=== PATIENT | male | born 1955 | race Caucasian/White ===

== ENCOUNTER 2024-02-11 14:11 | Outpatient (OUT) | payer MEDICARE, OTHER, SELFPAY ==
--- NOTE | 2024-02-11 | XR_ITS ---
The [address] [address] Patient Name: BENNY ZIEGLER MRN: [id number] date: 1955 Sex: M Assigned Patient Location: Current Patient Location: Accession/Order Number: [id number] Exam Date: 02/11/2024 14:16 Report Date: 02/13/2024 06:11 At the request of: BRENDA PULIDO Procedure: XR ankle RT min 3V PROCEDURE: XR ankle RT min 3V HISTORY: RIGHT ANKLE PAIN COMPARISON: None. FINDINGS: BONES:No fracture, acute abnormality, or significant arthropathy. SOFT TISSUES:No visible soft tissue swelling. EFFUSION:None visible. OTHER: Negative. XR/XR ankle RT min 3V IMPRESSION: 1. No appreciable acute abnormality or significant degenerative changes. Electronically authenticated by: MAYAR SHOEMAKER Date: 02/13/2024 06:11
== END 2024-02-11 14:12 | disposition home or self-care (01) ==
LOC: EC 14:11
PROVIDERS: Visit Provider Physician Assistant
DX: M25.571 Pain in right ankle and joints of right foot (principal)
CPT/HCPCS: 73610

== ENCOUNTER 2025-04-27 13:55 | Outpatient (OUT) | payer MEDICARE, OTHER, SELFPAY ==
--- OUTSIDE RECORDS SUMMARY | 2025-04-27 14:00 | XMS_ITS | CCD ---
Author Organization [facility] Care Team Providers Care Supervisor Drawing Name Role Phone Edwardo Michael Unavailable Unavailable Unavailable FERNANDA, DR BROOKE Attending Unavailable FERNANDA, DR BROOKE Consulting Unavailable FERNANDA, DR BROOKE Admitting Unavailable Edwardo Michael Unavailable Fernanda, DO Brooke Primary Care Provider Fernanda, DO Brooke Attending Provider [phone] DO Edwardo Michael Primary Care Provider [phone] Fernanda, DO Brooke Attending Provider Fernanda, DO Brooke Primary Care Provider Fernanda, DO Brooke Attending Provider [phone] DO Dougie Abernathy Attending Provider Edwardo Michael DO Primary Care Provider [phone] Edwardo Michael DO Primary Care Provider [phone] BENNY MURRY Attending Unavailable EDWARDO MICHAEL Primary Care Unavailable BENNY MURRY Referring Unavailable EDWARDO MICHAEL Primary Care Unavailable BENNY MURRY Referring Unavailable EDWARDO MICHAEL Primary Care Unavailable MURPHY TESFAYE Attending Unavailable EDWARDO MICHAEL Primary Care Unavailable BENNY EDWARDS Referring Unavailable EDWARDO MICHAEL Primary Care Unavailable DOUGIE ABERNATHY Attending Unavailable GERMÁN YUAN Referring Unavailable ANANT NORRIS Attending Unavailable PATRICIA ESCALERA Attending Unavailable MURPHY TESFAYE Referring Unavailable ALBINO LOWERY Attending Unavailable MURPHY TESFAYE Referring Unavailable ALBINO LOWERY Attending Unavailable DEARTH, MURPHY Referring Unavailable ALBINO LOWERY Attending Unavailable DEARTH, MURPHY Referring Unavailable PETYAZMINI, GERMÁN A Attending Unavailable BIEDDESMOND, DOUGIE Lozano Attending Unavailable PETITTI, GERMÁN A Referring Unavailable BIEDDESMOND, DOUGIE Lozano Attending Unavailable PETSANJUANITA, GERMÁN A Referring Unavailable BICHRIS, DOUGIE Lozano Attending Unavailable SEBASTIÁN, LABINO Attending Unavailable DEARTH, MURPHY Referring Unavailable LALI, PATRICIA Attending Unavailable DEARTH, MURPHY Referring Unavailable ALBINO LOWERY Attending Unavailable DEARTH, MURPHY Referring Unavailable LALI, PATRICIA Attending Unavailable DEARTH, MURPHY Referring Unavailable ANANT NORRIS Attending Unavailable JOSEMANUEL, DOUGIE Lozano Attending Unavailable Edwardo Michael DO Primary Care Provider Edwardo Michael DO Attending Provider Edwardo Michael Admitting Unavailable Fernanda, Edwardo Primary Care Unavailable Edwardo Michael Attending Unavailable Dougie Abernathy Admitting Unavailable Josemanuel, Dougie Attending Unavailable Fernanda, Edwardo Attending Unavailable Fernanda, Edwardo Admitting Unavailable Fernanda, Edwardo Primary Care Unavailable Josemanuel, Dougie Admitting Unavailable Josemanuel, Dougie Attending Unavailable Fernanda, Edwardo Primary Care Unavailable Fernanda, Edwardo Attending Unavailable Fernanda, Edwardo Admitting Unavailable Edwardo Michael Primary Care Unavailable Allergies Allergy Classification Reported Allergen(s) Allergy Type Date of Onset Reaction(s) Facility (1 source) ALLERGIES NOT ON FILE; Translations: [ALLERGIES NOT ON FILE] Propensity to adverse reactions (disorder) [facility] 3 Repository Medications Current Medications Medication Drug Class(es) Dates Sig (Normalized) Sig (Original) Ascorbic Acid (6 sources) Vitamin C Vitamin C Active aspirin 81 mg delayed release oral tablet (4 sources) Platelet Aggregation Inhibitor, Nonsteroidal Anti-inflammatory Drug Start: 04-30-2024 take 1 tablet by mouth once daily Aspirin 81 mg tablet,delayed release (DR/EC) Active 81 MG PO Daily April 30, 2024 12:00am Complies with drug therapy azithromycin 250 mg oral tablet (4 sources) Macrolide Antimicrobial Start: 06-05-2022 Zithromax Z-Romero 250 MG as directed Orally May, Active cholecalciferol 0.05 mg oral capsule (5 sources) Vitamin D Start: 04-07-2024 take 1 capsule by mouth once daily Cholecalciferol (Vitamin D3) 50 mcg (2,000 unit) capsule Active 50 MCG PO Daily April 07, 2024 12:00am Complies with drug therapy ezetimibe 10 mg oral tablet (20 sources) Dietary Cholesterol Absorption Inhibitor Start: 04-07-2024 End: 04-15-2025 take 1 tablet by mouth once daily Ezetimibe (Zetia) 10 mg tablet Active 10 MG PO Daily April 15, 2025 10:25am Complies with drug therapy Start: 09-15-2015 take 1 tablet by ashkan th every twenty-four hours Zetia 10 MG 1 tablet Orally Once a day Sep, Active fluorouracil 50 mg/ml topical cream (4 sources) Nucleoside Metabolic Inhibitor Start: 04-30-2024 Fluorouracil (Efudex) 5 % cream Active 1 APPLIC TOPICAL Twice daily 40 April 30, 2024 12:00am Complies with drug therapy methylPREDNISolone 4 mg oral tablet (4 sources) Corticosteroid Start: 06-05-2022 Medrol 4 MG as directed Orally May, Active Multivitamin preparation (2 sources) Start: 04-30-2024 take 1 tablet by mouth once daily Multivitamin Active 1 TAB PO Daily April 30, 2024 12:00am Multivitamin tablet (2 sources) Start: 04-30-2024 take 1 tablet by mouth once daily Multivitamin tablet Active 1 TAB PO Daily April 30, 2024 12:00am Complies with drug therapy Start: 04-30-2024 take 1 tablet by mouth once da kevin predniSONE 10 mg oral tablet (1 source) Start: 12-31-2024 predniSONE (Deltasone) 10 mg tablet Indications: Right shoulder pain, unspecified chronicity , Tendinitis of right rotator cuff 50MG FOR 2 DAYS, 40MG FOR 2 DAYS, 30MG FOR 2 DAYS, 20MG FOR 2 DAYS, 10MG FOR 2 DAYS 30 tablet 12/31/2024 Active sildenafil 100 mg oral tablet (17 sources) Phosphodiesterase 5 Inhibitor Start: 04-07-2024 End: 04-30-2024 take 1 tablet by mouth once daily as needed Sildenafil (Viagra) 100 mg tablet Active 100 MG PO Daily as needed for sexual activity April 30, 2024 10:25am Complies with drug therapy Start: 01-26-2017 take 1 tablet by ashkan th every twenty-four hours Viagra 100 MG 1 tablet as needed Orally Once a day for 30 day(s) alternates with cialis, NO NOT TAKE TOGETHER Jan, Active Vitamin D (6 sources) Vitamin D Active Zinc (6 sources) Zinc Active zinc gluconate 50 mg oral tablet (5 sources) Start: 04-07-2024 take 1 tablet by mouth once daily Zinc Gluconate 50 mg tablet Active 50 MG PO Daily April 07, 2024 12:00am Complies with drug therapy Completed/Discontinued Medications Medication Drug Class(es) Dates Sig (Normalized) Sig (Original) betamethasone 3 mg/ml / betamethasone acetate 3 mg/ml injectable suspension (4 sources) Corticosteroid Start: 12-31-2024 End: 12-31-2024 betamethasone acet,sod phos (Celestone) injection 2 mL Start: 12-31-2024 End: 12-31-2024 2 mL, intra-articular, Once PRN Procedure, Starting on Sun12/31/24 at 1450, For 1 dose Start: 04-27-2021 Betamethasone Sod Phos & Acet 6 (3-3) MG/ML Injection Suspension USE DIRECTED. Quantity: 0 Refills: 0 Ordered: 27-Apr-2021 Benny Murry MD Start : 27-Apr-2021 Complete Lidocaine (4 sources) Antiarrhythmic, Amide Local Anesthetic Start: 12-31-2024 End: 12-31-2024 lidocaine (Xylocaine) 10 mg/mL (1 %) injection 5 mL Start: 12-31-2024 End: 12-31-2024 5 mL, injection, Once PRN Pr ocedure, Starting on Sun12/31/24 at 1450, For 1 dose Start: 04-27-2021 Lidocaine HCl - 1 % Injection Solution USE DIRECTED. Quantity: 0 Refills: 0 Ordered: 27-Apr-2021 Benny Murry MD Start : 27-Apr-2021 Complete tadalafil 20 mg oral tablet (16 sources) Phosphodiesterase 5 Inhibitor Start: 04-07-2024 End: 04-30-2024 take 1 tablet by mouth once daily as needed Tadalafil 20 mg tablet Discontinued 20 MG PO Daily as needed April 07, 2024 12:00am April 30, 2024 9:34am FreeTextSi tablet as needed Orally once a day PRN; Note: Source Status: Takingalternates with viagra, DO NOT TAKE TOGETHER; Refills: 3; Provider: Fernanda Kingston Start: 04-13-2021 take 1 tablet by ashkan th once daily as needed Cialis 20 MG 1 tablet as needed Orally once a day PRN alternates with viagra, DO NOT TAKE TOGETHER Apr, Active Triamcinolone (8 sources) Corticosteroid Start: 01-22-2018 Kenalog -40 mg Jan, 40 mg Problems Active Problems Problem Classification Problem Date Documented Da te Episodic/Chronic Anxiety disorders (17 sources) Anxiety; Translations: [Anxiety disorder, unspecified] Onset: 04-22-2024 04-07-2024 Chronic Cardiac dysrhythmias (1 source) Palpitations Episodic Diabetes mellitus without complication (6 sources) Hyperglycemia; Translations: [Hyperglycemia, unspecified] 04-30-2024 Episodic Disorders of lipid metabolism (20 sources) Hyperlipidemia; Translations: [Hyperlipidemia, unspecified] Onset: 04-13-2021 Resolved: 03-07-2022 Chronic Immunizations and screening for infectious disease (9 sources) Contact with and (suspected) exposure to other viral communicable diseases; Translations: [Encounter for screening for other viral diseases] Onset: 04-22-2021 Resolved: 04-22-2021 Episodic Nutritional deficiencies (20 sources) Vitamin D deficiency; Translations: [Vitamin D deficiency, unspecified] Onset: 03-07-2022 Resolved: 03-07-2022 Chronic Open wounds of extremities (1 source) Laceration without foreign body of right middle finger without damage to nail, initial encounter Episodic Osteoarthritis (17 sources) Bilateral shoulder osteoarthritis; Translations: [Osteoarthrosis, localized, primary, shoulder region] 04-07-2024 Chronic Other connective tissue disease (4 sources) Neurological symptom; Translations: [Unspecified symptoms and signs involving the nervous system] 04-30-2024 Episodic Other connective tissue disease (1 source) Tendinitis of right rotator cuff; Translations: [Other shoulder lesions, right shoulder] 12-31-2024 Episodic Other connective tissue disease (2 sources) Other shoulder lesions, right shoulder; Translations: [Other shoulder lesions, right shoulder] Onset: 12-31-2024 Episodic Other male genital disorders (11 sources) Impotence of organic origin; Translations: [Male erectile dysfunction, unspecified] Chronic Other male genital disorders (3 sources) Male erectile dysfunction, unspecified; Translations: [Erectile dysfunction N52.9] Onset: 04-13-2021 Resolved: 12-27-2021 Chronic Other non-traumatic joint disorders (1 source) Shoulder pain; Translations: [Pain in joint, shoulder region] Episodic Other non-traumatic joint disorders (2 sources) Hip pain; Translations: [Pain in left hip] 12-31-2024 Episodic Other non-traumatic joint disorders (3 sources) Pain in right shoulder; Translations: [Pain in joint, shoulder region] Onset: 12-31-2024 12-31-2024 Episodic Other non-traumatic joint disorders (2 sources) Pain in left hip; Translations: [Pain in left hip] Onset: 12-31-2024 Episodic Other skin disorders (5 sources) Disorder of nail; Translations: [Nail disorder, unspecified] Episodic Other skin disorders (4 sources) Actinic keratosis; Translations: [Actinic keratosis] 04-30-2024 Episodic Other skin disorders (2 sources) Actinic keratosis; Translations: [Actinic keratosis] 04-30-2024 Episodic Residual codes; unclassified (11 sources) Memory impairment; Translations: [Other amnesia] Episodic Spondylosis; intervertebral disc disorders; other back problems (11 sources) Bilateral inflammation of sacroiliac joint; Translations: [Sacroiliitis, not elsewhere classified] Chronic Spondylosis; intervertebral disc disorders; other back problems (6 sources) Lumbar radiculopathy; Translations: [Low back pain] Onset: 01-15-2025 01-15-2025 Episodic Thyroid disorders (12 sources) Thyroid nodule; Translations: [Nontoxic single thyroid nodule] Chronic Unclassified (3 sources) CONTACT W/AND (SUSP) EXPOS COVID-19; Translations: [CONTACT W/AND (SUSP) EXPOS COVID-19] Onset: 05-02-2021 Unclassified (3 sources) Right shoulder pain, unspecified chronicity 12-31-2024 Unclassified (1 source) Low back pain, unspecified; Translations: [Low back pain, unspecified] Onset: 01-15-2025 Past or Other Problems Problem Classification Problem Date Documented Date Episodic/Chronic Other connective tissue disease (3 sources) Unspecified symptoms and signs involving the nervous system; Translations: [Other symptoms involving nervous and musculoskeletal systems] Onset: 05-08-2024 04-30-2024 Episodic Other non-epithelial cancer of skin (7 sources) Malignant neoplasm of skin; Translations: [Other specified malignant neoplasm of skin, unspecified] Onset: 05-02-2024 04-30-2024 Episodic Other screening for suspected conditions (not mental disorders or infectious disease) (20 sources) Patient encounter status; Translations: [Encounter for screening for cardiovascular disorders] Onset: 04-13-2021 Resolved: 03-07-2022 Episodic Other skin disorders (1 source) Disorder of the skin and subcutaneous tissue, unspecified; Translations: [Disorder of the skin and subcutaneous tissue, unspecified] Onset: 06-02-2024 Episodic Residual codes; unclassified (1 source) Other amnesia; Translations: [Memory changes R41.3] Onset: 04-13-2021 Resolved: 04-13-2021 Episodic Unclassified (1 source) CONTACT W/AND (SUSP) EXPOS COVID-19; Translations: [CONTACT W/AND (SUSP) EXPOS COVID-19] Onset: 04-26-2021 Unclassified (1 source) Low back pain, unspecified; Translations: [Low back pain, unspecified] Onset: 01-15-2025 Results Test Name Value Interpretation Reference Range Facility Alanine aminotransferase [En zymatic activity/volume] in Serum or PlasmaOrdered By: Edwardo Michael on 04-08-2025 ALT [Catalytic activity/Vol] 21 U/L Normal 7-52 [facility] Comment on above: Performed By: #### C MP, LIPID, TSH3, CBC, PSAS ####[facility] [id number] [place] [id number] [facility] Albumin [Mass/volume] in Ser um or Plasma by Bromocresol green (BCG) dye binding methoOrdered By: Edwardo Michael on 04-08-2025 Albumin BCG dye [Mass/Vol] 4.3 g/dL 3.5-5.7 [facility] Alkaline phosphatase [Enzyma tic activity/volume] in Serum or PlasmaOrdered By: Edwardo Michael on 04-08-2025 ALP [Catalytic activity/Vol] 73 U/L Normal 34-104 [facility] Comment on above: Performed By: #### C MP, LIPID, TSH3, CBC, PSAS ####[address] Aspartate aminotransferase [ Enzymatic activity/volume] in Serum or PlasmaOrdered By: Edwardo Michael on 04-08-2025 AST [Catalytic activity/Vol] 22 U/L Normal 13-39 [facility] Comment on above: Performed By: #### C MP, LIPID, TSH3, CBC, PSAS ####[address] Basophils [#/volume] in Bloo d by Automated countOrdered By: Edwardo Michael on 04-08-2025 Basophils (Bld) [#/Vol] 0.0 10*3/uL Normal 0.0-0.2 [facility] Comment on above: Result Comment: PERF ORMED BY: [place] [id number] PATHOLOGIST SENIOR [employer] LIVIER MOSS M.D. Performed By: #### C MP, LIPID, TSH3, CBC, PSAS #### [address] Basophils/100 leukocytes in Blood by Automated countOrdered By: Edwardo Michael on 04-08-2025 Basophils/100 WBC (Bld) 0.7 % Normal . [facility] Comment on above: Performed By: #### C MP, LIPID, TSH3, CBC, PSAS #### [address] Bilirubin.total [Mass/volume ] in Serum or PlasmaOrdered By: Edwardo Michael on 04-08-2025 Bilirubin [Mass/Vol] 0.7 mg/dL Normal 0.3-1.0 [facility] Comment on above: Performed By: #### C MP, LIPID, TSH3, CBC, PSAS ####[address] Calcium [Mass/volume] in Ser um or PlasmaOrdered By: Edwardo Michael on 04-08-2025 Calcium [Mass/Vol] 9.5 mg/dL Normal 8.6-10.3 [facility] Comment on above: Performed By: #### C MP, LIPID, TSH3, CBC, PSAS ####[address] Carbon dioxide, total [Moles /volume] in Serum or PlasmaOrdered By: Edwardo Michael on 04-08-2025 CO2 [Moles/Vol] 28.4 mmol/L Normal 21.0-31.0 [facility] Comment on above: Performed By: #### C MP, LIPID, TSH3, CBC, PSAS ####[address] Chloride [Moles/volume] in [place] or PlasmaOrdered By: Edwardo Michael on 04-08-2025 Chloride [Moles/Vol] 106 mmol/L Normal 98-107 [facility] Comment on above: Performed By: #### C MP, LIPID, TSH3, CBC, PSAS ####[place] [id number] [facility] Cholesterol [Mass/volume] in Serum or PlasmaOrdered By: Edwardo Michael on 04-08-2025 Cholesterol [Mass/Vol] 203 mg/dL High 140-200 [facility] Comment on above: Chol less than 200 m g/dl low riskChol 201-239 mg/dl borderline riskChol 240 mg/dl and greater high risk Result Comment: Chol less than 200 mg/dl low risk Chol 201-239 mg/dl borderline risk Chol 240 mg/dl and greater high risk Performed By: #### C MP, LIPID, TSH3, CBC, PSAS ####[place] [id number] [place] Cholesterol in HDL [Mass/vol ume] in Serum or PlasmaOrdered By: Edwardo Michael on 04-08-2025 Cholesterol in HDL [Mass/Vol] 37 mg/dL Normal 23-92 [facility] Comment on above: HDL CHOL ATP-III CLA SSIFICATION Cardiovascular RiskHDL > or equal to 60 mg/dL LOWHDL < 40 mg/dL HIGH Result Comment: HDL CHOL ATP-III CLASSIFICATION Cardiovascular Risk HDL > or equal to 60 mg/dL LOW HDL < 40 mg/dL HIGH Performed By: #### C MP, LIPID, TSH3, CBC, PSAS ####[facility] Cholesterol in LDL Calc [Mas s/Vol]Ordered By: Edwardo Michael on 04-08-2025 Cholesterol in LDL [Mass/Vol] 142 mg/dL High 0-100 [facility] Comment on above: LDL ATP III CLASSIFI CATIONLDL less than 100 mg/dL OptimalLDL 100-129 mg/dL Near or above optimalLDL 130-159 mg/dL Borderline highLDL 160-189 mg/dL HighLDL greater than 189 mg/dL Very high Cholesterol in VLDL Calc [Ma ss/Vol]Ordered By: Edwardo Michael on 04-08-2025 Cholesterol in VLDL [Mass/Vol] 24 mg/dL [facility] Complete Blood Count Auto Di ffon 04-08-2025 Mean Corpuscular HGB Conc 34.3 g/dL Normal 32.5-35.6 [facility] Comment on above: Performed By: #### C MP, LIPID, TSH3, CBC, PSAS #### [facility] [address] NRBC% 0.2 /100{WBC} Normal 0-0.5 [facility] Comment on above: Performed By: #### C MP, LIPID, TSH3, CBC, PSAS #### [facility] [address] White Blood Count 5.6 [CFU]/mL Normal 4.1-10.5 [facility] Comment on above: Performed By: #### C MP, LIPID, TSH3, CBC, PSAS #### [facility] [address] Comprehensive Metabolic Pane tobias 04-08-2025 Albumin [Mass/Vol] 4.3 g/dL Normal 3.5-5.7 [facility] Comment on above: Performed By: #### C MP, LIPID, TSH3, CBC, PSAS ####[facility] GFR/1.73 sq M.predicted MDRD (S/P/Bld) [Vol rate/Area] mL/min/{1.73_m2} Normal [facility] Comment on above: Performed By: #### C MP, LIPID, TSH3, CBC, PSAS ####[facility] [place] [address] Creatinine [Mass/volume] in Serum or PlasmaOrdered By: Edwardo Michael on 04-08-2025 Creatinine [Mass/Vol] 1.01 mg/dL Normal 0.70-1.30 [facility] Comment on above: Performed By: #### C MP, LIPID, TSH3, CBC, PSAS ####[address] Eosinophils [#/volume] in Bl ood by Automated countOrdered By: Edwardo Michael on 04-08-2025 Eosinophils (Bld) [#/Vol] 0.1 10*3/uL Normal 0.0-0.45 [facility] Comment on above: Performed By: #### C MP, LIPID, TSH3, CBC, PSAS #### [place] [address] [place] Eosinophils/100 leukocytes i n Blood by Automated countOrdered By: Edwardo Michael on 04-08-2025 Eosinophils/100 WBC (Bld) 1.6 % Normal . [facility] Comment on above: Performed By: #### C MP, LIPID, TSH3, CBC, PSAS #### [facility] [address] [place] [address] [place] Erythrocyte distribution wid th [Ratio] by Automated countOrdered By: Edwardo Michael on 04-08-2025 Erythrocyte distribution width (RBC) [Ratio] 12.8 % Normal 12.0-14.8 [facility] Comment on above: Performed By: #### C MP, LIPID, TSH3, CBC, PSAS #### [place] [address] [place] Erythrocytes [#/volume] in B lood by Automated countOrdered By: Edwardo Michael on 04-08-2025 RBC (Bld) [#/Vol] 4.77 10*6/uL Normal 3.90-5.60 [facility] Comment on above: Performed By: #### C MP, LIPID, TSH3, CBC, PSAS #### [facility] [address] Glomerular filtration rate [ Volume Rate/Area] in Serum, Plasma or Blood by CreatinineOrdered By: Edwardo Michael on 04-08-2025 Glomerular filtration rate [Volume Rate/Area] in Serum, Plasma or Blood by Creatinine > 60.0 mL/Min [facility] Glucose [Mass/volume] in Ser um or PlasmaOrdered By: Edwardo Michael on 04-08-2025 Glucose [Mass/Vol] 105 mg/dL High 70-100 [facility] Comment on above: ADA recommended refe rence rangeRandom Glucose Reference Range is dependent on time and content of last meal. Glucose of more than 200 mg/dL in a nonstressed, ambulatory subject supports the diagnosis of Diabetes Mellitus. Result Comment: [place] om Glucose Reference Range is dependent on time and content of last meal. Glucose of more than 200 mg/dL in a nonstressed, ambulatory subject supports the diagnosis of Diabetes Mellitus. ADA recommended reference range Performed By: #### C MP, LIPID, TSH3, CBC, PSAS ####[facility] [id number] Hematocrit [Volume Fraction] of Blood by Automated countOrdered By: Edwardo Michael on 04-08-2025 Hematocrit (Bld) [Volume fraction] 44.4 % Normal 38.8-50.0 [facility] Comment on above: Performed By: #### C MP, LIPID, TSH3, CBC, PSAS #### [facility] [address] [place] [address] [place] Hemoglobin [Mass/volume] in BloodOrdered By: Edwardo Michael on 04-08-2025 Hemoglobin (Bld) [Mass/Vol] 15.2 g/dL Normal 13.0-17.0 [facility] Comment on above: Performed By: #### C MP, LIPID, TSH3, CBC, PSAS #### [facility] [address] Leukocytes [#/volume] correc srikanth for nucleated erythrocytes in Blood by Automated counOrdered By: Edwardo Michael on 04-08-2025 WBC corrected for nucl RBC Auto (Bld) [#/Vol] 5.6 10*3/uL 4.1-10.5 [facility] Leukocytes [#/volume] in Blo od by Automated countOrdered By: Edwardo Michael on 04-08-2025 WBC (Bld) [#/Vol] 5.6 10*3/uL Normal 4.1-10.5 [facility] Comment on above: Performed By: #### C MP, LIPID, TSH3, CBC, PSAS #### [facility] [address] Lipid Panelon 04-08-2025 LDL Cholesterol,Calculated 142 mg/dL High 0-100 [facility] Comment on above: Result Comment: LDL ATP III CLASSIFICATION LDL less than 100 mg/dL Optimal LDL 100-129 mg/dL Near or above optimal LDL 130-159 mg/dL Borderline high LDL 160-189 mg/dL High LDL greater than 189 mg/dL Very high Performed By: #### C MP, LIPID, TSH3, CBC, PSAS ####[address] Triglyceride w/Reflex 122 mg/dL Normal 0-149 [facility] Comment on above: Result Comment: TRIG ATP III CLASSIFICATION TRIG less than 150 mg/dL Normal TRIG 150-199 mg/dL Borderline high TRIG 200-500 mg/dL High TRIG greater than 500 mg/dL Very high Standard traceable to the Center for Disease Conrtrol and Prevention (CDC) test method. Performed By: #### C MP, LIPID, TSH3, CBC, PSAS ####[address] VLDL CHOLESTEROL 24 mg/dL Normal [facility] Comment on above: Performed By: #### C MP, LIPID, TSH3, CBC, PSAS ####[place] [id number] [place] Lymphocytes [#/volume] in Bl ood by Automated countOrdered By: Edwardo Michael on 04-08-2025 Lymphocytes (Bld) [#/Vol] 1.3 10*3/uL Normal 1.00-4.8 [facility] Comment on above: Performed By: #### C MP, LIPID, TSH3, CBC, PSAS #### [facility] [address] Lymphocytes/100 leukocytes i n Blood by Automated countOrdered By: Edwardo Michael on 04-08-2025 Lymphocytes/100 WBC (Bld) 23.2 % Normal . [facility] Comment on above: Performed By: #### C MP, LIPID, TSH3, CBC, PSAS #### [facility] [address] MCH [Entitic mass] by Automa srikanth countOrdered By: Edwardo Michael on 04-08-2025 MCH (RBC) [Entitic mass] 31.9 pg Normal 27.5-35.2 [facility] Comment on above: Performed By: #### C MP, LIPID, TSH3, CBC, PSAS #### [facility] [address] [place] [address] MCHC Auto (RBC) [Mass/Vol]Or dered By: Edwardo Michael on 04-08-2025 MCHC (RBC) [Mass/Vol] 34.3 g/dL 32.5-35.6 [facility] MCV [Entitic volume] by Auto mated countOrdered By: Edwardo Michael on 04-08-2025 MCV (RBC) [Entitic vol] 93.1 fL Normal 83.5-101 [facility] Comment on above: Performed By: #### C MP, LIPID, TSH3, CBC, PSAS #### [facility] [address] Monocytes [#/volume] in Bloo d by Automated countOrdered By: Edwardo Michael on 04-08-2025 Monocytes (Bld) [#/Vol] 0.6 10*3/uL Normal 0.0-0.8 [facility] Comment on above: Performed By: #### C MP, LIPID, TSH3, CBC, PSAS #### [facility] [address] [place] [address] [place] Monocytes/100 leukocytes in Blood by Automated countOrdered By: Edwardo Michael on 04-08-2025 Monocytes/100 WBC (Bld) 10.0 % Normal . [facility] Comment on above: Performed By: #### C MP, LIPID, TSH3, CBC, PSAS #### [facility] [address] [place] [address] [place] Neutrophils [#/volume] in Bl ood by Automated countOrdered By: Edwardo Michael on 04-08-2025 Neutrophils (Bld) [#/Vol] 3.6 10*3/uL Normal 1.8-7.7 [facility] Comment on above: Performed By: #### C MP, LIPID, TSH3, CBC, PSAS #### [facility] [address] [place] [address] [place] Neutrophils/100 leukocytes i n Blood by Automated countOrdered By: Edwardo Michael on 04-08-2025 Neutrophils/100 WBC (Bld) 64.5 % Normal . [facility] Comment on above: Performed By: #### C MP, LIPID, TSH3, CBC, PSAS #### [facility] [address] No Panel InformationOrdered By: Edwardo Michael on 04-08-2025 Pharmacy Creatinine Clearance (Chem N/A [facility] Nucleated erythrocytes [Pres ence] in Blood by Automated countOrdered By: Edwardo Michael on 04-08-2025 Nucleated RBC Auto Ql (Bld) 0.2 /100{WBC} 0-0.5 [facility] PSA Screen (Yearly Only)on PSA Screen (Yearly Only) 0.620 ng/mL Normal 0.000-4.000 [facility] Comment on above: Order Comment: Is pa tient <50 yrs? Medicare does not pay <50.: N What is the date of the last PSA Screen?: [id number] Is Medicare the insurance?: Y Did you verify eligibility (Dx Time) check TestViewGp: YES TO ALL Result Comment: Seri al tumor marker results determined by assays using different manufacturers or methods may not be comparable. 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 PERFORMED BY: [place] [address] PATHOLOGIST SENIOR SQL SERVER DBA LIVIER MOSS M.D. Performed By: #### C MP, LIPID, TSH3, CBC, PSAS #### [address] Platelet mean volume [Entiti c volume] in Blood by Automated countOrdered By: Edwardo Michael on 04-08-2025 Platelet mean volume (Bld) [Entitic vol] 9.8 fL Normal 6.6-10.1 [facility] Comment on above: Performed By: #### C MP, LIPID, TSH3, CBC, PSAS #### [address] Platelets [#/volume] in Bloo d by Automated countOrdered By: Edwardo Michael on 04-08-2025 Platelets (Bld) [#/Vol] 268 10*3/uL Normal 150-450 [facility] Comment on above: Performed By: #### C MP, LIPID, TSH3, CBC, PSAS #### [address] Potassium [Moles/volume] in Serum or PlasmaOrdered By: Edwardo Michael on 04-08-2025 Potassium [Moles/Vol] 4.5 mmol/L Normal 3.5-5.1 [facility] Comment on above: Performed By: #### C MP, LIPID, TSH3, CBC, PSAS ####[facility] [id number] Prostate specific Ag [Mass/v olume] in Serum or PlasmaOrdered By: Edwardo Michael on 04-08-2025 Prostate specific Ag [Mass/Vol] 0.620 ng/mL 0.000-4.000 [facility] Comment on above: Serial tumor marker results determined by assays using different manufacturers or methods may not be comparable.[facility] vacuum cleaner repair person and method:[employer] UNICEL DXI, CHEMILUMINESCENT IMMUNOASSAY. Protein [Mass/volume] in Ser um or PlasmaOrdered By: Edwardo Michael on 04-08-2025 Protein [Mass/Vol] 7.1 g/dL Normal 6.4-8.9 [facility] Comment on above: Performed By: #### C MP, LIPID, TSH3, CBC, PSAS ####[place] [id number] [address] Serum globulin measurement b y calculation (mass/volume)Ordered By: Edwardo Michael on 04-08-2025 Globulin (S) [Mass/Vol] 2.8 g/dL Normal [facility] Comment on above: Performed By: #### C MP, LIPID, TSH3, CBC, PSAS ####[address] Serum or plasma albumin/glob ulin mass ratioOrdered By: Edwardo Michael on 04-08-2025 Albumin/Globulin [Mass ratio] 1.5 {ratio} Normal [facility] Comment on above: Performed By: #### C MP, LIPID, TSH3, CBC, PSAS ####[address] Serum or plasma anion gap de terminationOrdered By: Edwardo Michael on 04-08-2025 Anion gap [Moles/Vol] 10.1 mmol/L Normal 6.0-15.0 [facility] Comment on above: Performed By: #### C MP, LIPID, TSH3, CBC, PSAS ####[address] Serum or plasma total choles terol/high density lipoprotein (HDL) cholesterol mass ratOrdered By: Edwardo Michael on 04-08-2025 Cholesterol.total/Chol esterol in HDL [Mass ratio] 5.5 {ratio} Normal <5.0 [facility] Comment on above: Performed By: #### C MP, LIPID, TSH3, CBC, PSAS ####[address] Sodium [Moles/volume] in Ser um or PlasmaOrdered By: Edwardo Michael on 04-08-2025 Sodium [Moles/Vol] 140 mmol/L Normal 136-145 [facility] Comment on above: Performed By: #### C MP, LIPID, TSH3, CBC, PSAS ####[facility] [place] [id number] [facility] Thyrotropin [Units/volume] i n Serum or PlasmaOrdered By: Edwardo Michael on 04-08-2025 TSH Qn 1.23 m[IU]/L Normal 0.45-5.33 [facility] Comment on above: Result Comment: PERF ORMED BY: [facility] [address] [place] [id number] PATHOLOGIST SENIOR SQL SERVER DBA LIVIER MOSS M.D. Performed By: #### C MP, LIPID, TSH3, CBC, PSAS ####[place] [address] [place] [id number] [facility] Triglyceride [Mass/volume] i n Serum or PlasmaOrdered By: Edwardo Michael on 04-08-2025 Triglyceride [Mass/Vol] 122 mg/dL 0-149 [facility] Comment on above: TRIG ATP III CLASSIF ICATIONTRIG less than 150 mg/dL NormalTRIG 150-199 mg/dL Borderline highTRIG 200-500 mg/dL High TRIG greater than 500 mg/dL Very highStandard traceable to the Center for Disease Conrtrol and Prevention (CDC) test method. Urea nitrogen [Mass/volume] in Serum or PlasmaOrdered By: Edwardo Michael on 04-08-2025 Urea nitrogen [Mass/Vol] 17 mg/dL Normal 7-25 [facility] Comment on above: Performed By: #### C MP, LIPID, TSH3, CBC, PSAS ####[place] [address] [place] [id number] [facility] XR LUMBAR SPINE 4+ VIEWS WIT H FLEXION EXTENSIONon 01-15-2025 XR LUMBAR SPINE 4+ VIEWS WITH FLEXION EXTENSION Interpreted By: Benny Edwards, STUDY: XR LUMBAR SPINE 4+ VIEWS WITH FLEXION EXTENSION; 01/15/2025 1:09 pm INDICATION: Signs/Symptoms:pain. ACCESSION NUMBER(S): [id number] ORDERING CLINICIAN: BENNY EDWARDS FINDINGS: AP lateral flexion extension x-rays of the lumbar spine shows moderate degenerative changes at all levels with disc height loss, endplate irregularity and osteophyte formation. There is a grade 1 spondylolisthesis at L4-5. There is no spondylolysis. There is no fractures. Lumbar lordosis is maintained. Range of motion with flexion and extension is preserved. There is a scoliosis of 10 degrees. Pedicles are visualized at all levels. Bony pelvis and hips are partially visualized and show minimal bilateral hip degenerative changes with lack of coverage of the right femoral head laterally compared to the left. Signed by: Benny Edwards 01/16/2025 1:03 PM Dictation workstation: [id number] [facility] L Inj/Asp: R subacromial bur saon 12-31-2024 Benny Murry MD 12/31/2024 2:50 PM L Inj/Asp: R subacromial bursa on 12/31/2024 2:50 PM Indications: pain Details: 22 G needle, medial approach Medications: 2 mL betamethasone acet,sod phos 6 mg/mL; 5 mL lidocaine 10 mg/mL (1 %) Outcome: tolerated well, no immediate complications Procedure, treatment alternatives, risks and benefits explained, specific risks discussed. Consent was given by the patient. Immediately prior to procedure a time out was called to verify the correct patient, procedure, equipment, manager product support and site/side marked as required. [facility] Work Phone: [facility] Work Phone: XR HIP LEFT WITH PELVIS WHEN PERFORMED 2 OR 3 VIEWSon 12-31-2024 XR HIP LEFT WITH PELVIS WHEN PERFORMED 2 OR 3 VIEWS Interpreted By: Benny Murry, STUDY: XR HIP LEFT WITH PELVIS WHEN PERFORMED 2 OR 3 VIEWS; 12/31/2024 2:41 pm INDICATION: Signs/Symptoms:pain. 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 No fracture dislocation noted Signed by: Benny Murry 12/31/2024 2:54 PM Dictation workstation: [id number] [facility] Comment on above: Order Comment: AP/LA T XR Hip Viewson 12-31-2024 Interpreted By: Benny Marin, STUDY: XR HIP LEFT WITH PELVIS WHEN PERFORMED 2 OR 3 VIEWS; 12/31/2024 2:41 pm INDICATION: Signs/Symptoms:pain. 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 No fracture dislocation noted Signed by: Benny Murry 12/31/2024 2:54 PM Dictation workstation: [id number] MMBenny Gifford M D - 12/31/2024 Interpreted By: Benny Murry, STUDY: XR HIP LEFT WITH PELVIS WHEN PERFORMED 2 OR 3 VIEWS; 12/31/2024 2:41 pm INDICATION: Signs/Symptoms:pain. 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 No fracture dislocation noted Signed by: Benny Murry 12/31/2024 2:54 PM Dictation workstation: [id number] [facility] Work Phone: [facility] Work Phone: Radiology Study observation (narrative) [facility] Work Phone: XR SHOULDER RIGHT 2+ VIEWSon 12-31-2024 XR SHOULDER RIGHT 2+ VIEWS Interpreted By: Benny Murry, STUDY: XR SHOULDER RIGHT 2+ VIEWS; 12/31/2024 2:53 pm INDICATION: Signs/Symptoms:pain. ACCESSION NUMBER(S): [id number] ORDERING CLINICIAN: BENNY MURRY FINDINGS: AP axillary right shoulder shows advanced arthritis right glenohumeral joint osteophyte spur formation is noted. The subacromial space is still preserved. On the axillary view there is severe arthrosis with xbxq-eh-pesr arthritis Signed by: Benny Murry 12/31/2024 2:54 PM Dictation workstation: [id number] [facility] XR Shoulder - right 2 Viewso n 12-31-2024 Interpreted By: Benny Marin, STUDY: XR SHOULDER RIGHT 2+ VIEWS; 12/31/2024 2:53 pm INDICATION: Signs/Symptoms:pain. ACCESSION NUMBER(S): [id number] ORDERING CLINICIAN: BENNY MURRY FINDINGS: AP axillary right shoulder shows advanced arthritis right glenohumeral joint osteophyte spur formation is noted. The subacromial space is still preserved. On the axillary view there is severe arthrosis with chpl-ux-hvrw arthritis Signed by: Benny Murry 12/31/2024 2:54 PM Dictation workstation: [id number] MMODAL Benny Murry M D - 12/31/2024 Interpreted By: Benny Murry, STUDY: XR SHOULDER RIGHT 2+ VIEWS; 12/31/2024 2:53 pm INDICATION: Signs/Symptoms:pain. ACCESSION NUMBER(S): [id number] ORDERING CLINICIAN: BENNY MURRY FINDINGS: AP axillary right shoulder shows advanced arthritis right glenohumeral joint osteophyte spur formation is noted. The subacromial space is still preserved. On the axillary view there is severe arthrosis with tlur-ln-nnef arthritis Signed by: Benny Murry 12/31/2024 2:54 PM Dictation workstation: [id number] [facility] Work Phone: [facility] Work Phone: Radiology Study observation (narrative) [facility] Work Phone: Tobias 06-02-2024 L ----- Specimen: [id number] Received: 06/02/24 Status: ANNA Valenzuela Num: [id number] Spec Type: Surgical Subm Dr: Dougie Abernathy DO Tissues: A Skin-Other than Cyst, tag, debridement or plastic repair (LEFT FOREHEAD LESI B Skin-Other than Cyst, tag, debridement or plastic repair (LEFT SCALP LESION) Procedures: HE/2, Gross/Micro L4/2 Age/ Patient Sex Location Account Attending Physician Benny Brand 68/M [facility] [id number] Dougie Abernathy DO SPEC NUM: [id number] RECD: 06/02/24 STATUS: ANNA VALENZUELA NUM: [id number] SUSIE: 06/02/[address]: Dougei Abernathy DO ENTERED: 06/02/[address] [facility] [address]: SPEC TYPE: Surgical DEPT: S ENTERED BY: [id number] RECV BY: [id number] ORDERED: HE/2, Gross/Micro L4/2 ORDERED: HE/2, Gross/Micro L4/2 Pathological Diagnosis A. Skin lesion, forehead left, biopsy: Minute fragment of reactive keratosis, favor verrucoid keratosis. B. Skin lesion, scalp left, biopsy: Minute fragment of reactive keratosis. Clinical Information Skin lesion left forehead and left scalp Gross Description Part A is received in formalin labeled with the patients name, date of , and left forehead lesion is a brand-kimble, finely granular, focally erythematous, 0.2 cm in diameter by 0.2 cm in depth punch biopsy of skin. The specimen is inked black, and submitted intact in a single cassette. (1, ns, [id number] A0) JG Part B is received in formalin labeled with the patients name, date of , and scalp lesion left are 2 brand-kimble, finely granular, 0.2 cm in greatest dimension each polypoid- like portions of skin. The specimens are inked black at the apparent point of attachment and entirely submitted in a single cassette. (1, ns, [id number] B) JG Specimen: [id number] Received: 06/02/24 Status: ANNA Bianca Num: [id number] Spec Type: Surgical Subm Dr: Dougie Abernathy, Tissues: A Skin-Other than Cyst, tag, debridement or plastic repair (LEFT FOREHEAD LESI B Skin-Other than Cyst, tag, debridement or plastic repair (LEFT SCALP LESION) Procedures: HE/2, Gross/Micro L4/2 Patient: Benny Brand [id number] (Continued) Specimen: [id number] Received: 06/02/24 (Continued) Signed (signature on file) Gray Cook MD 06/03/24 1647 Specimen: [id number] Received: 06/02/24 Status: ANNA Valenzuela Num: [id number] Spec Type: Surgical Subm Dr: Dougie Abernathy DO Tissues: A Skin-Other than Cyst, tag, debridement or plastic repair (LEFT FOREHEAD LESI B Skin-Other than Cyst, tag, debridement or plastic repair (LEFT SCALP LESION) Procedures: HE/2, Gross/Allison L4/2 Patient: Benny Brand [id number] (Continued) Specimen: [id number] Received: 06/02/24 (Continued) CPT Codes 70569t4 Specimen: [id number] Received: 06/02/24 Status: ANNA Valenzuela Num: [id number] Spec Type: Surgical Subm Dr: Dougie Abernathy DO Tissues: A Skin-Other than Cyst, tag, debridement or plastic repair (LEFT FOREHEAD LESJagjit B Skin-Other than Cyst, tag, debridement or plastic repair (LEFT SCALP LESION) Procedures: HE/2, Gross/Micro L4/2 Patient: Benny Brand [id number] (Continued) Signed (signature on file) Gray Cook MD 06/03/24 1647 Normal [facility] CT angio headon 05-08-2024 CT angio head [facility] [place] [address] CT Scan Report Signed Patient: Benny Brand MR#: [id number] 3 : 1955 Acct:[id number] Age/Sex: 68 / M ADM Date: 05/08/24 Loc: CT Room: Type: [facility] Attending Dr: Edwardo Michael DO Copies to: Edwardo Michael DO Ordering Provider: Edwardo Michael DO Date of Service: 05/08/24 CT/CT angio head: R29.90 - Unspecified symptoms and signs involving the ner... CT angio head 05/08/2024 8:59 AM SIGNS AND SYMPTOMS: R29.90 - Unspecified symptoms and signs involving the ner... TECHNIQUE: Multi-detector CT angiography axial slices of the head were obtained during intravenous administration of IV contrast material. Sagittal, coronal, and 3-D reconstructions were performed and viewed on a separate workstation. CT was performed with one or more of the following dose reduction techniques: Automated exposure control, adjustment of the mA and/or kV according to patient size, or use of iterative reconstruction technique. COMPARISON: None. FINDINGS: CTA HEAD: Posterior inferior cerebellar arteries : patent Basilar artery: patent Superior cerebellar arteries: patent Posterior cerebral arteries: origin of the right METAL STUD FRAMER. Both are patent. Intracranial segments of the internal carotid arteries: Mild calcification without critical stenosis or occlusion. MCA: patent NOREEN: patent Anterior Communicating artery: patent Posterior Communicating arteries: Patent. CT/CT angio head IMPRESSION: No evidence of critical stenosis, aneurysmal dilatation, dissection or occlusion. Impression dictated by: Jose Ramirez Jr., Adriana05/08/2024 3:05 PM Dictation Location: [facility] Transcribed By: GALE 05/08/241504 Dictated By: Jose Ramirez Jr, DO 05/08/241501 Signed By: 05/08/241504 Normal [facility] Tobias 05-02-2024 L ----- Specimen: [id number] Received: 05/02/24 Status: NINGZo Bianca Num: [id number] Spec Type: Surgical Subm Dr: Dougie Abernathy DO Tissues: A Skin-Other than Cyst, tag, debridement or plastic repair (LT EAR LESION) B Skin-Other than Cyst, tag, debridement or plastic repair (DEEP MARGIN FOR PE Procedures: HE/6, Gross/Micro L4/2, FS HE/6 Age/ Patient Sex Location Account Attending Physician Benny Brand/Thalia ESCOBAR [id number] Dougie Abernathy DO SPEC NUM: [id number] RECD: 05/02/24 STATUS: ANNA VALENZUELA NUM: [id number] SUSIE: 05/02/[address] [facility] [address]: Dougie Abernathy DO ENTERED: 05/02/[address] [facility] [address]: SPEC TYPE: Surgical DEPT: S ENTERED BY: [id number] RECV BY: [id number] ORDERED: HE/6, Gross/Micro L4/2, FS HE/6 ORDERED: HE/6, Gross/Micro L4/2, FS HE/6 Pathological Diagnosis A, skin, left ear, excision: -Postbiopsy scar and small crust with occasional residual actinic keratosis of the hypertrophic and mild proliferative types (1 to 2 mm in sizes) in the surrounding adjacent epidermis, consistent with mild to moderate squamous atypia -Severe background solar elastosis -All margins are also negative for malignancy or any squamous dysplasia B, soft tissue, deep margin, excision: -Benign cartilage tissue with thin attached portion of benign connective soft tissue without tumor Clinical Information Squamous cell carcinoma left ear, excision skin cancer left ear with skin graft short 12:00, long 3:00 Specimen: [id number] Received: 05/02/24 Status: ANNA Valenzuela Num: [id number] Spec Type: Surgical Subm Dr: Dougie Abernathy DO Tissues: A Skin-Other than Cyst, tag, debridement or plastic repair (LT EAR LESION) B Skin-Other than Cyst, tag, debridement or plastic repair (DEEP MARGIN FOR PE Procedures: RYAN, Karl/Allison L4/2, FS Patient: Benny Brand [id number] (Continued) Specimen: [id number] Received: 05/02/24 (Continued) Signed (signature on file) Vy Valdez MD 05/16/24 1325 Specimen: [id number] Received: 05/02/24 Status: ANNA Valenzuela Num: [id number] Spec Type: Surgical Subm Dr: Dougie Abernathy DO Tissues: A Skin-Other than Cyst, tag, debridement or plastic repair (LT EAR LESION) B Skin-Other than Cyst, tag, debridement or plastic repair (DEEP MARGIN FOR PE Procedures: , Karl/Allison L4/2, FS HE/6 Patient: Benny Brand [id number] (Continued) Specimen: [id number] Received: 05/02/24 (Continued) Gross Description Part a received fresh in container with the correct patient's name and ear left lesion and consists of a kimble-pink, oriented, skin excision measuring 1.6 cm from the 12:00 tip to the 6:00 tip, 0.7 cm from the 3:00 to the 9:00, and excised to a depth of 0.2 cm. The specimen is oriented with 2 black sutures designated as short 12:00, long 3:00 per requisition. The specimen is inked 12:00 to 3:00 blue, 3:00 to 6:00 green,6:00-9:00-12:00 red, and the deep is inked black. The specimen is serially sectioned from the 12:00 to the 6:00 into 9 sections. The specimen is entirely submitted as follows: A1 mid sections, for frozen A2, tips for frozen A3 remaining tissue Part B received fresh in container with the correct patient's name and deep margins for permanent and consists of 2 kimble, firm tissue fragments measuring 1.2 x 0.5 x 0.1 cm, and 0.8 x 0.5 x 0.1 cm. Both fragments are bisected and submitted for frozen in cassette B1. DM Intraoperative Diagnosis A, -Actinic epidermal change -Margins okay B, -No malignancy Reported by Dr. Valdez on 10?25?24 Microscopic Description Microscopic examinations are performed supporting the above interpretation CPT Codes 35649a7 [id number] Specimen: [id number] Received: 05/02/24 Status: ANNA Valenzuela Num: [id number] (more content not included)... Normal [facility] HbA1c HPLC (Bld) [Mass fract ion]on 04-30-2024 HbA1c (Bld) [Mass fraction] 5.6 % [facility] Alanine aminotransferase [En zymatic activity/volume] in Serum or PlasmaOrdered By: Edwardo Michael on 04-22-2024 ALT [Catalytic activity/Vol] 21 U/L Normal 7-52 [facility] Comment on above: Performed By: #### C BC, PSAS, CMP, LIPID, TSH3 #### [facility] [address] Albumin [Mass/volume] in Ser um or Plasma by Bromocresol green (BCG) dye binding methoOrdered By: Edwardo Michael on 04-22-2024 Albumin BCG dye [Mass/Vol] 4.2 g/dL 3.5-5.7 [facility] Alkaline phosphatase [Enzyma tic activity/volume] in Serum or PlasmaOrdered By: Edwardo Michael on 04-22-2024 ALP [Catalytic activity/Vol] 73 U/L Normal 34-104 [facility] Comment on above: Performed By: #### C BC, PSAS, CMP, LIPID, TSH3 #### [address] Aspartate aminotransferase [ Enzymatic activity/volume] in Serum or PlasmaOrdered By: Edwardo Michael on 04-22-2024 AST [Catalytic activity/Vol] 23 U/L Normal 13-39 [facility] Comment on above: Performed By: #### C BC, PSAS, CMP, LIPID, TSH3 #### [address] Automated basophil %Ordered By: Edwardo Michael on 04-22-2024 Basophils/100 WBC (Bld) 1.2 % Normal . [facility] Comment on above: Performed By: #### C BC, PSAS, CMP, LIPID, TSH3 #### [address] Automated basophil countOrde red By: Edwardo Michael on 04-22-2024 Basophils (Bld) [#/Vol] 0.1 10*3/uL Normal 0.0-0.2 [facility] Comment on above: Result Comment: PERF ORMED BY: [place] [address] PATHOLOGIST SENIOR SQL SERVER DBA LADONNA NOEL M.D. Performed By: #### C BC, PSAS, CMP, LIPID, TSH3 #### [address] Automated blood monocyte cou ntOrdered By: Edwardo Michael on 04-22-2024 Monocytes (Bld) [#/Vol] 0.6 10*3/uL Normal 0.0-0.8 [facility] Comment on above: Performed By: #### C BC, PSAS, CMP, LIPID, TSH3 #### [address] Automated eosinophil %Ordere d By: Edwardo Michael on 04-22-2024 Eosinophils/100 WBC (Bld) 2.4 % Normal . [facility] Comment on above: Performed By: #### C BC, PSAS, CMP, LIPID, TSH3 #### [address] Automated eosinophil countOr dered By: Edwardo Michael on 04-22-2024 Eosinophils (Bld) [#/Vol] 0.1 10*3/uL Normal 0.0-0.45 [facility] Comment on above: Performed By: #### C BC, PSAS, CMP, LIPID, TSH3 #### [address] Automated monocyte %Ordered By: Edwardo Michael on 04-22-2024 Monocytes/100 WBC (Bld) 11.7 % Normal . [facility] Comment on above: Performed By: #### C BC, PSAS, CMP, LIPID, TSH3 #### [address] Automated neutrophil %Ordere d By: Edwardo Michael on 04-22-2024 Neutrophils/100 WBC (Bld) 55.8 % Normal . [facility] Comment on above: Performed By: #### C BC, PSAS, CMP, LIPID, TSH3 #### [address] Bilirubin.total [Mass/volume ] in Serum or PlasmaOrdered By: Edwardo Michael on 04-22-2024 Bilirubin [Mass/Vol] 0.6 mg/dL Normal 0.3-1.0 [facility] Comment on above: Performed By: #### C BC, PSAS, CMP, LIPID, TSH3 #### [address] Calcium [Mass/volume] in Ser um or PlasmaOrdered By: Edwardo Michael on 04-22-2024 Calcium [Mass/Vol] 9.5 mg/dL Normal 8.6-10.3 [facility] Comment on above: Performed By: #### C BC, PSAS, CMP, LIPID, TSH3 #### [address] Carbon dioxide, total [Moles /volume] in Serum or PlasmaOrdered By: Edwardo Michael on 04-22-2024 CO2 [Moles/Vol] 30.2 mmol/L Normal 21.0-31.0 [facility] Comment on above: Performed By: #### C BC, PSAS, CMP, LIPID, TSH3 #### [facility] [address] [place] [address] [place] Chloride [Moles/volume] in [place] or PlasmaOrdered By: Edwardo Michael on 04-22-2024 Chloride [Moles/Vol] 105 mmol/L Normal 98-107 [facility] Comment on above: Performed By: #### C BC, PSAS, CMP, LIPID, TSH3 #### [facility] [address] [place] [address] [place] Cholesterol [Mass/volume] in Serum or PlasmaOrdered By: Edwardo Michael on 04-22-2024 Cholesterol [Mass/Vol] 185 mg/dL Normal 140-200 [facility] Comment on above: Chol less than 200 m g/dl low riskChol 201-239 mg/dl borderline riskChol 240 mg/dl and greater high risk Result Comment: Chol less than 200 mg/dl low risk Chol 201-239 mg/dl borderline risk Chol 240 mg/dl and greater high risk Performed By: #### C BC, PSAS, CMP, LIPID, TSH3 #### [facility] [address] [place] [address] [place] Cholesterol in LDL Calc [Mas s/Vol]Ordered By: Edwardo Michael on 04-22-2024 Cholesterol in LDL [Mass/Vol] 123 mg/dL High 0-100 [facility] Comment on above: LDL ATP III CLASSIFI CATIONLDL less than 100 mg/dL OptimalLDL 100-129 mg/dL Near or above optimalLDL 130-159 mg/dL Borderline highLDL 160-189 mg/dL HighLDL greater than 189 mg/dL Very high Cholesterol in VLDL Calc [Ma ss/Vol]Ordered By: Edwardo Michael on 04-22-2024 Cholesterol in VLDL [Mass/Vol] 26 mg/dL [facility] Complete Blood Count Auto Di ffon 04-22-2024 Mean Corpuscular HGB Conc 34.5 g/dL Normal 32.5-35.6 [facility] Comment on above: Performed By: #### C BC, PSAS, CMP, LIPID, TSH3 #### [address] NRBC% 0.2 /100{WBC} Normal 0-0.5 [facility] Comment on above: Performed By: #### C BC, PSAS, CMP, LIPID, TSH3 #### [address] Comprehensive Metabolic Pane tobias 04-22-2024 Albumin [Mass/Vol] 4.2 g/dL Normal 3.5-5.7 [facility] Comment on above: Performed By: #### C BC, PSAS, CMP, LIPID, TSH3 #### [address] GFR/1.73 sq M.predicted MDRD (S/P/Bld) [Vol rate/Area] mL/min/{1.73_m2} Normal [facility] Comment on above: Performed By: #### C BC, PSAS, CMP, LIPID, TSH3 #### [address] Creatinine [Mass/volume] in Serum or PlasmaOrdered By: Edwardo Michael on 04-22-2024 Creatinine [Mass/Vol] 1.05 mg/dL Normal 0.70-1.30 [facility] Comment on above: Performed By: #### C BC, PSAS, CMP, LIPID, TSH3 #### [address] Erythrocyte distribution wid th [Ratio] by Automated countOrdered By: Edwardo Michael on 04-22-2024 Erythrocyte distribution width (RBC) [Ratio] 12.8 % Normal 12.0-14.8 [facility] Comment on above: Performed By: #### C BC, PSAS, CMP, LIPID, TSH3 #### [address] Erythrocytes [#/volume] in B lood by Automated countOrdered By: Edwardo Michael on 04-22-2024 RBC (Bld) [#/Vol] 4.77 10*6/uL Normal 3.90-5.60 [facility] Comment on above: Performed By: #### C BC, PSAS, CMP, LIPID, TSH3 #### [facility] [address] [place] [address] [place] Glucose [Mass/volume] in Ser um or PlasmaOrdered By: Edwardo Michael on 04-22-2024 Glucose [Mass/Vol] 103 mg/dL High 70-100 [facility] Comment on above: ADA recommended refe rence rangeRandom Glucose Reference Range is dependent on time and content of last meal. Glucose of more than 200 mg/dL in a nonstressed, ambulatory subject supports the diagnosis of Diabetes Mellitus. Result Comment: [place] om Glucose Reference Range is dependent on time and content of last meal. Glucose of more than 200 mg/dL in a nonstressed, ambulatory subject supports the diagnosis of Diabetes Mellitus. ADA recommended reference range Performed By: #### C BC, PSAS, CMP, LIPID, TSH3 #### [facility] [address] Hematocrit [Volume Fraction] of Blood by Automated countOrdered By: Edwardo Michael on 04-22-2024 Hematocrit (Bld) [Volume fraction] 44.5 % Normal 38.8-50.0 [facility] Comment on above: Performed By: #### C BC, PSAS, CMP, LIPID, TSH3 #### [facility] [address] Hemoglobin [Mass/volume] in BloodOrdered By: Edwardo Michael on 04-22-2024 Hemoglobin (Bld) [Mass/Vol] 15.3 g/dL Normal 13.0-17.0 [facility] Comment on above: Performed By: #### C BC, PSAS, CMP, LIPID, TSH3 #### [facility] [address] [place] [address] [place] Leukocytes [#/volume] correc srikanth for nucleated erythrocytes in Blood by Automated counOrdered By: Edwardo Michael on 04-22-2024 WBC corrected for nucl RBC Auto (Bld) [#/Vol] 5.4 10*3/uL 4.1-10.5 [facility] Leukocytes [#/volume] in Blo od by Automated countOrdered By: Edwardo Michael on 04-22-2024 WBC (Bld) [#/Vol] 5.4 10*3/uL Normal 4.1-10.5 [facility] Comment on above: Performed By: #### C BC, PSAS, CMP, LIPID, TSH3 #### [facility] [address] Lipid Panelon 04-22-2024 LDL Cholesterol,Calculated 123 mg/dL High 0-100 [facility] Comment on above: Result Comment: LDL ATP III CLASSIFICATION LDL less than 100 mg/dL Optimal LDL 100-129 mg/dL Near or above optimal LDL 130-159 mg/dL Borderline high LDL 160-189 mg/dL High LDL greater than 189 mg/dL Very high Performed By: #### C BC, PSAS, CMP, LIPID, TSH3 #### [address] Triglyceride w/Reflex 130 mg/dL Normal 0-149 [facility] Comment on above: Result Comment: TRIG ATP III CLASSIFICATION TRIG less than 150 mg/dL Normal TRIG 150-199 mg/dL Borderline high TRIG 200-500 mg/dL High TRIG greater than 500 mg/dL Very high Standard traceable to the Center for Disease Conrtrol and Prevention (CDC) test method. Performed By: #### C BC, PSAS, CMP, LIPID, TSH3 #### [address] VLDL CHOLESTEROL 26 mg/dL Normal [facility] Comment on above: Performed By: #### C BC, PSAS, CMP, LIPID, TSH3 #### [facility] [address] Lymphocytes [#/volume] in Bl ood by Automated countOrdered By: Edwardo Michael on 04-22-2024 Lymphocytes (Bld) [#/Vol] 1.6 10*3/uL Normal 1.00-4.8 [facility] Comment on above: Performed By: #### C BC, PSAS, CMP, LIPID, TSH3 #### [address] [place] [address] [place] Lymphocytes/100 leukocytes i n Blood by Automated countOrdered By: Edwardo Michael on 04-22-2024 Lymphocytes/100 WBC (Bld) 28.9 % Normal . [facility] Comment on above: Performed By: #### C BC, PSAS, CMP, LIPID, TSH3 #### [address] MCH [Entitic mass] by Automa srikanth countOrdered By: Edwardo Michael on 04-22-2024 MCH (RBC) [Entitic mass] 32.1 pg Normal 27.5-35.2 [facility] Comment on above: Performed By: #### C BC, PSAS, CMP, LIPID, TSH3 #### [address] MCHC Auto (RBC) [Mass/Vol]Or dered By: Edwardo Michael on 04-22-2024 MCHC (RBC) [Mass/Vol] 34.5 g/dL 32.5-35.6 [facility] MCV [Entitic volume] by Auto mated countOrdered By: Edwardo Michael on 04-22-2024 MCV (RBC) [Entitic vol] 93.2 fL Normal 83.5-101 [facility] Comment on above: Performed By: #### C BC, PSAS, CMP, LIPID, TSH3 #### [address] Neutrophils [#/volume] in Bl ood by Automated countOrdered By: Edwardo Michael on 04-22-2024 Neutrophils (Bld) [#/Vol] 3.0 10*3/uL Normal 1.8-7.7 [facility] Comment on above: Performed By: #### C BC, PSAS, CMP, LIPID, TSH3 #### [address] No Panel InformationOrdered By: Edwardo Michael on 04-22-2024 Estimated GFR (CKD-EPI) > 60.0 mL/Min [facility] Creatinine Clearance (Chem N/A [facility] Nucleated erythrocytes [Pres ence] in Blood by Automated countOrdered By: Edwardo Michael on 04-22-2024 Nucleated RBC Auto Ql (Bld) 0.2 /100{WBC} 0-0.5 [facility] PSA Screen (Yearly Only)on 1 PSA Screen (Yearly Only) 0.650 ng/mL Normal 0.000-4.000 [facility] Comment on above: Order Comment: Is pa tient <50 yrs? Medicare does not pay <50.: N What is the date of the last PSA Screen?: [id number] Is Medicare the insurance?: Y Did you verify eligibility (Dx Time) check TestViewGp: YES TO ALL Result Comment: Seri al tumor marker results determined by assays using different manufacturers or methods may not be comparable. [facility] vacuum cleaner repair person and method: [employer] DXI, CHEMILUMINESCENT IMMUNOASSAY. PERFORMED BY: [place] [address] PATHOLOGIST SENIOR SQL SERVER DBA LADONNA NOEL M.D. Performed By: #### C BC, PSAS, CMP, LIPID, TSH3 #### [place] [address] [place] Platelet mean volume [Entiti c volume] in Blood by Automated countOrdered By: Edwardo Michael on 04-22-2024 Platelet mean volume (Bld) [Entitic vol] 9.6 fL Normal 6.6-10.1 [facility] Comment on above: Performed By: #### C BC, PSAS, CMP, LIPID, TSH3 #### [facility] [address] [place] [address] [place] Platelets [#/volume] in Bloo d by Automated countOrdered By: Edwardo Michael on 04-22-2024 Platelets (Bld) [#/Vol] 249 10*3/uL Normal 150-450 [facility] Comment on above: Performed By: #### C BC, PSAS, CMP, LIPID, TSH3 #### [place] [address] [place] Potassium [Moles/volume] in Serum or PlasmaOrdered By: Edwardo Michael on 04-22-2024 Potassium [Moles/Vol] 4.4 mmol/L Normal 3.5-5.1 [facility] Comment on above: Performed By: #### C BC, PSAS, CMP, LIPID, TSH3 #### [address] Prostate specific Ag [Mass/v olume] in Serum or PlasmaOrdered By: Edwardo Michael on 04-22-2024 Prostate specific Ag [Mass/Vol] 0.650 ng/mL 0.000-4.000 [facility] Comment on above: Serial tumor marker results determined by assays using different manufacturers or methods may not be comparable.[facility] vacuum cleaner repair person and method:[employer] DXI, CHEMILUMINESCENT IMMUNOASSAY. Protein [Mass/volume] in Ser um or PlasmaOrdered By: Edwardo Michael on 04-22-2024 Protein [Mass/Vol] 7.2 g/dL Normal 6.4-8.9 [facility] Comment on above: Performed By: #### C BC, PSAS, CMP, LIPID, TSH3 #### [address] Serum globulin measurement b y calculation (mass/volume)Ordered By: Edwardo Michael on 04-22-2024 Globulin (S) [Mass/Vol] 3.0 g/dL [facility] Comment on above: Performed By: #### C BC, PSAS, CMP, LIPID, TSH3 #### [address] Serum or plasma albumin/glob ulin mass ratioOrdered By: Edwardo Michael on 04-22-2024 Albumin/Globulin [Mass ratio] 1.4 {ratio} [facility] Comment on above: Performed By: #### C BC, PSAS, CMP, LIPID, TSH3 #### [address] Serum or plasma anion gap de terminationOrdered By: Edwardo Michael on 04-22-2024 Anion gap [Moles/Vol] 8.2 mmol/L Normal 6.0-15.0 [facility] Comment on above: Performed By: #### C BC, PSAS, CMP, LIPID, TSH3 #### [facility] [address] [place] [address] Serum or plasma high density lipoprotein (HDL) cholesterol measurementOrdered By: Edwardo Michael on 04-22-2024 Cholesterol in HDL [Mass/Vol] 36 mg/dL Normal 23-92 [facility] Comment on above: HDL CHOL ATP-III CLA SSIFICATION Cardiovascular RiskHDL > or equal to 60 mg/dL LOWHDL < 40 mg/dL HIGH Result Comment: HDL CHOL ATP-III CLASSIFICATION Cardiovascular Risk HDL > or equal to 60 mg/dL LOW HDL < 40 mg/dL HIGH Performed By: #### C BC, PSAS, CMP, LIPID, TSH3 #### [address] Serum or plasma total choles terol/high density lipoprotein (HDL) cholesterol mass ratOrdered By: Edwardo Michael on 04-22-2024 Cholesterol.total/Chol esterol in HDL [Mass ratio] 5.1 {ratio} Normal <5.0 [facility] Comment on above: Performed By: #### C BC, PSAS, CMP, LIPID, TSH3 #### [address] Sodium [Moles/volume] in Ser um or PlasmaOrdered By: Edwardo Michael on 04-22-2024 Sodium [Moles/Vol] 139 mmol/L Normal 136-145 [facility] Comment on above: Performed By: #### C BC, PSAS, CMP, LIPID, TSH3 #### [address] Thyrotropin [Units/volume] i n Serum or PlasmaOrdered By: Edwardo Michael on 04-22-2024 TSH Qn 2.36 m[IU]/L Normal 0.45-5.33 [facility] Comment on above: Result Comment: PERF ORMED BY: [place] [address] PATHOLOGIST SENIOR SQL SERVER DBA LADONNA NOEL M.D. Performed By: #### C BC, PSAS, CMP, LIPID, TSH3 #### [address] [place] [address] [place] Triglyceride [Mass/volume] i n Serum or PlasmaOrdered By: Edwardo Michael on 04-22-2024 Triglyceride [Mass/Vol] 130 mg/dL 0-149 [facility] Comment on above: TRIG ATP III CLASSIF ICATIONTRIG less than 150 mg/dL NormalTRIG 150-199 mg/dL Borderline highTRIG 200-500 mg/dL High TRIG greater than 500 mg/dL Very highStandard traceable to the Center for Disease Conrtrol and Prevention (CDC) test method. Urea nitrogen [Mass/volume] in Serum or PlasmaOrdered By: Edwardo Michael on 04-22-2024 Urea nitrogen [Mass/Vol] 18 mg/dL Normal 7-25 [facility] Comment on above: Performed By: #### C BC, PSAS, CMP, LIPID, TSH3 #### [facility] [address] [place] [address] Alanine aminotransferase [En zymatic activity/volume] in Serum or PlasmaOrdered By: Edwardo Michael on 04-18-2023 ALT [Catalytic activity/Vol] 23 U/L 7-52 [facility] Albumin [Mass/volume] in Ser um or Plasma by Bromocresol green (BCG) dye binding methoOrdered By: Edwardo Michael on 04-18-2023 Albumin BCG dye [Mass/Vol] 4.5 g/dL 3.5-5.7 [facility] Alkaline phosphatase [Enzyma tic activity/volume] in Serum or PlasmaOrdered By: Edwardo Michael on 04-18-2023 ALP [Catalytic activity/Vol] 79 U/L 34-104 [facility] Aspartate aminotransferase [ Enzymatic activity/volume] in Serum or PlasmaOrdered By: Edwardo Michael on 04-18-2023 AST [Catalytic activity/Vol] 26 U/L 13-39 [facility] Basophils Auto (Bld) [#/Vol] Ordered By: Edwardo Michael on 04-18-2023 Basophils (Bld) [#/Vol] 0.1 10*3/uL 0.0-0.2 [facility] Basophils/100 WBC Auto (Bld) Ordered By: Edwadro Michael on 04-18-2023 Basophils/100 WBC (Bld) 2.2 % . [facility] Bilirubin.total [Mass/volume ] in Serum or PlasmaOrdered By: Edwardo Michael on 04-18-2023 Bilirubin [Mass/Vol] 0.9 mg/dL 0.3-1.0 [facility] Calcium [Mass/volume] in Ser um or PlasmaOrdered By: Edwardo Michael on 04-18-2023 Calcium [Mass/Vol] 9.5 mg/dL 8.6-10.3 [facility] Carbon dioxide, total [Moles /volume] in Serum or PlasmaOrdered By: Edwardo Michael on 04-18-2023 CO2 [Moles/Vol] 32.4 mmol/L 21.0-31.0 [facility] Chloride [Moles/volume] in [place] or PlasmaOrdered By: Edwardo Michael on 04-18-2023 Chloride [Moles/Vol] 103 mmol/L 98-107 [facility] Cholesterol [Mass/volume] in Serum or PlasmaOrdered By: Edwardo Michael on 04-18-2023 Cholesterol [Mass/Vol] 184 mg/dL 140-200 [facility] Comment on above: Chol less than 200 m g/dl low riskChol 201-239 mg/dl borderline riskChol 240 mg/dl and greater high risk Cholesterol in LDL Calc [Mas s/Vol]Ordered By: Edwardo Michael on 04-18-2023 Cholesterol in LDL [Mass/Vol] 121 mg/dL 0-100 [facility] Comment on above: LDL ATP III CLASSIFI CATIONLDL less than 100 mg/dL OptimalLDL 100-129 mg/dL Near or above optimalLDL 130-159 mg/dL Borderline highLDL 160-189 mg/dL HighLDL greater than 189 mg/dL Very high Cholesterol in VLDL Calc [Ma ss/Vol]Ordered By: Edwardo Michael on 04-18-2023 Cholesterol in VLDL [Mass/Vol] 24 mg/dL [facility] Creatinine [Mass/volume] in Serum or PlasmaOrdered By: Edwardo Michael on 04-18-2023 Creatinine [Mass/Vol] 1.08 mg/dL 0.70-1.30 [facility] Eosinophils Auto (Bld) [#/Vo l]Ordered By: Edwardo Michael on 04-18-2023 Eosinophils (Bld) [#/Vol] 0.2 10*3/uL 0.0-0.45 [facility] Eosinophils/100 WBC Auto (Bl d)Ordered By: Edwardo Michael on 04-18-2023 Eosinophils/100 WBC (Bld) 3.2 % . [facility] Erythrocyte distribution wid th Auto (RBC) [Ratio]Ordered By: Edwardo Michael on 04-18-2023 Erythrocyte distribution width (RBC) [Ratio] 12.5 % 12.0-14.8 [facility] Globulin Calc (S) [Mass/Vol] Ordered By: Edwardo Michael on 04-18-2023 Globulin (S) [Mass/Vol] 2.8 g/dL [facility] Glucose [Mass/volume] in Ser um or PlasmaOrdered By: Edwardo Michael on 04-18-2023 Glucose [Mass/Vol] 98 mg/dL 70-100 [facility] Comment on above: ADA recommended refe rence rangeRandom Glucose Reference Range is dependent on time and content of last meal. Glucose of more than 200 mg/dL in a nonstressed, ambulatory subject supports the diagnosis of Diabetes Mellitus. Hematocrit Auto (Bld) [Volum e fraction]Ordered By: Edwardo Michael on 04-18-2023 Hematocrit (Bld) [Volume fraction] 45.1 % 38.8-50.0 [facility] Hemoglobin [Mass/volume] in BloodOrdered By: Edwardo Michael on 04-18-2023 Hemoglobin (Bld) [Mass/Vol] 15.6 g/dL 13.0-17.0 [facility] Leukocytes [#/volume] correc srikanth for nucleated erythrocytes in Blood by Automated counOrdered By: Edwardo Michael on 04-18-2023 WBC corrected for nucl RBC Auto (Bld) [#/Vol] 5.4 10*3/uL 4.1-10.5 [facility] Lymphocytes Auto (Bld) [#/Vo l]Ordered By: Edwardo Michael on 04-18-2023 Lymphocytes (Bld) [#/Vol] 1.5 10*3/uL 1.00-4.8 [facility] Lymphocytes/100 WBC Auto (Bl d)Ordered By: Edwardo Michael on 04-18-2023 Lymphocytes/100 WBC (Bld) 28.7 % . [facility] MCH Auto (RBC) [Entitic mass ]Ordered By: Edwardo Michael on 04-18-2023 MCH (RBC) [Entitic mass] 32.0 pg 27.5-35.2 [facility] MCHC Auto (RBC) [Mass/Vol]Or dered By: Edwardo Michael on 04-18-2023 MCHC (RBC) [Mass/Vol] 34.6 g/dL 32.5-35.6 [facility] MCV Auto (RBC) [Entitic vol] Ordered By: Edwardo Michael on 04-18-2023 MCV (RBC) [Entitic vol] 92.7 fL 83.5-101 [facility] Monocytes Auto (Bld) [#/Vol] Ordered By: Edwardo Michael on 04-18-2023 Monocytes (Bld) [#/Vol] 0.6 10*3/uL 0.0-0.8 [facility] Monocytes/100 WBC Auto (Bld) Ordered By: Edwardo Michael on 04-18-2023 Monocytes/100 WBC (Bld) 10.9 % . [facility] Neutrophils Auto (Bld) [#/Vo l]Ordered By: Edwardo Michael on 04-18-2023 Neutrophils (Bld) [#/Vol] 2.9 10*3/uL 1.8-7.7 [facility] Neutrophils/100 WBC Auto (Bl d)Ordered By: Edwardo Michael on 04-18-2023 Neutrophils/100 WBC (Bld) 55.0 % . [facility] No Panel InformationOrdered By: Edwardo Michael on 04-18-2023 Estimated GFR (CKD-EPI) > 60.0 mL/Min [facility] Creatinine Clearance (Chem N/A [facility] Nucleated erythrocytes [Pres ence] in Blood by Automated countOrdered By: Edwardo Michael on 04-18-2023 Nucleated RBC Auto Ql (Bld) 0.1 /100{WBC} 0-0.5 [facility] Platelet mean volume Auto (B ld) [Entitic vol]Ordered By: Edwardo Michael on 04-18-2023 Platelet mean volume (Bld) [Entitic vol] 10.1 fL 6.6-10.1 [facility] Platelets Auto (Bld) [#/Vol] Ordered By: Edwardo Michael on 04-18-2023 Platelets (Bld) [#/Vol] 252 10*3/uL 150-450 [facility] Potassium [Moles/volume] in Serum or PlasmaOrdered By: Edwardo Michael on 04-18-2023 Potassium [Moles/Vol] 4.7 mmol/L 3.5-5.1 [facility] Prostate specific Ag [Mass/v olume] in Serum or PlasmaOrdered By: Edwardo Michael on 04-18-2023 Prostate specific Ag [Mass/Vol] 0.560 ng/mL 0.000-4.000 [facility] Protein [Mass/volume] in Ser um or PlasmaOrdered By: Edwardo Michael on 04-18-2023 Protein [Mass/Vol] 7.3 g/dL 6.4-8.9 [facility] RBC Auto (Bld) [#/Vol]Ordere d By: Edwardo Michael on 04-18-2023 RBC (Bld) [#/Vol] 4.86 10*6/uL 3.90-5.60 [facility] Serum or plasma albumin/glob ulin mass ratioOrdered By: Edwardo Michael on 04-18-2023 Albumin/Globulin [Mass ratio] 1.6 {ratio} [facility] Serum or plasma anion gap de terminationOrdered By: Edwardo Michael on 04-18-2023 Anion gap [Moles/Vol] 8.3 mmol/L 6.0-15.0 [facility] Serum or plasma high density lipoprotein (HDL) cholesterol measurementOrdered By: Edwardo Michael on 04-18-2023 Cholesterol in HDL [Mass/Vol] 39 mg/dL 23-92 [facility] Comment on above: HDL CHOL ATP-III CLA SSIFICATION Cardiovascular RiskHDL > or equal to 60 mg/dL LOWHDL < 40 mg/dL HIGH Serum or plasma total choles terol/high density lipoprotein (HDL) cholesterol mass ratOrdered By: Edwardo Michael on 04-18-2023 Cholesterol.total/Chol esterol in HDL [Mass ratio] 4.7 {ratio} <5.0 [facility] Sodium [Moles/volume] in Ser um or PlasmaOrdered By: Edwardo Michael on 04-18-2023 Sodium [Moles/Vol] 139 mmol/L 136-145 [facility] Thyrotropin [Units/volume] i n Serum or PlasmaOrdered By: Edwardo Michael on 04-18-2023 TSH Qn 2.12 m[IU]/L 0.45-5.33 [facility] Thyroxine (T4) free [Mass/vo lume] in Serum or PlasmaOrdered By: Edwardo Michael on 04-18-2023 Free T4 [Mass/Vol] 0.74 ng/dL 0.61-1.12 [facility] Triglyceride [Mass/volume] i n Serum or PlasmaOrdered By: Edwardo Michael on 04-18-2023 Triglyceride [Mass/Vol] 122 mg/dL 0-149 [facility] Comment on above: TRIG ATP III CLASSIF ICATIONTRIG less than 150 mg/dL NormalTRIG 150-199 mg/dL Borderline highTRIG 200-500 mg/dL High TRIG greater than 500 mg/dL Very highStandard traceable to the Center for Disease Conrtrol and Prevention (CDC) test method. Urea nitrogen [Mass/volume] in Serum or PlasmaOrdered By: Edwardo Michael on 04-18-2023 Urea nitrogen [Mass/Vol] 19 mg/dL 7-25 [facility] Vitamin D+Metabolites [Mass/ volume] in Serum or PlasmaOrdered By: Edwardo Michael on 04-18-2023 Vitamin D+Metabolites [Mass/Vol] 51.4 ng/mL 30-100 [facility] Comment on above: VITAMIN D STATUS 25( [place])VITAMIN D RANGE (ng/mL) Deficient <20 Insufficient 20 to <30Sufficient 30 to 100Reference: Sofya LEBRON,Vincent FALK, Xavi LANIER, et al. Evaluation,treatment, and prevention of vitamin D deficiency; an Endocrine Society clinical practice guideline. JCEM. 2010; 96(7):1911-30. WBC Auto (Bld) [#/Vol]Ordere d By: Edwardo Micahel on 04-18-2023 WBC (Bld) [#/Vol] 5.4 10*3/uL 4.1-10.5 [facility] Basophils Auto (Bld) [#/Vol] Ordered By: Edwardo Michael on 04-06-2022 Basophils (Bld) [#/Vol] 0.0 10*3/uL 0.0-0.2 [facility] Basophils/100 WBC Auto (Bld) Ordered By: Edwardo Michael on 04-06-2022 Basophils/100 WBC (Bld) 0.9 % . [facility] Blood hemoglobin measurement (mass/volume)Ordered By: Edwardo Michael on 04-06-2022 Hemoglobin (Bld) [Mass/Vol] 15.7 g/dL 13.0-17.0 [facility] Blood leukocytes automated c ount (number/volume)Ordered By: Edwardo Michael on 04-06-2022 WBC (Bld) [#/Vol] 4.7 10*3/uL 4.5-11.0 [facility] Body fluid albumin measureme nt (mass/volume)Ordered By: Edwardo Michael on 04-06-2022 Albumin (Body fld) [Mass/Vol] 3.8 g/dL 3.2-5.5 [facility] Cholesterol [Mass/volume] in Serum or PlasmaOrdered By: Edwardo Michael on 04-06-2022 Cholesterol [Mass/Vol] 181 mg/dL 140-200 [facility] Comment on above: Chol less than 200 m g/dl low riskChol 201-239 mg/dl borderline riskChol 240 mg/dl and greater high risk Cholesterol in LDL Calc [Mas s/Vol]Ordered By: Edwardo Michael on 04-06-2022 Cholesterol in LDL [Mass/Vol] 124 mg/dL 0-100 [facility] Comment on above: LDL ATP III CLASSIFI CATIONLDL less than 100 mg/dL OptimalLDL 100-129 mg/dL Near or above optimalLDL 130-159 mg/dL Borderline highLDL 160-189 mg/dL HighLDL greater than 189 mg/dL Very high Cholesterol in VLDL Calc [Ma ss/Vol]Ordered By: Edwardo Michael on 04-06-2022 Cholesterol in VLDL [Mass/Vol] 24 mg/dL [facility] Creatinine and Glomerular fi ltration rate.predicted panel (S/P/Bld)Ordered By: Edwardo Michael on 04-06-2022 Creatinine [Mass/Vol] 1.05 mg/dL 0.64-1.27 [facility] Eosinophils Auto (Bld) [#/Vo l]Ordered By: Edwardo Michael on 04-06-2022 Eosinophils (Bld) [#/Vol] 0.1 10*3/uL 0.0-0.45 [facility] Eosinophils/100 WBC Auto (Bl d)Ordered By: Edwardo Michael on 04-06-2022 Eosinophils/100 WBC (Bld) 2.0 % . [facility] Erythrocyte distribution wid th Auto (RBC) [Ratio]Ordered By: Edwardo Michael on 04-06-2022 Erythrocyte distribution width (RBC) [Ratio] 12.5 % 12.0-14.8 [facility] Estimated glomerular filtrat ion rate (GFR) non- AmericanOrdered By: Edwardo Michael on 04-06-2022 GFR/1.73 sq M.predicted among non-blacks MDRD (S/P/Bld) [Vol rate/Area] > 60 mL/Min [facility] Globulin Calc (S) [Mass/Vol] Ordered By: Edwardo Michael on 04-06-2022 Globulin (S) [Mass/Vol] 2.8 g/dL [facility] Hematocrit Auto (Bld) [Volum e fraction]Ordered By: Edwardo Michael on 04-06-2022 Hematocrit (Bld) [Volume fraction] 46.2 % 38.8-50.0 [facility] Laboratory - Hematology and Cell countsOrdered By: Edwardo Michael on 04-06-2022 Nucleated RBC/100 WBC (Bld) [Ratio] 0.1 % 0-0.5 [facility] Lymphocytes Auto (Bld) [#/Vo l]Ordered By: Edwardo Michael on 04-06-2022 Lymphocytes (Bld) [#/Vol] 1.6 10*3/uL 1.00-4.8 [facility] Lymphocytes/100 WBC Auto (Bl d)Ordered By: Edwardo Michael on 04-06-2022 Lymphocytes/100 WBC (Bld) 34.1 % . [facility] MCH Auto (RBC) [Entitic mass ]Ordered By: Edwardo Michael on 04-06-2022 MCH (RBC) [Entitic mass] 31.9 pg 27.5-35.2 [facility] MCHC Auto (RBC) [Mass/Vol]Or dered By: Edwardo Michael on 04-06-2022 MCHC (RBC) [Mass/Vol] 34.0 g/dL 32.5-35.6 [facility] MCV Auto (RBC) [Entitic vol] Ordered By: Edwardo Michael on 04-06-2022 MCV (RBC) [Entitic vol] 93.8 fL 83.5-101 [facility] Monocytes Auto (Bld) [#/Vol] Ordered By: Edwardo Michael on 04-06-2022 Monocytes (Bld) [#/Vol] 0.4 10*3/uL 0.0-0.8 [facility] Monocytes/100 WBC Auto (Bld) Ordered By: Edwardo Michael on 04-06-2022 Monocytes/100 WBC (Bld) 8.7 % . [facility] Neutrophils Auto (Bld) [#/Vo l]Ordered By: Edwardo Michael on 04-06-2022 Neutrophils (Bld) [#/Vol] 2.6 10*3/uL 1.8-7.7 [facility] Neutrophils/100 WBC Auto (Bl d)Ordered By: Edwardo Michael on 04-06-2022 Neutrophils/100 WBC (Bld) 54.3 % . [facility] No Panel InformationOrdered By: Edwardo Michael on 04-06-2022 25-Hydroxy Vitamin D Total 41.8 ng/mL 30-100 [facility] Comment on above: VITAMIN D STATUS 25( [place])VITAMIN D RANGE (ng/mL) Deficient <20 Insufficient 20 to <30Sufficient 30 to 100Reference: Sofya MF,Vincent NC, Xavi LANIER, et al. Evaluation,treatment, and prevention of vitamin D deficiency; an Endocrine Society clinical practice guideline. JCEM. 2010; 96(3):1911-30. Estimated GFR () > 60 mL/Min [facility] Comment on above: GFR estimated refere nce range: According to KDOQI guidelines, <60 ml/min/1.73m2 is sufficient to diagnose a patient with chronic kidney disease. Pharmacy Creatinine Clearance (Chem N/A [facility] Prostate Specific Antigen Screen 0.460 ng/mL 0.000-4.000 [facility] Platelet mean volume Auto (B ld) [Entitic vol]Ordered By: Edwardo Michael on 04-06-2022 Platelet mean volume (Bld) [Entitic vol] 10.3 fL 6.6-10.1 [facility] Platelets Auto (Bld) [#/Vol] Ordered By: Edwardo Michael on 04-06-2022 Platelets (Bld) [#/Vol] 234 10*3/uL 150-450 [facility] Protein [Mass/volume] in Ser um or PlasmaOrdered By: Edwardo Michael on 04-06-2022 Protein [Mass/Vol] 6.6 g/dL 6.1-7.9 [facility] RBC Auto (Bld) [#/Vol]Ordere d By: Edwardo Michael on 04-06-2022 RBC (Bld) [#/Vol] 4.92 10*6/uL 3.90-5.60 [facility] Serum or plasma alanine brambila otransferase measurement without P-5'-P (enzymatic activiOrdered By: Edwardo Michael on 04-06-2022 ALT No additional P-5'-P [Catalytic activity/Vol] 32 U/L 10-60 [facility] Serum or plasma albumin/glob ulin mass ratioOrdered By: Edwardo Michael on 04-06-2022 Albumin/Globulin [Mass ratio] 1.4 {ratio} [facility] Serum or plasma alkaline julio sphatase measurement (enzymatic activity/volume)Ordered By: Edwardo Michael on 04-06-2022 ALP [Catalytic activity/Vol] 74 U/L 32-92 [facility] Serum or plasma anion gap de terminationOrdered By: Edwardo Michael on 04-06-2022 Anion gap [Moles/Vol] 11.4 mmol/L 6.0-15.0 [facility] Serum or plasma aspartate am inotransferase measurement (enzymatic activity/volume)Ordered By: Edwardo Michael on 04-06-2022 AST [Catalytic activity/Vol] 25 U/L 10-42 [facility] Serum or plasma calcium myranda urement (mass/volume)Ordered By: Edwardo Michael on 04-06-2022 Calcium [Mass/Vol] 9.5 mg/dL 8.2-10.2 [facility] Serum or plasma chloride emanuel surement (moles/volume)Ordered By: Edwardo Michael on 04-06-2022 Chloride [Moles/Vol] 102 mmol/L 95-114 [facility] Serum or plasma glucose myranda urement (mass/volume)Ordered By: Edwardo Michael on 04-06-2022 Glucose [Mass/Vol] 97 mg/dL 70-100 [facility] Comment on above: ADA recommended refe rence rangeRandom Glucose Reference Range is dependent on time and content of last meal. Glucose of more than 200 mg/dL in a nonstressed, ambulatory subject supports the diagnosis of Diabetes Mellitus. Serum or plasma high density lipoprotein (HDL) cholesterol measurementOrdered By: Edwardo Michael on 04-06-2022 Cholesterol in HDL [Mass/Vol] 33 mg/dL 29- [facility] Comment on above: HDL CHOL ATP-III CLA SSIFICATION Cardiovascular RiskHDL > or equal to 60 mg/dL LOWHDL < 40 mg/dL HIGH Serum or plasma potassium me asurement (moles/volume)Ordered By: Edwardo Michael on 04-06-2022 Potassium [Moles/Vol] 4.4 mmol/L 3.5-5.1 [facility] Serum or plasma sodium measu rement (moles/volume)Ordered By: Edwardo Michael on 04-06-2022 Sodium [Moles/Vol] 138 mmol/L 136-146 [facility] Serum or plasma total biliru bin measurement (mass/volume)Ordered By: Edwardo Michael on 04-06-2022 Bilirubin [Mass/Vol] 0.8 mg/dL 0.3-1.2 [facility] Serum or plasma total carbon dioxide measurement (moles/volume)Ordered By: Edwardo Michael on 04-06-2022 CO2 [Moles/Vol] 29.0 mmol/L 22.0-30.0 [facility] Serum or plasma total choles terol/high density lipoprotein (HDL) cholesterol mass ratOrdered By: Edwardo Michael on 04-06-2022 Cholesterol.total/Chol esterol in HDL [Mass ratio] 5.5 {ratio} <5.0 [facility] Serum or plasma urea nitroge n measurement (mass/volume)Ordered By: Edwardo Michael on 04-06-2022 Urea nitrogen [Mass/Vol] 14 mg/dL 9-23 [facility] TSH DL <= 0.005 mIU/L QnOrde red By: Edwardo Michael on 04-06-2022 TSH Qn 1.82 m[IU]/L 0.45-5.33 [facility] Triglyceride [Mass/volume] i n Serum or PlasmaOrdered By: Edwardo Michael on 04-06-2022 Triglyceride [Mass/Vol] 121 mg/dL 35-149 [facility] Comment on above: TRIG ATP III CLASSIF ICATIONTRIG less than 150 mg/dL NormalTRIG 150-199 mg/dL Borderline highTRIG 200-500 mg/dL High TRIG greater than 500 mg/dL Very highStandard traceable to the Center for Disease Conrtrol and Prevention (CDC) test method. [facility] Initial Visit (Orthopaedic Surgery) Diagnoses/Problems Assessed Primary osteoarthritis of both shoulders (715.11) (M19.011,M19.012) Bilateral shoulder pain, unspecified chronicity (719.41) (M25.511,M25.512) Orders Bilateral shoulder pain, unspecified chronicity, Primary osteoarthritis of both shoulders Administered: Betamethasone Sod Phos AND Acet 6 (3-3) MG/ML Injection Suspension (Celestone Soluspan) Administered: Betamethasone Sod Phos AND Acet 6 (3-3) MG/ML Injection Suspension (Celestone Soluspan) Administered: Lidocaine HCl - 1 % Injection Solution Administered: Lidocaine HCl - 1 % Injection Solution Chief Complaint B/L Shoulder Pain Xrays Today History of Present IllnessPatient is new to us today, meaning he has not been here in three years but he actually had injections ten years ago. Active Problems Problems Bilateral shoulder pain, unspecified chronicity (719.41) (M25.511,M25.512) Allergies No Known Allergies Recorded By: Kim Welch; 04/27/2021 10:25:28 AM Physical Exam Surprisingly, he can move well. He gets night pain and functionally, he is doing great. He can do sports, baseball, swinging, but he is having trouble throwing, which is not surprising. On examination, he can still forward flex bilateral up to 160, abduct to 50, external rotation is down to about 35-45 degrees bilaterally. The right shoulder hurts more, but he still can make it move and he can internally rotate almost around to about L5, which is surprising. Results/Data Xray Shoulder Bilateral, Complete, Min 2 [id number] 09:58AMBenny Murry Test NameResultFlagReference Xray Shoulder Bilateral, Complete, Min 2 Views(Report) FINAL REPORT Interpreted by: BENNY MURRY MICHAEL, MD 04/27/21 10:22 Patient Name: KARLIEBENNY STUDY: BILATERAL SHOULDER, CMPLT, MIN 2 VIEWS; ; 04/27/2021 9:58 am INDICATION: pain M25.511: Bilateral shoulder pain, unspecified chronicity M25.512:. ACCESSION NUMBER(S): [id number] ORDERING CLINICIAN: BENNY MURRY FINDINGS: AP axillary bilateral shoulder show moderately advanced osteoarthritic change of both shoulders inferior spurring is noted bilaterally with [id number] arthrosis. On the axillary view the humeral head is centered in the glenoid fossa. There is no fracture no dislocation. There is some mild calcific price changer the tuberosity is bilaterally. Overall advanced osteoarthritic glenohumeral joint bilaterally Electronically signed by: BENNY MURRY 04/27/21 10:22 Two views both shoulders show moderately advanced arthritis of both glenohumeral joints. He has a lot of inferior spurring. Health Management He is going to be careful to his arm, watch what he does. He will eliminate some of the heavy throwing. He got cortisone injection in both shoulders. We will see how it does for the tendon inflammation and arthritis. If he does not get relief, and he wanted to try a more direct injection into the arthritis, he would have to call and we would order a fluoroscopic interarticular injection of both shoulders. That can be done as an outpatient it just needs to be ordered. Historically, he has not needed that, so we will not order it till we hear from him. We can see him back in about five to six weeks to see how he is doing or we can just leave it open. If he is doing fine, we do not need to hear from him until the injections wear off. If he wants to try the other injections, he would need to call us so we can order them. The risks/benefits of a cortisone injection include infection, local skin irritation, skin atrophy, calcification, continued pain/discomfort, elevated blood sugar, burning, failure to relieve pain, possible late infection. Post-op discomfort can be alleviated with additional medications/ice/elevation /rest over the first 24 hours as recommended. After explaining these issues to the patient, it was understood. The injection site was sprayed with Ethyl Chloride and injection 2 cc of Celestone and 5 cc lidocaine plain 1% was injected in the right shoulder subacromial space under routine office sterile conditions and a Band-aid was applied. The risks/benefits of a cortisone injection include infection, local skin irritation, skin atrophy, calcification, continued pain/discomfort, elevated blood sugar, burning, failure to relieve pain, possible late infection. Post-op discomfort can be alleviated with additional medications/ice/elevation /rest over the first 24 hours as recommended. After explaining these issues to the patient, it was understood. The injection site was sprayed with Ethyl Chloride and injection 2 cc of Celestone and 5 cc lidocaine plain 1% was injected in the left shoulder subacromial space under routine office sterile conditions and a Band-aid was applied. Signatures Electronically signed by : Jessi Rahman, ; Apr 28 2021 3:22PM EST (Swim Coach/Recorde r) Electronically signed by : Benny Murry MD; Apr 28 2021 3:41PM EST [facility]2021 XR Shoulder - bilateral 2 Views [facility]: Covid-19 PCR ([facility])on 04-08 SARS-CoV-2 (COVID-19) RNA ZHANG+probe Ql (Unsp spec) Not detected Normal NOT DETECTED [facility] Comment on above: Result Comment: This test is not yet approved or cleared by the [place] FDA. When there are no FDA-approved or cleared tests available, and other criteria are met, FDA can make tests available under an emergency access mechanism called an Emergency Use Authorization (EUA). The EUA for this test is supported by the Cash Reconciliation Specialist of Health and Human Service's (HHS's) declaration that circumstances exist to justify the emergency use of in vitro diagnostics for the detection and/or diagnosis of the virus that causes COVID-19. This EUA will remain in effect (meaning this test can be used) for the duration of the COVID-19 declaration justifying emergency of IVDs, unless it is terminated or revoked by FDA (after which the test may no longer be used). When diagnostic testing is negative, the possibility of a false negative should be considered in the context of a patient's recent exposures and the presence of clinical signs and symptoms consistent with SARS-CoV-2. Performed By: #### [facility] #### [facility] [address] CARDIAC SCORINGon 09-06 CT CARDIAC SCORING Addendum Begins Patient Name: BENNY BRAND ADDENDUM: NON-CARDIOVASCULAR FINDINGS INCLUDED LUNGS, AIRWAYS AND PLEURA Endotracheal / endobronchial lesion: Negative Nodule: Negative Airspace disease: Negative Pleural effusion: Negative Pneumothorax: Negative Other: No acute or contributory unanticipated findings INCLUDED NON-CARDIOVASCULAR ÁLVARO AND MEDIASTINUM Adenopathy: Negative Included esophagus: Unremarkable Other: No acute or contributory unanticipated findings INCLUDED BONES: No acute skeletal findings, noting less sensitivity and specificity without dedicated sagittal and coronal reformatted series. INCLUDED CHEST WALL No acute or contributory unanticipated findings INCLUDED UPPER ABDOMEN No acute or contributory unanticipated findings ------- NON-CARDIOVASCULAR IMPRESSION NO ACUTE OR CONTRIBUTORY UNEXPECTED FINDINGS OF THE INCLUDED NON-CARDIOVASCULAR STRUCTURES Electronically signed by: NICK PRESTON MD Addendum Ends Patient Name: BENNY BRAND STUDY: CT CARDIAC SCORING; 09/19/2019 11:30 am INDICATION: Encounter for screening for cardiovascular disorders. COMPARISON: None. ACCESSION NUMBER(S): [id number] ORDERING CLINICIAN: EDWARDO MICHAEL TECHNIQUE: Using prospective ECG gating, CT scan of the coronary arteries was performed without intravenous contrast. Coronary calcium scoring was performed according to the method of Agatston. CT Dose-Length Product (DLP): 60.7 mGy*cm CT Dose Reduction Employed: Yes, prospective gating, iterative reconstruction. FINDINGS: The score and distribution of calcium in the coronary arteries is as follows: LM 40 LAD 48 LCx 0 RCA 34 Total 123 The visualized ascending thoracic aorta measures 3.5 cm in diameter. The heart is normal in size. No pericardial effusion is present. The main pulmonary artery, right and left pulmonary artery are normal in size. IMPRESSION: 1. Coronary artery calcium score of 123*. 2. 63rd percentile for age, gender in asymptomatic patients. *Coronary Artery Agatston score Score risk Very low 1-99 Mildly increased 100-299 Moderately increased >300 Moderate to severely increased >800 Raoul et al. JCCT 2016 (http://dx.doi.org/10.101 6/j.jcct.2016.11.003) ALMENDAREZ Percentile In general, greater than 75th percentile for age, gender, and race is considered to be a higher relative risk and higher lifetime risk condition. Greater than 75th percentile=moderate to severely increased relative risk irrespective of the score. Advise using ALMENDAREZ 10 year CHD risk calculator below for better discrimination of risk. ALMENDAREZ 10-Year CHD Risk with Coronary Artery Calcification can be calcuate using link below https://www.almendarez-nhlbi.or g/MESACHDRisk/MesaRiskSco re/RiskScore.aspx Ashia et al. JACC 2015 (http://dx.doi.org/10.101 6/j.j acc.2015.08.035) Reading Child Care Education Coordinator: Dr. Joselito Rousseau, Date: 09/19/2019 2:04 pm Electronically signed by: NICK PRESTON MD Normal [facility] Vital Signs Date Time Vital Sign Value Performing Clinician Facility 04-15-2025 09:24-0400 Body height 175.26 cm Edwardo Michael DO Work Phone: [facility] 04-15-2025 09:24-0400 Body mass index (BMI) [Ratio] 26.6 kg/m2 Edwardo Kuns DO Work Phone: [facility] 04-15-2025 09:24-0400 Body weight 81.7 kg Edwardo Kuns DO Work Phone: [facility] 04-15-2025 09:24-0400 Diastolic blood pressure 82 mm[Hg] Edwardo Kuns DO Work Phone: [facility] 04-15-2025 09:24-0400 Heart rate 63 /min Edwardo Kuns DO Work Phone: [facility] 04-15-2025 09:24-0400 Respiratory rate 18 /min Edwardo Kuns DO Work Phone: [facility] 04-15-2025 09:24-0400 SaO2% (BldA) [Mass fraction] 99 % Edwardo Kuns DO Work Phone: [facility] 04-15-2025 09:24-0400 Systolic blood pressure 120 mm[Hg] Edwardo Kuns DO Work Phone: [facility] 04-30-2024 09:24-0400 Body height 175.26 cm DO Edwardo Kuns Work Phone: [facility] 04-30-2024 09:24-0400 Body mass index (BMI) [Ratio] 26.6 kg/m2 DO Edwardo Kuns Work Phone: [facility] 04-30-2024 09:24-0400 Body weight 81.64 kg DO Edwardo Kuns Work Phone: [facility] 04-30-2024 09:24-0400 Diastolic blood pressure 66 mm[Hg] DO Edwardo Kuns Work Phone: [facility] 04-30-2024 09:24-0400 Heart rate 64 /min DO Edwardo Kuns Work Phone: [facility] 04-30-2024 09:24-0400 Respiratory rate 16 /min DO Edwardo Michael Work Phone: [facility] 04-30-2024 09:24-0400 SaO2% (BldA) [Mass fraction] 96 % DO Edwardo Michael Work Phone: [facility] 04-30-2024 09:24-0400 Systolic blood pressure 112 mm[Hg] DO Edwardo Michael Work Phone: [facility] 05-01-2023 14:15-0400 Body height 175.26 cm Edwardo Michael Other [employer] Other 05-01-2023 14:15-0400 Body mass index (BMI) [Ratio] 26.14 kg/m2 Edwardo Fernanda Other [employer] Other 05-01-2023 14:15-0400 Body weight 80.29 kg Edwardo Michael Other [employer] Other 05-01-2023 14:15-0400 Diastolic blood pressure 78 mm[Hg] Edwardo Michael Other [employer] Other 05-01-2023 14:15-0400 Respiratory rate 16 /min Edwardo Fernanda Other [employer] Other 05-01-2023 14:15-0400 SaO2% (BldA) [Mass fraction] 95 % Edwardo Moorebettye Other [employer] Other 05-01-2023 14:15-0400 Systolic blood pressure 118 mm[Hg] Edwardo Michael Other [employer] Other 04-14-2022 09:30-0400 Body height 175.26 cm Edwardo Michael Other [employer] Other 04-14-2022 09:30-0400 Body mass index (BMI) [Ratio] 27.02 kg/m2 Edwardo Michael Other [employer] Other 04-14-2022 09:30-0400 Body weight 83.01 kg Edwardo Michael Other [employer] Other 04-14-2022 09:30-0400 Diastolic blood pressure 80 mm[Hg] Edwardo Michael Other [employer] Other 04-14-2022 09:30-0400 Respiratory rate 16 /min Edwardo Michael Other [employer] Other 04-14-2022 09:30-0400 SaO2% (BldA) [Mass fraction] 98 % Edwardo Michael Other [employer] Other 04-14-2022 09:30-0400 Systolic blood pressure 126 mm[Hg] Edwardo Michael Other [employer] Other 04-28-2021 15:40-0400 Body height 175.26 cm Edwardo Michael [facility] Work Phone: 04-28-2021 15:40-0400 Body mass index (BMI) [Ratio] 26.58 kg/m2 Edwardo Michael Work Phone[facility] Work Phone: 04-28-2021 15:40-0400 Body surface area Derived from formula 1.98 m2 Edwardo Michael Work Phone: [facility] Work Phone: 04-28-2021 15:40-0400 Body weight 81.65 kg Edwardo Michael Work Phone: [facility] Work Phone: 04-13-2021 11:30-0400 Body height Edwardo Michael Other [employer] Other 04-13-2021 11:30-0400 Body mass index (BMI) [Ratio] 27.02 kg/m2 Edwardo Michael Other [employer] Other 04-13-2021 11:30-0400 Body weight 83.01 kg Edwardo Michael Other [employer] Other 04-13-2021 11:30-0400 Diastolic blood pressure 70 mm[Hg] Edwardo Michael Other [employer] Other 04-13-2021 11:30-0400 Respiratory rate 16 /min Edwardo Michael Other [employer] Other 04-13-2021 11:30-0400 SaO2% (BldA) [Mass fraction] 97 % Edwardo Michael Other [employer] Other 04-13-2021 11:30-0400 Systolic blood pressure 115 mm[Hg] Edwardo Michael Other [employer] Other Encounters Encounter Date Encounter Type Care Provider Facility Start: 04-15-2025 End: 04-15-2025 ambulatory Edwardo Michael DO Work Phone: [facility] [place] Work Phone: Start: 04-15-2025 End: 04-15-2025 Patient encounter procedure Edwardo Kingston DO -[facility] [place] Work Phone: Start: 04-08-2025 End: 04-08-2025 Patient encounter procedure Edwardo Kingston DO -[facility] [place] Work Phone: Start: 04-08-2025 End: 04-08-2025 ambulatory Edwardo Fernanda CASTRO Work Phone: [facility] Work Phone: Start: 03-17-2025 End: 03-17-2025 ambulatory PATRICIA LALI Not Available Start: 03-10-2025 End: 03-10-2025 ambulatory ALBINO LOWERY Not Available Start: 03-03-2025 End: 03-03-2025 ambulatory PATRICIA LALI Not Available Start: 02-26-2025 End: 02-26-2025 ambulatory ALBINO LOWERY Not Available Start: 02-24-2025 End: 02-24-2025 ambulatory ALBINO LOWERY Not Available Start: 02-19-2025 End: 02-19-2025 ambulatory ALBINO LOWERY Not Available Start: 02-17-2025 End: 02-17-2025 ambulatory ALBINO LOWERY Not Available Start: 02-13-2025 End: 02-13-2025 ambulatory PATRICIA LALI Not Available Start: 01-15-2025 End: 01-15-2025 Office outpatient visit 25 minutes Murphy Tesfaye PA-C Work Phone: [facility] Comment on above: Low back pain, unspe cified back pain laterality, unspecified chronicity, unspecified whether sciatica present (Primary Dx); Lumbar radiculopathy Start: 01-15-2025 End: 01-15-2025 ambulatory [facility] Start: 12-31-2024 End: 12-31-2024 Office outpatient new 30 minutes Benny Murry MD Work Phone: [facility] Comment on above: Pain of left hip; Right shoulder pain, unspecified chronicity; Tendinitis of right rotator cuff Start: 12-31-2024 End: 12-31-2024 ambulatory [facility] Start: 12-16-2024 End: 12-16-2024 ambulatory ANANT A FELTER Not Available Start: 10-23-2024 End: 10-23-2024 ambulatory DOUGIE S BIEDENBACH Not Available Start: 06-20-2024 End: 06-20-2024 ambulatory DOUGIE S BIEDENBACH Not Available Start: 06-17-2024 End: 06-17-2024 ambulatory ANANT A FELTER Not Available Start: 06-02-2024 End: 06-02-2024 ambulatory DOUGIE S BIEDENBACH Not Available Start: 05-09-2024 End: 05-09-2024 ambulatory DOUGIE S BIEDENBACH Not Available Start: 05-08-2024 End: 05-08-2024 Patient encounter procedure DO Edwardo Michael Work Phone: [facility] [place] Work Phone: Start: 05-08-2024 End: 05-08-2024 ambulatory DO Edwardo Michael Work Phone: [facility] Work Phone: Start: 05-02-2024 End: 05-02-2024 ambulatory Dougie Abernathy Facility:[facility] Start: 05-02-2024 End: 05-02-2024 Departed Referred DO Edwardo Michael Work Phone: [facility] [place] Work Phone: Start: 04-30-2024 End: 04-30-2024 ambulatory DO Edwardo Michael Work Phone: [facility] [place] Work Phone: Start: 04-30-2024 End: 04-30-2024 Patient encounter procedure DO Edwardo Michael Work Phone: [facility] [place] Work Phone: Start: 04-24-2024 End: 04-24-2024 ambulatory DOUGIE S BIEDENBACH Not Available Start: 04-22-2024 End: 04-22-2024 Patient encounter procedure DO Edwardodae Moorebettye Work Phone: [facility] [place] Work Phone: Start: 04-22-2024 End: 04-22-2024 ambulatory DO Edwardodae Michael Work Phone: [facility] Work Phone: Start: 04-07-2024 Non-patient / Non-visit DO Otiloi Michael Work Phone: [facility] Work Phone: Start: 04-07-2024 End: 04-07-2024 ambulatory GERMÁN BOYDSANJUANITA Not Available Start: 05-01-2023 End: 05-01-2023 ambulatory Edwardo Michael Other [employer] Other Start: 05-01-2023 Patient encounter procedure [facility] Start: 04-18-2023 End: 04-18-2023 ambulatory DO Edwardodae Michael Work Phone: [facility] Work Phone: Start: 04-18-2023 End: 04-18-2023 Patient encounter procedure DO Edwardo Michael Work Phone: [facility] [place] Work Phone: Start: 03-21-2023 End: 03-21-2023 ambulatory Edwardo Michael Other [employer] Other Start: 03-21-2023 Telephone encounter Edwardo Michael [facility] Family [facility] [place] Start: 01-10-2023 End: 01-10-2023 ambulatory Edwardo Michael Other [employer] Other Start: 01-10-2023 Telephone encounter Edwardo Michael [facility] Family [facility] [place] Start: 06-05-2022 End: 06-05-2022 ambulatory Edwardo Michael Other [employer] Other Start: 06-05-2022 Telephone encounter Edwardo Michael [facility] [place] Start: 04-14-2022 End: 04-14-2022 ambulatory Edwardo Michael Other [employer] Other Start: 04-14-2022 Patient encounter procedure Edwardo Michael [facility] [place] Start: 04-06-2022 End: 04-06-2022 ambulatory DO Edwardo Michael Work Phone: [facility] Work Phone: Start: 04-06-2022 End: 04-06-2022 Patient encounter procedure DO Edwardo Michael Work Phone: [facility] Start: 03-07-2022 End: 03-07-2022 ambulatory Edwardo Michael Other [employer] Other Start: 03-07-2022 Telephone encounter Edwardo Michael [facility] [place] Start: 12-27-2021 End: 12-27-2021 ambulatory Edwardo Michael Other [employer] Other Start: 12-27-2021 Telephone encounter Edwardo Michael [facility] [place] Start: 04-27-2021 Patient encounter procedure Edwardo Michael [facility] Work Phone: Start: 04-26-2021 End: 04-26-[address] EDWARDO MICHAEL Facility: Start: 04-22-2021 Telephone encounter Edwardo Michael [facility] [place] Start: 04-13-2021 Annual wellness visit Edwardo stevens Other [employer] Other Start: 04-13-2021 Encounter for genera l adult medical examination without abnormal findings Edwardo Michael [facility] Start: 04-13-2021 Patient encounter procedure Edwardo Michael [facility] Start: 04-13-2021 Telephone encounter Edwardo Michael [facility] Start: 06-29-2020 Patient encounter procedure Edwardo Michael Other [employer] Other Procedures Date Procedure Procedure Detail Performing Clinician Start: 12-31-2024 Arthrocentesis aspir &/inj major jt/bursa w/o us Benny Murry MD Work Phone: Start: 05-08-2024 CT angiography of head DO Edwardo Michael Work Phone: Screening for malign ant neoplasm of prostate Edwardo Michael Other Plan of Treatment Date Care Activity Detail Author Start: 05-01-2033 DTaP/Tdap/Td Vaccine s (3 - Td or Tdap) DTaP/Tdap/Td Vaccines (3 - Td or Tdap) [facility] Start: 05-01-2033 DTaP/Tdap/Td Vaccine s (4 - Td or Tdap) DTaP/Tdap/Td Vaccines (4 - Td or Tdap) [facility] Start: 12-21-2030 RSV High Risk: (Elde rly (60+) or Population) (1 - 1-dose 75+ series) RSV High Risk: (Elderly (60+) or Population) (1 - 1-dose 75+ series) [facility] Start: 07-18-2026 Screening for malign ant neoplasm of colon [facility] Start: 03-09-2025 Influenza vaccination Influenz a Vaccine (#1) [facility] Start: 02-23-2025 End: 02-23-2025 Patient encounter procedure 02/23/2025 1:15 PM EDT Office Visit [place] [address] [place] [id number] Murphy Tesfaye PA-C [address] [place] [id number] [facility] Start: 01-15-2025 End: 01-15-2026 XR Lumbar spine Views W flexion and W extension [facility] Service Area Work Phone: Comment on above: Expected: 01/15/2025 , Expires: 01/15/2026 Start: 03-09-2024 COVID-19 Vaccine ( season) COVID-19 Vaccine ( season) [facility] Start: 12-21-1973 Hepatitis C screening Hepatitis C [facility] Start: 1955 Lipid panel Lipid Panel [facility] Start: 1955 Medicare Annual Well ness Visit Medicare Annual Wellness Visit (AWV) [facility] Start: 1955 Screening for malign ant neoplasm of colon [facility] Start: 1955 Skin Cancer Screening Skin Cancer [facility] Start: 1955 Yearly Adult Physical Yearly Adult P hysical [facility] Comprehensive metabo lic 1999 panel - Serum or Plasma [facility] Comprehensive metabo lic 1999 panel - Serum or Plasma [facility] CT angiography of head [facility] Immunizations Immunization Date Immunization Notes Care Provider Fa cility 08-12-2024 Pneumococcal Conjuga te Vaccine, 20 valent Edwardo Michael DO Work Phone: [facility] 04-10-2024 influenza, high dose seasonal, preservative-free DO Edwardo Michael Work Phone: [facility] 04-10-2024 influenza virus vaccine, unspecified formulation Murphy Tesfaye PA-C Work Phone: [facility] Work Phone: 05-01-2023 tetanus toxoid, redu rivera diphtheria toxoid, and acellular pertussis vaccine, adsorbed Edwardo Michael Other [facility] 05-01-2023 influenza, injectabl e, quadrivalent, preservative free Edwardo Michael Other [facility] 04-18-2023 Flu Shot - Documentation Purposes Only Edwardo Michael Other [facility] 04-18-2023 Fluzone QIV High-Dos e 65YR+ DO Edwardo Michael Work Phone: [facility] 04-14-2022 influenza virus vaccine, unspecified formulation DO Edwardo Michael Work Phone: [facility] 04-14-2022 influenza, high dose seasonal, preservative-free Edwardo Michael Other [facility] 06-09-2021 COVID-19 Vaccine Moderna - Documentation Purposes Only Edwardo Fernanda Other [facility] 04-08-2021 Fluad Quadrivalent 0 .5 ML Intramuscular Prefilled Syringe Edwardo Michael Work Phone: [facility] 02-09-2021 pneumococcal conjuga te vaccine, 13 valent Edwardodae Michael Work Phone: [facility] 10-25-2020 Moderna COVID-19 Vaccine 100 MCG/0.5ML Intramuscular Suspension Edwardo Michael Work Phone: [facility] 09-21-2020 Moderna COVID-19 Vaccine 100 MCG/0.5ML Intramuscular Suspension Edwardo Michael Work Phone: [facility] 02-26-2020 influenza, seasonal, injectable Edwardo Fernanda Other [facility] 06-19-2019 zoster vaccine recombinant Edwardo Michael Work Phone: [facility] 04-01-2019 influenza, injectabl e, quadrivalent, preservative free Edwardo Michael Work Phone: [facility] 04-01-2019 zoster vaccine recombinant Edwardo Michael Work Phone: [facility] 04-01-2019 influenza, seasonal, injectable Edwardodae Michael Other [facility] 07-17-2018 Influenza, injectabl e, Madin Cheyney Canine Kidney, preservative free, quadrivalent Edwardo Michael Work Phone: [facility] 07-17-2018 pneumococcal polysaccharide vaccine, 23 valent Edwardo Michael Work Phone: [facility] 07-17-2018 influenza, seasonal, injectable Edwardo Fernanda Other [facility] 01-22-2018 Kenalog -40 mg Edwardo Fernanda Other [facility] [employer] Other 05-11-2016 tetanus toxoid, redu rivera diphtheria toxoid, and acellular pertussis vaccine, adsorbed Edwardodae Moorebettye DO Work Phone: [facility] 07-10-2012 tetanus and diphther ia toxoids, adsorbed, preservative free, for adult use (5 Lf of tetanus toxoid and 2 Lf of diphtheria toxoid) DO Edwardodae Moorebettye Work Phone: [facility] 07-10-2012 tetanus toxoid, redu rivera diphtheria toxoid, and acellular pertussis vaccine, adsorbed Edwardodae Michael Work Phone: [facility] Payers Date Payer Category Payer Private Health Insurance GENERIC COMMERCIAL [id number] 2024 Self-pay [id number] 2024 Unknown [id number] 2023 Unknown [id number] 2023 Unknown [id number] 2020 Medicare MEDICARE PART A AND B [id number] 1959 Medicare [id number] 1959 Unknown [id number] 1955 Unknown [id number] 2.16840.1.174304.3.579.2.5 93 1955 Unknown [id number] 2.16840.1.472910.3.579.2.1 244 1955 Unknown [id number] 2.16.840.1.321387.3.579.2.1 244 1955 Unknown [id number] 2.16840.1.183494.3.579.2.1 244 1955 Unknown [id number] 2.16.840.1.514015.3.579.2.1 244 1955 Unknown [id number] 2.16.840.1.864832.3.579.2.1 244 1955 Unknown [id number] 2.16.840.1.601245.3.579.2.1 259 1955 Unknown [id number] 2.16.840.1.309244.3.579.2.1 259 1955 Unknown [id number] 2.16.840.1.593482.3.579.2.1 259 1955 Unknown [id number] 2.16.840.1.632362.3.579.2.1 259 1955 Unknown [id number] 2.16.840.1.526819.3.579.2.1 259 1955 Unknown [id number] 2.16.840.1.091137.3.579.2.1 259 1955 Unknown [id number] 2.16.840.1.296965.3.579.2.1 259 1955 Unknown [id number] 2.16.840.1.072218.3.579.2.1 259 1955 Unknown [id number] 2.16.840.1.978325.3.579.2.1 259 1955 Unknown [id number] 2.16.840.1.461719.3.579.2.1 259 1955 Unknown [id number] 2.16.840.1.478411.3.579.2.1 259 1955 Unknown [id number] 2.16.840.1.397655.3.579.2.1 259 1955 Unknown [id number] 2.16.840.1.064985.3.579.2.1 259 1955 Unknown [id number] 2.16.840.1.190037.3.579.2.1 259 1955 Unknown [id number] 2.16.840.1.867133.3.579.2.1 259 1955 Unknown [id number] 2.16.840.1.728814.3.579.2.1 259 Unknown Unknown MMO [id number] Unknown [place] NOREEN [id number] Unknown [id number] 2.16.840.1.444136.3.579.2.5 31 Unknown [id number] 2.16.840.1.087527.3.579.2.5 31 Unknown [id number] 2.16.840.1.162709.3.579.2.5 31 Unknown [id number] 2.16.840.1.565295.3.579.2.5 31 Unknown [id number] 2.16.840.1.329777.3.579.2.5 31 Social History Date Type Detail Facility Unknown if ever smoked [facility] [employer] Other Sex Assigned At [facility] [employer] Other Start: 1955 Sex Assigned At Male [facility] Start: 08-12-2018 End: 04-30-2024 Tobacco smoking status MNIS Never smoked tobacco (finding) [facility] Tobacco smoking status [facility] Tobacco smoking consumption unknown [facility] Work Phone: Start: 1955 Sex assigned at Not on file U [facility] Work Phone: Sex Male (finding) [facility] Clinical Notes 08-12-2009 to 01-15-2025 Murphy Tesfaye PA-C - 01/15/2025 1:00 PM EDTRshu Murry MD - 12/31/2024 2:30 PM EDTAddendum Note - Ani Szymanski MA - 12/31/2024 2:30 PM EDT Note Date & Type Note Facility 01-15-2025 History of Presen t illness Narrative Benny Brand is a 69 y.o. male who presents for New Patient Visit of the Lower Back (Referred by KENNETH/Selene for years, travels to both sides/Xray today). HPI: 69-year-old gentleman here for new patient visit of low back pain. Sent by Dr. Benny Murry. He denies any fever chills nausea vomiting night sweats. He has no bowel or bladder complaints. Physical exam: Well-nourished, well kept.No lymphangitis or lymphadenopathy in the examined extremities. Gait normal. Can stand on heels and toes. Examination of the back shows tenderness in the paraspinous musculature in the bilateral SI region. There is decreased range of motion in all directions due to guarding/muscle spasms and pain at extremes. There is good strength and no instability. Examination of the lower extremities reveals no point tenderness, swelling, or deformity. Range of motion of the hips, knees, and ankles are full without crepitance, instability, or exacerbation of pain. Strength is 5/5 throughout. No redness, abrasions, or lesions on extremities Gross sensation intact in the extremities. Deep tendon reflexes 1+ bilateral. Clonus negative. Affect normal. Alert and oriented 3. Coordination normal. Imaging studies: AP lateral flexion-extension plain films of the lumbar spine were ordered and reviewed today. We reviewed an x-ray of the left hip from December 31, 2024. Assessment: 69-year-old gentleman here for new patient evaluation of low back pain. He has had right sided lumbosacral and SI back pain for many years, about 2 months ago he started to notice some the left sided lumbosacral and SI type pain. He is not really describing any significant radicular symptoms maybe just a little bit in the upper lateral thighs bilaterally. He does have some degeneration in his hips bilaterally, internal/external rotation of the hips can elicit some groin and hip pain. He has degenerative scoliosis in his lumbar spine of about 10 to 15 degrees. He has a lot of degeneration in the lumbar spine from L2-S1. He does some home stretching but he has not done any formal physical therapy for this. He has had some cortisone injections in his back in the past that he does not think really helps much. Plan: We are going to get him into some physical therapy, something with a manual component and modalities. We will see him back in 6 weeks and see how he is doing. If he is no better or worse at that time we will work this up further and consider an MRI of his lumbar spine. I have ordered and reviewed tests, x-rays x 2. I read the note from Dr. Benny Murry from December 31, 2024. This is an exacerbation of a chronic problem, right low back pain. This is an undiagnosed new problem with uncertain prognosis, left low back pain. Murphy Tesfaye PA-C documented in this encounter [facility] Work Phone: 12-31-2024 History of Presen t illness Narrative Associated Order(s): L Inj/Asp: R subacromial bursa Post-Procedure Diagnose(s): Right shoulder pain, unspecified chronicity History of present: History right shoulder known cuff defect arthritic change last injection lasted over 3 and half years Recently aggravated his left SI joint low back Came in for evaluation of his left hip as well Past medical history: The patient's past medical history, family history, social history and review of systems were documented on the patient's medical intake form. The medical intake form was reviewed and scanned into the electronic medical record for future use. History is otherwise negative except as stated in the history of present illness. Physical exam: General: Alert and oriented to person place and time. No acute distress and breathing comfortably, pleasant and cooperative with examination. Head and neck exam: Head is normocephalic atraumatic. Neck: Supple no visible swelling or deformity. Cardiovascular: Good perfusion to affected extremities without signs or symptoms of chest pain. Lungs no audible wheezing or labored breathing on examination. Abdominal exam: Nondistended nontender Extremities: Left hip moves freely and well no pain over the groin there is no pain with abduction flexion rotation leg lengths are symmetric no pain over the greater trochanteric process he can straight leg raise he has pinpoint pain in the left lumbar sacral spine junction slightly radiating down the leg into the buttock area up to the knee but not below the knee he occasionally in the past has had some sciatica symptoms on the other side that he did therapy rehab and stretching Right shoulder The right shoulder was inspected and was found to have no obvious deformity. There was tenderness to touch over the lateral edges of the shoulder over the rotator cuff insertion. Active forward flexion 110 degrees, external rotation to 50 degrees, abduction to 45 degrees, and internal rotation to the level of L2. At this time the shoulder is neurovascular tact and neurosensory intact. Motor intact C5-T1. There was no obvious neck pain or radiculopathy noted. There was no gross instability or adhesive capsulitis symptoms. There was no evidence of apprehension or apprehension suppression. Strength was tested in 4 planes with weakness in the supraspinatus strength testing and external rotation position. There was no strength deficit in internal rotation. Impingement signs were positive both supine and standing for impingement test type I and II. There was mild pain over the bicipital groove with a positive speeds sign Before aspiration injection the risks of a cortisone injection including infection, local skin irritation, skin atrophy, calcification, continued pain and discomfort, elevated blood sugar, burning, failure to relieve pain, possible late infection were discussed with the patient. Postprocedure discomfort can be alleviated with additional medications, ice, elevation, rest over the first 24 hours as recommended. Patient verbalized understanding and wanted to proceed with the planned procedure. After informed consent was provided and allergies verified, the patient was positioned appropriately on thel bed. The joint to be aspirated and injected was prepped and draped in a sterile fashion. The skin was anesthetized with ethyl chloride spray. A joint aspiration was to be performed an 18-gauge needle was used otherwise a 22-gauge needle was used to inject the appropriate joint. Joint injection was performed with a mixture of 5 cc 1% lidocaine plain and 2 cc Celestone Soluspan 6 mg per mL. The needle was removed and the puncture site closed and sealed with a Band-Aid. The patient tolerated the procedure well. If fluid was aspirated it was sent for further studies and a sterile specimen container as ordered to the lab. 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 Consent was given by the patient. Immediately prior to procedure a time out was called to verify the correct patient, procedure, equipment, manager product support and site/side marked as required. documented in this encounter [facility] Work Phone: 12-31-2024 Miscellaneous Notes Addended by: ANI SZYMANSKI on: 12/31/2024 02:57 PM Modules accepted: Orders documented in this encounter [facility] [place] Work Phone: 12-31-2024 Note Addended by: Wally SZYMANSKI on: 12/31/2024 02:57 PM Modules accepted: Orders [facility] Work Phone: 04-30-2024 Evaluation note Authored April 30, 2024 9:31am The above note written by DEREK Khoury acting as human recorder, note dictated by Dr. Edwardo Michael. [facility] Work Phone: 1(568) 258-565810-24-2023 Evaluation note* Encounter Date Diagnosis Assessment Notes Treatment Notes Treatment Clinical Notes Apr, Medicare annual wellness visit, subsequent (ICD-10 - Z00.00) Personalized health advice was given to the beneficiary including a written plan for screenings discussed and provided. Advanced care planning reviewed and/or information given as requested. The above visit was performed by Kylah REED, under direct supervision of Dr. Edwardo Michael. Document reviewed and amended by provider signed below. Apr, Hyperlipidemia (ICD-10 - E78.5) Review of blood work which revealed no signs of anemia, leukemia, or infection. Liver, kidney, and thyroid function is normal, as well as electrolytes and blood sugar. His cholesterol has improved since last check. Pt is to continue with the above medication and continue watching their diet and increase their exercise regimen. Apr, Screening for prostate cancer (ICD-10 - Z12.5) Review of PSA level which was WNL, therefore, we will continue to monitor. Pt denies any urinary issues at this time. Apr, Vitamin D deficiency (ICD-10 - E55.9) Review of pt's blood work reveals his vitamin d level is WNL. He is unsure of the strength of the vitamin d suppliments he takes, but I advised his levels are good, so he is to continue with this. Apr, Screening for colon cancer (ICD-10 - Z12.11) Pt is due for a cologuard screening, so this was ordered today. Apr, Need for Tdap vaccination (ICD-10 - Z23) Vaccine provided today Apr, Laceration of right middle finger without foreign body without damage to nail, initial encounter (ICD-10 - S61.212A) Pt did cut his finger on a saw a few days ago. It has been 10 years since his last tetanus shot, so one was provided in the office today at his request. I did advise I feel pt likely has proximal sinus tachycardia, and explained this to the pt. Apr, Palpitations (ICD-10 - R00.2) We did discuss pt's sensitivity to caffeine. He reports multiple episodes of palpitations, and advises he has been to the ER for this. He declines EKG for this today. I advised I do feel pt's symptoms are due to proximal sinus tachycardia, and explained this to the pt. He is to call if symptoms worsen. [employer] Other 09-13-2023 Evaluation note* Encounter Date Diagnosis Assessment Notes Treatment Notes Treatment Clinical Notes Mar, Thyroid nodule (ICD-10 - E04.1) [employer] Other 07-05-2023 Evaluation note* Encounter Date Diagnosis Assessment Notes Treatment Notes Treatment Clinical Notes Jan, Hyperlipidemia (ICD-10 - E78.5) Jan, Screening for prostate cancer (ICD-10 - Z12.5) Jan, Vitamin D deficiency (ICD-10 - E55.9) [employer] Other 10-07-2022 Evaluation note* Encounter Date Diagnosis Assessment Notes Treatment Notes Treatment Clinical Notes Apr, Medicare annual wellness visit, initial (ICD-10 - Z00.00) Personalized health advice was given to the beneficiary including a written plan for screenings discussed and provided. Advanced care planning reviewed and/or information given as requested. The above visit was performed by ( Henny Hinson LPN), under direct supervision of ( Edwardo Michael). Document reviewed and amended by provider signed below. Apr, Hyperlipidemia (ICD-10 - E78.5) Blood work results reviewed with the patient. No signs of anemia or leukemia. Liver enzymes , kidney and thyroid functions are within normal limits with no indication of diabetes. Total cholesterol improved from 209 to181 and LDL improved [id number]. Per patient he started taking Zetia daily versus every other day. Pt is to continue with the above medication and continue watching their diet and increase their exercise regimen. Apr, Screening for prostate cancer (ICD-10 - Z12.5) Review of PSA level which was WNL,digital exam performed ,therefore, we will continue to monitor. Pt denies any urinary issues at this time. 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 Apr, Needs flu shot (ICD-10 - Z23) High dose influenza vaccine administered. Apr, Erectile dysfunction (ICD-10 - N52.9) Pt is to continue with the above medication, refills provided and we will continue to monitor. Apr, Vitamin D deficiency (ICD-10 - E55.9) Vitamin D level is within normal range upon review of blood work results. Pt is to continue with the above medication and we will continue to monitor. [employer] Other 08-30-2022 Evaluation note* Encounter Date Diagnosis Assessment Notes Treatment Notes Treatment Clinical Notes Feb, Hyperlipidemia (ICD-10 - E78.5) Feb, Screening for prostate cancer (ICD-10 - Z12.5) Feb, Vitamin D deficiency (ICD-10 - E55.9) [employer] Other 06-21-2022 Evaluation note* Encounter Date Diagnosis Assessment Notes Treatment Notes Treatment Clinical Notes Dec, Hyperlipidemia (ICD-10 - E78.5) Dec, Erectile dysfunction (ICD-10 - N52.9) [employer] Other 10-15-2021 Evaluation note* Encounter Date Diagnosis Assessment Notes Treatment Notes Treatment Clinical Notes Apr, Screening for viral disease (ICD-10 - Z11.59) [employer] Other 10-06-2021 Evaluation note* Encounter Date Diagnosis Assessment Notes Treatment Notes Treatment Clinical Notes Apr, Medicare annual wellness visit, initial (ICD-10 - Z00.00) Personalized health advice was given to the beneficiary with a referral, if appropriate, to health education of preventative counseling services or programs aimed at reducing identified risk factors and improving self-management or community-based lifestyle interventions to reduce health risks and promote self-management and wellness, including weight loss, physical activity, smoking cessation, fall prevention and nutrition. A written plan for screenings discussed, including colonoscopy, flu vaccination, other vaccinations if at risk, routine lab studies, eye exams, glaucoma screening, skin checks, risk factors for medical problems discussed, including BP control, obesity, and need for consistent exercise. Advanced care planning reviewed with patient/family. Counseling was provided here today - specifically in regard to any positively answered questions as noted above. Apr, Screening for prostate cancer (ICD-10 - Z12.5) Review of blood work with patient, PSA is WNL. We will continue to monitor. Apr, Hyperlipidemia (ICD-10 - E78.5) Review of blood work with patient, cholesterol remains elevated on the above medication. He is taking this 2 days in a row with one day off inbetween. He does not tolerate 'statin' medications well therefore I advised him to monitor his diet closer. We will continue to monitor. Apr, Memory changes (ICD-10 - R41.3) Patient does have a positive Dementia Screening today. He does not feel like he has any memory concerns. I advised him if he does notice any changes, he is to call our office and we will re-evalaute this further. Apr, Erectile dysfunction (ICD-10 - N52.9) Patient reports that the sildenafil did help initially up until this past month. I did advise him to stop the sildenafil and advised him to try the above medication and use it sparingly. Patient is in agreement. We will continue to monitor. Apr, Welcome to Medicare preventive visit (ICD-10 - Z00.00) [employer] Other 10-21-2011 History of Present illness NarrativePatient is new to us today, meaning he has not been here in three years but he actually had injections ten years ago[facility] Work Phone: [phone]) [phone] History general Narrative - Reported* Type Description Date Medical History 2007 psa level 0.652 Medical History 2007 colonoscopy done Medical History 2007 stress test done Medical History 08-12-09; lipid panel, cmp Medical History 02-25-10; lipid panel , cmp, cbc, t4, tsh, testosterone, psa (0.909) Medical History Bloodwork 05-19-11; lipid panel, cmp, cbc, t4, tsh, hgb a1c (5.5), psa with reflex to free psa (0.668) Medical History [place] [facility] [place] Medical History thyroid nodule-follows with Dr. Rai Medical History 09/15/15 Labs Medical History Cholesterol Medical History 04/26/19 PSA ( 0.7) Surgical History tonsillectomy and adenoidectomy [employer] Other 02-04-2010 History general Narrative - Reported* Type Description Date Medical History 2007 psa level 0.652 Medical History 2007 colonoscopy done Medical History 2007 stress test done Medical History 08-12-09; lipid panel, cmp Medical History 02-25-10; lipid panel , cmp, cbc, t4, tsh, testosterone, psa (0.909) Medical History Bloodwork 05-19-11; lipid panel, cmp, cbc, t4, tsh, hgb a1c (5.5), psa with reflex to free psa (0.668) Medical History [place]otid[place] ( [place] [facility] [place] Medical History thyroid nodule-follows with Dr. Rai Medical History 09/15/15 Labs Medical History Cholesterol Medical History 04/26/19 PSA ( 0.7) Medical History 04/06/2022 PSA (0.460) Surgical History tonsillectomy and adenoidectomy [facility] [employer] Other Evaluation noteNo InformationNortUPMC [facility] [employer] Other Evaluation noteNo assessment information available [facility] Work Phone: Evaluation note* Author Fatoumata Coy [facility] Authored April 30, 2024 9 :31am The above note written by DEREK Khoury acting as human recorder, note dictated by Dr. Edwardo Michael. [facility] Work Phone: Evaluation note* Diagnosis Pain of left hip Right shoulder pain, unspecified chronicity Tendinitis of right rotator cuff Right shoulder pain, unspecified chronicity Pain of left hip documented in this encounter [facility] Work Phone: Evaluation note* Diagnosis Low back pain, unspecified back pain laterality, unspecified chronicity, unspecified whether sciatica present- Primary Lumbar radiculopathy Thoracic or lumbosacral neuritis or radiculitis, unspecified documented in this encounter [facility] Work Phone: Reason for referral (narrative)No reason for referral [facility] Work Phone: Summary Purpose Family History No Family History Records Found Relationship Condition Age at Onset Recorded Date/T see father Unknown grandparent Unknown Relationship Condition Age at Onset Recorded Date/T see father Unknown mother Heart disease Unknown Congestive heart failure Unknown Advance Directives No Advanced Directives Records Found Advance Directive Response Recorded Date/ Time Advance Directives No November 21 9:52am Advance Directive Response Recorded Date/ Time Advance Directives No August 09, 2023 12:04pm Chief Complaint * B/L Shoulder Pain * Xrays Today Chief Complaint and Reason for Visit Chief Complaint E78.5 Z12.5 E55.9 Chief Complaint Amb Documentation E78.5 F41.9 Z12.5 Chief Complaint Amb Documentation E78.5 F41.9 Z12.5 medicare wellness Reason for Visit Actinic keratosis Hyperglycemia Hyperlipidemia Medicare annual wellness visit, subsequent Screening for prostate cancer Skin carcinoma Stroke-like symptom Chief Complaint Amb Documentation E78.5 F41.9 Z12.5 medicare wellness LEFT EAR LESION R29.90 Reason for Visit Actinic keratosis Hyperglycemia Hyperlipidemia Medicare annual wellness visit, subsequent Screening for prostate cancer Skin carcinoma Stroke-like symptom Chief Complaint Admit Date medicare wellness April 15, 2025 9: 24am Additional Source Comments (unrecognized sect ion and content) No Status Records FoundNo Status Records FoundNo Status Records FoundNo Status Records FoundNo Status Records FoundNo Status Records Found INFORMATION SOURCE (unrecogn ized section and content) DATE CREATED AUTHOR 09/22/2019 [facility] DATE CREATED AUTHOR AUTHOR'S ORGANIZ ATION 04/30/2021 [facility] DATE CREATED AUTHOR AUTHOR'S ORGANIZ ATION 05/03/2021 [facility] DATE CREATED AUTHOR AUTHOR'S ORGANIZ ATION 01/20/2025 [facility] DATE CREATED AUTHOR AUTHOR'S ORGANIZ ATION 03/19/2025 [facility] EPIC DATE CREATED AUTHOR AUTHOR'S ORGANIZ ATION 04/18/2025 [facility] REASON FOR VISIT (unrecogniz ed section and content) Reason Comments New Patient Visit Referred by Abad molina for years, travels to both sidesXray today Reason Comments New Patient Visit Xray today Pain Xray today Injections Wants inj. Subseq. MCW examClinical Acute IllnessInitial MCW examrefillClinicalWELCOME TO MEDICARE Care Teams (unrecognized sec tion and content) Team Status: Active Member Role Status Dates Edwardo Michael DO Primary Care Provider Active Team Status: Active Member Role Status Dates Edwardo Michael DO Primary Care Provider Active Sta rt: April 07, 2024 Henny Hinson LPN Attending Provider Active St art: April 07, 2024 Team Status: Inactive Member Role Status Dates Edwardo Michael DO Primary Care Provide r, Attending Provider Active Start: April 22, 2024 End: April 22, 2024 Team Status: Inactive Member Role Status Dates Edwardo Michael DO Primary Care Provider, Attending Provi parker Active Team Status: Active Member Role Status Dates Dougie Abernathy DO Specialist Active Germán Yuan MD Specialist Active Edwardo Michael DO Primary Care Provider Active Team Status: Inactive Member Role Status Dates Edwardo Michael DO Primary Care Provide r, Attending Provider Active Start: April 30, 2024 End: April 30, 2024 Team Status: Inactive Member Role Status Dates Edwardo Michael DO Primary Care Provider Active Sta rt: May 02, 2024 End: May 02, 2024 Dougie Abernathy DO Attending Provider Active S tart: May 02, 2024 End: May 02, 2024 Team Status: Inactive Member Role Status Dates Edwardo Michael DO Primary Care Provide r, Attending Provider Active Start: May 08, 2024 End: May 08, 2024 Supervisor Drawing Relationship Specialty Start Date End Date Edwardo Michael DO PCP - General 09/19/19 Supervisor Drawing Relationship Specialty Start Date End Date Edwardo Michael [place] [address] PCP - General 09/19/19 Team Status: Inactive Member Role Status Dates Edwardo Michael DO Primary Care Provider Active Sta rt: April 08, 2025 End: April 08, 2025 Edwardo Michael DO Attending Provider Active Start: April 08, 2025 End: April 08, 2025 Team Status: Inactive Member Role Status Dates Edwardo Michael DO Primary Care Provider Active Sta rt: April 15, 2025 End: April 15, 2025 Edwardo Michael DO Attending Provider Active Start: April 15, 2025 End: April 15, 2025 Goals (unrecognized section and content) Goals may be documented in a n alternate section FOR RECORDS PERTAINING TO PATIENTS WHO ARE OR HAVE BEEN ENROLLED IN A CHEMICAL DEPENDENCY/SUBSTANCEABUSE PROGRAM, SOME INFORMATION MAY BE OMITTED. This clinical summary was aggregated from multiple sources. Caution should be exercised in using it in the provision of clinical care. This summary normalizes information from multiple sources, and as a consequence, information in this document may materially change the coding, format and clinical context of patient data. In addition, data may be omitted in some cases. CLINICAL DECISIONS SHOULD BE BASED ON THE PRIMARY CLINICAL RECORDS. [facility] [employer] [facility]. provides no warranty or guarantee of the accuracy or completeness of information in this document.
--- NOTE | 2025-04-27 14:44 | P.CN_ITS ---
Consult Note: HPI Data of Consult Patient: new to practice Consult date: 04/27/25 Requesting Physician: Jesse Mckeon MD Primary Care Provider: Edwardo Lopez DO Consult Narrative Reason for consult: low back, left hip and buttock pain Narrative: 69yom who presents for evaluation. worsening low back, left buttocks, left hip, occasional left leg pain that has progressed. will have periodic flares that bring his pain to 10/10. very active and has had increasing difficulty completing tasks at home. lumbar xr shows multilevel degenerative changes, listhesis of l4 on 5. continues in chiropractic therapy >6 weeks. uses ice, stretching, occasional ibuprofen. cc:: CC: Jesse Mckeon MD Review of Systems ROS Status of ROS 10 or more systems reviewed and unremark able except as noted in history and below Exam Narrative Exam Narrative: Psych-alert and oriented x 3. Attentive and appropriate, constitutionally normal, displays normal mood and affect per situation. There are no obvious deficits in memory, reasoning, or intellect.? Skin-no obvious rashes, bruising, erythema noted to the patient's area of pain.? Extremities- extremities are warm with minimal edema and palpable pulses. Lumbar-tenderness to palpation noted in the lumbar spine and paraspinal musculature. Pain is elicited with flexion, extension, and lateral rotation of the lumbar spine. Range of motion is diminished with these motions. Facet loading maneuvers are positive. Strength-noted to be unremarkable with the exception of decreased strength rated at 4 out of 5 in left quadriceps femoris, anterior tibialis. Sensory-no notable sensory deficits in the bilateral lower extremities to touch or pinprick in all dermatomal distributions with the exception to decreased sensation to the left L4, 5 dermatomal distribution Coordination remains intact.? Gait remains non-antalgic. Assessment and Plan Assessment and Plan (1) Lumbar stenosis with neurogenic claudication: Plan 69yom who presents for evaluation. failed conservative measures, as noted. imaging reviewed, as noted. given symptoms and imaging, will order lumbar mri without contrast for further info. he is in agreement. meds reviewed, no changes. follow up after imaging.
== END 2025-04-27 13:56 | disposition home or self-care (01) ==
PROVIDERS: PCP Family Medicine; Visit Provider Anesthesiology
DX: M48.062 Spinal stenosis, lumbar region with neurogenic claudication (principal)
CPT/HCPCS: G0463

== ENCOUNTER 2025-05-04 08:22 | Outpatient (OUT) | payer MEDICARE, OTHER, SELFPAY ==
--- NOTE | 2025-05-04 08:26 | MR_ITS ---
The [address] [address] Patient Name: BENNY ZIEGLER MRN: [id number] date: 1955 Sex: M Assigned Patient Location: MRI Current Patient Location: Accession/Order Number: [id number] Exam Date: 05/04/2025 09:00 Report Date: 05/04/2025 21:11 At the request of: LILIA BE MD Procedure: MR lumbar spine wo con MRI of the lumbar spine performed without contrast INDICATION: Spinal stenosis of lumbar region with neurogenic claudication low back pain with left leg pain and weakness COMPARISON: None FINDINGS: Lumbar vertebral body heights are maintained. There is moderate levocurvature of the lumbar spine. There is mild dextrocurvature upper lumbar spine. Multilevel degenerative endplate changes L3-L5 noted Modic type II at L3-4 and Modic type I L4-5. Hemangioma involving the L2 vertebral body noted. Additionally Modic type I changes L1-L2. The conus medullaris terminates normally at L1-L2. Multilevel overall moderate disc space narrowing L2-L4 and bheb-sa-whfanwdh disc space narrowing at L5-S1. T12-L1: Facet arthropathy. No significant disease is canal neural foramen identified. L1-2: Broad-based disc bulge with left extraforaminal zone protrusion and associated T2 hyperintense signal suggestive fissure. Facet arthropathy, moderate. There is minor right-sided moderate left-sided neural foraminal narrowing. Mild central canal stenosis. There is mild predominantly left-sided subarticular recess narrowing. L2-L3: Circumferential disc bulge with moderate severe right moderate left facet arthropathy. Severe right subarticular recess narrowing and moderate left subarticular recess narrowing, correlate with right L3 radiculopathy. Additionally, there is moderate to severe right neural foraminal narrowing and moderate left neural from narrowing. L3-4: Circumferential disc bulge with moderate severe right and moderate left facet arthropathy this causes severe right subarticular recess narrowing, correlate with right L4 radiculopathy.. There is moderate severe right neural foraminal narrowing and encroachment upon the exiting right L3 nerve root. The canal moderately narrowed. Left foramen mild to moderately narrowed. Possible nerve root sheath diverticula left measuring 6 mm in size L4-5: Circumferential disc bulge with moderate severe facet arthropathy. Moderate severe right moderate left subarticular recess narrowing. There is moderate central stenosis. There is a synovial cyst arising from the left facet joints roughly 3 mm in size without definite mass effect otherwise moderate severe right and moderate left neural from narrowing. L5-S1: Circumferential disc bulge with left foraminal zone fissure noted. Moderate facet arthropathy and spurring. There is mild right-sided and [id number]-rv-[id number] left-sided neural foraminal narrowing. Canal is patent. MR/MR lumbar spine wo con IMPRESSION: Given the left-sided symptoms, degenerative changes greatest at L1-L2 and L5-S1, correlate with possible left L1 and left L5 radiculopathy given the foraminal zone encroachment. These levels. Impression dictated by: Nic Lyman M.D. 05/04/2025 9:11 PM Dictation Location: [place] [address] Electronically authenticated by: [id number] Y Date: 05/04/2025 21:11
--- OUTSIDE RECORDS SUMMARY | 2025-05-04 08:27 | XMS_ITS | CCD ---
Author Organization [facility] Care Team Providers Care Blanker Operator Name Role Phone Edwardo Michael Unavailable Unavailable Unavailable JOHN, DR BROOKE Attending Unavailable JOHN, DR BROOKE Consulting Unavailable JOHN, DR BROOKE Admitting Unavailable Edwardo Michael Unavailable John, DO Brooke Primary Care Provider [phone] John, DO Brooke Attending Provider [phone] DO Edwardo Michael Primary Care Provider [phone] John, DO Brooke Attending Provider John, DO Brooek Primary Care Provider John, DO Brooke Attending Provider [phone] DO Dougie Abernathy Attending Provider Edwardo Michael DO Primary Care Provider [phone] Edwardo Michael DO Primary Care Provider BENNY MURRY Attending Unavailable EDWARDO MICHAEL Primary Care Unavailable BENNY MURRY Referring Unavailable EDWARDO MICHAEL Primary Care Unavailable BENNY MURRY Referring Unavailable EDWARDO MICHAEL Primary Care Unavailable MURPHY TESFAYE Attending Unavailable EDWARDO MICHAEL Primary Care Unavailable BENNY EDWARDS Referring Unavailable EDWARDO MICHAEL Primary Care Unavailable DOUGIE ABERNATHY Attending Unavailable LEE ANN YUAN Referring Unavailable ANANT NORRIS Attending Unavailable PATRICIA ESCALERA Attending Unavailable MURPHY TESFAYE Referring Unavailable ALBINO LOWERY Attending Unavailable MURPHY TESFAYE Referring Unavailable ALBINO LOWERY Attending Unavailable DEARTH, MURPHY Referring Unavailable ALBINO LOWERY Attending Unavailable DEARTH, MURPHY Referring Unavailable PETSANJUANITA, LEE ANN A Attending Unavailable BICHRIS, DOUGIE Lozano Attending Unavailable PETYAZMINI, LEE ANN A Referring Unavailable BIDOUGIE PEREZ Attending Unavailable PETSANJUANITA, LEE ANN Nguyen Referring Unavailable BIDOUGIE PEREZ Attending Unavailable ALBINO LOWERY Attending Unavailable DEARTH, MURPHY Referring Unavailable LALI, PATRICIA Attending Unavailable DEARTH, MURPHY Referring Unavailable ALBINO LOWERY Attending Unavailable DEARTH, MURPHY Referring Unavailable LALI, PATRICIA Attending Unavailable DEARTH, MURPHY Referring Unavailable ANANT NORRIS Attending Unavailable JOSEMANUEL, DOUGIE Lozano Attending Unavailable Edwardo Michael DO Primary Care Provider Edwardo Michael DO Attending Provider Edwardo Michael Admitting Unavailable John, Edwardo Primary Care Unavailable Edwardo Michael Attending Unavailable Dougie Abernathy Admitting Unavailable Josemanuel, Dougie Attending Unavailable Edwardo Michael Attending Unavailable John, Edwardo Admitting Unavailable John, Edwardo Primary Care Unavailable Josemanuel, Dougie Admitting Unavailable Josemanuel, Dougie Attending Unavailable John, Edwardo Primary Care Unavailable John, Edwardo Attending Unavailable John, Edwardo Admitting Unavailable Edwardo Michael Primary Care Unavailable Allergies Allergy ClassificationReported Allergen(s)Allergy TypeDate of OnsetReaction(s) Facility (1 source)ALLERGIES NOT ON FILE; Translations: [ALLERGIES NOT ON FILE]Propensity to adverse reactions (disorder)[facility] 3 Repository Medications Current Medications MedicationDrug Class(es)DatesSig (Normalized)Sig (Original)Ascorbic Acid (6 sources)Vitamin CVitamin C Activeaspirin 81 mg delayed release oral tablet (4 sources)Platelet Aggregation Inhibitor, Nonsteroidal Anti-inflammatory Drug Start: 02-17-8109ncfg 1 tablet by mouth once dailyAspirin 81 mg tablet,delayed release (DR/EC) Active 81 MG PO Daily April 30, 2024 12:00am Complies with drug therapyazithromycin 250 mg oral tablet (4 sources)Macrolide AntimicrobialStart: 14-01-7771Myxdzdtbq Z-Romero 250 MG as directed Orally May, Activecholecalciferol 0.05 mg oral capsule (5 sources)Vitamin DStart: 22-38-7213nutv 1 capsule by mouth once daily Cholecalciferol (Vitamin D3) 50 mcg (2,000 unit) capsule Active 50 MCG PO Daily April 07, 2024 12:00am Complies with drug therapyezetimibe 10 mg oral tablet (20 sources)Dietary Cholesterol Absorption InhibitorStart: 04-07-2024 End: 84-95-6237gbar 1 tablet by mouth once dailyEzetimibe (Zetia) 10 mg tablet Active 10 MG PO Daily April 15, 2025 10:25am Complies with drug therapy Start: 39-48-8454ttkg 1 tablet by mouth every twenty-four hoursZetia 10 MG 1 tablet Orally Once a day Sep, Activefluorouracil 50 mg/ml topical cream (4 sources)Nucleoside Metabolic InhibitorStart: 06-78-9065Atdkhwmnenit (Efudex) 5 % cream Active 1 APPLIC TOPICAL Twice daily 40 April 30, 2024 12:00am Complies with drug therapymethylPREDNISolone 4 mg oral tablet (4 sources)CorticosteroidStart: 63-07-1131Zakbuh 4 MG as directed Orally May, ActiveMultivitamin preparation (2 sources)Start: 25-29-9104dxpw 1 tablet by mouth once dailyMultivitamin Active 1 TAB PO Daily April 30, 2024 12:00amMultivitamin tablet (2 sources)Start: 40-04-9741gaby 1 tablet by mouth once dailyMultivitamin tablet Active 1 TAB PO Daily April 30, 2024 12:00am Complies with drug therapy Start: 48-75-9209tgiq 1 tablet by mouth once dailypredniSONE 10 mg oral tablet (1 source)Start: 65-37-0700troasgTWLN (Deltasone) 10 mg tablet Indications: Right shoulder pain, unspecified chronicity , Tendinitis of right rotator cuff 50MG FOR 2 DAYS, 40MG FOR 2 DAYS, 30MG FOR 2 DAYS, 20MG FOR 2 DAYS, 10MG FOR 2 DAYS 30 tablet 12/31/2024 Activesildenafil 100 mg oral tablet (17 sources)Phosphodiesterase 5 InhibitorStart: 04-07-2024 End: 28-19-5661irrk 1 tablet by mouth once daily as neededSildenafil (Viagra) 100 mg tablet Active 100 MG PO Daily as needed for sexual activity April 302023 10:25am Complies with drug therapyStart: 08-29-1797qmac 1 tablet by mouth every twenty-four hoursViagra 100 MG 1 tablet as needed Orally Once a day for 30 day(s) alternates with cialis, NO NOT TAKE TOGETHER Jan, Active Vitamin D (6 sources)Vitamin D ActiveZinc (6 sources)Zinc Activezinc gluconate 50 mg oral tablet (5 sources)Start: 23-96-8601lyya 1 tablet by mouth once dailyZinc Gluconate 50 mg tablet Active 50 MG PO Daily April 07, 2024 12:00am Complies with drug therapy Completed/Discontinued Medications MedicationDrug Class(es)DatesSig (Normalized)Sig (Original)betamethasone 3 mg/ml / betamethasone acetate 3 mg/ml injectable suspension (4 sources)CorticosteroidStart: 12-31-2024 End: 54-72-6746qopasllfockrs acet,sod phos (Celestone) injection 2 mLStart: 12-31-2024 End: mL, intra-articular, Once PRN Procedure, Starting on Sun12/31/24 at 1450, For 1 doseStart: 52-77-8433Rvwnksbnxwujo Sod Phos & Acet 6 (3- 3) MG/ML Injection Suspension USE DIRECTED. Quantity: 0 Refills: 0 Ordered: 27-Apr-2021 Benny Murry MD Start : 27-Apr-2021 CompleteLidocaine (4 sources)Antiarrhythmic, Amide Local AnestheticStart: 12-31-2024 End: 37-02-9643tzohkjpgo (Xylocaine) 10 mg/mL (1 %) injection 5 mLStart: 12-31-2024 End: mL, injection, Once PRN Procedure, Starting on Sun12/31/24 at 1450, For 1 doseStart: 86-48-4136Bifoblopy HCl - 1 % Injection Solution USE DIRECTED. Quantity: 0 Refills: 0 Ordered: 85-Frw-3746Uueaabb MD, Robert Start : 27-Apr-2021 Completetadalafil 20 mg oral tablet (16 sources)Phosphodiesterase 5 InhibitorStart: 04-07-2024 End: 64-10-0117jhkr 1 tablet by mouth once daily as neededTadalafil 20 mg tablet Discontinued 20 MG PO Daily as needed April 07, 2024 12:00am April 30, 2024 9:34am FreeTextSi tablet as needed Orally once a day PRN; Note: Source Status: Takingalternates with viagra, DO NOT TAKE TOGETHER; Refills: 3; Provider: John Brooke PStart: 38-12-2125fbsd 1 tablet by mouth once daily as neededCialis 20 MG 1 tablet as needed Orally once a day PRN alternates with viagra, DO NOT TAKE TOGETHER Apr, ActiveTriamcinolone (8 sources)CorticosteroidStart: 13-63-1305Sqoxtza -40 mg Jan, 40 mg Problems Active Problems Problem ClassificationProblemDateDocumented DateEpisodic/ChronicAnxiety disorders (17 sources)Anxiety; Translations: [Anxiety disorder, unspecified]Onset: 140360-44-3116CpejcroXmwwtrn dysrhythmias (1 source)PalpitationsEpisodicDiabetes mellitus without complication (6 sources)Hyperglycemia; Translations: [Hyperglycemia, unspecified]04-30-2024 EpisodicDisorders of lipid metabolism (20 sources)Hyperlipidemia; Translations: [Hyperlipidemia, unspecified]Onset: 04-13-2021 Resolved: 74-44-4368BjakrsgMwifwrpmdhrip and screening for infectious disease (9 sources)Contact with and (suspected) exposure to other viral communicable diseases; Translations: [Encounter for screening for other viral diseases]Onset: 04-22-2021 Resolved: 37-30-5433VxjswbjfCqaciaqotws deficiencies (20 sources)Vitamin D deficiency; Translations: [Vitamin D deficiency, unspecified]Onset: 03-07-2022 Resolved: 62-02-8610FfgnsirNmtr wounds of extremities (1 source)Laceration without foreign body of right middle finger without damage to nail, initial encounterEpisodicOsteoarthritis (17 sources)Bilateral shoulder osteoarthritis; Translations: [Osteoarthrosis, localized, primary, shoulder region]13-56-1037RwcluesVlnkg connective tissue disease (4 sources)Neurological symptom; Translations: [Unspecified symptoms and signs involving the nervous system]89-02-9963TjudmfmlPglhl connective tissue disease (1 source)Tendinitis of right rotator cuff; Translations: [Other shoulder lesions, right shoulder]79-86-3963TxgvvqflLfffb connective tissue disease (2 sources)Other shoulder lesions, right shoulder; Translations: [Other shoulder lesions, right shoulder]Onset: 06-57-5599RlqstuzdVpymq male genital disorders (11 sources)Impotence of organic origin; Translations: [Male erectile dysfunction, unspecified]ChronicOther male genital disorders (3 sources)Male erectile dysfunction, unspecified; Translations: [Erectile dysfunction N52.9]Onset: 04-13-2021 Resolved: 17-11-3124ZvahtfwLcpeg non-traumatic joint disorders (1 source)Shoulder pain; Translations: [Pain in joint, shoulder region]Episodic Other non-traumatic joint disorders (2 sources)Hip pain; Translations: [Pain in left hip]24-63-9981BmbeawwhYvqax non-traumatic joint disorders (3 sources)Pain in right shoulder; Translations: [Pain in joint, shoulder region]Onset: 328884-28-8718FkqfmaokPalaq non-traumatic joint disorders (2 sources)Pain in left hip; Translations: [Pain in left hip]Onset: 12-31-2024 EpisodicOther skin disorders (5 sources)Disorder of nail; Translations: [Nail disorder, unspecified]Episodic Other skin disorders (4 sources)Actinic keratosis; Translations: [Actinic keratosis]04-30-2024 EpisodicOther skin disorders (2 sources)Actinic keratosis; Translations: [Actinic keratosis]04-30-2024 EpisodicResidual codes; unclassified (11 sources)Memory impairment; Translations: [Other amnesia]EpisodicSpondylosis; intervertebral disc disorders; other back problems (11 sources)Bilateral inflammation of sacroiliac joint; Translations: [Sacroiliitis, not elsewhere classified]ChronicSpondylosis; intervertebral disc disorders; other back problems (6 sources)Lumbar radiculopathy; Translations: [Low back pain]Onset: 01-15-2025 17-53-7015AqtfggtbOljeuxv disorders (12 sources)Thyroid nodule; Translations: [Nontoxic single thyroid nodule] ChronicUnclassified (3 sources)CONTACT W/AND (SUSP) EXPOS COVID-19; Translations: [CONTACT W/AND (SUSP) EXPOS COVID-19]Onset: 66-08-4012Wbiugbojbdcl (3 sources)Right shoulder pain, unspecified spjzylqtul83-85-2617Iesgoehtgxjk (1 source)Low back pain, unspecified; Translations: [Low back pain, unspecified] Onset: 01-15-2025 Past or Other Problems Problem ClassificationProblemDateDocumented DateEpisodic/ChronicOther connective tissue disease (3 sources)Unspecified symptoms and signs involving the nervous system; Translations: [Other symptoms involving nervous and musculoskeletal systems] Onset: 266231-56-0586EbsxxfizRqviw non-epithelial cancer of skin (7 sources)Malignant neoplasm of skin; Translations: [Other specified malignant neoplasm of skin, unspecified]Onset: 376547-55-7901UhueokfiFgwom screening for suspected conditions (not mental disorders or infectious disease) (20 sources)Patient encounter status; Translations: [Encounter for screening for cardiovascular disorders]Onset: 04-13-2021 Resolved: 55-70-3261UlkfcehdNburs skin disorders (1 source)Disorder of the skin and subcutaneous tissue, unspecified; Translations: [Disorder of the skin and subcutaneous tissue, unspecified]Onset: 15-47-8164JmhpvftlPwypnwte codes; unclassified (1 source)Other amnesia; Translations: [Memory changes R41.3]Onset: 04-13-2021 Resolved: 69-30-6174BucohhoiIcfjjwhfgaor (1 source)CONTACT W/AND (SUSP) EXPOS COVID-19; Translations: [CONTACT W/AND (SUSP) EXPOS COVID-19]Onset: 37-00-5518Zorxjugsusfx (1 source)Low back pain, unspecified; Translations: [Low back pain, unspecified] Onset: 01-15-2025 Results Test NameValueInterpretationReference RangeFacilityAlanine aminotransferase [Enzymatic activity/volume] in Serum or PlasmaOrdered By: Edwardo Michael on 87-29-5747AIZ [Catalytic activity/Vol]21 U/LNormal7-52The [facility] Hospital At SouthwoodsComment on above:Performed By: #### CMP, LIPID, TSH3, CBC, PSAS ####[facility] [place] [address] USAAlbumin [Mass/volume] in Serum or Plasma by Bromocresol green (BCG) dye binding metho Ordered By: Edwardo Michael on 25-39-2874Hgmdhgf BCG dye [Mass/Vol]4.3 g/dL3.5-5.7 [facility] SouthwoodsAlkaline phosphatase [Enzymatic activity/volume] in Serum or PlasmaOrdered By: Edwardo Michael on 54-33-2363VRP [Catalytic activity/Vol]73 U/ANlwbal39-257OtjvhzobhThe Surgical Hospital At Southwoods Comment on above:Performed By: #### CMP, LIPID, TSH3, CBC, PSAS ####[facility] [place] [address] USAAspartate aminotransferase [Enzymatic activity/volume] in Serum or PlasmaOrdered By: Edwardo Michael on 28-13-7516ARQ [Catalytic activity/Vol]22 U/THmvikx18-69HgvuyubvcThe Surgical Hospital At SouthwoodsComment on above:Performed By: #### CMP, LIPID, TSH3, CBC, PSAS ####[facility] [place] [address] USABasophils [#/volume] in Blood by Automated countOrdered By: Edwardo Michael on 84-06-9976Kotiwtwox (Bld) [#/Vol]0.0 10*3/uLNormal0.0-0.2FUniversity Hospitals Health SystemComment on above:Result Comment: PERFORMED BY: [facility] [address] [place] [address] PATHOLOGIST [employer] LIVIER MOSS M.D.Performed By: #### CMP, LIPID, TSH3, CBC, PSAS #### [place] [address] USABasophils/100 leukocytes in Blood by Automated count Ordered By: Edwardo Michael on 42-06-0886Zsdhemenm/100 WBC (Bld)0.7 %Normal.The [facility] At SouthwoodsComment on above:Performed By: #### CMP, LIPID, TSH3, CBC, PSAS #### [facility] [address] [place] [address] USABilirubin.total [Mass/volume] in Serum or PlasmaOrdered By: Edwardo Michael on 67-26-2034Mjcraqmib [Mass/Vol]0.7 mg/dLNormal0.3-1.0The [facility] SouthwoodsComment on above:Performed By: #### CMP, LIPID, TSH3, CBC, PSAS ####[facility] [place] [id number] USACalcium [Mass/volume] in Serum or PlasmaOrdered By: Edwardo Michael on 04-08-2025 Calcium [Mass/Vol]9.5 mg/dLNormal8.6-10.3FUniversity Hospitals Health System Comment on above:Performed By: #### CMP, LIPID, TSH3, CBC, PSAS ####[place] [address] [place] [id number] USACarbon dioxide, total [Moles/volume] in Serum or PlasmaOrdered By: Edwardo Michael on 51-25-6141AZ6 [Moles/Vol]28.4 mmol/AWenrnf77.0-31.0The [facility] At SouthwoodsComment on above:Performed By: #### CMP, LIPID, TSH3, CBC, PSAS ####[place] [id number] USAChloride [Moles/volume] in Serum or PlasmaOrdered By: Edwardo Michael on 71-74-9920Sykzdnua [Moles/Vol]106 mmol/SDyfgqk02-732MnvwkjydhThe Surgical Hospital At SouthwoodsComment on above:Performed By: #### CMP, LIPID, TSH3, CBC, PSAS ####[place] [id number] USACholesterol [Mass/volume] in Serum or Plasma Ordered By: Edwardo Michael on 45-12-0549Xuuxeramvde [Mass/Vol]203 mg/yHXapn046-590 [facility] SouthwoodsComment on above:Chol less than 200 mg/dl low riskChol 201-239 mg/dl borderline riskChol 240 mg/dl and greater high riskResult Comment: Chol less than 200 mg/dl low risk Chol 201-239 mg/dl borderline risk Chol 240 mg/dl and greater high riskPerformed By: #### CMP, LIPID, TSH3, CBC, PSAS ####[facility] [address] [place] [address] [place] Cholesterol in HDL [Mass/volume] in Serum or PlasmaOrdered By: Edwardo Michael on 49-40-3865Dcsgvdnjomy in HDL [Mass/Vol]37 mg/sBTpdcen01-88RvclygfpvThe Surgical Hospital At SouthwoodsComment on above:HDL CHOL ATP-III CLASSIFICATION Cardiovascular RiskHDL > or equal to 60 mg/dL LOWHDL < 40 mg/dL HIGHResult Comment: HDL CHOL ATP-III CLASSIFICATION Cardiovascular Risk HDL > or equal to 60 mg/dL LOW HDL < 40 mg/dL HIGHPerformed By: #### CMP, LIPID, TSH3, CBC, PSAS ####[facility] [address] [place] [address] USACholesterol in LDL Calc [Mass/Vol]Ordered By: Edwardo Michael on 28-73-7222Fxxvmotyabq in LDL [Mass/Vol] 142 mg/dLHigh0-100The [facility] SouthwoodsComment on above:LDL ATP III CLASSIFICATIONLDL less than 100 mg/dL OptimalLDL 100-129 mg/dL Near or above aahdezoPNK149-761 mg/dL Borderline highLDL 160-189 mg/dL HighLDL greater than 189 mg/dL Very highCholesterol in VLDL Calc [Mass/Vol]Ordered By: Edwardo Michael on 39-94-0779Zauwpkwxxai in VLDL [Mass/Vol]24 mg/dLThe Surgical Hospital At SouthwoodsComplete Blood Count Auto Diffon 67-47-8670Owin Corpuscular HGB Conc34.3 g/fJXruzri90.5-35.6The [facility] Physician GroupComment on above:Performed By: #### CMP, LIPID, TSH3, CBC, PSAS #### [facility] [address] [place] [address] USANRBC%0.2 /100{WBC}Normal0-0.5[facility] Comment on above:Performed By: #### CMP, LIPID, TSH3, CBC, PSAS #### [facility] [address] [place] [address] USAWhite Blood Count5.6 [CFU]/mLNormal4.1-10.5The [facility] Physician GroupComment on above:Performed By: #### CMP, LIPID, TSH3, CBC, PSAS #### [facility] [address] [place] [address] USAComprehensive Metabolic Panelon 95-44-6573Nhlsohj [Mass/Vol]4.3 g/dLNormal3.5-5.7The [facility] Physician GroupComment on above: Performed By: #### CMP, LIPID, TSH3, CBC, PSAS ####[facility] [place] [address] USAGFR/1.73 sq M.predicted MDRD (S/P/Bld) [Vol rate/Area]mL/min/{1.73_m2}NormalThe Atrium Health Union Physician GroupComment on above:Performed By: #### CMP, LIPID, TSH3, CBC, PSAS ####[facility] [place] [address] USACreatinine [Mass/volume] in Serum or PlasmaOrdered By: Edwardo Michael on 35-08-0616Eeqlefjtti [Mass/Vol]1.01 mg/dLNormal0.70-1.30The [facility] SouthwoodsComment on above:Performed By: #### CMP, LIPID, TSH3, CBC, PSAS ####[facility] [place] [address] USAEosinophils [#/volume] in Blood by Automated countOrdered By: Edwardo Michael on 89-61-6988Vhycdaodikd (Bld) [#/Vol]0.1 10*3/uL Normal0.0-0.45The [facility] SouthwoodsComment on above:Performed By: #### CMP, LIPID, TSH3, CBC, PSAS #### [facility] [address] [place] [address] USAEosinophils/100 leukocytes in Blood by Automated count Ordered By: Edwardo Michael on 91-98-5156Bhvbioupuph/100 WBC (Bld)1.6 %Normal. The [facility] Hospital At SouthwoodsComment on above:Performed By: #### CMP, LIPID, TSH3, CBC, PSAS #### [facility] [address] [place] [address] USAErythrocyte distribution width [Ratio] by Automated count Ordered By: Edwardo Michael on 31-30-4760Eijbjaxwfhs distribution width (RBC) [Ratio] 12.8 %Nmuqen91.0-14.8The [facility] Hospital At SouthwoodsComment on above:Performed By: #### CMP, LIPID, TSH3, CBC, PSAS #### [facility] [address] [place] [address] USAErythrocytes [#/volume] in Blood by Automated countOrdered By: Edwardo Michael on 40-26-9522YGT (Bld) [#/Vol]4.77 10*6/uLNormal3.90-5.60 [facility] SouthwoodsComment on above:Performed By: #### CMP, LIPID, TSH3, CBC, PSAS #### [place] [address] USAGlomerular filtration rate [Volume Rate/Area] in Serum, Plasma or Blood by CreatinineOrdered By: Edwardo Michael on 91-66-1810Xcpxpskfmm filtration rate [Volume Rate/Area] in Serum, Plasma or Blood by Creatinine> 60.0 mL/MinThe Surgical Hospital At SouthwoodsGlucose [Mass/volume] in Serum or Plasma Ordered By: Edwardo Michael on 50-46-1226Aqryprp [Mass/Vol]105 mg/nBNjjo18-384 [facility] SouthwoodsComment on above:ADA recommended reference rangeRandom Glucose Reference Range is dependent on time and content of last meal. Glucose of more than 200 mg/dL in a nonstressed, ambulatory subject supports the diagnosisof Diabetes Mellitus.Result Comment: Random Glucose Reference Range is dependent on time and content of last meal. Glucose of more than 200 mg/dL in a nonstressed, ambulatory subject supports the diagnosis of Diabetes Mellitus. ADA recommended reference rangePerformed By: #### CMP, LIPID, TSH3, CBC, PSAS ####[facility] [address] [place] [address] [place] Hematocrit [Volume Fraction] of Blood by Automated countOrdered By: Edwardo Michael on 21-35-5217Iphpncagbi (Bld) [Volume fraction]44.4 %Ysaqla74.8-50.0The [facility] SouthwoodsComment on above:Performed By: #### CMP, LIPID, TSH3, CBC, PSAS #### [facility] [address] [place] [address] USAHemoglobin [Mass/volume] in BloodOrdered By: Edwardo Michael on 87-89-6947Qemumyweee (Bld) [Mass/Vol]15.2 g/hJKrxruh86.0-17.0The [facility] SouthwoodsComment on above:Performed By: #### CMP, LIPID, TSH3, CBC, PSAS #### [facility] [address] [place] [address] USALeukocytes [#/volume] corrected for nucleated erythrocytes in Blood by Automated counOrdered By: Edwardo Michael on 48-12-9922FKC corrected for nucl RBC Auto (Bld) [#/Vol]5.6 10*3/uL4.1-10.5FUniversity Hospitals Health System Leukocytes [#/volume] in Blood by Automated countOrdered By: Edwardo Michael on 51-64-9556SFU (Bld) [#/Vol]5.6 10*3/uLNormal4.1-10.5FUniversity Hospitals Health SystemComment on above:Performed By: #### CMP, LIPID, TSH3, CBC, PSAS #### [facility] [address] [place] [address] USALipid Panelon 01-06-3967OQP Cholesterol,Ynjnzwghrq892 mg/dLHigh0-100The [facility] Physician GroupComment on above:Result Comment: LDL ATP III CLASSIFICATION LDL less than 100 mg/dL Optimal LDL 100-129 mg/dL Near or above optimal LDL 130-159 mg/dL Borderline high LDL 160-189 mg/dL High LDL greater than 189 mg/dL Very highPerformed By: #### CMP, LIPID, TSH3, CBC, PSAS ####[facility] Triglyceride w/Klwdug330 mg/dLNormal0-149[facility] Physician GroupComment on above:Result Comment: TRIG ATP III CLASSIFICATION TRIG less than 150 mg/dL Normal TRIG 150-199 mg/dL Borderline high TRIG 200-500 mg/dL High TRIG greater than 500 mg/dL Very high Standard traceable to the Center for Disease Conrtrol and Prevention (CDC) test method.Performed By: #### CMP, LIPID, TSH3, CBC, PSAS ####[facility] [place] [address] USAVLDL JUMLSXPXUSY43 mg/dLNormUF Health North Physician GroupComment on above:Performed By: #### CMP, LIPID, TSH3, CBC, PSAS ####[facility] [place] [address] USALymphocytes [#/volume] in Blood by Automated countOrdered By: Edwardo Michael on 47-72-2046Xsgyruqhykg (Bld) [#/Vol]1.3 10*3/uL Normal1.00-4.8The [facility] SouthwoodsComment on above:Performed By: #### CMP, LIPID, TSH3, CBC, PSAS #### [place] [address] USALymphocytes/100 leukocytes in Blood by Automated count Ordered By: Edwardo Michael on 90-04-0418Njzscszxygv/100 WBC (Bld)23.2 %Normal. [facility] At SouthwoodsComment on above:Performed By: #### CMP, LIPID, TSH3, CBC, PSAS #### [facility] [address]H [Entitic mass] by Automated countOrdered By: Edwardo Michael on 63-65-2584JFP (RBC) [Entitic mass]31.9 doKmlbqa90.5-35.2FUniversity Hospitals Health SystemComment on above:Performed By: #### CMP, LIPID, TSH3, CBC, PSAS #### [facility] [address] Auto (RBC) [Mass/Vol]Ordered By: Edwardo Michael on 32-05-8859NLZK (RBC) [Mass/Vol]34.3 g/dL32.5-35.6FUniversity Hospitals Health SystemMCV [Entitic volume] by Automated countOrdered By: Edwardo Michael on 91-67-4954USK (RBC) [Entitic vol]93.1 lGKrsmwq70.5-101The Surgical Hospital At SouthwoodsComment on above:Performed By: #### CMP, LIPID, TSH3, CBC, PSAS #### [facility] [address] [place] [address] USAMonocytes [#/volume] in Blood by Automated countOrdered By: Edwardo Michael on 95-44-4160Zripwomgb (Bld) [#/Vol]0.6 10*3/uLNormal0.0-0.8 The [facility] Hospital At SouthwoodsComment on above:Performed By: #### CMP, LIPID, TSH3, CBC, PSAS #### [facility] [address] [place] [id number] USAMonocytes/100 leukocytes in Blood by Automated count Ordered By: Edwardo Michael on 48-41-6979Ztyyyepxd/100 WBC (Bld)10.0 %Normal. The Surgical Hospital At SouthwoodsComment on above:Performed By: #### CMP, LIPID, TSH3, CBC, PSAS #### [facility] [address] [place] [address] USANeutrophils [#/volume] in Blood by Automated countOrdered By: Edwardo Michael on 17-45-7021Cswchzsykfz (Bld) [#/Vol]3.6 10*3/uLNormal1.8-7.7 The [facility] Hospital At SouthwoodsComment on above:Performed By: #### CMP, LIPID, TSH3, CBC, PSAS #### [facility] [address] [place] [id number] USANeutrophils/100 leukocytes in Blood by Automated count Ordered By: Edwardo Michael on 39-26-1779Jkzlawwtppa/100 WBC (Bld)64.5 %Normal. The [facility] Hospital At SouthwoodsComment on above:Performed By: #### CMP, LIPID, TSH3, CBC, PSAS #### [facility] [address] [place] [address] USANo Panel InformationOrdered By: Edwardo Michael on 04-08-2025 Pharmacy Creatinine Clearance (ChemN/AFUniversity Hospitals Health SystemNucleated erythrocytes [Presence] in Blood by Automated countOrdered By: Edwardo Michael on 01-27-2605Brnzryizr RBC Auto Ql (Bld)0.2 /100{WBC}0-0.5FUniversity Hospitals Health SystemPSA Screen (Yearly Only)on 28-73-1610MNV Screen (Yearly Only)0.620 ng/mLNormal0.000-4.000The [facility] Physician GroupComment on above:Order Comment: Is patient <50 yrs? Medicare does not pay <50.: N What is the date of the last PSA Screen?: [id number] Is Medicare the insurance?: Y Did you verify eligibility (Dx Time) check TestViewGp: YES TO ALLResult Comment: Serial tumor marker results determined by assays using different manufacturers or methods may not be comparable. [facility] site reliability engineer and method: Active EndpointsEL DXI, CHEMILUMINESCENT IMMUNOASSAY. PERFORMED BY: [place] [address] PATHOLOGIST [employer]ORY LABORER LIVIER MOSS M.D.Performed By: #### CMP, LIPID, TSH3, CBC, PSAS #### [place] [id number] USAPlatelet mean volume [Entitic volume] in Blood by Automated countOrdered By: Edwardo Michael on 32-67-0501Cryvnrcz mean volume (Bld) [Entitic vol]9.8 fLNormal6.6-10.1FUniversity Hospitals Health SystemComment on above:Performed By: #### CMP, LIPID, TSH3, CBC, PSAS #### [facility] [address] [place] [id number] USAPlatelets [#/volume] in Blood by Automated countOrdered By: Edwardo Michael on 77-17-8639Vtmwncbca (Bld) [#/Vol]268 10*3/wXLfpuhy305-218 The [facility] Hospital At SouthwoodsComment on above:Performed By: #### CMP, LIPID, TSH3, CBC, PSAS #### [facility] [address] [place] [address] USAPotassium [Moles/volume] in Serum or PlasmaOrdered By: Edwardo Michael on 52-51-7808Tzuqlbqbf [Moles/Vol]4.5 mmol/LNormal3.5-5.1FUniversity Hospitals Health SystemComment on above:Performed By: #### CMP, LIPID, TSH3, CBC, PSAS ####[facility] [address] [place] [address] USAProstate specific Ag [Mass/volume] in Serum or PlasmaOrdered By: Edwardo Michael on 77-29-0973Rbvgykfu specific Ag [Mass/Vol]0.620 ng/mL0.000-4.000The Surgical Hospital At SouthwoodsComment on above:Serial tumor marker results determined by assays using different manufacturers or methods may not be comparable.[facility] site reliability engineer and method:My-Apps DXI, CHEMILUMINESCENT IMMUNOASSAY.Protein [Mass/volume] in Serum or PlasmaOrdered By: Edwardo Michael on 63-90-9818Mjxtanm [Mass/Vol]7.1 g/dLNormal6.4-8.9The [facility] Hospital At SouthwoodsComment on above:Performed By: #### CMP, LIPID, TSH3, CBC, PSAS ####[facility] [place] [address] USASerum globulin measurement by calculation (mass/volume)Ordered By: Edwardo Michael on 82-17-9655Ixkkgtze (S) [Mass/Vol]2.8 g/dLNormalThe Surgical Hospital At SouthwoodsComment on above:Performed By: #### CMP, LIPID, TSH3, CBC, PSAS ####[facility] [place] [address] USASerum or plasma albumin/globulin mass ratioOrdered By: Edwardo Michael on 04-08-2025 Albumin/Globulin [Mass ratio]1.5 {ratio}NormalThe Surgical Hospital At Southwoods Comment on above:Performed By: #### CMP, LIPID, TSH3, CBC, PSAS ####[place] [address] [place] [address] USASerum or plasma anion gap determinationOrdered By: Edwardo Michael on 42-68-9439Dcceg gap [Moles/Vol]10.1 mmol/LNormal6.0-15.0The [facility] Hospital At SouthwoodsComment on above:Performed By: #### CMP, LIPID, TSH3, CBC, PSAS ####[address] [address] USASerum or plasma total cholesterol/high density lipoprotein (HDL) cholesterol mass ratOrdered By: Edwardo Michael on 04-08-2025 Cholesterol.total/Cholesterol in HDL [Mass ratio]5.5 {ratio}Normal<5.0The Surgical Hospital At SouthwoodsComment on above:Performed By: #### CMP, LIPID, TSH3, CBC, PSAS ####[address] [address] USASodium [Moles/volume] in Serum or PlasmaOrdered By: Edwardo Michael on 04-08-2025 Sodium [Moles/Vol]140 mmol/QGmhfho861-899XpetxuskoThe Surgical Hospital At Southwoods Comment on above:Performed By: #### CMP, LIPID, TSH3, CBC, PSAS ####[address] [address] USAThyrotropin [Units/volume] in Serum or PlasmaOrdered By: Edwardo Michael on 79-36-2211HVN Qn1.23 m[IU]/LNormal0.45-5.33The Surgical Hospital At SouthwoodsComment on above:Result Comment: PERFORMED BY: [facility] [address] [place] [address] PATHOLOGIST [employer] LABORER LIVIER MOSS M.D.Performed By: #### CMP, LIPID, TSH3, CBC, PSAS ####[address] [address] [place] Triglyceride [Mass/volume] in Serum or PlasmaOrdered By: Edwardo Michael on 30-93-5686Qigdzavrftws [Mass/Vol]122 mg/dL0-149[facility] Comment on above:TRIG ATP III CLASSIFICATIONTRIG less than 150 mg/dL NormalTRIG 150-199 mg/dL Borderline highTRIG 200-500 mg/dL High TRIG greater than 500 mg/dL Very highStandard traceable to the Center for Disease Conrtrol and Prevention (CDC) test method.Urea nitrogen [Mass/volume] in Serum or PlasmaOrdered By: Edwardo Michael on 76-32-0613Kgux nitrogen [Mass/Vol]17 mg/dLNormal01-30The [facility] Hospital At SouthwoodsComment on above:Performed By: #### CMP, LIPID, TSH3, CBC, PSAS ####[facility] [address] [place] [address] USAXR LUMBAR SPINE 4+ VIEWS WITH FLEXION EXTENSIONon 85-14-6869MZ LUMBAR SPINE 4+ VIEWS WITH FLEXION EXTENSIONInterpreted By: Benny Edwards, STUDY: XR LUMBAR SPINE 4+ VIEWS WITH FLEXION EXTENSION; 01/15/2025 1:09 pm INDICATION: Signs/Symptoms:pain. ACCESSION NUMBER(S): [id number] ORDERING CLINICIAN: BENNY EDWARDS FINDINGS: AP lateral [...] Benny Edwards 01/16/2025 1:03 PM Dictation workstation: [id number] Hospitals AmbulatoryL Inj/Asp: R subacromial bursaon 36-76-0419YvjpoxBenny Murry MD 12/31/2024 2:50 PM L Inj/Asp: [...] to verify the correct patient, procedure, equipment, lab support tech and site/side marked as required. [facility] Work Phone: [facility] Work Phone: XR HIP LEFT WITH PELVIS WHEN PERFORMED 2 OR 3 VIEWSon 82-53-3973GN HIP LEFT WITH PELVIS WHEN PERFORMED 2 OR 3 VIEWSInterpreted By: Benny Murry, STUDY: XR HIP LEFT WITH PELVIS WHEN PERFORMED 2 OR 3 VIEWS; 12/31/2024 2:41 pm INDICATION: Signs/Symptoms:pain. 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 No fracture dislocation noted Signed by: Benny Murry 12/31/2024 2:54 PM Dictation workstation: [id number]l Tift Regional Medical CenterComment on above:Order Comment: AP/LATXR Hip Viewson 87-76-9826Okjtakenkyj By: Benny Murry STUDY: XR HIP LEFT WITH PELVIS WHEN PERFORMED 2 OR 3 VIEWS; 12/31/2024 2:41 pm INDICATION: Signs/Symptoms:pain. 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 No fracture dislocation noted Signed by: Benny Murry 12/31/2024 2:54 PM Dictation workstation: [id number] Benny Gupta MD - 12/31/2024 Interpreted By: Benny Murry STUDY: XR HIP LEFT WITH PELVIS WHEN PERFORMED 2 OR 3 VIEWS; 12/31/2024 2:41 pm INDICATION: Signs/Symptoms:pain. 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 No fracture dislocation noted Signed by: Benny Murry 12/31/2024 2:54 PM Dictation workstation: [id number] [facility] Work Phone: [facility] Work Phone: Radiology Study observation (narrative)[facility] Work Phone: XR SHOULDER RIGHT 2+ VIEWSon 72-84-4657KN SHOULDER RIGHT 2+ VIEWSInterpreted By: Benny Murry, STUDY: XR SHOULDER RIGHT 2+ VIEWS; 12/31/2024 2:53 pm INDICATION: Signs/Symptoms:pain. ACCESSION NUMBER(S): [id number] ORDERING CLINICIAN: BENNY MURRY FINDINGS: AP axillary right shoulder shows advanced arthritis right glenohumeral joint osteophyte spur formation is noted. The subacromial space is still preserved. On the axillary view there is severe arthrosis with vawp-kb-gyba arthritis Signed by: Benny Murry 12/31/2024 2:54 PM Dictation workstation: [id number]l Tift Regional Medical CenterXR Shoulder - right 2 Viewson 07-20-3117Rfvihdfgjbb By: Benny Murry, STUDY: XR SHOULDER RIGHT 2+ VIEWS; 12/31/2024 2:53 pm INDICATION: Signs/Symptoms:pain. ACCESSION NUMBER(S): [id number] ORDERING CLINICIAN: BENNY MURRY FINDINGS: AP axillary right shoulder shows advanced arthritis right glenohumeral joint osteophyte spur formation is noted. The subacromial space is still preserved. On the axillary view there is severe arthrosis with hzoe-st-bqtr arthritis Signed by: Benny Murry 12/31/2024 2:54 PM Dictation workstation: [id number] Benny Gupta MD - 12/31/2024 Interpreted By: Benny Murry, STUDY: XR SHOULDER RIGHT 2+ VIEWS; 12/31/2024 2:53 pm INDICATION: Signs/Symptoms:pain. ACCESSION NUMBER(S): [id number] ORDERING CLINICIAN: BENNY MURRY FINDINGS: AP axillary right shoulder shows advanced arthritis right glenohumeral joint osteophyte spur formation is noted. The subacromial space is still preserved. On the axillary view there is severe arthrosis with mqbe-jy-wtec arthritis Signed by: Benny Murry 12/31/2024 2:54 PM Dictation workstation: [id number] [facility] Work Phone: [facility] Work Phone: Radiology Study observation (narrative)[facility] Work Phone: Lon 06-02-2024 Specimen: [id number] Received: 06/02/24 Status: ANNA Valenzuela Num: [id number] Spec Type: Surgical Subm Dr: Dougie Abernathy DO Tissues: A Skin-Other than Cyst, tag, debridement or plastic repair (LEFT FOREHEAD LESI B Skin-Other than Cyst, tag, debridement or plastic repair (LEFT SCALP LESION) Procedures: HE/2, Gross/Micro L4/2 Age/ Patient Sex Location Account Attending Physician Benny Brand 68/M [place] [id number] Dougie Abernathy,DO SPEC NUM: [id number] RECD: 06/02/24 STATUS: ANNA ROSARIOKasia NUM: [id number] SUSIE: 06/02/24 [facility] DR: Dougie Abernathy DO ENTERED: 06/02/24 [facility] [address]: FELICIA TYPE: Surgical DEPT: S ENTERED BY: [id number] RECV BY: [id number] ORDERED: HE/2, Gross/Micro L4/2 ORDERED: HE/2, Gross/Micro [...] intact in a single cassette. (1, ns, Z15-0306 A0) J Part B is received in formalin labeled with the patients name, date of , and scalp lesion left are 2 brand-kimble, finely granular, 0.2 cm in greatest dimension each polypoid- like portions of skin. The specimens are inked black at the apparent point of attachment and entirely submitted in a single cassette. (1, ns, Q52-1678 B) JG Specimen: [id number] Received: 06/02/24 Status: ANNA Valenzuela Num: [id number] Spec Type: Surgical Subm Dr: Dougie Abernathy DO Tissues: A Skin-Other than Cyst, tag, debridement or plastic repair (LEFT FOREHEAD LESI B Skin-Other than Cyst, tag, debridement or plastic repair (LEFT SCALP LESION) Procedures: HE/2, Gross/Micro L4/2 Patient: Benny Brand [id number] (Continued) Specimen: [id number] Received: 06/02/24 (Continued) Signed (signature on file) Gray Cook MD 06/03/24 1647 Specimen: [id number] Received: 06/02/24 Status: ANNA Valenzuela Num: [id number] Spec Type: Surgical Subm Dr: Dougie Abernathy DO Tissues: A Skin-Other than Cyst, tag, debridement or plastic repair (LEFT FOREHEAD LESI B Skin-Other than Cyst, tag, debridement or plastic repair (LEFT SCALP LESION) Procedures: HE/2, Gross/Micro L4/2 Patient: Benny Brand [id number] (Continued) Specimen: [id number] Received: 06/02/24 (Continued) CPT Codes 27550o8 Specimen: [id number] Received: 06/02/24 Status: ANNA Valenzuela Num: [id number] Spec Type: Surgical Subm Dr: Dougie Abernathy DO Tissues: A Skin-Other than Cyst, tag, debridement or plastic repair (LEFT FOREHEAD LESI B Skin-Other than Cyst, tag, debridement or plastic repair (LEFT SCALP LESION) Procedures: HE/2, Gross/Micro L4/2 Patient: BrandBenny Ann Marie [id number] (Continued) Signed (signature on file) Gray Cook MD 06/03/[address] [place] [address] Physician GroupCT angio [facility] [id number] [address] [place] Scan Report Signed Patient: Benny Brand MR#: [id number] 3 : 1955 Acct:[id number] Age/Sex: 68 / M ADM Date: 05/08/24 Loc: CT Room: Type: REG CLI Attending Dr: Edwardo Michael DO Copies to: [...] Posterior cerebral arteries: 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 Both are patent. Intracranial segments of the internal carotid arteries: Mild calcification without critical stenosis or occlusion. MCA: patent NOREEN: patent Anterior Communicating artery: patent Posterior Communicating arteries: Patent. CT/CT angio head IMPRESSION: No evidence of critical stenosis, aneurysmal dilatation, dissection or occlusion. Impression dictated by: Jose Ramirez Jr., D.OIlana05/08/2024 3:05 PM Dictation Location: [place] [address] Transcribed By: [facility] 05/08/24 1505 Dictated By: Jose Ramirez Jr, DO 05/08/24 1502 Signed By: 05/08/24 1505[facility] Physician GroupLon 05-02-2024L Specimen: [id number] Received: 05/02/24 Status: ANNA Valenzuela Num: [id number] Spec Type: Surgical Subm Dr: Dougie Abernathy DO Tissues: A Skin-Other than Cyst, tag, debridement or plastic repair (LT EAR LESION) B Skin-Other than Cyst, tag, debridement or plastic repair (DEEP MARGIN FOR PE Procedures: HE/6, Gross/Micro L4/2, FS HE/6 Age/ Patient Sex Location Account Attending Physician Benny Brand/Thalia ESCOBAR [id number] Dougie Abernathy DO SPEC NUM: [id number] RECD: 05/02/24 STATUS: ANNA VALENZUELA NUM: [id number] SUSIE: 05/02/24 [facility] DR: Dougie Abernathy DO ENTERED: 05/02/24 [facility] [address]: FELICIA TYPE: Surgical DEPT: S ENTERED BY: [id number] RECV BY: [id number] ORDERED: HE/6, Gross/Micro L4/2, FS HE/6 ORDERED: [...] skin graft short 12:00, long 3:00 Specimen: [id number] Received: 05/02/24 Status: ANNA Valenzuela Num: [id number] Spec Type: Surgical Subm Dr: Dougie Abernathy DO Tissues: A Skin-Other than Cyst, tag, debridement or plastic repair (LT EAR LESION) B Skin-Other than Cyst, tag, debridement or plastic repair (DEEP MARGIN FOR PE Procedures: RYAN/6, Gross/Micro L4/2, FS RYAN/6 Patient: Benny Brand [id number] (Continued) Specimen: [id number] Received: 05/02/24 (Continued) Signed (signature on file) Vy Valdez MD 05/16/24 1325 Specimen: [id number] Received: 05/02/24 Status: ANNA Valenzuela Num: [id number] Spec Type: Surgical Subm Dr: Dougie Abernathy, Tissues: A Skin-Other than Cyst, tag, debridement or plastic repair (LT EAR LESION) B Skin-Other than Cyst, tag, debridement or plastic repair (DEEP MARGIN FOR PE Procedures: HE/6, Gross/Micro L4/2, FS HE/6 Patient: Benny Brand [id number] (Continued) Specimen: [id number] Received: 05/02/24 (Continued) Gross Description Part a [...] -No malignancy Reported by Dr. Valdez on ? Microscopic Description Microscopic examinations are performed supporting the above interpretation CPT Codes 67452o3 38849e7 25153 Specimen: [id number] Received: 05/02/24 Status: ANNA Valenzuela Num: [id number] (more content not included)...NormalThe [place] Physician CvgivAuR0a HPLC (Bld) [Mass fraction]on 27-29-8541CeM7x (Bld) [Mass fraction]5.6 %The Surgical Hospital At SouthwoodsAlanine aminotransferase [Enzymatic activity/volume] in Serum or PlasmaOrdered By: Edwardo Michael on 63-52-8554STC [Catalytic activity/Vol]21 U/L Normal7-52The [facility] Hospital At SouthwoodsComment on above:Performed By: #### CBC, PSAS, CMP, LIPID, TSH3 #### [facility] [address] [place] [address] USAAlbumin [Mass/volume] in Serum or Plasma by Bromocresol green (BCG) dye binding methoOrdered By: Edwardo Michael on 87-46-2625Meohpla BCG dye [Mass/Vol]4.2 g/dL3.5-5.7FUniversity Hospitals Health SystemAlkaline phosphatase [Enzymatic activity/volume] in Serum or PlasmaOrdered By: Edwardo Michael on 28-03-5516LVD [Catalytic activity/Vol]73 U/IZuwawg31-506BcnzpgbslThe Surgical Hospital At SouthwoodsComment on above:Performed By: #### CBC, PSAS, CMP, LIPID, TSH3 #### [facility] [address] [place] [address] USAAspartate aminotransferase [Enzymatic activity/volume] in Serum or PlasmaOrdered By: Edwardo Michael on 51-87-4878DEH [Catalytic activity/Vol] 23 U/YBqdwhb69-31HyzctxcqjThe Surgical Hospital At SouthwoodsComment on above:Performed By: #### CBC, PSAS, CMP, LIPID, TSH3 #### [facility] [address] [place] [address] USAAutomated basophil %Ordered By: Edwardo Michael on 04-22-2024 Basophils/100 WBC (Bld)1.2 %Normal.The Surgical Hospital At SouthwoodsComment on above:Performed By: #### CBC, PSAS, CMP, LIPID, TSH3 #### [place] [address] USAAutomated basophil countOrdered By: Edwardo Michael on 40-41-8415Pppulcptk (Bld) [#/Vol]0.1 10*3/uLNormal0.0-0.2FUniversity Hospitals Health SystemComment on above:Result Comment: PERFORMED BY: [place] [address] PATHOLOGIST STARCH FACTORY LABORER LADONNA NOEL M.D.Performed By: #### CBC, PSAS, CMP, LIPID, TSH3 #### [place] [address] USAAutomated blood monocyte countOrdered By: Edwardo Michael on 33-93-8514Frkqmvbcm (Bld) [#/Vol]0.6 10*3/uLNormal0.0-0.8The [facility] Hospital At SouthwoodsComment on above:Performed By: #### CBC, PSAS, CMP, LIPID, TSH3 #### [place] [address] USAAutomated eosinophil %Ordered By: Edwardo Michael on 04-22-2024 Eosinophils/100 WBC (Bld)2.4 %Normal.The Surgical Hospital At SouthwoodsComment on above:Performed By: #### CBC, PSAS, CMP, LIPID, TSH3 #### [place] [address] USAAutomated eosinophil countOrdered By: Edwardo Michael on 99-21-8866Tosydkkcxpv (Bld) [#/Vol]0.1 10*3/uLNormal0.0-0.45The [facility] Hospital At SouthwoodsComment on above:Performed By: #### CBC, PSAS, CMP, LIPID, TSH3 #### [place] [address] USAAutomated monocyte %Ordered By: Edwardo Michael on 04-22-2024 Monocytes/100 WBC (Bld)11.7 %Normal.The Surgical Hospital At SouthwoodsComment on above:Performed By: #### CBC, PSAS, CMP, LIPID, TSH3 #### [place] [address] USAAutomated neutrophil %Ordered By: Edwardo Michael on 04-22-2024 Neutrophils/100 WBC (Bld)55.8 %Normal.The Surgical Hospital At SouthwoodsComment on above:Performed By: #### CBC, PSAS, CMP, LIPID, TSH3 #### [facility] [address] [place] [address] USABilirubin.total [Mass/volume] in Serum or PlasmaOrdered By: Edwardo Michael on 06-31-0027Pwyrrlkrm [Mass/Vol]0.6 mg/dLNormal0.3-1.0The [facility] Hospital At SouthwoodsComment on above:Performed By: #### CBC, PSAS, CMP, LIPID, TSH3 #### [facility] [address] [place] [address] USACalcium [Mass/volume] in Serum or PlasmaOrdered By: Edwardo Michael on 25-33-6644Mbnptwt [Mass/Vol]9.5 mg/dLNormal8.6-10.3FUniversity Hospitals Health SystemComment on above:Performed By: #### CBC, PSAS, CMP, LIPID, TSH3 #### [place] [address] USACarbon dioxide, total [Moles/volume] in Serum or Plasma Ordered By: Edwardo Michael on 62-03-4485UJ1 [Moles/Vol]30.2 mmol/CXahjbh99.0-31.0 The Surgical Hospital At SouthwoodsComment on above:Performed By: #### CBC, PSAS, CMP, LIPID, TSH3 #### [place] [address] USAChloride [Moles/volume] in Serum or PlasmaOrdered By: Edwardo Michael on 57-74-1680Qxqcoaqk [Moles/Vol]105 mmol/LAsvfps79-284StnsmkhjgThe Surgical Hospital At SouthwoodsComment on above:Performed By: #### CBC, PSAS, CMP, LIPID, TSH3 #### [place] [address] USACholesterol [Mass/volume] in Serum or PlasmaOrdered By: Edwardo Michael on 78-48-6049Xoyrifzuguy [Mass/Vol]185 mg/iPLaezea319-758YhykbtljiThe Surgical Hospital At SouthwoodsComment on above:Chol less than 200 mg/dl low riskChol 201-239 mg/dl borderline riskChol 240 mg/dl and greater high riskResult Comment: Chol less than 200 mg/dl low risk Chol 201-239 mg/dl borderline risk Chol 240 mg/dl and greater high riskPerformed By: #### CBC, PSAS, CMP, LIPID, TSH3 #### [facility] [address] [place] [address] USACholesterol in LDL Calc [Mass/Vol]Ordered By: Edwardo Michael on 66-46-7824Bekukemgnnp in LDL [Mass/Vol]123 mg/dLHigh0-100The [facility] Hospital At SouthwoodsComment on above:LDL ATP III CLASSIFICATIONLDL less than 100 mg/dL OptimalLDL 100-129 mg/dL Near or above osxcklrHBB487-848 mg/dL Borderline highLDL 160-189 mg/dL HighLDL greater than 189 mg/dL Very highCholesterol in VLDL Calc [Mass/Vol]Ordered By: Edwardo Michael on 60-72-7311Nvcvvksodyj in VLDL [Mass/Vol]26 mg/dLThe Surgical Hospital At SouthwoodsComplete Blood Count Auto Diffon 82-08-4263Iwwz Corpuscular HGB Conc34.5 g/bQCxbmmi63.5-35.6The [facility] Physician GroupComment on above:Performed By: #### CBC, PSAS, CMP, LIPID, TSH3 #### [facility] [address] [place] [address] USANRBC%0.2 /100{WBC}Normal0-0.5The [facility] Comment on above:Performed By: #### CBC, PSAS, CMP, LIPID, TSH3 #### [facility] [address] [place] [address] USAComprehensive Metabolic Panelon 33-77-1057Gwoesrc [Mass/Vol]4.2 g/dLNormal3.5-5.7The [facility] Physician GroupComment on above: Performed By: #### CBC, PSAS, CMP, LIPID, TSH3 #### [facility] [address] [place] [id number] USAGFR/1.73 sq M.predicted MDRD (S/P/Bld) [Vol rate/Area] mL/min/{1.73_m2}NormalThe [facility] Union Physician GroupComment on above:Performed By: #### CBC, PSAS, CMP, LIPID, TSH3 #### [facility] [address] [place] [address] USACreatinine [Mass/volume] in Serum or PlasmaOrdered By: Edwardo Michael on 82-90-7905Jjdkxniknk [Mass/Vol]1.05 mg/dLNormal0.70-1.30The [facility] Hospital At SouthwoodsComment on above:Performed By: #### CBC, PSAS, CMP, LIPID, TSH3 #### [facility] [address] [place] [address] USAErythrocyte distribution width [Ratio] by Automated count Ordered By: Edwardo Michael on 85-94-7584Obymtbvwgcn distribution width (RBC) [Ratio] 12.8 %Yyanhi69.0-14.8The Surgical Hospital At SouthwoodsComment on above:Performed By: #### CBC, PSAS, CMP, LIPID, TSH3 #### [place] [address] USAErythrocytes [#/volume] in Blood by Automated countOrdered By: Edwardo Michael on 81-32-8089JGY (Bld) [#/Vol]4.77 10*6/uLNormal3.90-5.60 [facility] At SouthwoodsComment on above:Performed By: #### CBC, PSAS, CMP, LIPID, TSH3 #### [place] [address] USAGlucose [Mass/volume] in Serum or PlasmaOrdered By: Edwardo Michael on 55-94-5596Rsxjoix [Mass/Vol]103 mg/nYPeaj73-509ImtdjumagThe Surgical Hospital At SouthwoodsComment on above:ADA recommended reference rangeRandom Glucose Reference Range is dependent on time and content of last meal. Glucose of more than 200 mg/dL in a nonstressed, ambulatory subject supports the diagnosisof Diabetes Mellitus.Result Comment: Random Glucose Reference Range is dependent on time and content of last meal. Glucose of more than 200 mg/dL in a nonstressed, ambulatory subject supports the diagnosis of Diabetes Mellitus. ADA recommended reference rangePerformed By: #### CBC, PSAS, CMP, LIPID, TSH3 #### [facility] [address] [place] [address] USAHematocrit [Volume Fraction] of Blood by Automated count Ordered By: Edwardo Michael on 23-65-2142Drlhmpsvok (Bld) [Volume fraction]44.5 % Djetdy84.8-50.0The [facility] At SouthwoodsComment on above:Performed By: #### CBC, PSAS, CMP, LIPID, TSH3 #### [facility] [address] [place] [address] USAHemoglobin [Mass/volume] in BloodOrdered By: Edwardo Michael on 07-55-1687Ynxqxgvfqg (Bld) [Mass/Vol]15.3 g/ySEyuoiv06.0-17.0The [facility] At SouthwoodsComment on above:Performed By: #### CBC, PSAS, CMP, LIPID, TSH3 #### [facility] [address] [place] [address] USALeukocytes [#/volume] corrected for nucleated erythrocytes in Blood by Automated counOrdered By: Edwardo Michael on 37-84-9182GNO corrected for nucl RBC Auto (Bld) [#/Vol]5.4 10*3/uL4.1-10.5FUniversity Hospitals Health System Leukocytes [#/volume] in Blood by Automated countOrdered By: Edwardo Michael on 35-14-0676QLP (Bld) [#/Vol]5.4 10*3/uLNormal4.1-10.5FUniversity Hospitals Health SystemComment on above:Performed By: #### CBC, PSAS, CMP, LIPID, TSH3 #### [facility] [address] [place] [address] USALipid Panelon 52-55-9426GIA Cholesterol,Uaiuvxmtgc032 mg/dLHigh0-100The [facility] Physician GroupComment on above:Result Comment: LDL ATP III CLASSIFICATION LDL less than 100 mg/dL Optimal LDL 100-129 mg/dL Near or above optimal LDL 130-159 mg/dL Borderline high LDL 160-189 mg/dL High LDL greater than 189 mg/dL Very highPerformed By: #### CBC, PSAS, CMP, LIPID, TSH3 #### [facility] [address] [place] [address] USATriglyceride w/Rvktdz189 mg/dLNormal0-149[facility] Physician GroupComment on above:Result Comment: TRIG ATP III CLASSIFICATION TRIG less than 150 mg/dL Normal TRIG 150-199 mg/dL Borderline high TRIG 200-500 mg/dL High TRIG greater than 500 mg/dL Very high Standard traceable to the Center for Disease Conrtrol and Prevention (CDC) test method.Performed By: #### CBC, PSAS, CMP, LIPID, TSH3 #### [place] [address] USAVLDL VXDPNSHEUTW52 mg/dLNormalThe [facility] Physician GroupComment on above:Performed By: #### CBC, PSAS, CMP, LIPID, TSH3 #### [place] [address] USALymphocytes [#/volume] in Blood by Automated countOrdered By: Edwardo Michael on 85-00-2508Ccapdbuogzh (Bld) [#/Vol]1.6 10*3/uLNormal1.00-4.8 [facility] At SouthwoodsComment on above:Performed By: #### CBC, PSAS, CMP, LIPID, TSH3 #### [place] [address] USALymphocytes/100 leukocytes in Blood by Automated count Ordered By: Edwardo Michael on 61-53-1449Fnrpizbjuik/100 WBC (Bld)28.9 %Normal. [facility] At SouthwoodsComment on above:Performed By: #### CBC, PSAS, CMP, LIPID, TSH3 #### [place] [address] USAH [Entitic mass] by Automated countOrdered By: Edwardo Michael on 41-44-6872JTO (RBC) [Entitic mass]32.1 goXkjaiy78.5-35.2FUniversity Hospitals Health SystemComment on above:Performed By: #### CBC, PSAS, CMP, LIPID, TSH3 #### [facility] [address]HC Auto (RBC) [Mass/Vol]Ordered By: Edwardo Michael on 36-74-4474HZVK (RBC) [Mass/Vol]34.5 g/dL32.5-35.6FUniversity Hospitals Health SystemMCV [Entitic volume] by Automated countOrdered By: Edwardo Michael on 65-41-2951MLK (RBC) [Entitic vol]93.2 nYBbmzqx43.5-101The [facility] At SouthwoodsComment on above:Performed By: #### CBC, PSAS, CMP, LIPID, TSH3 #### [facility] [address] [place] [address] USANeutrophils [#/volume] in Blood by Automated countOrdered By: Edwardo Michael on 59-24-8940Ozmolypuubh (Bld) [#/Vol]3.0 10*3/uLNormal1.8-7.7 [facility] At SouthwoodsComment on above:Performed By: #### CBC, PSAS, CMP, LIPID, TSH3 #### [facility] [address] [place] [address] USANo Panel InformationOrdered By: Edwardo Michael on 04-22-2024 Estimated GFR (CKD-EPI)> 60.0 mL/MinThe Surgical Hospital At SouthwoodsPharmacy Creatinine Clearance (ChemN/AFUniversity Hospitals Health SystemNucleated erythrocytes [Presence] in Blood by Automated countOrdered By: Edwardo Michael on 66-13-6132Stloikckc RBC Auto Ql (Bld)0.2 /100{WBC}0-0.5FUniversity Hospitals Health SystemPSA Screen (Yearly Only)on 20-65-4306FPM Screen (Yearly Only)0.650 ng/mLNormal0.000-4.000The [facility] Union Physician GroupComment on above:Order Comment: Is patient <50 yrs? Medicare does not pay <50.: N What is the date of the last PSA Screen?: 871570 Is Medicare the insurance?: Y Did you verify eligibility (Dx Time) check TestViewGp: YES TO ALLResult Comment: Serial tumor marker results determined by assays using different manufacturers or methods may not be comparable. [facility] site reliability engineer and method: Active EndpointsEL DXI, CHEMILUMINESCENT IMMUNOASSAY. PERFORMED BY: [place] [address] PATHOLOGIST [employer]ORY LABORER LADONNA NOEL M.D.Performed By: #### CBC, PSAS, CMP, LIPID, TSH3 #### [place] [address] USAPlatelet mean volume [Entitic volume] in Blood by Automated countOrdered By: Edwardo Michael on 81-15-7197Pzuwhgzu mean volume (Bld) [Entitic vol]9.6 fLNormal6.6-10.1FUniversity Hospitals Health SystemComment on above:Performed By: #### CBC, PSAS, CMP, LIPID, TSH3 #### [place] [address] USAPlatelets [#/volume] in Blood by Automated countOrdered By: Edwardo Michael on 80-12-5949Waqxtjali (Bld) [#/Vol]249 10*3/zRFpumhx237-066 The [facility] At SouthwoodsComment on above:Performed By: #### CBC, PSAS, CMP, LIPID, TSH3 #### [place] [address] USAPotassium [Moles/volume] in Serum or PlasmaOrdered By: Edwardo Michael on 57-05-5987Udcqlfyax [Moles/Vol]4.4 mmol/LNormal3.5-5.1FUniversity Hospitals Health SystemComment on above:Performed By: #### CBC, PSAS, CMP, LIPID, TSH3 #### [place] [address] USAProstate specific Ag [Mass/volume] in Serum or Plasma Ordered By: Edwardo Michael on 41-52-1761Dhpajhsc specific Ag [Mass/Vol]0.650 ng/mL 0.000-4.000The [facility] Hospital At SouthwoodsComment on above:Serial tumor marker results determined by assays using different manufacturers or methods may not be comparable.[facility] site reliability engineer and method:ALVARO UNICEL DXI, CHEMILUMINESCENT IMMUNOASSAY.Protein [Mass/volume] in Serum or PlasmaOrdered By: Edwardo Michael on 55-76-3304Gouljap [Mass/Vol]7.2 g/dLNormal6.4-8.9The [facility] At SouthwoodsComment on above:Performed By: #### CBC, PSAS, CMP, LIPID, TSH3 #### [facility] [address] [place] [address] USASerum globulin measurement by calculation (mass/volume) Ordered By: Edwardo Michael on 41-62-2215Zgvtpvnp (S) [Mass/Vol]3.0 g/dLNormal The [facility] At SouthwoodsComment on above:Performed By: #### CBC, PSAS, CMP, LIPID, TSH3 #### [facility] [address] [place] [address] USASerum or plasma albumin/globulin mass ratioOrdered By: Edwardo Michael on 47-51-8383Dqjdzld/Globulin [Mass ratio]1.4 {ratio}NormalThe Surgical Hospital At SouthwoodsComment on above:Performed By: #### CBC, PSAS, CMP, LIPID, TSH3 #### [facility] [address] [place] [address] USASerum or plasma anion gap determinationOrdered By: Edwardo Michael on 03-88-2306Lautp gap [Moles/Vol]8.2 mmol/LNormal6.0-15.0The [facility] At SouthwoodsComment on above:Performed By: #### CBC, PSAS, CMP, LIPID, TSH3 #### [facility] [address] [place] [id number] USASerum or plasma high density lipoprotein (HDL) cholesterol measurementOrdered By: Edwardo Michael on 85-18-6201Nejhofbstvw in HDL [Mass/Vol]36 mg/yFTpdmtj53-13HmozftvjvThe Surgical Hospital At SouthwoodsComment on above:HDL CHOL ATP- III CLASSIFICATION Cardiovascular RiskHDL > or equal to 60 mg/dL LOWHDL < 40 mg/dL HIGHResult Comment: HDL CHOL ATP-III CLASSIFICATION Cardiovascular Risk HDL > or equal to 60 mg/dL LOW HDL < 40 mg/dL HIGHPerformed By: #### CBC, PSAS, CMP, LIPID, TSH3 #### [place] [id number] USASerum or plasma total cholesterol/high density lipoprotein (HDL) cholesterol mass ratOrdered By: Edwardo Michael on 04-22-2024 Cholesterol.total/Cholesterol in HDL [Mass ratio]5.1 {ratio}Normal<5.0The [facility] At SouthwoodsComment on above:Performed By: #### CBC, PSAS, CMP, LIPID, TSH3 #### [place] [address] USASodium [Moles/volume] in Serum or PlasmaOrdered By: Edwardo Michael on 27-51-2096Jcjdsa [Moles/Vol]139 mmol/GCpphyg882-511GnzzbxgvcThe Surgical Hospital At SouthwoodsComment on above:Performed By: #### CBC, PSAS, CMP, LIPID, TSH3 #### [place] [id number] USAThyrotropin [Units/volume] in Serum or PlasmaOrdered By: Edwardo Michael on 58-79-3644UNZ Qn2.36 m[IU]/LNormal0.45-5.33The [facility] At SouthwoodsComment on above:Result Comment: PERFORMED BY: [place] [address] PATHOLOGIST [employer] FACTORY LABORER LADONNA NOEL M.D.Performed By: #### CBC, PSAS, CMP, LIPID, TSH3 #### [place] [id number] USATriglyceride [Mass/volume] in Serum or PlasmaOrdered By: Edwardo Michael on 84-01-2702Eiisfmvozfbl [Mass/Vol]130 mg/dL0-149The [facility] At SouthwoodsComment on above:TRIG ATP III CLASSIFICATIONTRIG less than 150 mg/dL NormalTRIG 150-199 mg/dL Borderline highTRIG 200-500 mg/dL High TRIG greater than 500 mg/dL Very highStandard traceable to the Center for Disease Co nrtrol and Prevention (CDC) test method.Urea nitrogen [Mass/volume] in Serum or PlasmaOrdered By: Edwardo Michael on 38-11-8893Bmzh nitrogen [Mass/Vol]18 mg/dLNormal 01-30The [facility] At SouthwoodsComment on above:Performed By: #### CBC, PSAS, CMP, LIPID, TSH3 #### [facility] [address] [place] [id number] [facility] HOSPITALAlanine aminotransferase [Enzymatic activity/volume] in Serum or PlasmaOrdered By: Edwardo Michael on 30-45-0677HOU [Catalytic activity/Vol] 23 U/L7-52The [facility] At SouthwoodsAlbumin [Mass/volume] in Serum or Plasma by Bromocresol green (BCG) dye binding methoOrdered By: Edwardo Michael on 49-85-9077Gljtizs BCG dye [Mass/Vol]4.5 g/dL3.5-5.7FUniversity Hospitals Health SystemAlkaline phosphatase [Enzymatic activity/volume] in Serum or PlasmaOrdered By: Edwardo Michael on 69-13-0067YDM [Catalytic activity/Vol]79 U/R16-317DikgtsresThe Surgical Hospital At SouthwoodsAspartate aminotransferase [Enzymatic activity/volume] in Serum or PlasmaOrdered By: Edwardo Michael on 95-17-5743IYT [Catalytic activity/Vol] 26 U/T04-58CsruvvlysThe Surgical Hospital At SouthwoodsBasophils Auto (Bld) [#/Vol]Ordered By: Edwardo Michael on 30-67-4453Tgzcuenrv (Bld) [#/Vol]0.1 10*3/uL0.0-0.2FUniversity Hospitals Health SystemBasophils/100 WBC Auto (Bld)Ordered By: Edwardo Michael on 57-85-2949Tgjlvsbre/100 WBC (Bld)2.2 %.[facility] Bilirubin.total [Mass/volume] in Serum or PlasmaOrdered By: Edwardo Michael on 97-76-4662Ygjoibvyq [Mass/Vol]0.9 mg/dL0.3-1.0[facility] Calcium [Mass/volume] in Serum or PlasmaOrdered By: Edwardo Michael on 04-18-2023 Calcium [Mass/Vol]9.5 mg/dL8.6-10.3FUniversity Hospitals Health SystemCarbon dioxide, total [Moles/volume] in Serum or PlasmaOrdered By: Edwardo Michael on 48-02-5845NS7 [Moles/Vol]32.4 mmol/L21.0-31.0[facility] Chloride [Moles/volume] in Serum or PlasmaOrdered By: Edwardo Michael on 04-18-2023 Chloride [Moles/Vol]103 mmol/W22-874CifphlmxvThe Surgical Hospital At SouthwoodsCholesterol [Mass/volume] in Serum or PlasmaOrdered By: Edwardo Michael on 82-73-3420Qasqkgsyrcv [Mass/Vol]184 mg/nU294-404YzhavohfcThe Surgical Hospital At SouthwoodsComment on above: Chol less than 200 mg/dl low riskChol 201-239 mg/dl borderline riskChol 240 mg/dl and greater high riskCholesterol in LDL Calc [Mass/Vol]Ordered By: Edwardo Michael on 95-61-8290Awevozyrsvj in LDL [Mass/Vol]121 mg/dL0-100The [facility] At SouthwoodsComment on above:LDL ATP III CLASSIFICATIONLDL less than 100 mg/dL OptimalLDL 100-129 mg/dL Near or above dpbksdaBWR791-645 mg/dL Borderline highLDL 160-189 mg/dL HighLDL greater than 189 mg/dL Very highCholesterol in VLDL Calc [Mass/Vol]Ordered By: Edwardo Michael on 65-81-4783Hlkckiucpxc in VLDL [Mass/Vol]24 mg/dLThe Surgical Hospital At SouthwoodsCreatinine [Mass/volume] in Serum or PlasmaOrdered By: Edwardo Michael on 31-02-3473Puuugcsavh [Mass/Vol]1.08 mg/dL0.70-1.30The [facility] At SouthwoodsEosinophils Auto (Bld) [#/Vol] Ordered By: Edwardo Michael on 61-72-6298Zezbjxlvfry (Bld) [#/Vol]0.2 10*3/uL0.0-0.45 [facility] At SouthwoodsEosinophils/100 WBC Auto (Bld)Ordered By: Edwardo Michael on 96-26-3809Nhbhjwutnoq/100 WBC (Bld)3.2 %.The [facility] Hospital At SouthwoodsErythrocyte distribution width Auto (RBC) [Ratio]Ordered By: Edwardo Michael on 64-20-8792Wssmexctcyc distribution width (RBC) [Ratio]12.5 %12.0-14.8The [facility] Hospital At SouthwoodsGlobulin Calc (S) [Mass/Vol]Ordered By: Edwardo Michael on 48-20-6757Kipceozo (S) [Mass/Vol]2.8 g/dLThe Surgical Hospital At Southwoods Glucose [Mass/volume] in Serum or PlasmaOrdered By: Edwardo Michael on 04-18-2023 Glucose [Mass/Vol]98 mg/wH58-865VsqmsxgfmThe Surgical Hospital At SouthwoodsComment on above:ADA recommended reference rangeRandom Glucose Reference Range is dependent on time and content of last meal. Glucose of more than 200 mg/dL in a nonstressed, ambulatory subject supports the diagnosisof Diabetes Mellitus. Hematocrit Auto (Bld) [Volume fraction]Ordered By: Edwardo Michael on 04-18-2023 Hematocrit (Bld) [Volume fraction]45.1 %38.8-50.0The [facility] At SouthwoodsHemoglobin [Mass/volume] in BloodOrdered By: Edwardo Michael on 04-18-2023 Hemoglobin (Bld) [Mass/Vol]15.6 g/dL13.0-17.0[facility] Leukocytes [#/volume] corrected for nucleated erythrocytes in Blood by Automated counOrdered By: Edwardo Michael on 64-57-7868YPF corrected for nucl RBC Auto (Bld) [#/Vol]5.4 10*3/uL4.1-10.5FUniversity Hospitals Health SystemLymphocytes Auto (Bld) [#/Vol]Ordered By: Edwardo Michael on 59-55-8075Edsedaylohg (Bld) [#/Vol]1.5 10*3/uL1.00-4.8The [facility] At SouthwoodsLymphocytes/100 WBC Auto (Bld) Ordered By: Edwardo Michael on 14-84-6473Ptwvlmwrrac/100 WBC (Bld)28.7 %.The [facility] Hospital At SouthwoodsMCH Auto (RBC) [Entitic mass]Ordered By: Edwardo Michael on 18-94-5216PJM (RBC) [Entitic mass]32.0 pg27.5-35.2FUniversity Hospitals Health SystemMCHC Auto (RBC) [Mass/Vol]Ordered By: Edwardo Michael on 86-56-1317MVHV (RBC) [Mass/Vol]34.6 g/dL32.5-35.6FUniversity Hospitals Health SystemMCV Auto (RBC) [Entitic vol]Ordered By: Edwardo Michael on 32-81-3036ESO (RBC) [Entitic vol]92.7 fL 83.5-101The [facility] SouthwoodsMonocytes Auto (Bld) [#/Vol]Ordered By: Edwardo Michael on 68-96-6862Ngqvlurnc (Bld) [#/Vol]0.6 10*3/uL0.0-0.8The [facility] SouthwoodsMonocytes/100 WBC Auto (Bld)Ordered By: Edwardo Michael on 80-37-6037Zvfqgoija/100 WBC (Bld)10.9 %.[facility] Neutrophils Auto (Bld) [#/Vol]Ordered By: Edwardo Michael on 51-43-2914Zwwottxogbr (Bld) [#/Vol]2.9 10*3/uL1.8-7.7FUniversity Hospitals Health SystemNeutrophils/100 WBC Auto (Bld)Ordered By: Edwardo Michael on 31-99-3189Sypnlktmyse/100 WBC (Bld)55.0 %.The [facility] SouthwoodsNo Panel InformationOrdered By: Edwardo Michael on 54-90-5575Cdayapgco GFR (CKD-EPI)> 60.0 mL/MinThe [facility] Pharmacy Creatinine Clearance (ChemN/Grant HospitalNucleated erythrocytes [Presence] in Blood by Automated countOrdered By: Edwardo Michael on 04-47-7170Wyglfcuta RBC Auto Ql (Bld)0.1 /100{WBC}0-0.5FUniversity Hospitals Health SystemPlatelet mean volume Auto (Bld) [Entitic vol]Ordered By: Edwardo Michael on 18-65-1723Probsrmg mean volume (Bld) [Entitic vol]10.1 fL6.6-10.1 [facility] At SouthwoodsPlatelets Auto (Bld) [#/Vol]Ordered By: Edwardo Michael on 29-03-1359Exjarhynf (Bld) [#/Vol]252 10*3/oW119-795RakgahogpThe Surgical Hospital At SouthwoodsPotassium [Moles/volume] in Serum or PlasmaOrdered By: Edwardo Michael on 61-79-0662Uoyxgvkoq [Moles/Vol]4.7 mmol/L3.5-5.1FUniversity Hospitals Health SystemProstate specific Ag [Mass/volume] in Serum or PlasmaOrdered By: Edwardo Michael on 62-49-6645Yuaehfmq specific Ag [Mass/Vol]0.560 ng/mL0.000-4.000The [facility] SouthwoodsProtein [Mass/volume] in Serum or PlasmaOrdered By: Edawrdo Michael on 03-44-9539Hiuqhro [Mass/Vol]7.3 g/dL6.4-8.9The [facility] At SouthwoodsRBC Auto (Bld) [#/Vol]Ordered By: Edwardo Michael on 58-77-5925CJZ (Bld) [#/Vol]4.86 10*6/uL3.90-5.60J.W. Ruby Memorial Hospitalerum or plasma albumin/globulin mass ratioOrdered By: Edwardo Michael on 04-18-2023 Albumin/Globulin [Mass ratio]1.6 {ratio}[facility]. Ruby Memorial Hospitalerum or plasma anion gap determinationOrdered By: Edwardo Michael on 07-66-3016Scvvw gap [Moles/Vol]8.3 mmol/L6.0-15.0J.[facility]. Ruby Memorial Hospitalerum or plasma high density lipoprotein (HDL) cholesterol measurementOrdered By: Edwardo Michael on 49-11-0662Smaowneuqhp in HDL [Mass/Vol]39 mg/mV51-71FrdtsddljThe Surgical Hospital At SouthwoodsComment on above:HDL CHOL ATP-III CLASSIFICATION Cardiovascular RiskHDL > or equal to 60 mg/dL LOWHDL < 40 mg/dL HIGHSerum or plasma total cholesterol/high density lipoprotein (HDL) cholesterol mass ratOrdered By: Edwardo Michael on 70-70-8071Yhjfyxeqbds.total/Cholesterol in HDL [Mass ratio]4.7 {ratio} <5.0J.W. Ruby Memorial Hospitalodium [Moles/volume] in Serum or Plasma Ordered By: Edwardo Michael on 47-48-8753Aisyvk [Moles/Vol]139 mmol/S552-241NxrbudjshThe Surgical Hospital At SouthwoodsThyrotropin [Units/volume] in Serum or PlasmaOrdered By: Edwardo Michael on 55-61-5929HYK Qn2.12 m[IU]/L0.45-5.33The [facility] At SouthwoodsThyroxine (T4) free [Mass/volume] in Serum or PlasmaOrdered By: Edwardo Michael on 15-69-9570Fxeh T4 [Mass/Vol]0.74 ng/dL0.61-1.12The [facility] At SouthwoodsTriglyceride [Mass/volume] in Serum or PlasmaOrdered By: Edwardo Michael on 75-30-9312Qfpetlvlqjcf [Mass/Vol]122 mg/dL0-149[facility] Comment on above:TRIG ATP III CLASSIFICATIONTRIG less than 150 mg/dL NormalTRIG 150-199 mg/dL Borderline highTRIG 200-500 mg/dL High TRIG greater than 500 mg/dL Very highStandard traceable to the Center for Disease Conrtrol and Prevention (CDC) test method.Urea nitrogen [Mass/volume] in Serum or PlasmaOrdered By: Edwardo Michael on 52-27-4454Unsj nitrogen [Mass/Vol]19 mg/dL7-25The [facility] At SouthwoodsVitamin D+Metabolites [Mass/volume] in Serum or PlasmaOrdered By: Edwardo Michael on 38-39-0645Pqjmley D+Metabolites [Mass/Vol]51.4 ng/zX55-037 The [facility] At SouthwoodsComment on above:VITAMIN D STATUS 25(OH)VITAMIN D RANGE (ng/mL) Deficient <20 Insufficient 20 to <63Clhuloldxc44 to 100Reference: Sofya MF,Vincent NC, Xavi LANIER, et al. Evaluation,treatment, and prevention of vitamin D deficiency; an Endocrine Society clinical practice guideline. JCEM. 2010; 96(7):1911-30.WBC Auto (Bld) [#/Vol]Ordered By: Edwardo Michael on 39-61-3035DOY (Bld) [#/Vol]5.4 10*3/uL 4.1-10.5FUniversity Hospitals Health SystemBasophils Auto (Bld) [#/Vol]Ordered By: Edwardo Michael on 71-26-5394Rsujshkxm (Bld) [#/Vol]0.0 10*3/uL0.0-0.2FUniversity Hospitals Health SystemBasophils/100 WBC Auto (Bld)Ordered By: Edwardo Michael on 93-88-5822Wbcqvqnpz/100 WBC (Bld)0.9 %.The [facility] SouthwoodsBlood hemoglobin measurement (mass/volume)Ordered By: Edwardo Michael on 04-06-2022 Hemoglobin (Bld) [Mass/Vol]15.7 g/dL13.0-17.0[facility] Blood leukocytes automated count (number/volume)Ordered By: Edwardo Michael on 84-89-4147OGE (Bld) [#/Vol]4.7 10*3/uL4.5-11.0[facility] Body fluid albumin measurement (mass/volume)Ordered By: Edwardo Michael on 04-06-2022 Albumin (Body fld) [Mass/Vol]3.8 g/dL3.2-5.5FUniversity Hospitals Health System Cholesterol [Mass/volume] in Serum or PlasmaOrdered By: Edwardo Michael on 04-06-2022 Cholesterol [Mass/Vol]181 mg/zL192-105EbnhwghmqThe Surgical Hospital At SouthwoodsComment on above:Chol less than 200 mg/dl low riskChol 201-239 mg/dl borderline riskChol 240 mg/dl and greater high riskCholesterol in LDL Calc [Mass/Vol]Ordered By: Edwardo Michael on 20-18-2601Muktykugkdy in LDL [Mass/Vol]124 mg/dL0-100The [facility] SouthwoodsComment on above:LDL ATP III CLASSIFICATIONLDL less than 100 mg/dL OptimalLDL 100-129 mg/dL Near or above jmxzkusJJZ579-963 mg/dL Borderline highLDL 160-189 mg/dL HighLDL greater than 189 mg/dL Very high Cholesterol in VLDL Calc [Mass/Vol]Ordered By: Edwardo Michael on 04-06-2022 Cholesterol in VLDL [Mass/Vol]24 mg/dLThe Surgical Hospital At Southwoods Creatinine and Glomerular filtration rate.predicted panel (S/P/Bld)Ordered By: Edwardo Michael on 90-19-2491Xwmvbfkbgs [Mass/Vol]1.05 mg/dL0.64-1.27The [facility] SouthwoodsEosinophils Auto (Bld) [#/Vol]Ordered By: Edwardo Michael on 42-16-4293Mukzwvlqtkd (Bld) [#/Vol]0.1 10*3/uL0.0-0.45The [facility] SouthwoodsEosinophils/100 WBC Auto (Bld)Ordered By: Edwardo Michael on 04-06-2022 Eosinophils/100 WBC (Bld)2.0 %.The [facility] At SouthwoodsErythrocyte distribution width Auto (RBC) [Ratio]Ordered By: Edwardo Michael on 04-06-2022 Erythrocyte distribution width (RBC) [Ratio]12.5 %12.0-14.8The [facility] SouthwoodsEstimated glomerular filtration rate (GFR) non- Ordered By: Edwardo Michael on 24-63-4726AEW/1.73 sq M.predicted among non-blacks MDRD (S/P/Bld) [Vol rate/Area]> 60 mL/MinThe Surgical Hospital At Southwoods Globulin Calc (S) [Mass/Vol]Ordered By: Edwardo Michael on 19-16-4012Szjpszsb (S) [Mass/Vol]2.8 g/dLThe Surgical Hospital At SouthwoodsHematocrit Auto (Bld) [Volume fraction]Ordered By: Edwardo Michael on 77-58-5909Wvncryqpnz (Bld) [Volume fraction] 46.2 %38.8-50.0The [facility] SouthwoodsLaboratory - Hematology and Cell countsOrdered By: Edwardo Michael on 33-24-2897Cqrrlsvtt RBC/100 WBC (Bld) [Ratio]0.1 %0-0.5FUniversity Hospitals Health SystemLymphocytes Auto (Bld) [#/Vol]Ordered By: Edwardo Michael on 10-65-3750Weelwmwkynf (Bld) [#/Vol]1.6 10*3/uL1.00-4.8 [facility] SouthwoodsLymphocytes/100 WBC Auto (Bld)Ordered By: Edwardo Michael on 76-42-5068Pnnhwrnemcs/100 WBC (Bld)34.1 %.The [facility] At SouthwoodsMCH Auto (RBC) [Entitic mass]Ordered By: Edwardo Michael on 72-03-9322TOQ (RBC) [Entitic mass]31.9 pg27.5-35.2FUniversity Hospitals Health SystemMCHC Auto (RBC) [Mass/Vol]Ordered By: Edwardo Michael on 37-05-2954KROS (RBC) [Mass/Vol]34.0 g/dL 32.5-35.6FUniversity Hospitals Health SystemMCV Auto (RBC) [Entitic vol]Ordered By: Edwardo Michael on 85-82-8102ORL (RBC) [Entitic vol]93.8 fL83.5-101The [facility] SouthwoodsMonocytes Auto (Bld) [#/Vol]Ordered By: Edwardo Michael on 70-58-8731Xitxbbxyy (Bld) [#/Vol]0.4 10*3/uL0.0-0.8The [facility] SouthwoodsMonocytes/100 WBC Auto (Bld)Ordered By: Edwardo Michael on 04-06-2022 Monocytes/100 WBC (Bld)8.7 %.[facility] SouthwoodsNeutrophils Auto (Bld) [#/Vol]Ordered By: Edwardo Michael on 73-82-5330Wgxksykedyg (Bld) [#/Vol]2.6 10*3/uL1.8-7.7FUniversity Hospitals Health SystemNeutrophils/100 WBC Auto (Bld) Ordered By: Edwardo Michael on 33-40-4015Qbkqnieozua/100 WBC (Bld)54.3 %.[facility] SouthwoodsNo Panel InformationOrdered By: Edwardo Michael on 04-06-2022 25-Hydroxy Vitamin D Total41.8 ng/qJ62-802KlvuwsmciThe [facility] Hospital At [facility] Comment on above:VITAMIN D STATUS 25(OH)VITAMIN D RANGE (ng/mL) Deficient <20 Insufficient 20 to <84Uqqjthglad97 to 100Reference: Sofya MF,Vincent NC, Xavi LANIER, et al. Evaluation,treatment, and prevention of vitamin D deficiency; an Endocrine Society clinical practice guideline. JCEM. 2010; 96 (7):1911-30.Estimated GFR ()> 60 mL/MinThe Surgical Hospital At SouthwoodsComment on above:GFR estimated reference range: According to KDOQI guidelines, <60 ml/min/1.73m2 is sufficient todiagnose a patient with chronic kidney disease.Pharmacy Creatinine Clearance (ChemN/[facility] HospitalProstate Specific Antigen Screen0.460 ng/mL0.000-4.000The [facility] Hospital [facility] SouthwoodsPlatelet mean volume Auto (Bld) [Entitic vol]Ordered By: Edwardo Michael on 12-11-2983Wtnljycl mean volume (Bld) [Entitic vol]10.3 fL6.6-10.1 [facility] Hospital [facility] SouthwoodsPlatelets Auto (Bld) [#/Vol]Ordered By: Edwardo Michael on 16-49-6662Ymjkvxmvw (Bld) [#/Vol]234 10*3/lM936-945ZbuimgpjkThe Surgical Hospital At SouthwoodsProtein [Mass/volume] in Serum or PlasmaOrdered By: Edwardo Michael on 83-53-5273Zuctfqg [Mass/Vol]6.6 g/dL6.1-7.9The [facility] SouthwoodsRBC Auto (Bld) [#/Vol]Ordered By: Edwardo Michael on 84-09-7630YKV (Bld) [#/Vol]4.92 10*6/uL3.90-5.60J.W. Ruby Memorial Hospitalerum or plasma alanine aminotransferase measurement without P-5'-P (enzymatic activiOrdered By: Edwardo Michael on 42-39-2342EFG No additional P-5'-P [Catalytic activity/Vol]32 U/L10-60 [facility] Hospitalerum or plasma albumin/globulin mass ratio Ordered By: Edwardo Michael on 55-57-7206Wefmkvq/Globulin [Mass ratio]1.4 {ratio} [facility] Hospitalerum or plasma alkaline phosphatase measurement (enzymatic activity/volume)Ordered By: Edwardo Michael on 86-84-3447XJC [Catalytic activity/Vol]74 U/G84-14GaqjtyeodJ.W. Ruby Memorial Hospitalerum or plasma anion gap determinationOrdered By: Edwardo Michael on 53-13-2940Xyiyj gap [Moles/Vol]11.4 mmol/L6.0-15.0J.[facility]. [facility] Hospitalerum or plasma aspartate aminotransferase measurement (enzymatic activity/volume)Ordered By: Edwardo Michael on 24-50-1629LHG [Catalytic activity/Vol]25 U/H04-70ApwcmfnkvJ.W. Ruby Memorial Hospitalerum or plasma calcium measurement (mass/volume)Ordered By: Edwardo Michael on 41-98-4340Vovtwzp [Mass/Vol]9.5 mg/dL8.2-10.2FUC Healtherum or plasma chloride measurement (moles/volume) Ordered By: Edwardo Michael on 24-55-9408Lyqkqqde [Moles/Vol]102 mmol/L95-114 [facility] Hospitalerum or plasma glucose measurement (mass/volume)Ordered By: Edwardo Michael on 29-24-9385Mtziuvm [Mass/Vol]97 mg/dL 70-100The [facility] SouthwoodsComment on above:ADA recommended reference rangeRandom Glucose Reference Range is dependent on time and content of last meal. Glucose of more than 200 mg/dL in a nonstressed, ambulatory subject supports the diagnosisof Diabetes Mellitus.Serum or plasma high density lipoprotein (HDL) cholesterol measurementOrdered By: Edwardo Michael on 04-06-2022 Cholesterol in HDL [Mass/Vol]33 mg/nL77-38HmqigquyfThe Surgical Hospital At Southwoods Comment on above:HDL CHOL ATP-III CLASSIFICATION Cardiovascular RiskHDL > or equal to 60 mg/dL LOWHDL < 40 mg/dL HIGHSerum or plasma potassium measurement (moles/volume)Ordered By: Edwardo Michael on 44-41-9710Pgxsegzye [Moles/Vol]4.4 mmol/L3.5-5.1FUC Healtherum or plasma sodium measurement (moles/volume)Ordered By: Edwardo Michael on 57-07-0628Ayjkms [Moles/Vol]138 mmol/L 136-146J.[facility]. [facility] Hospitalerum or plasma total bilirubin measurement (mass/volume)Ordered By: Edwardo Michael on 39-14-2490Vdagmumqp [Mass/Vol]0.8 mg/dL0.3-1.2FUC Healtherum or plasma total carbon dioxide measurement (moles/volume)Ordered By: Edwardo Michael on 04-06-2022 CO2 [Moles/Vol]29.0 mmol/L22.0-30.0J.[facility]. [facility] Hospitalerum or plasma total cholesterol/high density lipoprotein (HDL) cholesterol mass rat Ordered By: Edwardo Michael on 72-91-6205Wuccmlghfpz.total/Cholesterol in HDL [Mass ratio]5.5 {ratio}<5.0J.[facility]. [facility] Hospitalerum or plasma urea nitrogen measurement (mass/volume)Ordered By: Edwardo Michael on 22-49-4737Ypbv nitrogen [Mass/Vol]14 mg/dL9-23The [facility] SouthwoodsTS DL <= 0.005 mIU/L QnOrdered By: Edwardo Michael on 10-66-9321LPW Qn1.82 m[IU]/L0.45-5.33The [facility] Hospital [facility] SouthwoodsTriglyceride [Mass/volume] in Serum or PlasmaOrdered By: Edwardo Michael on 96-62-1387Spmnzmwpxkvt [Mass/Vol]121 mg/uH96-597GakmqdbfsThe Surgical Hospital At SouthwoodsComment on above:TRIG ATP III CLASSIFICATIONTRIG less than 150 mg/dL NormalTRIG 150-199 mg/dL Borderline highTRIG 200-500 mg/dL High TRIG greater than 500 mg/dL Very highStandard traceable to the Center for Disease Conrtrol and Prevention (CDC) test method.Initial Visit (Orthopaedic Surgery)on 26-23-3839Gdcbaen Visit (Orthopaedic Surgery)Diagnoses/Problems Assessed Primary osteoarthritis of both shoulders (715.11) [...] Results/Data Xray Shoulder Bilateral, Complete, Min 2 Juocp01Nnn5250 09:58AMBenny Murry Test NameResultFlagReference Xray Shoulder Bilateral, Complete, Min 2 Views(Report) FINAL REPORT Interpreted by: BENNY MURRY MICHAEL, MD 04/27/21 10:22 Patient Name: BRANDBENNY STUDY: BILATERAL SHOULDER, CMPLT, MIN 2 VIEWS; ; 04/27/2021 9:58 am INDICATION: pain M25.511: Bilateral shoulder pain, unspecified chronicity M25.512:. ACCESSION NUMBER(S): [id number] ORDERING CLINICIAN: BENNY MURRY FINDINGS: AP axillary bilateral shoulder show moderately advanced osteoarthritic change of both shoulders inferior spurring is noted bilaterally with lybr-mo-hvyc arthrosis. On the axillary view the humeral head is centered in the glenoid fossa. There is no fracture no dislocation. There is some mild calcific change control manager the tuberosity is bilaterally. Overall advanced osteoarthritic [...] injection include infection, local skin irritation, skin atrophy,calcification, continued pain/discomfort, elevated blood sugar, burning, failure to relieve pain, possible late infection. Post-op discomfort can be alleviated with additional medications/ice/elevation/rest over the first 24 hours as recommended. After explaining these issues to the patient, it wasunderstood. The injection site was sprayed with Ethyl Chloride and injection 2 cc of Celestone and 5 cc lidocaine plain 1% was injected in the right shoulder subacromial space under routine office sterile conditions and a Band-aid was applied. The risks/benefits of a cortisone injection include infection, local skin irritation, skin atrophy,calcification, continued pain/discomfort, elevated blood sugar, burning, failure to relieve pain, possible late infection. Post-op discomfort can be alleviated with additional medications/ice/elevation/rest over the first 24 hours as recommended. After explaining these issues to the patient, it wasunderstood. The injection site was sprayed with Ethyl Chloride and injection 2 cc of Celestone and 5 cc lidocaine plain 1% was injected in the left shoulder subacromial space under routine office sterile conditions and a Band-aid was applied. Signatures Electronically signed by : Jessi Rahman, ; Apr 28 2021 3:22PM EST (Steeplechase Jockey/Recorder) Electronically signed by : Benny Murry MD; Apr 28 2021 3:41PM Mira TouchworksRadiologyon 14-02-3795HA Shoulder - bilateral 2 [facility] HospitalNoUNC [facility] Work Phone: [phone]-68 PCR ([facility])on 37-33-9446HWTY-CoV-2 (COVID- 19) RNA ZHANG+probe Ql (Unsp spec)Not detectedNormalNOT DETECTEDThe Wright-Patterson Medical CenterComment on above:Result Comment: This test is not yet approved or cleared by the [place] FDA. When there are no FDA-approved or cleared tests available, and other criteria are met, FDA can make tests available under an emergency access mechanism called an Emergency Use Authorization (EUA). The EUA for this test is supported by the Mail Forwarding System Markup Clerk of Health and Human Service's (HHS's) declaration [...] of clinical signs and symptoms consistent with SARS-CoV-2.Performed By: #### [facility] #### [facility] [address] CARDIAC SCORINGon 66-21-7397MH CT CARDIAC SCORINGAddendum Begins Patient Name: BENNY BRAND ADDENDUM: NON-CARDIOVASCULAR [...] for cardiovascular disorders. COMPARISON: None. ACCESSION NUMBER(S): [id number] ORDERING CLINICIAN: EDWARDO MICHAEL TECHNIQUE: Using prospective [...] increased >800 Raoul et al. JCCT 2016 (http://dx.doi.org/10.1016/j.jcct.2016.11.003) ALMENDAREZ Percentile In general, greater than 75th [...] Calcification can be calcuate using link below [email or web address] Ashia hernandez al. JACC 2015 (http://dx.doi.org/10.1016/j.j acc.2015.08.035) Reading Wheel Fitter: Dr. Joselito Rousseau, Date: 09/19/2019 2:04 pm Electronically signed by: NICK PRESTON MDEncompass Health Rehabilitation Hospital [facility] Vital Signs Date TimeVital SignValuePerforming NlhnwilolUmfpllip71-75-5562 09:24-0400Body otmaen497.26 cmEdwardo Michael DO Work Phone: [phone]10-08-2025 09:24-0400 Body mass index (BMI) [Ratio]26.6 kg/b3Nampi Kuns DO Work Phone: [phone]10-08-2025 09:24-0400 Body jhyffx08.7 kgBryan Kuns DO Work Phone: [phone]10-08-2025 09:24-0400 Diastolic blood mzrwylln54 mm[Hg]Edwardo Kuns DO Work Phone: [phone]10-08-2025 09:24-0400 Heart rate63 /minOtilioan Kuns DO Work Phone: [phone] [place], [place] 6874710-08-2025 09:24-0400 Respiratory rate18 /minOtilioan Kuns DO Work Phone: [phone] [place], [place] 6874710-08-2025 09:24-0400 SaO2% (BldA) [Mass fraction]99 %Edwardo Oscars DO Work Phone: [phone] [place], [place] 6874710-08-2025 09:24-0400 Systolic blood brsknepe449 mm[Hg]Edwardo Kuns DO Work Phone: [phone]10-23-2024 09:24-0400 Body eyepom926.26 cmDO Edwardo Kuns Work Phone: [phone]10-23-2024 09:24-0400 Body mass index (BMI) [Ratio]26.6 kg/m2DO Edwardo Kuns Work Phone: [phone] [place], [place] 3838710-23-2024 09:24-0400 Body nkdiye48.64 kgDO Edwardo Kuns Work Phone: [phone]10-23-2024 09:24-0400 Diastolic blood jtktuhge73 mm[Hg]DO Edwardo Kuns Work Phone: [phone] [place], [place] 3838710-23-2024 09:24-0400 Heart rate64 /minDO Edwardo Michael Work Phone: [facility]10-23-2024 09:24-0400 Respiratory rate16 /minDO Edwardo Michael Work Phone: [facility]10-23-2024 09:24-0400 SaO2% (BldA) [Mass fraction]96 %DO Edwardo Michael Work Phone: [facility]10-23-2024 09:24-0400 Systolic blood lwgcyjgg463 mm[Hg]DO Edwardo Michael Work Phone: [facility]10-24-2023 14:15-0400 Body mtzbyo547.26 cmEdwardo Michael Other [employer] Other 10-24-2023 14:15-0400Body mass index (BMI) [Ratio] 26.14 kg/u5ZldhuEdwardo Michael Other [employer] Other 10-24-2023 14:15-0400Body zbfajx94.29 kgEdwardo Michael Other [employer] Other 10-24-2023 14:15-0400Diastolic blood tmwohdye29 mm[Hg] Edwardo John Other [employer] Other 10-24-2023 14:15-0400Respiratory rate16 /minEdwardo Michael Other [employer] Other 10-24-2023 14:15-2944KfP4% (BldA) [Mass fraction]95 % Edwardo Moorebettye Other [employer] Other 10-24-2023 14:15-0400Systolic blood cumrdres737 mm[Hg] Edwardo Michael Other [employer] Other 10-07-2022 09:30-0400Body .26 cmEdwardo Michael Other [employer] Other 10-07-2022 09:30-0400Body mass index (BMI) [Ratio] 27.02 kg/h4LafriEdwardo Michael Other [employer] Other 10-07-2022 09:30-0400Body gpsdag12.01 kgEdwardo Michael Other [employer] Other 10-07-2022 09:30-0400Diastolic blood fxgefgnj46 mm[Hg] Edwardo Michael Other [employer] Other 10-07-2022 09:30-0400Respiratory rate16 /minEdwardo Michael Other [employer] Other 10-07-2022 09:30-0102HbT2% (BldA) [Mass fraction]98 % Edwardo Michael Other [employer] Other 10-07-2022 09:30-0400Systolic blood aybojquy125 mm[Hg] Edwardo Michael Other [employer] Other 10-21-2021 15:40-0400Body guehsp211.26 cmEdwardo Michael Work Phone: [phone]-Cscswv For OrthopedicsMad[facility] Work Phone: [phone] 15:40-0400Body mass index (BMI) [Ratio] 26.58 kg/j9TwfdlEdwardo Michael Work Phone: [phone]-SmqmnnClinch Valley Medical CentersMadison Health Work Phone: [phone] 284-615110-21-2021 15:40-0400Body surface area Derived from formula1.98 p0YmuvvEdwardo Michael Work Phone: [phone]-JbxzvnClinch Valley Medical CentersMadison Health Work Phone: [phone] 15:40-0400Body zcxygc91.65 kgEdwardo Michael Work Phone: [phone]-CqkwvsClinch Valley Medical CentersMadison Health Work Phone: [phone] 11:30-0400Body heightEdwardo Oscarbettye Other [employer] Other 10-06-2021 11:30-0400Body mass index (BMI) [Ratio] 27.02 kg/u8VzfwnEdwardo Michael Other [employer] Other 10-06-2021 11:30-0400Body zeiqrj54.01 kgEdwardo Michael Other [employer] Other 10-06-2021 11:30-0400Diastolic blood xqelrsvm30 mm[Hg] Edwardo Michael Other [employer] Other 10-06-2021 11:30-0400Respiratory rate16 /minEdwardo Michael Other [employer] Other 10-06-2021 11:30-6944OhJ3% (BldA) [Mass fraction]97 % Edwardo Michael Other [employer] Other 10-06-2021 11:30-0400Systolic blood viasmast727 mm[Hg] Edwardo Michael Other [facility] [employer] Other Encounters Encounter DateEncounter TypeCare ProviderFacilityStart: 04-15-2025 End: 71-55-6961ekzdmzynrfMvrmo Kuns DO Work Phone: [facility] Work Phone: Start: 04-15-2025 End: 50-56-7500Txkxlol encounter procedureEdwardo Kingston DO-[facility] [place] Work Phone: Start: 04-08-2025 End: 69-70-5907Rnfvvqb encounter procedureEdwardo Kingston DO-[facility] [place] Work Phone: Start: 04-08-2025 End: 62-77-6923iaolxkenydRuvys Kuns DO Work Phone: [facility] Work Phone: Start: 03-17-2025 End: 82-21-5748twozcclewgJIKU WINSLOWNot AvailableStart: 03-10-2025 End: 46-62-9951vxguklhkeuDAJQE HANSONNot AvailableStart: 03-03-2025 End: 47-36-0444sricfrhfauDMDE WINSLOWNot AvailableStart: 02-26-2025 End: 82-72-7602ltyksamcxiKEASZ HANSONNot AvailableStart: 02-24-2025 End: 66-36-5301hdaqhycxgwNUJSJ HANSONNot AvailableStart: 02-19-2025 End: 55-59-4001pbqnetwzgmDMSLM HANSONNot AvailableStart: 02-17-2025 End: 18-40-4720darkzbhvogIYMDG HANSONNot AvailableStart: 02-13-2025 End: 86-80-4290zquuigzrvoJKBP WINSLOWNot AvailableStart: 01-15-2025 End: 77-57-2729Fpcass outpatient visit 25 minutesMurphy Tesfaye PA-C Work Phone: [facility] HospitalComment on above:Low back pain, unspecified back pain laterality, unspecified chronicity, unspecified whether sciatica present (Primary Dx); Lumbar radiculopathyStart: 01-15-2025 End: 92-35-3060gqptlietvaJRDEXCentra Health AmbulatoryStart: 12-31-2024 End: 74-09-1440Yeaoht outpatient new 30 minutesDominikcorie Thalia Murry MD Work Phone: [facility] HospitalComment on above:Pain of left hip; Right shoulder pain, unspecified chronicity; Tendinitis of right rotator cuffStart: 12-31-2024 End: 71-94-2290iameygmcsjGTNPKH M ZANOTTIWood County Hospital AmbulatoryStart: 12-16-2024 End: 68-11-3240nwaavkiwwrMTMBBYQ A FELTERNot AvailableStart: 10-23-2024 End: 43-45-6864azfxkvhbkfHXVQ S BIEDENBACHNot AvailableStart: 06-20-2024 End: 44-54-9398ijfftcoythASUF S BIEDENBACHNot AvailableStart: 06-17-2024 End: 63-04-7116lxnuriscvwDZJCMEW A FELTERNot AvailableStart: 06-02-2024 End: 86-39-5476bjpxvvnfgsSSLC S BIEDENBACHNot AvailableStart: 05-09-2024 End: 68-21-1877koumkmgzngBGZJ S BIEDENBACHNot AvailableStart: 05-08-2024 End: 53-61-7331Ymjhxyw encounter procedureDO Edwardo Michael Work Phone: [facility] Work Phone: Start: 05-08-2024 End: 28-11-2821nyywohwocoWF Bryan Kuns Work Phone: [facility] Work Phone: Start: 05-02-2024 End: 53-71-7304fjjahaaehbFriq BiedenbachFacility:[facility] Hospitaltart: 05-02-2024 End: 05-60-5763Kqntatuv ReferredDO Edwardo Michael Work Phone: [facility] Work Phone: Start: 04-30-2024 End: 38-56-9297agylbrbzgxJK Edwardo Michael Work Phone: [facility] Work Phone: Start: 04-30-2024 End: 77-31-3908Tpbvhel encounter procedureDO Edwardo Michael Work Phone: [facility] Work Phone: Start: 04-24-2024 End: 79-38-2432otzjhooctmDSHP S BIEDENBACHNot AvailableStart: 04-22-2024 End: 95-16-7101Ydwrtuz encounter procedureDO Edwardo Michael Work Phone: [facility] [place] Work Phone: Start: 04-22-2024 End: 25-95-9612dxldvnhogkOJ Edwardo Michael Work Phone: [facility] Work Phone: Start: 16-12-9765Xjq-patient / Non-visitDO Edwardo Michael Work Phone: [facility] Work Phone: Start: 04-07-2024 End: 08-92-4568xchlgzpvtoRCUSB A PETITTINot AvailableStart: 05-01-2023 End: 50-07-4367prumpmvbzlIhrtj Kuns Other [employer] Other Start: 67-36-8012Ehbyrzl encounter procedureEdwardo Michael [facility] CastaliaStart: 04-18-2023 End: 91-63-5903yhapbzdbdwCV Edwardo Michael Work Phone: [facility] Work Phone: Start: 04-18-2023 End: 84-71-1396Arcvixg encounter procedureDO Edwardo Michael Work Phone: [facility] [place] Work Phone: Start: 03-21-2023 End: 30-01-1964jwcafzaudgMwhyq Kuns Other [employer] Other Start: 66-57-1485Iuvdsflta encounterBrydae MichaelG Family Medicine CastaliaStart: 01-10-2023 End: 08-48-7730voyqglqyijQwnrj Kuns Other [employer] Other Start: 86-90-7976Yohntlvsy encounterBrydae MichaelFPG [facility] CastaliaStart: 06-05-2022 End: 98-85-0785rrzwyybjxsDxobg Kuns Other [facility] [employer] Other Start: 19-48-8732Peucbzady encounterBrydae MichaelFPG [facility] CastaliaStart: 04-14-2022 End: 63-26-1523fxmdgmafniTfjzx Kuns Other [facility] [employer] Other Start: 30-11-5476Lluevhb encounter procedureEdwardo Michael [facility] Family Medicine Cast[place]Start: 04-06-2022 End: 16-47-9561xcyaqhjktgIZ Edwardo Michael Work Phone: [facility] Work Phone: Start: 04-06-2022 End: 32-06-8986Erkwbdd encounter procedureDO Edwardo Michael Work Phone: [facility]-Lab CastaliaStart: 03-07-2022 End: 45-54-0786efvsosexgsCfvcm Kuns Other [employer] Other Start: 88-40-0072Ceigegomc encounterBrydae ReyG Family Medicine CastaliaStart: 12-27-2021 End: 92-10-9059jmltvjytpuTmrqf Kuns Other [employer] Other Start: 75-42-3628Mzbqaceaf encounterBrydae ReyG Family Medicine CastaliaStart: 76-56-0049Kpacwfi encounter procedureEdwardo Michael Work Phone: [phone]-[facility]Mad[facility] Work Phone: Start: 04-26-2021 End: 36-63-9820koepvgsnsjDI EDWARDO MICHAELFacility:P6Xqhac: 63-54-2721Wvybrbwpv encounterEdwardo MooreLisaG Family Medicine CastaliaStart: 49-59-7524Ddgtro wellness visitEdwardo Michael Other [employer] Other Start: 06-40-6151Ngwovenzf for general adult medical examination without abnormal findingsEdwardo MoorebettyeG [facility] [place] Start: 27-69-3179Avttkll encounter procedureEdwardo CandidoG [facility] Medicine CastaliaStart: 32-91-7378Jmdngdxno encounterEdwardo CandidoG Family Medicine CastaliaStart: 40-68-7673Kawfmli encounter procedureEdwardo Michael Other [employer] Other Procedures DateProcedureProcedure DetailPerforming ClinicianStart: 68-17-0962Fdwbskevhpairz aspir&/inj major jt/bursa w/o Delfina Murry MD Work Phone: Start: 53-61-6245KQ angiography of headDO Edwardo Michael Work Phone: Screening for malignant neoplasm of prostateEdwardo Michael Other Plan of Treatment DateCare ActivityDetailAuthorStart: 76-16-7704BXfB/Tdap/Td Vaccines (3 - Td or Tdap)DTaP/Tdap/Td Vaccines (3 - Td or Tdap)[facility] Start: 79-42-8033WGiN/Tdap/Td Vaccines (4 - Td or Tdap)DTaP/Tdap/Td Vaccines (4 - Td or Tdap)[facility]: 40-76-7352IJK High Risk: (Elderly (60+) or Population) (1 - 1-dose 75+ series)RSV High Risk: (Elderly (60+) or Population) (1 - 1-dose 75+ series)[facility]: 62-34-9972Sqxcaigdx for malignant neoplasm of colon [facility]: 55-97-7581Binjwpsgc vaccinationInfluenza Vaccine (#1)[facility]: 02-23-2025 End: 36-53-8842Vabypgv encounter nfuunllgi81/18/2025 1:15 PM EDT Office Visit [address] [phone] Murphy Tesfaye PA-C [facility] [place] [address] [facility]: 01-15-2025 End: 16-15-1371NP Lumbar spine Views W flexion and W extensionUN[facility] Service Area Work Phone: Comment on above:Expected: 01/15/2025, Expires: 01/15/2026Start: 31-53-8416IVLSE-19 Vaccine ( season)COVID-19 Vaccine ( season)[facility]: 55-50-8770Aityzqecc C screeningHepatitis C ScreeningUnUniversity Hospitals Geneva Medical Center: 22-88-7880Krmyu panelLipid PanelUnUniversity Hospitals Geneva Medical Center: 06-15-1956Medicare Annual Wellness VisitMedicare Annual Wellness Visit (AWV) [facility]: 51-83-0647Pqymhcnyv for malignant neoplasm of colonUnUniversity Hospitals Geneva Medical Center: 73-91-4996Hpcq Cancer ScreeningSkin Cancer ScreeningUniversity Hospitals of ClevelandStart: 1955 Yearly Adult PhysicalYearly Adult PhysicalUnProMedica [facility] Comprehensive metabolic 1999 panel - Serum or PlasmaThe Surgical Hospital At SouthwoodsComprehensive metabolic 1999 panel - Serum or [facility]CT angiography [facility] headBapt[facility] Immunizations Immunization DateImmunizationNotesCare LntezprvCizkezgf78-18-5932Ynboddqagemk Conjugate Vaccine, 20 valentEdwardo Michael DO Work Phone: [facility]10-03-2024influenza, high dose seasonal, preservative-freeDO Edwardo Michael Work Phone: [facility]10-03-2024influenza virus vaccine, unspecified formulationMurphy Tesfaye PA-C Work Phone: [facility] Work Phone: [phone] toxoid, reduced diphtheria toxoid, and acellular pertussis vaccine, adsorbedEdwardo Michael Other [facility]10-24-2023influenza, injectable, quadrivalent, preservative freeEdwardo Michael Other [facility]10-11-2023Flu Shot - Documentation Purposes OnlyEdwardo Michael Other [facility]10-11-2023Fluzone QIV High-Dose 65YR+DO Edwardo Michael Work Phone: [facility]10-07-2022influenza virus vaccine, unspecified formulationDO Edwardo Michael Work Phone: [facility]10-07-2022influenza, high dose seasonal, preservative-freeEdwardo Michael Other [facility]12-02-2021COVID-19 Vaccine Moderna - Documentation Purposes OnlyBryan Kuns Other [facility]10-01-2021Fluad Quadrivalent 0.5 ML Intramuscular Prefilled SyringeBryan P Kuns Work Phone: [facility]08-04-2021 pneumococcal conjugate vaccine, 13 valentBryan P Kuns Work Phone: [facility]04-19-2021Moderna COVID-19 Vaccine 100 MCG/0.5ML Intramuscular SuspensionBryan P Kuns Work Phone: [facility]03-16-2021Moderna COVID-19 Vaccine 100 MCG/0.5ML Intramuscular SuspensionBryan P Kuns Work Phone: [facility]08-20-2020influenza, seasonal, injectableBryan Kuns Other [facility]12-12-2019zoster vaccine recombinantBryan P Kuns Work Phone: [facility]09-24-2019influenza, injectable, quadrivalent, preservative freeBryan P Kuns Work Phone: [facility]09-24-2019zoster vaccine recombinantBryan P Kuns Work Phone: [facility]09-24-2019influenza, seasonal, injectableBryan Kuns Other [facility]01-09-2019Influenza, injectable, Madin Mira Canine Kidney, preservative free, quadrivalentBryan P Kuns Work Phone: [facility]01-09-2019 pneumococcal polysaccharide vaccine, 23 valentBryan P Kuns Work Phone: [facility]01-09-2019influenza, seasonal, injectableBryan Kuns Other [facility]07-17-2018Kenalog -40 mgBryan Kuns Other [employer] Other [id number] toxoid, reduced diphtheria toxoid, and acellular pertussis vaccine, adsorbedOtiliodae John DO Work Phone: [facility]01-02-2013tetanus and diphtheria toxoids, adsorbed, preservative free, for adult use (5 Lf of tetanus toxoid and 2 Lf of diphtheria toxoid)DO Edwardo Michael Work Phone: [facility]01-02-2013tetanus toxoid, reduced diphtheria toxoid, and acellular pertussis vaccine, adsorbed Edwardo Michael Work Phone: [facility] Payers DatePayer CategoryPayerPolicy [id number] Health InsuranceGENERIC COMMERCIAL [id number]-oyq [id number] 2.16.840.8.53643[id number] 2021MedicareMEDICARE PART A AND B .[id number] [id number] [id number] 2.16840.1.149035.3.57[id number] 2.16840.1.575442.3.57[id number] 2.16840.1.208464.3.57[id number] 2.840.1.083479.3.57[id number] 2.16840.1.315541.3.57[id number] 2.16840.1.172579.3.57[id number] 2.16840.1.318662.3.579.2.6[id number] 2.16840.1.404940.3.579.2.3[id number] 2.16840.1.185274.3.579.2.9[id number] 2.16.840.1.456257.3.579.2.4[id number] 2.16840.1.974208.3.579.2.59[id number] 2.16840.1.391577.3.57[id number] 2.16.840.1.476884.3.57[id number] 2.16.840.1.939678.3.57[id number] 2.16.840.1.535078.3.57[id number] 2..840.1.673180.3.579.2.490995-08-0503Gmddqvz2154396 2..840.1.320571.3.579.2.232356-61-7226Raazysy6733829 2..840.1.198163.3.579.2.118458-29-5986Vcrtifm6680099 2..0.1.714791.3.57[id number] 2..0.1.435946.3.579.2.320786-59-4962Cefyhml6154509 2..840.1.139143.3.579.2.524819-02-0859Svjltqb9500108 2.16.840.1.599378.3.579.2.45[id number] 139t8ui0-bi9i-7uwi-ne4p-i5p16zg9qta2WasyfooMthxzuqzb [id number] [id number]-[id number] 2.16.840.1.4[id number] 2.16.840.1.792056.3.579.2.531 [id number] 2.16.840.1.54953[id number] 2.16.840.1.443838.3.579.2.578Cvuqlex01434532 2.16.840.1.604272.3.579.2.531 Social History DateTypeDetailFacilityUnknown if ever smokedGr[place] [employer] Other [facility] [employer] Other Start: [id number] [facility]art: 08-12-2018 End: 57-99-9497Yqibkmv smoking status NHISNever smoked tobacco (finding) [facility] smoking status NHISTobacco smoking consumption unknownUnProMedica Tol[facility] Hospital Work Phone: Start: 56-01-5041Yif [facility]Not on file [facility] Work Phone: SexMale (finding)[facility] Clinical Notes 08-12-2009 to 01-15-2025 Note Date & [id number] History of Present illness Narrative* Murphy Tesfaye PA-C - 01/15/2025 1:00 PM EDT Benny Brand is a 69 y.o. male who presents for New Patient Visit of the Lower Back (Referred by KENNETH/Ongoing for years, travels to both sides/ay today). HPI: 69-year-old gentleman here for new [...] instability, or exacerbation of pain. Strength is 5/5throughout. No redness, abrasions, or lesions on extremities [...] he started to notice some the left sidedlumbosacral and SI type pain. He is not [...] is no better or worse at that timewe will work this up further and consider [...] pain. Murphy Tesfaye PA-C documented in this [facility] Work Phone: 1(114) 385-314606-25-2025 History of Present illness Narrative* Benny Murry MD - 12/31/2024 2:30 PM EDTAssociated Order(s): L Inj/Asp: R subacromial bursa Post-Procedure Diagnose(s): Right shoulder pain, unspecified chronicity History of present: History right shoulder known cuff defect arthritic change last injection lastedover 3 and half years Recently aggravated his [...] left lumbar sacral spine junction slightly radiating downthe leg into the buttock area up to the knee but not below the knee he occasionally in the past hashad some sciatica symptoms on the other side [...] deficit in internal rotation. Impingement signs were positiveboth supine and standing for impingement test type I and II. There was mild pain over the bicipitalgroove with a positive speeds sign Before aspiration [...] 1% lidocaine plain and 2 cc Celestone Soluspan6 mg per mL. The needle was removed and the puncture site closed and sealed with a Band-Aid. The patient tolerated the procedure well. If fluid was aspirated it was sent for further studies and a sterile specimen container as ordered to the lab. Diagnostic studies: X-rays AP x-rays show severe shoulder osteoarthritis lytq-ea-encr arthrosis Right hip shows moderate arthritic change [...] time out was called to verify the correctpatient, procedure, equipment, lab support tech and site/side marked as required. documented in this encounterUnProMedica Toledo Hospital Work Phone: 1(685) 695-767806-25-2025 Miscellaneous Notes* Addendum Note - Ani Szymanski MA - 12/31/2024 2:30 PM EDTAddended by: ANI SZYMANSKI on: 12/31/2024 02:57 PM Modules accepted: Orders documented in this encounterUnProMedica Toledo Hospital Work Phone: 1(562) 617-880906-25-2025 Note* Addendum Note - Ani Szymanski MA - 12/31/2024 2:30 PM EDTAddended by: ANI SZYMANSKI on: 12/31/2024 02:57 PM Modules accepted: Orders [facility] Work Phone: 1(333) 783-903910-23-2024 Evaluation note* Author Fatoumata Coy [facility]AuthoredOctober 2023 9:31amThe above note written by DEREK Moreno acting as human recorder, note dictated by Dr. Edwardo Michael. [facility] Work Phone: 1(887) 151-805010-24-2023 Evaluation note* Encounter Date Diagnosis Assessment Notes [...] reviewed and amended by provider signed below. Apr,Hyperlipidemia (ICD-10 - E78.5) Review of blood work which revealed no signs of anemia, leukemia, or infection. Liver, kidney, and thyroid function is normal, as well as electrolytes and blood sugar. His cholesterol has improved since last check. Pt is to continue with the above medication and continue watching their diet and increase their exercise regimen. Apr,Screening for prostate cancer (ICD-10 - Z12.5) Review of PSA level which was WNL, therefore, we will continue to monitor. Pt denies any urinary issues at this time. Apr,Vitamin D deficiency (ICD-10 - E55.9) Review of pt's blood work reveals his vitamin d level is WNL. He is unsure of the strength of the vitamin d suppliments he takes, but I advised his levels are good, so he is to continue with this. Apr,Screening for colon cancer (ICD-10 - Z12.11) Pt is due for a cologuard screening, so this was ordered today. Apr,Need for Tdap vaccination (ICD-10 - Z23) Vaccine provided today Apr,Laceration of right middle finger without foreign body without damage to nail, initial encounter (ICD-10 - S61.212A) Pt did cut his finger on a saw a few days ago. It has been 10 years since his last tetanus shot, soone was provided in the office today at his request. I did advise I feel pt likely has proximal sinus tachycardia, and explained this to the pt. Apr,alpitations (ICD-10 - R00.2) We did discuss pt's sensitivity to caffeine. He reports multiple episodes of palpitations, and advises he has been to the ER for this. He declines EKG for this today. I advised I do feel pt's symptoms are due to proximal sinus tachycardia, and explained this to the pt. He is to call if symptoms worsen. [email or web address] Other 09-13-2023 Evaluation note* Encounter Date Diagnosis Assessment Notes Treatment Notes Treatment Clinical Notes Mar, Thyroid nodule (ICD-10 - E04.1) [email or web address] Other 07-05-2023 Evaluation note* Encounter Date Diagnosis Assessment Notes Treatment Notes Treatment Clinical Notes Jan, Hyperlipidemia (ICD-10 - E78.5) Jan,Screening for prostate cancer (ICD-10 - Z12.5) Jan,Vitamin D deficiency (ICD-10 - E55.9) [email or web address] Other 10-07-2022 Evaluation note* Encounter Date Diagnosis [...] reviewed and amended by provider signed below. Apr,Hyperlipidemia (ICD-10 - E78.5) Blood work results reviewed with the patient. No signs of anemia or leukemia. Liver enzymes , kidney and thyroid functions are within normal limits with no indication of diabetes. Total cholesterol improved from 209 to181 and LDL improved mnwe322 to124. Per patient he started taking Zetia daily versus every other day. Pt is to continue with the above medication and continue watching their diet and increase their exercise regimen. Apr,creening for prostate cancer (ICD-10 - Z12.5) Review of PSA level which was WNL,digital exam performed ,therefore, we will continue to monitor. Pt denies any urinary issues at this time. 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 Apr,Needs flu shot (ICD-10 - Z23) High dose influenza vaccine administered. Apr,Erectile dysfunction (ICD-10 - N52.9) Pt is to continue with the above medication, refills provided and we will continue to monitor. Apr,Vitamin D deficiency (ICD-10 - E55.9) Vitamin D level is within normal range upon review of blood work results. Pt is to continue with the above medication and we will continue to monitor. [email or web address] Other 08-30-2022 Evaluation note* Encounter Date Diagnosis Assessment Notes Treatment Notes Treatment Clinical Notes Feb, Hyperlipidemia (ICD-10 - E78.5) Feb,creening for prostate cancer (ICD-10 - Z12.5) Feb,Vitamin D deficiency (ICD-10 - E55.9) [email or web address] Other 06-21-2022 Evaluation note* Encounter Date Diagnosis Assessment Notes Treatment Notes Treatment Clinical Notes Dec, Hyperlipidemia (ICD-10 - E78.5) Dec,Erectile dysfunction (ICD-10 - N52.9) [email or web address] Other 10-15-2021 Evaluation note* Encounter Date Diagnosis Assessment Notes Treatment Notes Treatment Clinical Notes Apr, Screening for viral disease (ICD -10 - Z11.59) [email or web address] Other 10-06-2021 Evaluation note* Encounter Date Diagnosis [...] interventions to reduce health risks and promote self- management and wellness, including weight loss, physical activity, [...] any positively answered questions as noted above. Apr,creening for prostate cancer (ICD-10 - Z12.5) Review of blood work with patient, PSA is WNL. We will continue to monitor. Apr,Hyperlipidemia (ICD-10 - E78.5) Review of blood work with patient, cholesterol remains elevated on the above medication. He is taking this 2 days in a row with one day off inbetween. He does not tolerate 'statin' medications well therefore I advised him to monitor his diet closer. We will continue to monitor. Apr,Memory changes (ICD-10 - R41.3) Patient does have a positive Dementia Screening today. He does not feel like he has any memory concerns. I advised him if he does notice any changes, he is to call our office and we will re-evalaute this further. Apr,rectile dysfunction (ICD-10 - N52.9) Patient reports that the sildenafil did help initially up until this past month. I did advise him to stop the sildenafil and advised him to try the above medication and use it sparingly. Patient is in agreement. We will continue to monitor. Apr,Welcome to Medicare preventive visit (ICD-10 - Z00.00) [email or web address] Other 10-21-2011 History of Present illness NarrativePatient is new to us today, meaning he has not been here in three years but he actually had injections ten years ago.-[place] [facility] Work Phone: 1(939) 729-465002-04-2010 History general Narrative - Reported* Type Description Date Medical History 2007 psa level 0.652 Medical [id number] colonoscopy doneMedical Wlluvdk1145 stress test doneMedical Ulslnfs4-2-67; lipid panel, cmpMedical Jjojoss6-96-60; lipid panel, cmp, cbc, t4, tsh, testosterone, psa (0.909)Medical HistoryBloodwork 05-19-11; lipid panel, cmp, cbc, t4, tsh, hgb a1c (5.5), psa with reflex to free psa (0.668) Medical HistoryCarotid/PVR Screening ( 08-15-14 @ [facility])Medical Historythyroid nodule-follows with Dr. RaiMedical History09/15/15 LabsMedical History CholesterolMedical Wasbbnp02/19/19 PSA ( 0.7)Surgical Historytonsillectomy and adenoidectomy [email or web address] Other 02-04-2010 History general Narrative - Reported* Type Description Date Medical History 2007 psa level 0.652 Medical Mvklqbv7236 colonoscopy doneMedical Brrczgu5880 stress test doneMedical Lvyndge1-9-17; lipid panel, cmpMedical Jgeyhkh8-05-02; lipid panel, cmp, cbc, t4, tsh, testosterone, psa (0.909)Medical HistoryBloodwork 05-19-11; lipid panel, cmp, cbc, t4, tsh, hgb a1c (5.5), psa with reflex to free psa (0.668) Medical HistoryCarotid/PVR Screening ( 08-15-14 @ [facility] [place])Medical Historythyroid nodule-follows with Dr. RaiMedical History09/15/15 LabsMedical History CholesterolMedical Cnaeajp20/19/19 PSA ( 0.7)Medical Wcpahjz4104/06/2022 PSA (0.460)Surgical Historytonsillectomy and adenoidectomy [facility] [employer] Other Evaluation noteNo InformationNortPunxsutawney Area Hospital [employer] Other Evaluation noteNo assessment information available [facility] Work Phone: Evaluation note* Author Fatoumata Coy [facility]woodsAuthoredOctbaptist health [facility]mond 2023 9:31amThe above note written by DEREK Moreno acting as human recorder, note dictated by Dr. Edwardo Michael. [facility] Work Phone: Evaluation note* Diagnosis Pain of left hip Right shoulder pain, unspecified chronicity Tendinitis of right rotator cuff Right shoulder pain, unspecified chronicity Pain of left hip documented in this encounter [facility] Work Phone: Evaluation note* Diagnosis Low back pain, unspecified back pain laterality, unspecified chronicity, unspecified whether sciatica present- Primary Lumbar radiculopathy Thoracic or lumbosacral neuritis or radiculitis, unspecified documented in this encounter [facility] Work Phone: Reason for referral (narrative)No reason for referral information availableUniversity Hospitals Cleveland Medical Center Work Phone: Summary Purpose Family History No Family History Records Found Relationship Condition Age at Onset Recorded Date/T see father Unknown grandparentDeceasedUnknown Relationship Condition Age at Onset Recorded Date/T see father Unknown motherHeart diseaseUnknownCongestive heart failureUnknown Advance Directives No Advanced Directives Records Found Advance Directive Response Recorded Date/ Time Advance Directives No November 21 8 9:52am Advance Directive Response Recorded Date/ Time Advance Directives No August 09, 2023 12:04pm Chief Complaint * B/L Shoulder Pain * Xrays Today Chief Complaint and Reason for Visit Chief Complaint E78.5 Z12.5 E55.9 Chief Complaint Amb Documentation E78.5 F41.9 Z12.5 Chief Complaint Amb Documentation E78.5 F41.9 Z12.5 medicare wellnessReason for VisitActinic keratosis Hyperglycemia Hyperlipidemia Medicare annual wellness visit, subsequent Screening for prostate cancer Skin carcinoma Stroke-like symptom Chief Complaint Amb Documentation E78.5 F41.9 Z12.5 medicare wellness LEFT EAR LESION R29.90Reason for VisitActinic keratosis Hyperglycemia Hyperlipidemia Medicare annual wellness visit, [...] section and content) DATE CREATED AUTHOR 09/22/2019 [facility] DATE CREATED AUTHOR AUTHOR'S ORGANIZ ATION 04/30/2021 [facility] DATE CREATED AUTHOR AUTHOR'S ORGANIZ ATION 05/03/2021 [facility] DATE CREATED AUTHOR AUTHOR'S ORGANIZ ATION 01/20/2025 [facility] DATE CREATED AUTHOR AUTHOR'S ORGANIZ ATION 03/19/2025 [facility] EPIC DATE CREATED AUTHOR AUTHOR'S ORGANIZ ATION 04/18/2025 [facility] REASON FOR VISIT (unrecogniz ed section and content) ReasonCommentsNew Patient VisitReferred by Anne for years, travels to both sidesXray todayReasonCommentsNew Patient VisitXray todayPainXray todayInjections Wants inj.Subseq. MCW examClinical Acute IllnessInitial MCW examrefillClinicalWELCOME TO MEDICARE Care Teams (unrecognized sec tion and content) Team Status: Active Member Role Status Dates Edwardo Michael DO Primary Care Provider Active Team Status: Active Member Role Status Dates Edwardo Michael DO Primary Care Provider Active Sta rt: April 07, 2024 Sherrill Díaz ProviderActiveStart: April 07, 2024 Team Status: Inactive Member Role Status Dates Edwardo Michael DO Primary Care Provide r, Attending Provider Active Start: April 22, 2024 End: April 22, 2024 Team Status: Inactive Member Role Status Dates Edwardo Michael DO Primary Care Provider, Attending Provi parker Active Team Status: Active Member Role Status Dates Dougie Abernathy DO Specialist Active LeeA nn Yuan , MDSpecialistActiveEdwardo Michael , DOPrinorthwest medical centery Care ProviderActive Team Status: Inactive Member Role Status Dates Edwardo Michael DO Primary Care Provide r, Attending Provider Active Start: April 30, 2024 End: April 30, 2024 Team Status: Inactive Member Role Status Dates Edwardo Michael DO Primary Care Provider Active Sta rt: May 02, 2024 End: May 02auemperatriz Abernathy DOAttending ProviderActiveStart: May 02, 2024 End: May 02, 2024 Team Status: Inactive Member Role Status Dates Edwardo Michael DO Primary Care Provide r, Attending Provider Active Start: May 08, 2024 End: May 08, 2024Team MemberRelationshipSpecialtyStart DateEnd Date Edwardo Michael DO PCP - General09/19/19Team MemberRelationshipSpecialtyStart DateEnd Date Edwardo Michael DO [address] [place] [id number] PCP - General09/19/19 Team Status: Inactive Member Role Status Dates Edwardo Michael DO Primary Care Provider Active Sta rt: April 08, 2025 End: April 08musa Michael DOAttending ProviderActiveStart: April 08, 2025 End: April 08, 2025 Team Status: Inactive Member Role Status Dates Edwardo Michael DO Primary Care Provider Active Sta rt: April 15, 2025 End: April 15musa Michael DOAttending ProviderActiveStart: April 15, 2025 End: April 15, 2025 [...] BE BASED ON THE PRIMARY CLINICAL RECORDS. [facility] [employer] [facility]. provides no warranty or guarantee of the accuracy or completeness of information in this document.
== END 2025-05-04 08:23 | disposition home or self-care (01) ==
LOC: MRI 08:23
PROVIDERS: PCP Family Medicine; Visit Provider Anesthesiology
DX: M48.062 Spinal stenosis, lumbar region with neurogenic claudication (principal); M51.369 Other intervertebral disc degeneration, lumbar region without mention of lumbar back pain or lower extremity pain
CPT/HCPCS: 72148

== ENCOUNTER 2025-05-06 14:10 | Outpatient (OUT) | payer MEDICARE, OTHER, SELFPAY ==
--- OUTSIDE RECORDS SUMMARY | 2025-05-06 14:13 | XMS_ITS | Clinical Summary ---
Author Organization [facility] Address [address] [place] [address] Care Team Providers Care Operations Manager Name Role Phone Lee Ann Gupta MD Unavailable [phone] Dougie Marshall DO Unavailable [phone] Edwardo Lopez DO Primary Care Provider [phone] Allergies No known active allergies Medications MedicationSigDispense QuantityRefillsLast FilledStart DateEnd DateStatus ezetimibe (Zetia) 10 MG tablet Take 10 mg by mouth DailyActive aspirin 81 MG EC tablet 04/30/2024ctive sildenafil (Viagra) 100 MG tablet 04/30/2024ctive fluorouracil (Efudex) 5 % cream Indications:Actinic keratosisApply to directed areas on the face twice a day x 14 days. Dispense 30 day supply but only use for 14 days. 40 g 06/17/2024ctive Additional Information Patient not taking.Reported on 10/23/2024 Active Problems ProblemNoted DateDiagnosed DateLumbar and sacral tqoyigasc38/08/2025Left hip pain02/13/2025Pain in right ankle and joints of right foot10/23/2024 Resolved Problems ProblemNoted DateDiagnosed DateResolved DateActinic coubmmcbs22/31/2024 05/08/20241796Xlnjcbevkkfjz76Medicare annual wellness visit, dcnnuazkpp25Skin hclgidpsx68Stroke-like thquctd42/6260Uyeszeb44Hyperlipidemia04/23/2024 04/23/2024rimary osteoarthritis of right kneeVitamin D nnyviszdpk83 Encounters DateTypeDepartmentCare FyxdJgluwinuvec68/09/2025 12:30 PM EDTTreatment [facility] [address] [place] [address] Lawrence Armstrong, PT Lumbar and sacral arthritis (Primary Dx); Left hip pain03/17/2025amboo flowsheet [facility] [address] [place] [address] Lawrence Armstrong, PT 03/17/20250901Mzvjxw14/02/2025 12:30 PM EDTTreatment [facility] [address] [place] [address] Guero Padilla, MANAGER TECHNICAL Lumbar and sacral arthritis (Primary Dx); Left hip pain03/10/2025amboo flowsheet [facility] [address] [place] [address] Guero Padilla, MANAGER TECHNICAL 03/10/20254343Xydiiz21/26/2025 12:30 PM EDTTreatment [facility] [address] [place] [address] Lawrecne Armstrong, PT Lumbar and sacral arthritis (Primary Dx); Left hip pain03/03/2025amboo flowsheet [facility] [address] [place] [address] Lawrence Armstrong, PT 03/03/20254139Sailsz24/21/2025 10:30 AM EDTTreatment [facility] [address] [place] [address] Guero Padilla, MANAGER TECHNICAL Lumbar and sacral arthritis (Primary Dx); Left hip pain02/26/2025amboo flowsheet [facility] [address] [place] [address] Guero Padilla, MANAGER TECHNICAL 02/26/20259632Vebubo88/19/2025 12:30 PM EDTTreatment [facility] [address] [place] [address] Guero Padilla, MANAGER TECHNICAL Lumbar and sacral arthritis (Primary Dx); Left hip pain02/24/2025amboo flowsheet [facility] [address] [place] [address] Guero Padilla, MANAGER TECHNICAL 02/24/20257211Eekcvo51/14/2025 12:30 PM EDTTreatment [facility] [address] [place] [address] Guero Padilla, MANAGER TECHNICAL Lumbar and sacral arthritis (Primary Dx); Left hip pain02/19/2025amboo flowsheet [facility] [address] [place] [address] Guero Padilla, MANAGER TECHNICAL 02/19/20250849Rtnvkx03/12/2025 12:30 PM EDTTreatment [facility] [address] [place] [address] Guero Padilla, MANAGER TECHNICAL Lumbar and sacral arthritis (Primary Dx); Left hip pain02/17/2025amboo flowsheet [facility] [address] [place] [address] Guero Padilla, MANAGER TECHNICAL 02/17/20259616Xltesz53/08/2025 11:00 AM EDTEvaluation [facility] [address] [place] [address] Patti, Lawrence, PT Lumbar and sacral arthritis (Primary Dx); Left hip pain02/13/2025Plan of Care Documentation [facility] [address] [place] [phone] 02/13/2025amboo flowsheet [facility] [address] [place] [address] Lawrence Armstrong, PT 02/13/2025Travelfrom Last 3 Months Immunizations ImmunizationAdministration DatesNext DueInfluenza, High Dose Seasonal, Preservative Free04/10/2024,04/14/2022Influenza, High-dose Seasonal, Quadrivalent, Preservative Free04/18/2023Influenza, Seasonal, Quadrivalent, Yvheahzhzj47/01/2021Influenza, injectable, MDCK, preservative free, quadrivalent 07/17/2018Influenza, injectable, quadrivalent, preservative free05/01/2023, 04/01/2019Influenza, seasonal, hzwkoqvucm49/20/2020Pneumococcal Conjugate PCV 13 02/09/2021neumococcal Conjugate PCV Pneumococcal Polysaccharide FMKN2670Td (adult), 5 Lf tetanus toxoid, preservative free, adsorbed 07/10/2012Tdap1,07/10/2012Zoster, Xyuoxktxthj80/12/2019,04/01/2019 Social History Tobacco UseTypesPacks/DayYears UsedDateSmoking Tobacco: NeverSmokeless Tobacco: Never Tobacco Cessation:Counseling Given: Not Answered Alcohol UseStandard Drinks/WeekCommentsNot Currently0 (1 standard drink = 0.6 oz pure alcohol)Sex and Gender InformationValueDate RecordedSex Assigned at Not on fileLegal MeiFpnu2609/20/2022 7:19 PM EDTGender IdentityChoose not to hxzssugw14/22/2023 3:10 PM EDTSexual OrientationChoose not to /22/2023 3:10 PM EDT Last Filed Vital Signs Vital SignReadingTime TakenCommentsBlood Pressure--Pulse--Temperature-- Respiratory Rate--Oxygen Saturation--Inhaled Oxygen Concentration--Aimmrb24.4 kg (175 lb)10/23/2024 2:43 PM JCBHjwfos476.7 cm (5' 8 )10/23/2024 2:43 PM EDTBody Mass Index26.61010/23/2024 2:43 PM EDT Plan of Treatment DateTypeDepartmentCare Team (Latest Contact Info)Iuqmigilsdc24/11/2026 10:50 AM EDTOffice Visit [facility] [address] [place] [id number] Concha García, SHELL PRESS OPERATOR-[employer] MANAGER [address] [place] [address] Health MaintenanceDue DateLast DoneCommentsCT Ygizfjmatsxp74/15/1956olonoscopy 1955Kukadhqigljyg09/15/7501ZKX18, 02/10/2019FOBT Influenza Vaccine (#1)510/09/2023, 05/01/2023, 04/18/2023, Additional history existsColorectal Cancer Loparxapd10/10/2027 FIT-DNA, 1Pneumococcal Vaccine: 65+ YearsCompleted 08/12/2024, 02/09/2021, 07/17/2018 Insurance * Guarantor: Ramon Brand TypeRelation to PatientDate of BirthPhone Billing AddressPersonal/JgnothHvsy[birth year][address] [address] Care Teams Team MemberRelationshipSpecialtyStart DateEnd Date Edwardo Lopez DO [address] [place] [address] [facility] - General10/21/24 Lee Ann Gupta MD [address] [place] [address] Referring VieemgfumGzcoqejzgbi35/11/24 Dougie Marshall DO [address] [place] [address] Fcafbifxfmmnpo09/17/24
--- OUTSIDE RECORDS SUMMARY | 2025-05-06 14:13 | XMS_ITS | Clinical Summary ---
Author Organization [facility] Address [address] [place] [address] Phone Care Team Providers Care Human Resource Manager Name Role Phone John Edwardo Vashti CASTRO Primary Care Provider [phone] Allergies No known active allergies Medications MedicationSigDispense QuantityRefillsLast FilledStart DateEnd DateStatus predniSONE (Deltasone) 10 mg tablet Indications:Right shoulder pain, unspecified chronicity,Tendinitis of right rotator pakh60WN FOR 2 DAYS, 40MG FOR 2 DAYS, 30MG FOR 2 DAYS, 20MG FOR 2 DAYS, 10MG FOR 2 DAYS 30 tablet 5Active Social History Tobacco UseTypesPacks/DayYears UsedDateSmoking Tobacco: Never AssessedSex and Gender InformationValueDate RecordedSex Assigned at BirthNot on fileLegal Sex Male06/03/2022 1:02 AM ESTGender IdentityNot on fileSexual OrientationNot on file Last Filed Vital Signs Vital SignReadingTime TakenCommentsBlood Pressure--Pulse--Temperature-- Respiratory Rate--Oxygen Saturation--Inhaled Oxygen Concentration--Mypngg95.6 kg (180 lb)04/28/2021 3:40 PM BBFDnabqj044.3 cm (5' 9 )04/28/2021 3:40 PM EDTBody Mass Index26.5804/28/2021 3:40 PM EDT Plan of Treatment Health MaintenanceDue DateLast DoneCommentsCT Ubqkfrsjedax27/15/1956olonoscopy 1955FIT1955Lipid Panel1955Medicare Annual Wellness Visit (AWV) 1955 0076Hbszdktmpbdty25/15/1956MMR Vaccines (1 of 1 - Standard series) 12/21/1956Hepatitis C Kaydavkjq80/15/1974PSA Prostate Cancer Qlxqreakl92/15/2006 Influenza Vaccine (#1)/09/2023, 05/01/2023, 04/18/2023, Additional history existsCOVID-19 Vaccine (4 - season)/08/2020, 10/25/2020, 09/21/2020olorectal Cancer Fbqkrcltp80/10/2027FIT-DNA (Cologuard) /04/2024, 07/12/2020SV High Risk: (Elderly (60+) or Population) (1 - 1-dose 75+ series)1DTaP/Tdap/Td Vaccines (4 - Td or Tdap)31, 05/11/2016, 07/10/2012, Additional history exists Zoster TfjeamesEyjsxegbh81/12/2019, 04/01/2019Pneumococcal VaccineCompleted 08/12/2024, 02/09/2021, 07/17/2018HIB VaccinesAged OutNo longer eligible based on patient's age to complete this topicHPV VaccinesAged OutNo longer eligible based on patient's age to complete this topicHepatitis A VaccinesAged OutNo longer eligible based on patient's age to complete this topicHepatitis B VaccinesAged OutNo longer eligible based on patient's age to complete this topic IPV VaccinesAged OutNo longer eligible based on patient's age to complete this topicMeningococcal VaccineAged OutNo longer eligible based on patient's age to complete this topicRotavirus VaccinesAged OutNo longer eligible based on patient's age to complete this topic Insurance MemberSubscriberPlan / Payer (Effective 2024-Present)Name:BENNY BRAND Relation to Subscriber:SelfName:BrandBenny Payer ID:[id number] Group ID:[id number] Type:Not on file Address: [address] [place] [id number] Care Teams Team MemberRelationshipSpecialtyStart DateEnd Date Edwardo Lopez DO [address] [place] [address] [facility]09/19/19
--- OUTSIDE RECORDS SUMMARY | 2025-05-06 14:13 | XMS_ITS | Clinical Summary ---
Author Organization [employer] tem Address [id number] [address] [place] [address] Care Team Providers Care Raw Mill Operator Name Role Phone No Pcp, No Pcp Primary Care Provider Unavailabl e Social History Tobacco UseTypesPacks/DayYears UsedDateSmoking Tobacco: Never AssessedChildcare AnswerDate WfsekbliHwvzuvivrSbwqgkh73/12/2019EmploymentAnswerDate Recorded YpzghvfzekEzbhhop80/12/2019Purpose - LifeAnswerDate RecordedPurpose and direction in ccjvTzmhinr63/11/2021ex and Gender InformationValueDate Recorded Sex Assigned at BirthNot on fileLegal ArpGstt5702/11/2015 11:35 AM EDTGender IdentityNot on fileSexual OrientationNot on file Plan of Treatment Not on file Medical Devices Not on file Insurance Care Teams Team MemberRelationshipSpecialtyStart DateEnd Date No Pcp, [place] [address] [facility]
--- OUTSIDE RECORDS SUMMARY | 2025-05-06 14:14 | XMS_ITS | CCD ---
Author Organization [facility] Care Team Providers Care A And P Technician Name Role Phone Edwardo Michael Unavailable Unavailable Unavailable JOHN, DR BROOKE Attending Unavailable JOHN, DR BROOKE Consulting Unavailable JOHN, DR BROOKE Admitting Unavailable Edwardo Michael Unavailable John, DO Brooke Primary Care Provider [phone] John, DO Brooke Attending Provider DO Edwardo Michael Primary Care Provider John, DO Brooke Attending Provider John, DO Brooke Primary Care Provider John, DO Brooke Attending Provider [phone] DO Dougie Abernathy Attending Provider Edwardo Michael DO Primary Care Provider Edwardo Michael DO Primary Care Provider BENNY [...] [ALLERGIES NOT ON FILE]Propensity to adverse reactions (disorder)[facility] 3 Repository Medications Current Medications MedicationDrug Class(es)DatesSig (Normalized)Sig (Original)Ascorbic Acid (6 sources)Vitamin CVitamin C Activeaspirin 81 mg delayed release oral tablet (4 sources)Platelet Aggregation Inhibitor, Nonsteroidal Anti-inflammatory Drug Start: 64-15-7460nqby 1 tablet by mouth once dailyAspirin 81 mg tablet,delayed release (DR/EC) Active 81 MG PO Daily April 30, 2024 12:00am Complies with drug therapyazithromycin 250 mg oral tablet (4 sources)Macrolide AntimicrobialStart: 44-27-2427Pfsxayiob Z-Romero 250 MG as directed Orally May, Activecholecalciferol 0.05 mg oral capsule (5 sources)Vitamin DStart: 84-84-2388ajyp 1 capsule by mouth once daily Cholecalciferol (Vitamin D3) 50 mcg (2,000 unit) capsule Active 50 MCG PO Daily April 07, 2024 12:00am Complies with drug therapyezetimibe 10 mg oral tablet (20 sources)Dietary Cholesterol Absorption InhibitorStart: 04-07-2024 End: 20-74-0676weyk 1 tablet by mouth once dailyEzetimibe (Zetia) 10 mg tablet Active 10 MG PO Daily April 15, 2025 10:25am Complies with drug therapy Start: 78-42-1139prpg 1 tablet by mouth every twenty-four hoursZetia 10 MG 1 tablet Orally Once a day Sep, Activefluorouracil 50 mg/ml topical cream (4 sources)Nucleoside Metabolic InhibitorStart: 71-76-0598Ocftlierxbvk (Efudex) 5 % cream Active 1 APPLIC TOPICAL Twice daily 40 April 30, 2024 12:00am Complies with drug therapymethylPREDNISolone 4 mg oral tablet (4 sources)CorticosteroidStart: 12-66-3981Kpxvpu 4 MG as directed Orally May, ActiveMultivitamin preparation (2 sources)Start: 29-30-1892bjfr 1 tablet by mouth once dailyMultivitamin Active 1 TAB PO Daily April 30, 2024 12:00amMultivitamin tablet (2 sources)Start: 58-55-7032htvl 1 tablet by mouth once dailyMultivitamin tablet Active 1 TAB PO Daily April 30, 2024 12:00am Complies with drug therapy Start: 22-96-7149uwbu 1 tablet by mouth once dailypredniSONE 10 mg oral tablet (1 source)Start: 37-32-3067xjsqnhWUKF (Deltasone) 10 mg tablet Indications: Right shoulder pain, unspecified chronicity , Tendinitis of right rotator cuff 50MG FOR 2 DAYS, 40MG FOR 2 DAYS, 30MG FOR 2 DAYS, 20MG FOR 2 DAYS, 10MG FOR 2 DAYS 30 tablet 12/31/2024 Activesildenafil 100 mg oral tablet (17 sources)Phosphodiesterase 5 InhibitorStart: 04-07-2024 End: 73-46-0566lppe 1 tablet by mouth once daily as neededSildenafil (Viagra) 100 mg tablet Active 100 MG PO Daily as needed for sexual activity April 302023 10:25am Complies with drug therapyStart: 55-11-2988mtdq 1 tablet by mouth every twenty-four hoursViagra 100 MG 1 tablet as needed Orally Once a day for 30 day(s) alternates with cialis, NO NOT TAKE TOGETHER Jan, Active Vitamin D (6 sources)Vitamin D ActiveZinc (6 sources)Zinc Activezinc gluconate 50 mg oral tablet (5 sources)Start: 97-78-1195hcln 1 tablet by mouth once dailyZinc Gluconate 50 mg tablet Active 50 MG PO Daily April 07, 2024 12:00am Complies with drug therapy Completed/Discontinued Medications MedicationDrug Class(es)DatesSig (Normalized)Sig (Original)betamethasone 3 mg/ml / betamethasone acetate 3 mg/ml injectable suspension (4 sources)CorticosteroidStart: 12-31-2024 End: 64-06-7348manhkhocqkfld acet,sod phos (Celestone) injection 2 mLStart: 12-31-2024 End: mL, intra-articular, Once PRN Procedure, Starting on Sun12/31/24 at 1450, For 1 doseStart: 51-36-1266Tpqnrnotrkzju Sod Phos & Acet 6 (3- 3) MG/ML Injection Suspension USE DIRECTED. Quantity: 0 Refills: 0 Ordered: 27-Apr-2021 Benny Murry MD Start : 27-Apr-2021 CompleteLidocaine (4 sources)Antiarrhythmic, Amide Local AnestheticStart: 12-31-2024 End: 01-17-5631fgwhtzjiw (Xylocaine) 10 mg/mL (1 %) injection 5 mLStart: 12-31-2024 End: mL, injection, Once PRN Procedure, Starting on Sun12/31/24 at 1450, For 1 doseStart: 07-77-8341Onsobhqgh HCl - 1 % Injection Solution USE DIRECTED. Quantity: 0 Refills: 0 Ordered: 12-Esh-8194Czwgvjr MD, Robert Start : 27-Apr-2021 Completetadalafil 20 mg oral tablet (16 sources)Phosphodiesterase 5 InhibitorStart: 04-07-2024 End: 54-39-5448dupf 1 tablet by mouth once daily as neededTadalafil 20 mg tablet Discontinued 20 MG PO Daily as needed April 07, 2024 12:00am April 30, 2024 9:34am FreeTextSi tablet as needed Orally once a day PRN; Note: Source Status: Takingalternates with viagra, DO NOT TAKE TOGETHER; Refills: 3; Provider: John Brooke PStart: 29-52-3127cief 1 tablet by mouth once daily as neededCialis 20 MG 1 tablet as needed Orally once a day PRN alternates with viagra, DO NOT TAKE TOGETHER Apr, ActiveTriamcinolone (8 sources)CorticosteroidStart: 21-39-5975Ghzjisk -40 mg Jan, 40 mg Problems Active Problems Problem ClassificationProblemDateDocumented DateEpisodic/ChronicAnxiety disorders (17 sources)Anxiety; Translations: [Anxiety disorder, unspecified]Onset: 339227-28-6276DmsfiapKrdwizf dysrhythmias (1 source)PalpitationsEpisodicDiabetes mellitus without complication (6 sources)Hyperglycemia; Translations: [Hyperglycemia, unspecified]04-30-2024 EpisodicDisorders of lipid metabolism (20 sources)Hyperlipidemia; Translations: [Hyperlipidemia, unspecified]Onset: 04-13-2021 Resolved: 95-28-4266LrcdtxzEcsozobwnzyvk and screening for infectious disease (9 sources)Contact with and (suspected) exposure to other viral communicable diseases; Translations: [Encounter for screening for other viral diseases]Onset: 04-22-2021 Resolved: 86-48-8131GerjgksfQlxncszvwok deficiencies (20 sources)Vitamin D deficiency; Translations: [Vitamin D deficiency, unspecified]Onset: 03-07-2022 Resolved: 31-33-6705HcbsgkvFipp wounds of extremities (1 source)Laceration without foreign body of right middle finger without damage to nail, initial encounterEpisodicOsteoarthritis (17 sources)Bilateral shoulder osteoarthritis; Translations: [Osteoarthrosis, localized, primary, shoulder region]89-43-3468IeleloaPmjmu connective tissue disease (4 sources)Neurological symptom; Translations: [Unspecified symptoms and signs involving the nervous system]52-42-0487BoxmhzroYtrpk connective tissue disease (1 source)Tendinitis of right rotator cuff; Translations: [Other shoulder lesions, right shoulder]16-02-9693FlarcxhdOxjar connective tissue disease (2 sources)Other shoulder lesions, right shoulder; Translations: [Other shoulder lesions, right shoulder]Onset: 41-27-0064YyvjkpqtGhkbc male genital disorders (11 sources)Impotence of organic origin; Translations: [Male erectile dysfunction, unspecified]ChronicOther male genital disorders (3 sources)Male erectile dysfunction, unspecified; Translations: [Erectile dysfunction N52.9]Onset: 04-13-2021 Resolved: 66-02-8153ReyfcwoJuflh non-traumatic joint disorders (1 source)Shoulder pain; Translations: [Pain in joint, shoulder region]Episodic Other non-traumatic joint disorders (2 sources)Hip pain; Translations: [Pain in left hip]76-91-4825TqkedovkHfjwd non-traumatic joint disorders (3 sources)Pain in right shoulder; Translations: [Pain in joint, shoulder region]Onset: 023032-53-5228AenngjphZpjuu non-traumatic joint disorders (2 sources)Pain in left [...] sources)Lumbar radiculopathy; Translations: [Low back pain]Onset: 01-15-2025 94-92-9781QkabytehWdcwlxs disorders (12 sources)Thyroid nodule; Translations: [Nontoxic single thyroid nodule] ChronicUnclassified (3 sources)CONTACT W/AND (SUSP) EXPOS COVID-19; Translations: [CONTACT W/AND (SUSP) EXPOS COVID-19]Onset: 50-61-5556Ckqvszczjtfw (3 sources)Right shoulder pain, unspecified cucpojlees02-57-4064Dghnzizfybwr (1 source)Low back pain, unspecified; Translations: [Low back pain, unspecified] Onset: 01-15-2025 Past or Other Problems Problem ClassificationProblemDateDocumented DateEpisodic/ChronicOther connective tissue disease (3 sources)Unspecified symptoms and signs involving the nervous system; Translations: [Other symptoms involving nervous and musculoskeletal systems] Onset: 505172-26-8218GybpnxdbKazlw non-epithelial cancer of skin (7 sources)Malignant neoplasm of skin; Translations: [Other specified malignant neoplasm of skin, unspecified]Onset: 829244-07-7141PzcrgtfbWvloc screening for suspected conditions (not mental disorders or infectious disease) (20 sources)Patient encounter status; Translations: [Encounter for screening for cardiovascular disorders]Onset: 04-13-2021 Resolved: 10-34-8099SrataznbSazdr skin disorders (1 source)Disorder of the skin and subcutaneous tissue, unspecified; Translations: [Disorder of the skin and subcutaneous tissue, unspecified]Onset: 77-90-7277OpiwqtrcSfimcmjd codes; unclassified (1 source)Other amnesia; Translations: [Memory changes R41.3]Onset: 04-13-2021 Resolved: 01-76-0535EofznowsLdoapnmzqaky (1 source)CONTACT W/AND (SUSP) EXPOS COVID-19; Translations: [CONTACT W/AND (SUSP) EXPOS COVID-19]Onset: 07-90-8409Iqkxfmgssczr (1 source)Low back pain, unspecified; Translations: [Low back pain, unspecified] Onset: 01-15-2025 Results Test NameValueInterpretationReference RangeFacilityAlanine aminotransferase [Enzymatic activity/volume] in Serum or PlasmaOrdered By: Edwardo Michael on 47-13-4696UAI [Catalytic activity/Vol]21 U/LNormal7-52[facility] - ColumbusComment on above:Performed By: #### CMP, LIPID, TSH3, CBC, PSAS ####[facility] [place] [address] USAAlbumin [Mass/volume] in Serum or Plasma by Bromocresol green (BCG) dye binding metho Ordered By: Edwardo Michael on 76-33-4857Eynjxcg BCG dye [Mass/Vol]4.3 g/dL3.5-5.7 [facility] - ColumbusAlkaline phosphatase [Enzymatic activity/volume] in Serum or PlasmaOrdered By: Edwardo Michael on 59-88-5000DFI [Catalytic activity/Vol]73 U/VRwkvjo42-955HaywdtjsmSelect Medical Specialty Hospital - Columbus Comment on above:Performed By: #### CMP, LIPID, TSH3, CBC, PSAS ####[facility] [place] [address] USAAspartate aminotransferase [Enzymatic activity/volume] in Serum or PlasmaOrdered By: Edwardo Michael on 18-98-1732LHU [Catalytic activity/Vol]22 U/COaspeg65-90HrianenolSelect Medical Specialty Hospital - ColumbusComment on above:Performed By: #### CMP, LIPID, TSH3, CBC, PSAS ####[facility] [place] [address] USABasophils [#/volume] in Blood by Automated countOrdered By: Edwardo Michael on 74-30-5935Vnmfvkpaf (Bld) [#/Vol]0.0 10*3/uLNormal0.0-0.2FHolmes County Joel Pomerene Memorial HospitalComment on above:Result Comment: PERFORMED BY: [facility] [address] [place] [address] PATHOLOGIST [employer] LIVIER MOSS M.D.Performed By: #### CMP, LIPID, TSH3, CBC, PSAS #### [place] [address] USABasophils/100 leukocytes in Blood by Automated count Ordered By: Edwardo Michael on 81-45-6030Dcxitvgvn/100 WBC (Bld)0.7 %Normal.[facility] - ColumbusComment on above:Performed By: #### CMP, LIPID, TSH3, CBC, PSAS #### [facility] [address] [place] [address] USABilirubin.total [Mass/volume] in Serum or PlasmaOrdered By: Edwardo Michael on 49-59-7953Pzcjzynop [Mass/Vol]0.7 mg/dLNormal0.3-1.0[facility] - ColumbusComment on above:Performed By: #### CMP, LIPID, TSH3, CBC, PSAS ####[facility] [place] [id number] USACalcium [Mass/volume] in Serum or PlasmaOrdered By: Edwardo Michael on 04-08-2025 Calcium [Mass/Vol]9.5 mg/dLNormal8.6-10.3FHolmes County Joel Pomerene Memorial Hospital Comment on above:Performed By: #### CMP, LIPID, TSH3, CBC, PSAS ####[place] [address] [place] [id number] USACarbon dioxide, total [Moles/volume] in Serum or PlasmaOrdered By: Edwardo Michael on 22-40-6907UL0 [Moles/Vol]28.4 mmol/HMazxdj90.0-31.0[facility] - ColumbusComment on above:Performed By: #### CMP, LIPID, TSH3, CBC, PSAS ####[place] [id number] USAChloride [Moles/volume] in Serum or PlasmaOrdered By: Edwardo Michael on 75-21-6569Nmjiarlm [Moles/Vol]106 mmol/VJfqiuk32-861SmemqwfdbSelect Medical Specialty Hospital - ColumbusComment on above:Performed By: #### CMP, LIPID, TSH3, CBC, PSAS ####[place] [id number] USACholesterol [Mass/volume] in Serum or Plasma Ordered By: Edwardo Michael on 60-26-3141Rbjuohzwxty [Mass/Vol]203 mg/yKUqif118-008 [facility] - ColumbusComment on above:Chol less than 200 mg/dl low riskChol 201-239 mg/dl borderline riskChol 240 mg/dl and greater high riskResult Comment: Chol less than 200 mg/dl low risk Chol 201-239 mg/dl borderline risk Chol 240 mg/dl and greater high riskPerformed By: #### CMP, LIPID, TSH3, CBC, PSAS ####[facility] [address] [place] [address] [place] Cholesterol in HDL [Mass/volume] in Serum or PlasmaOrdered By: Edwardo Michael on 67-64-4753Bsxygewrgwg in HDL [Mass/Vol]37 mg/iIFmpcel81-35LwgdrabdySelect Medical Specialty Hospital - ColumbusComment on above:HDL CHOL ATP-III CLASSIFICATION Cardiovascular RiskHDL > or equal to 60 mg/dL LOWHDL < 40 mg/dL HIGHResult Comment: HDL CHOL ATP-III CLASSIFICATION Cardiovascular Risk HDL > or equal to 60 mg/dL LOW HDL < 40 mg/dL HIGHPerformed By: #### CMP, LIPID, TSH3, CBC, PSAS ####[facility] [address] [place] [address] USACholesterol in LDL Calc [Mass/Vol]Ordered By: Edwardo Michael on 80-44-7660Jucetfvvdsc in LDL [Mass/Vol] 142 mg/dLHigh0-100[facility] - ColumbusComment on above:LDL ATP III CLASSIFICATIONLDL less than 100 mg/dL OptimalLDL 100-129 mg/dL Near or above fowchdgAYB148-863 mg/dL Borderline highLDL 160-189 mg/dL HighLDL greater than 189 mg/dL Very highCholesterol in VLDL Calc [Mass/Vol]Ordered By: Edwardo Michael on 97-20-4088Koblsdsvmvt in VLDL [Mass/Vol]24 mg/dLSelect Medical Specialty Hospital - ColumbusComplete Blood Count Auto Diffon 60-98-5039Izti Corpuscular HGB Conc34.3 g/gYCtvsuh05.5-35.6The [facility] Physician GroupComment on above:Performed By: #### CMP, LIPID, TSH3, CBC, PSAS #### [facility] [address] [place] [address] USANRBC%0.2 /100{WBC}Normal0-0.5[facility] Comment on above:Performed By: #### CMP, LIPID, TSH3, CBC, PSAS #### [facility] [address] [place] [address] USAWhite Blood Count5.6 [CFU]/mLNormal4.1-10.5The [facility] Physician GroupComment on above:Performed By: #### CMP, LIPID, TSH3, CBC, PSAS #### [facility] [address] [place] [address] USAComprehensive Metabolic Panelon 89-24-7775Kohufxb [Mass/Vol]4.3 g/dLNormal3.5-5.7The [facility] Physician GroupComment on above: Performed By: #### CMP, LIPID, TSH3, CBC, PSAS ####[facility] [place] [address] USAGFR/1.73 sq M.predicted MDRD (S/P/Bld) [Vol rate/Area]mL/min/{1.73_m2}NormalThe [facility] Physician GroupComment on above:Performed By: #### CMP, LIPID, TSH3, CBC, PSAS ####[facility] [place] [address] USACreatinine [Mass/volume] in Serum or PlasmaOrdered By: Edwardo Michael on 11-28-1810Ffequhkhdq [Mass/Vol]1.01 mg/dLNormal0.70-1.30[facility] - ColumbusComment on above:Performed By: #### CMP, LIPID, TSH3, CBC, PSAS ####[facility] [place] [address] USAEosinophils [#/volume] in Blood by Automated countOrdered By: Edwardo Michael on 68-84-6002Inslaklsono (Bld) [#/Vol]0.1 10*3/uL Normal0.0-0.45[facility] - ColumbusComment on above:Performed By: #### CMP, LIPID, TSH3, CBC, PSAS #### [facility] [address] [place] [address] USAEosinophils/100 leukocytes in Blood by Automated count Ordered By: Edwardo Michael on 73-83-1057Tvhbrblzoud/100 WBC (Bld)1.6 %Normal. [facility] - ColumbusComment on above:Performed By: #### CMP, LIPID, TSH3, CBC, PSAS #### [facility] [address] [place] [address] USAErythrocyte distribution width [Ratio] by Automated count Ordered By: Edwardo Michael on 87-04-8145Xklniynpdet distribution width (RBC) [Ratio] 12.8 %Naucql92.0-14.8[facility] - ColumbusComment on above:Performed By: #### CMP, LIPID, TSH3, CBC, PSAS #### [facility] [address] [place] [address] USAErythrocytes [#/volume] in Blood by Automated countOrdered By: Edwardo Michael on 17-29-0106ECQ (Bld) [#/Vol]4.77 10*6/uLNormal3.90-5.60 [facility] - ColumbusComment on above:Performed By: #### CMP, LIPID, TSH3, CBC, PSAS #### [place] [address] USAGlomerular filtration rate [Volume Rate/Area] in Serum, Plasma or Blood by CreatinineOrdered By: Edwardo Michael on 37-26-4968Uxovrrswpl filtration rate [Volume Rate/Area] in Serum, Plasma or Blood by Creatinine> 60.0 mL/MinSelect Medical Specialty Hospital - ColumbusGlucose [Mass/volume] in Serum or Plasma Ordered By: Edwardo Michael on 05-16-2059Qbfyujo [Mass/Vol]105 mg/wSSxpe60-724 [facility] - ColumbusComment on above:ADA recommended reference rangeRandom Glucose Reference [...] By: #### CMP, LIPID, TSH3, CBC, PSAS ####[facility] [address] [place] [address] [place] Hematocrit [Volume Fraction] of Blood by Automated countOrdered By: Edwardo Michael on 78-43-7498Ldigyshxlw (Bld) [Volume fraction]44.4 %Bjpptc03.8-50.0[facility] - ColumbusComment on above:Performed By: #### CMP, LIPID, TSH3, CBC, PSAS #### [facility] [address] [place] [address] USAHemoglobin [Mass/volume] in BloodOrdered By: Edwardo Michael on 06-91-1352Vkqeajyeii (Bld) [Mass/Vol]15.2 g/iRKchnaz95.0-17.0[facility] - ColumbusComment on above:Performed By: #### CMP, LIPID, TSH3, CBC, PSAS #### [facility] [address] [place] [address] USALeukocytes [#/volume] corrected for nucleated erythrocytes in Blood by Automated counOrdered By: Edwardo Michael on 83-42-6155ZQU corrected for nucl RBC Auto (Bld) [#/Vol]5.6 10*3/uL4.1-10.5FHolmes County Joel Pomerene Memorial Hospital Leukocytes [#/volume] in Blood by Automated countOrdered By: Edwardo Michael on 75-12-7593ATP (Bld) [#/Vol]5.6 10*3/uLNormal4.1-10.5FHolmes County Joel Pomerene Memorial HospitalComment on above:Performed By: #### CMP, LIPID, TSH3, CBC, PSAS #### [facility] [address] [place] [address] USALipid Panelon 14-75-1590QZR Cholesterol,Mhavqerhsp558 mg/dLHigh0-100The [facility] Physician GroupComment on above:Result Comment: LDL ATP III CLASSIFICATION LDL less than 100 mg/dL Optimal LDL 100-129 mg/dL Near or above optimal LDL 130-159 mg/dL Borderline high LDL 160-189 mg/dL High LDL greater than 189 mg/dL Very highPerformed By: #### CMP, LIPID, TSH3, CBC, PSAS ####[facility] Triglyceride w/Njzdia777 mg/dLNormal0-149[facility] Physician GroupComment on above:Result Comment: TRIG ATP III CLASSIFICATION TRIG less than 150 mg/dL Normal TRIG 150-199 mg/dL Borderline high TRIG 200-500 mg/dL High TRIG greater than 500 mg/dL Very high Standard traceable to the Center for Disease Conrtrol and Prevention (CDC) test method.Performed By: #### CMP, LIPID, TSH3, CBC, PSAS ####[facility] [place] [address] USAVLDL HUXGDUJCLED58 mg/dLNormSarasota Memorial Hospital Physician GroupComment on above:Performed By: #### CMP, LIPID, TSH3, CBC, PSAS ####[facility] [place] [address] USALymphocytes [#/volume] in Blood by Automated countOrdered By: Edwardo Michael on 46-77-7286Yegknxumbac (Bld) [#/Vol]1.3 10*3/uL Normal1.00-4.8[facility] - ColumbusComment on above:Performed By: #### CMP, LIPID, TSH3, CBC, PSAS #### [place] [address] USALymphocytes/100 leukocytes in Blood by Automated count Ordered By: Edwardo Michael on 97-78-7163Gnwxspqreyj/100 WBC (Bld)23.2 %Normal. [facility] - ColumbusComment on above:Performed By: #### CMP, LIPID, TSH3, CBC, PSAS #### [facility] [address]H [Entitic mass] by Automated countOrdered By: Edwardo Michael on 28-23-5625JOT (RBC) [Entitic mass]31.9 ptEqmunj23.5-35.2FHolmes County Joel Pomerene Memorial HospitalComment on above:Performed By: #### CMP, LIPID, TSH3, CBC, PSAS #### [facility] [address] Auto (RBC) [Mass/Vol]Ordered By: Edwardo Michael on 42-41-0510SKRL (RBC) [Mass/Vol]34.3 g/dL32.5-35.6FHolmes County Joel Pomerene Memorial HospitalMCV [Entitic volume] by Automated countOrdered By: Edwardo Michael on 72-75-1857UEA (RBC) [Entitic vol]93.1 lMOodecc28.5-101[facility] - ColumbusComment on above:Performed By: #### CMP, LIPID, TSH3, CBC, PSAS #### [facility] [address] [place] [address] USAMonocytes [#/volume] in Blood by Automated countOrdered By: Edwardo Michael on 75-42-9202Xplbvfbms (Bld) [#/Vol]0.6 10*3/uLNormal0.0-0.8 [facility] - ColumbusComment on above:Performed By: #### CMP, LIPID, TSH3, CBC, PSAS #### [facility] [address] [place] [id number] USAMonocytes/100 leukocytes in Blood by Automated count Ordered By: Edwardo Michael on 22-86-3670Hshdbxjnd/100 WBC (Bld)10.0 %Normal. [facility] - ColumbusComment on above:Performed By: #### CMP, LIPID, TSH3, CBC, PSAS #### [facility] [address] [place] [address] USANeutrophils [#/volume] in Blood by Automated countOrdered By: Edwardo Michael on 09-55-8270Dmgmunnrduw (Bld) [#/Vol]3.6 10*3/uLNormal1.8-7.7 [facility] ColumbusComment on above:Performed By: #### CMP, LIPID, TSH3, CBC, PSAS #### [facility] [address] [place] [id number] USANeutrophils/100 leukocytes in Blood by Automated count Ordered By: Edwardo Michael on 33-80-0942Zxpgdahymxh/100 WBC (Bld)64.5 %Normal. [facility] - ColumbusComment on above:Performed By: #### CMP, LIPID, TSH3, CBC, PSAS #### [facility] [address] [place] [address] USANo Panel InformationOrdered By: Edwardo Michael on 04-08-2025 Pharmacy Creatinine Clearance (ChemN/AFHolmes County Joel Pomerene Memorial HospitalNucleated erythrocytes [Presence] in Blood by Automated countOrdered By: Edwardo Michael on 67-71-1848Jnztozilw RBC Auto Ql (Bld)0.2 /100{WBC}0-0.5FHolmes County Joel Pomerene Memorial HospitalPSA Screen (Yearly Only)on 83-85-3936ARZ Screen (Yearly Only)0.620 ng/mLNormal0.000-4.000The [facility] Physician GroupComment on above:Order Comment: Is patient <50 yrs? Medicare does not pay <50.: N What is the date of the last PSA Screen?: 614442 Is Medicare the insurance?: Y Did you verify eligibility (Dx Time) check TestViewGp: YES TO ALLResult Comment: Serial tumor marker results determined by assays using different manufacturers or methods may not be comparable. [facility] senior research engineer and method: itsDapperEL DXI, CHEMILUMINESCENT IMMUNOASSAY. PERFORMED BY: [place] [address] PATHOLOGIST [employer] LIVIER MOSS M.D.Performed By: #### CMP, LIPID, TSH3, CBC, PSAS #### [place] [id number] USAPlatelet mean volume [Entitic volume] in Blood by Automated countOrdered By: Edwardo Michael on 49-33-5839Yebgtczb mean volume (Bld) [Entitic vol]9.8 fLNormal6.6-10.1FHolmes County Joel Pomerene Memorial HospitalComment on above:Performed By: #### CMP, LIPID, TSH3, CBC, PSAS #### [facility] [address] [place] [id number] USAPlatelets [#/volume] in Blood by Automated countOrdered By: Edwardo Michael on 04-65-3711Bkqjgajwg (Bld) [#/Vol]268 10*3/tNAbkfrv529-241 [facility] - ColumbusComment on above:Performed By: #### CMP, LIPID, TSH3, CBC, PSAS #### [facility] [address] [place] [address] USAPotassium [Moles/volume] in Serum or PlasmaOrdered By: Edwardo Michael on 43-12-1580Virhsdvjn [Moles/Vol]4.5 mmol/LNormal3.5-5.1FHolmes County Joel Pomerene Memorial HospitalComment on above:Performed By: #### CMP, LIPID, TSH3, CBC, PSAS ####[facility] [address] [place] [address] USAProstate specific Ag [Mass/volume] in Serum or PlasmaOrdered By: Edwardo Michael on 28-13-9196Uotfeokz specific Ag [Mass/Vol]0.620 ng/mL0.000-4.000Select Medical Specialty Hospital - ColumbusComment on above:Serial tumor marker results determined by assays using different manufacturers or methods may not be comparable.[facility] senior research engineer and method:Palette[employer] DXI, CHEMILUMINESCENT IMMUNOASSAY.Protein [Mass/volume] in Serum or PlasmaOrdered By: Edwardo Michael on 55-90-0487Gsarowj [Mass/Vol]7.1 g/dLNormal6.4-8.9Select Medical Specialty Hospital - ColumbusComment on above:Performed By: #### CMP, LIPID, TSH3, CBC, PSAS ####[facility] [place] [address] USASerum globulin measurement by calculation (mass/volume)Ordered By: Edwardo Michael on 55-79-3782Exrigjef (S) [Mass/Vol]2.8 g/dLNormalSelect Medical Specialty Hospital - ColumbusComment on above:Performed By: #### CMP, LIPID, TSH3, CBC, PSAS ####[facility] [place] [address] USASerum or plasma albumin/globulin mass ratioOrdered By: Edwardo Michael on 04-08-2025 Albumin/Globulin [Mass ratio]1.5 {ratio}NormalSelect Medical Specialty Hospital - Columbus Comment on above:Performed By: #### CMP, LIPID, TSH3, CBC, PSAS ####[address] [place] [address] USASerum or plasma anion gap determinationOrdered By: Edwardo Michael on 20-22-8340Igzgu gap [Moles/Vol]10.1 mmol/LNormal6.0-15.0Select [facility]ty Hospital - ColumbusComment on above:Performed By: #### CMP, LIPID, TSH3, CBC, PSAS ####[address] [address] USASerum or plasma total cholesterol/high density lipoprotein (HDL) cholesterol mass ratOrdered By: Edwardo Michael on 04-08-2025 Cholesterol.total/Cholesterol in HDL [Mass ratio]5.5 {ratio}Normal<5.0Select [facility] Specialty Hospital - ColumbusComment on above:Performed By: #### CMP, LIPID, TSH3, CBC, PSAS ####[address] [address] USASodium [Moles/volume] in Serum or PlasmaOrdered By: Edwardo Michael on 04-08-2025 Sodium [Moles/Vol]140 mmol/FLzqspn262-644RtmsyzfalSelect Medical Specialty Hospital - Columbus Comment on above:Performed By: #### CMP, LIPID, TSH3, CBC, PSAS ####[address] [address] USAThyrotropin [Units/volume] in Serum or PlasmaOrdered By: Edwardo Michael on 77-59-3039LYG Qn1.23 m[IU]/LNormal0.45-5.33Select [facility] Specialty Hospital - ColumbusComment on above:Result Comment: PERFORMED BY: [facility] [address] [place] [address] PATHOLOGIST [employer] LIVIER MOSS M.D.Performed By: #### CMP, LIPID, TSH3, CBC, PSAS ####[address] [address] [place] Triglyceride [Mass/volume] in Serum or PlasmaOrdered By: Edwardo Michael on 69-40-7070Svuoamibhise [Mass/Vol]122 mg/dL0-149[facility] Comment on above:TRIG ATP III CLASSIFICATIONTRIG less than 150 mg/dL NormalTRIG 150-199 mg/dL Borderline highTRIG 200-500 mg/dL High TRIG greater than 500 mg/dL Very highStandard traceable to the Center for Disease Conrtrol and Prevention (CDC) test method.Urea nitrogen [Mass/volume] in Serum or PlasmaOrdered By: Edwardo Michael on 64-66-5241Reok nitrogen [Mass/Vol]17 mg/dLNormal01-30Select [facility] Specialty Hospital - ColumbusComment on above:Performed By: #### CMP, LIPID, TSH3, CBC, PSAS ####[facility] [address] [place] [address] USAXR LUMBAR SPINE 4+ VIEWS WITH FLEXION EXTENSIONon 40-76-5070WT LUMBAR SPINE 4+ VIEWS WITH FLEXION EXTENSIONInterpreted By: Benny Edwards, STUDY: XR LUMBAR SPINE 4+ VIEWS WITH FLEXION EXTENSION; 01/15/2025 1:09 pm INDICATION: Signs/Symptoms:pain. ACCESSION NUMBER(S): [id number] ORDERING CLINICIAN: BENNY EDWARDS FINDINGS: AP lateral [...] Benny Edwards 01/16/2025 1:03 PM Dictation workstation: [id number] Hospitals AmbulatoryL Inj/Asp: R subacromial bursaon 26-30-9425GbmllgBenny Murry MD 12/31/2024 2:50 PM L Inj/Asp: [...] to verify the correct patient, procedure, equipment, direct support worker and site/side marked as required. [facility] Work Phone: [facility] Work Phone: XR HIP LEFT WITH PELVIS WHEN PERFORMED 2 OR 3 VIEWSon 40-48-8252PT HIP LEFT WITH PELVIS WHEN PERFORMED 2 OR 3 VIEWSInterpreted By: Benny Murry, STUDY: XR HIP LEFT WITH PELVIS WHEN PERFORMED 2 OR 3 VIEWS; 12/31/2024 2:41 pm INDICATION: Signs/Symptoms:pain. 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 No fracture dislocation noted Signed by: Benny Murry 12/31/2024 2:54 PM Dictation workstation: [id number]. Francis HospitalComment on above:Order Comment: AP/LATXR Hip Viewson 24-84-2462Gmkcjbzhxnh By: Benny Murry STUDY: XR HIP LEFT WITH PELVIS WHEN PERFORMED 2 OR 3 VIEWS; 12/31/2024 2:41 pm INDICATION: Signs/Symptoms:pain. 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 No fracture dislocation noted Signed by: Benny Murry 12/31/2024 2:54 PM Dictation workstation: [id number] Benny Gupta MD - 12/31/2024 Interpreted By: Benny Murry STUDY: XR HIP LEFT WITH PELVIS WHEN PERFORMED 2 OR 3 VIEWS; 12/31/2024 2:41 pm INDICATION: Signs/Symptoms:pain. 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 No fracture dislocation noted Signed by: Benny Murry 12/31/2024 2:54 PM Dictation workstation: [id number] [facility] Work Phone: [facility] Work Phone: Radiology Study observation (narrative)[facility] Work Phone: XR SHOULDER RIGHT 2+ VIEWSon 11-37-7304IG SHOULDER RIGHT 2+ VIEWSInterpreted By: Benny Murry, STUDY: XR SHOULDER RIGHT 2+ VIEWS; 12/31/2024 2:53 pm INDICATION: Signs/Symptoms:pain. ACCESSION NUMBER(S): [id number] ORDERING CLINICIAN: BENNY MURRY FINDINGS: AP axillary right shoulder shows advanced arthritis right glenohumeral joint osteophyte spur formation is noted. The subacromial space is still preserved. On the axillary view there is severe arthrosis with nxto-tv-muda arthritis Signed by: Benny Murry 12/31/2024 2:54 PM Dictation workstation: [id number]. Francis HospitalXR Shoulder - right 2 Viewson 26-18-8992Smrxakfcnhz By: Benny Murry, STUDY: XR SHOULDER RIGHT 2+ VIEWS; 12/31/2024 2:53 pm INDICATION: Signs/Symptoms:pain. ACCESSION NUMBER(S): [id number] ORDERING CLINICIAN: BENNY MURRY FINDINGS: AP axillary right shoulder shows advanced arthritis right glenohumeral joint osteophyte spur formation is noted. The subacromial space is still preserved. On the axillary view there is severe arthrosis with hean-ht-devb arthritis Signed by: Benny Murry 12/31/2024 2:54 PM Dictation workstation: [id number] Benny Gupta MD - 12/31/2024 Interpreted By: Benny Murry, STUDY: XR SHOULDER RIGHT 2+ VIEWS; 12/31/2024 2:53 pm INDICATION: Signs/Symptoms:pain. ACCESSION NUMBER(S): [id number] ORDERING CLINICIAN: BENNY MURRY FINDINGS: AP axillary right shoulder shows advanced arthritis right glenohumeral joint osteophyte spur formation is noted. The subacromial space is still preserved. On the axillary view there is severe arthrosis with cehq-hq-pwwj arthritis Signed by: Benny Murry 12/31/2024 2:54 PM Dictation workstation: [id number] [facility] Work Phone: [facility] Work Phone: Radiology Study observation (narrative)[facility] Work Phone: Lon 06-02-2024 Specimen: [id number] Received: 06/02/24 Status: ANNA Valenzuela Num: [id number] Spec Type: Surgical Subm Dr: Dougie Abernathy DO Tissues: A Skin-Other than Cyst, tag, debridement or plastic repair (LEFT FOREHEAD LESI B Skin-Other than Cyst, tag, debridement or plastic repair (LEFT SCALP LESION) Procedures: HE/2, Gross/Micro L4/2 Age/ Patient Sex Location Account Attending Physician Benny Brand 68/M OR [id number] Dougie Abernathy,DO SPEC NUM: [id number] RECD: 06/02/24 STATUS: ANNA ROSARIOKasia NUM: [id number] SUSIE: 06/02/24 [facility] DR: Dougie Abernathy DO ENTERED: 06/02/24 [facility] DR: FELICIA TYPE: Surgical DEPT: S ENTERED BY: [id number] RECV BY: [id number] ORDERED: HE/2, Gross/Micro L4/2 ORDERED: HE/2, Gross/Micro [...] intact in a single cassette. (1, ns, [id number] A0) J Part B is received in formalin labeled with the patients name, date of , and scalp lesion left are 2 brand-kimble, finely granular, 0.2 cm in greatest dimension each polypoid- like portions of skin. The specimens are inked black at the apparent point of attachment and entirely submitted in a single cassette. (1, ns, [id number] B) JG Specimen: [id number] Received: 06/02/24 Status: ANNA Valenzuela Num: [id number] Spec Type: Surgical Subm Dr: Dougie Abernathy DO Tissues: A Skin-Other than Cyst, tag, debridement or plastic repair (LEFT FOREHEAD LESI B Skin-Other than Cyst, tag, debridement or plastic repair (LEFT SCALP LESION) Procedures: HE/2, Gross/Micro L4/2 Patient: Benny Brand [id number] (Continued) Specimen: [id number] Received: 06/02/24 (Continued) Signed (signature on file) Gray Cook MD 06/03/24 1647 Specimen: [id number] Received: 06/02/24 Status: ANNA Valenzuela Num: [id number] Spec Type: Surgical Subm Dr: Dougie Abernathy DO Tissues: A Skin-Other than Cyst, tag, debridement or plastic repair (LEFT FOREHEAD LESI B Skin-Other than Cyst, tag, debridement or plastic repair (LEFT SCALP LESION) Procedures: HE/2, Gross/Micro L4/2 Patient: Benny Brand [id number] (Continued) Specimen: [id number] Received: 06/02/24 (Continued) CPT Codes 84703j1 Specimen: [id number] Received: 06/02/24 Status: ANNA Valenzuela Num: [id number] Spec Type: Surgical Subm Dr: Dougie Abernathy DO Tissues: A Skin-Other than Cyst, tag, debridement or plastic repair (LEFT FOREHEAD LESI B Skin-Other than Cyst, tag, debridement or plastic repair (LEFT SCALP LESION) Procedures: HE/2, Gross/Micro L4/2 Patient: BrandBenny Ann Marie [id number] (Continued) Signed (signature on file) Gray Cook MD 06/03/[address] [place] [address] Physician GroupCT [facility] 55-10-0426[place] [address] [place] Scan Report Signed Patient: Benny Brand MR#: [id number] 3 : 1955 Acct:[id number] Age/Sex: 68 / M ADM Date: 05/08/24 [...] Posterior cerebral arteries: 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 Both are patent. Intracranial segments of the internal carotid arteries: Mild calcification without critical stenosis or occlusion. MCA: patent NOREEN: patent Anterior Communicating artery: patent Posterior Communicating arteries: Patent. CT/CT angio head IMPRESSION: No evidence of critical stenosis, aneurysmal dilatation, dissection or occlusion. Impression dictated by: Jose Ramirez Jr., D.OIlana05/08/2024 3:05 PM Dictation Location: [place] [address] Transcribed By: [facility] 05/08/24 1505 Dictated By: Jose Ramirez Jr, DO 05/08/24 1502 Signed By: 05/08/24 1505[facility] Physician GroupLon 05-02-2024L Specimen: [id number] Received: 05/02/24 Status: ANNA Valenzuela Num: [id number] Spec Type: Surgical Subm Dr: Dougie Abernathy DO Tissues: A Skin-Other than Cyst, tag, debridement or plastic repair (LT EAR LESION) B Skin-Other than Cyst, tag, debridement or plastic repair (DEEP MARGIN FOR PE Procedures: HE/6, Gross/Micro L4/2, FS HE/6 Age/ Patient Sex Location Account Attending Physician Benny Brand/Thalia ESCOBAR [id number] Dougie Abernathy DO SPEC NUM: [id number] RECD: 05/02/24 STATUS: ANNA VALENZUELA NUM: [id number] SUSIE: 05/02/24 [facility] DR: Dougie Abernathy DO ENTERED: 05/02/24 [facility] DR: FELICIA TYPE: Surgical DEPT: S ENTERED BY: [id number] RECV BY: [id number] ORDERED: HE/6, Gross/Micro L4/2, FS HE/6 ORDERED: [...] skin graft short 12:00, long 3:00 Specimen: [id number] Received: 05/02/24 Status: ANAN Valenzuela Num: [id number] Spec Type: Surgical Subm Dr: Dougie Abernathy DO Tissues: A Skin-Other than Cyst, tag, debridement or plastic repair (LT EAR LESION) B Skin-Other than Cyst, tag, debridement or plastic repair (DEEP MARGIN FOR PE Procedures: RYAN/6, Gross/Micro L4/2, FS RYAN/6 Patient: Benny Brand [id number] (Continued) Specimen: [id number] Received: 05/02/24 (Continued) Signed (signature on file) Vy Valdez MD 05/16/24 1325 Specimen: [id number] Received: 05/02/24 Status: ANNA Valenzuela Num: [id number] Spec Type: Surgical Subm Dr: Dougie Abernathy, Tissues: A Skin-Other than Cyst, tag, debridement or plastic repair (LT EAR LESION) B Skin-Other than Cyst, tag, debridement or plastic repair (DEEP MARGIN FOR PE Procedures: HE/6, Gross/Micro L4/2, FS HE/6 Patient: Benny Brand [id number] (Continued) Specimen: [id number] Received: 05/02/24 (Continued) Gross Description Part a [...] performed supporting the above interpretation CPT Codes 51599e4 44639a4 52768 Specimen: [id number] Received: 05/02/24 Status: ANNA Valenzuela Num: [id number] (more content not included)...NormalThe [place] Physician PwvczFjM2q HPLC (Bld) [Mass fraction]on 70-12-1545RnM2e (Bld) [Mass fraction]5.6 %[facility]ty Hospital - ColumbusAlanine aminotransferase [Enzymatic activity/volume] in Serum or PlasmaOrdered By: Edwardo Michael on 18-76-9053LGB [Catalytic activity/Vol]21 U/L Normal7-52Select [facility] Hospital - ColumbusComment on above:Performed By: #### CBC, PSAS, CMP, LIPID, TSH3 #### [facility] [address] [place] [address] USAAlbumin [Mass/volume] in Serum or Plasma by Bromocresol green (BCG) dye binding methoOrdered By: Edwardo Michael on 53-90-1396Qvlowig BCG dye [Mass/Vol]4.2 g/dL3.5-5.7FHolmes County Joel Pomerene Memorial HospitalAlkaline phosphatase [Enzymatic activity/volume] in Serum or PlasmaOrdered By: Edwardo Michael on 71-10-0720MCD [Catalytic activity/Vol]73 U/NZvyxof95-112CccnhcljaSelect Medical Specialty Hospital - ColumbusComment on above:Performed By: #### CBC, PSAS, CMP, LIPID, TSH3 #### [facility] [address] [place] [address] USAAspartate aminotransferase [Enzymatic activity/volume] in Serum or PlasmaOrdered By: Edwardo Michael on 89-59-4489RSG [Catalytic activity/Vol] 23 U/NOmnuxd49-24YyfzgpqfvSelect Medical Specialty Hospital - ColumbusComment on above:Performed By: #### CBC, PSAS, CMP, LIPID, TSH3 #### [facility] [address] [place] [address] USAAutomated basophil %Ordered By: Edwardo Michael on 04-22-2024 Basophils/100 WBC (Bld)1.2 %Normal.Select [facility] Hospital - ColumbusComment on above:Performed By: #### CBC, PSAS, CMP, LIPID, TSH3 #### [place] [address] USAAutomated basophil countOrdered By: Edwardo Michael on 26-32-1011Gxgureyfx (Bld) [#/Vol]0.1 10*3/uLNormal0.0-0.2FHolmes County Joel Pomerene Memorial HospitalComment on above:Result Comment: PERFORMED BY: [place] [address] PATHOLOGIST [employer] LADONNA NOEL M.D.Performed By: #### CBC, PSAS, CMP, LIPID, TSH3 #### [place] [address] USAAutomated blood monocyte countOrdered By: Edwardo Michael on 20-44-5844Scwhyxhsa (Bld) [#/Vol]0.6 10*3/uLNormal0.0-0.8[facility] Hospital - ColumbusComment on above:Performed By: #### CBC, PSAS, CMP, LIPID, TSH3 #### [place] [address] USAAutomated eosinophil %Ordered By: Edwardo Michael on 04-22-2024 Eosinophils/100 WBC (Bld)2.4 %Normal.Select [facility] Hospital - ColumbusComment on above:Performed By: #### CBC, PSAS, CMP, LIPID, TSH3 #### [place] [address] USAAutomated eosinophil countOrdered By: Edwardo Michael on 43-68-6848Umyksnnbtop (Bld) [#/Vol]0.1 10*3/uLNormal0.0-0.45[facility] Hospital - ColumbusComment on above:Performed By: #### CBC, PSAS, CMP, LIPID, TSH3 #### [place] [address] USAAutomated monocyte %Ordered By: Edwardo Michael on 04-22-2024 Monocytes/100 WBC (Bld)11.7 %Normal.[facility] Hospital - ColumbusComment on above:Performed By: #### CBC, PSAS, CMP, LIPID, TSH3 #### [place] [address] USAAutomated neutrophil %Ordered By: Edwardo Michael on 04-22-2024 Neutrophils/100 WBC (Bld)55.8 %Normal.[facility] Hospital - ColumbusComment on above:Performed By: #### CBC, PSAS, CMP, LIPID, TSH3 #### [facility] [address] [place] [address] USABilirubin.total [Mass/volume] in Serum or PlasmaOrdered By: Edwardo Michael on 41-53-7937Ppkysirjr [Mass/Vol]0.6 mg/dLNormal0.3-1.0[facility] Hospital - ColumbusComment on above:Performed By: #### CBC, PSAS, CMP, LIPID, TSH3 #### [facility] [address] [place] [address] USACalcium [Mass/volume] in Serum or PlasmaOrdered By: Edwardo Michael on 60-74-6818Rblxytw [Mass/Vol]9.5 mg/dLNormal8.6-10.3FHolmes County Joel Pomerene Memorial HospitalComment on above:Performed By: #### CBC, PSAS, CMP, LIPID, TSH3 #### [place] [address] USACarbon dioxide, total [Moles/volume] in Serum or Plasma Ordered By: Edwardo Michael on 20-98-2572IO6 [Moles/Vol]30.2 mmol/CDgvoie29.0-31.0 [facility] Hospital - ColumbusComment on above:Performed By: #### CBC, PSAS, CMP, LIPID, TSH3 #### [place] [address] USAChloride [Moles/volume] in Serum or PlasmaOrdered By: Edwardo Michael on 67-79-7333Xvjrxeeh [Moles/Vol]105 mmol/IIckcnz01-585FkilkvuzuSelect Medical Specialty Hospital - ColumbusComment on above:Performed By: #### CBC, PSAS, CMP, LIPID, TSH3 #### [place] [address] USACholesterol [Mass/volume] in Serum or PlasmaOrdered By: Edwardo Michael on 14-65-5881Eplvtgbohfi [Mass/Vol]185 mg/fLCqdhfy678-700MgzpduktmSelect Medical Specialty Hospital - ColumbusComment on above:Chol less than 200 mg/dl low riskChol 201-239 mg/dl borderline riskChol 240 mg/dl and greater high riskResult Comment: Chol less than 200 mg/dl low risk Chol 201-239 mg/dl borderline risk Chol 240 mg/dl and greater high riskPerformed By: #### CBC, PSAS, CMP, LIPID, TSH3 #### [facility] [address] [place] [address] USACholesterol in LDL Calc [Mass/Vol]Ordered By: Edwardo Michael on 91-51-7294Ejtbbmimshr in LDL [Mass/Vol]123 mg/dLHigh0-100[facility] Hospital - ColumbusComment on above:LDL ATP III CLASSIFICATIONLDL less than 100 mg/dL OptimalLDL 100-129 mg/dL Near or above mrrhoeiHFY397-110 mg/dL Borderline highLDL 160-189 mg/dL HighLDL greater than 189 mg/dL Very highCholesterol in VLDL Calc [Mass/Vol]Ordered By: Edwardo Michael on 17-27-9760Lyccuflddjh in VLDL [Mass/Vol]26 mg/dLSelect Medical Specialty Hospital - ColumbusComplete Blood Count Auto Diffon 64-36-9922Rpje Corpuscular HGB Conc34.5 g/mNCncqdy15.5-35.6The [facility] Physician GroupComment on above:Performed By: #### CBC, PSAS, CMP, LIPID, TSH3 #### [facility] [address] [place] [address] USANRBC%0.2 /100{WBC}Normal0-0.5[facility] Comment on above:Performed By: #### CBC, PSAS, CMP, LIPID, TSH3 #### [facility] [address] [place] [address] USAComprehensive Metabolic Panelon 11-16-9638Excmcwo [Mass/Vol]4.2 g/dLNormal3.5-5.7The [facility] Physician GroupComment on above: Performed By: #### CBC, PSAS, CMP, LIPID, TSH3 #### [facility] [address] [place] [id number] USAGFR/1.73 sq M.predicted MDRD (S/P/Bld) [Vol rate/Area] mL/min/{1.73_m2}NormalThe [facility] Hospital Physician GroupComment on above:Performed By: #### CBC, PSAS, CMP, LIPID, TSH3 #### [facility] [address] [place] [address] USACreatinine [Mass/volume] in Serum or PlasmaOrdered By: Edwardo Michael on 21-36-8521Mbzstvtnbb [Mass/Vol]1.05 mg/dLNormal0.70-1.30[facility] Hospital - ColumbusComment on above:Performed By: #### CBC, PSAS, CMP, LIPID, TSH3 #### [facility] [address] [place] [address] USAErythrocyte distribution width [Ratio] by Automated count Ordered By: Edwardo Michael on 10-05-8472Psxozihottg distribution width (RBC) [Ratio] 12.8 %Fcywap64.0-14.8[facility] Hospital - ColumbusComment on above:Performed By: #### CBC, PSAS, CMP, LIPID, TSH3 #### [place] [address] USAErythrocytes [#/volume] in Blood by Automated countOrdered By: Edwardo Michael on 84-90-9637YFA (Bld) [#/Vol]4.77 10*6/uLNormal3.90-5.60 [facility] - ColumbusComment on above:Performed By: #### CBC, PSAS, CMP, LIPID, TSH3 #### [place] [address] USAGlucose [Mass/volume] in Serum or PlasmaOrdered By: Edwardo Michael on 84-20-6956Xutqhvk [Mass/Vol]103 mg/nOXsvo13-074KbznvzbcnSelect Medical Specialty Hospital - ColumbusComment on above:ADA recommended reference rangeRandom Glucose Reference [...] #### CBC, PSAS, CMP, LIPID, TSH3 #### [facility] [address] [place] [address] USAHematocrit [Volume Fraction] of Blood by Automated count Ordered By: Edwardo Michael on 90-43-1141Cwzvvtzdtk (Bld) [Volume fraction]44.5 % Hyczwc62.8-50.0[facility] Hospital - ColumbusComment on above:Performed By: #### CBC, PSAS, CMP, LIPID, TSH3 #### [facility] [address] [place] [address] USAHemoglobin [Mass/volume] in BloodOrdered By: Edwardo Michael on 38-05-3909Kbaffxauxx (Bld) [Mass/Vol]15.3 g/kFUfyjfz01.0-17.0[facility] - ColumbusComment on above:Performed By: #### CBC, PSAS, CMP, LIPID, TSH3 #### [facility] [address] [place] [address] USALeukocytes [#/volume] corrected for nucleated erythrocytes in Blood by Automated counOrdered By: Edwardo Michael on 19-80-5996TIN corrected for nucl RBC Auto (Bld) [#/Vol]5.4 10*3/uL4.1-10.5FHolmes County Joel Pomerene Memorial Hospital Leukocytes [#/volume] in Blood by Automated countOrdered By: Edwardo Michael on 44-86-8223AIZ (Bld) [#/Vol]5.4 10*3/uLNormal4.1-10.5FHolmes County Joel Pomerene Memorial HospitalComment on above:Performed By: #### CBC, PSAS, CMP, LIPID, TSH3 #### [facility] [address] [place] [address] USALipid Panelon 58-22-9173ZZO Cholesterol,Qbpstunpkt774 mg/dLHigh0-100[facility] Physician GroupComment on above:Result Comment: LDL ATP III CLASSIFICATION LDL less than 100 mg/dL Optimal LDL 100-129 mg/dL Near or above optimal LDL 130-159 mg/dL Borderline high LDL 160-189 mg/dL High LDL greater than 189 mg/dL Very highPerformed By: #### CBC, PSAS, CMP, LIPID, TSH3 #### [facility] [address] [place] [address] USATriglyceride w/Dsqyxv158 mg/dLNormal0-149[facility] Physician GroupComment on above:Result Comment: TRIG ATP III CLASSIFICATION TRIG less than 150 mg/dL Normal TRIG 150-199 mg/dL Borderline high TRIG 200-500 mg/dL High TRIG greater than 500 mg/dL Very high Standard traceable to the Center for Disease Conrtrol and Prevention (CDC) test method.Performed By: #### CBC, PSAS, CMP, LIPID, TSH3 #### [place] [address] USAVLDL OVYOKCIKWHR37 mg/dLNormalThe [facility] Physician GroupComment on above:Performed By: #### CBC, PSAS, CMP, LIPID, TSH3 #### [place] [address] USALymphocytes [#/volume] in Blood by Automated countOrdered By: Edwardo Michael on 92-98-5756Olqustycaiw (Bld) [#/Vol]1.6 10*3/uLNormal1.00-4.8 [facility] - ColumbusComment on above:Performed By: #### CBC, PSAS, CMP, LIPID, TSH3 #### [place] [address] USALymphocytes/100 leukocytes in Blood by Automated count Ordered By: Edwardo Michael on 41-28-8344Ymytyfrqxwi/100 WBC (Bld)28.9 %Normal. [facility] Hospital - ColumbusComment on above:Performed By: #### CBC, PSAS, CMP, LIPID, TSH3 #### [place] [address] USAH [Entitic mass] by Automated countOrdered By: Edawrdo Michael on 54-55-1435XJH (RBC) [Entitic mass]32.1 ovLkshun28.5-35.2FHolmes County Joel Pomerene Memorial HospitalComment on above:Performed By: #### CBC, PSAS, CMP, LIPID, TSH3 #### [facility] [address]HC Auto (RBC) [Mass/Vol]Ordered By: Edwardo Michael on 41-05-2421XKTT (RBC) [Mass/Vol]34.5 g/dL32.5-35.6FHolmes County Joel Pomerene Memorial HospitalMCV [Entitic volume] by Automated countOrdered By: Edwardo Michael on 20-50-2724OVO (RBC) [Entitic vol]93.2 fEFnlvza07.5-101Select [facility]ty Hospital - ColumbusComment on above:Performed By: #### CBC, PSAS, CMP, LIPID, TSH3 #### [facility] [address] [place] [address] USANeutrophils [#/volume] in Blood by Automated countOrdered By: Edwardo Micahel on 29-36-8745Twbvboyyjjy (Bld) [#/Vol]3.0 10*3/uLNormal1.8-7.7 [facility] - ColumbusComment on above:Performed By: #### CBC, PSAS, CMP, LIPID, TSH3 #### [facility] [address] [place] [address] USANo Panel InformationOrdered By: Edwardo Michael on 04-22-2024 Estimated GFR (CKD-EPI)> 60.0 mL/MinSelect Medical Specialty Hospital - ColumbusPharmacy Creatinine Clearance (ChemN/AFHolmes County Joel Pomerene Memorial HospitalNucleated erythrocytes [Presence] in Blood by Automated countOrdered By: Edwardo Michael on 52-38-0782Mmabvtrwd RBC Auto Ql (Bld)0.2 /100{WBC}0-0.5FHolmes County Joel Pomerene Memorial HospitalPSA Screen (Yearly Only)on 30-23-8759OPH Screen (Yearly Only)0.650 ng/mLNormal0.000-4.000The [facility] Physician GroupComment on above:Order Comment: Is patient <50 yrs? Medicare does not pay <50.: N What is the date of the last PSA Screen?: 096633 Is Medicare the insurance?: Y Did you verify eligibility (Dx Time) check TestViewGp: YES TO ALLResult Comment: Serial tumor marker results determined by assays using different manufacturers or methods may not be comparable. [facility] senior research engineer and method: itsDapperEL DXI, CHEMILUMINESCENT IMMUNOASSAY. PERFORMED BY: [place] [address] PATHOLOGIST [employer] LADONNA NOEL M.D.Performed By: #### CBC, PSAS, CMP, LIPID, TSH3 #### [place] [address] USAPlatelet mean volume [Entitic volume] in Blood by Automated countOrdered By: Edwardo Michael on 57-31-7859Rzeaxeme mean volume (Bld) [Entitic vol]9.6 fLNormal6.6-10.1FHolmes County Joel Pomerene Memorial HospitalComment on above:Performed By: #### CBC, PSAS, CMP, LIPID, TSH3 #### [place] [address] USAPlatelets [#/volume] in Blood by Automated countOrdered By: Edwardo Michael on 19-83-4775Fnghjgdia (Bld) [#/Vol]249 10*3/hKMahmly804-786 [facility] Hospital - ColumbusComment on above:Performed By: #### CBC, PSAS, CMP, LIPID, TSH3 #### [place] [address] USAPotassium [Moles/volume] in Serum or PlasmaOrdered By: Edwardo Michael on 10-63-3980Eusxicsno [Moles/Vol]4.4 mmol/LNormal3.5-5.1FHolmes County Joel Pomerene Memorial HospitalComment on above:Performed By: #### CBC, PSAS, CMP, LIPID, TSH3 #### [place] [address] USAProstate specific Ag [Mass/volume] in Serum or Plasma Ordered By: Edwardo Michael on 52-56-2306Nyyzmzhq specific Ag [Mass/Vol]0.650 ng/mL 0.000-4.000Select [facility]ty Hospital - ColumbusComment on above:Serial tumor marker results determined by assays using different manufacturers or methods may not be comparable.[facility] senior research engineer and method:ALVARO UNICEL DXI, CHEMILUMINESCENT IMMUNOASSAY.Protein [Mass/volume] in Serum or PlasmaOrdered By: Edwardo Michael on 42-30-6452Exafowr [Mass/Vol]7.2 g/dLNormal6.4-8.9Select [facility] Hospital - ColumbusComment on above:Performed By: #### CBC, PSAS, CMP, LIPID, TSH3 #### [facility] [address] [place] [address] USASerum globulin measurement by calculation (mass/volume) Ordered By: Edwardo Michael on 19-24-8041Rvzrjnrh (S) [Mass/Vol]3.0 g/dLNormal [facility] - ColumbusComment on above:Performed By: #### CBC, PSAS, CMP, LIPID, TSH3 #### [facility] [address] [place] [address] USASerum or plasma albumin/globulin mass ratioOrdered By: Edwardo Michael on 30-45-5092Cnhvjwm/Globulin [Mass ratio]1.4 {ratio}NormalSelect Medical Specialty Hospital - ColumbusComment on above:Performed By: #### CBC, PSAS, CMP, LIPID, TSH3 #### [facility] [address] [place] [address] USASerum or plasma anion gap determinationOrdered By: Edwardo Michael on 20-66-5893Stfiv gap [Moles/Vol]8.2 mmol/LNormal6.0-15.0[facility] Hospital - ColumbusComment on above:Performed By: #### CBC, PSAS, CMP, LIPID, TSH3 #### [facility] [address] [place] [id number] USASerum or plasma high density lipoprotein (HDL) cholesterol measurementOrdered By: Edwardo Michael on 98-69-6009Woeolzumurn in HDL [Mass/Vol]36 mg/cPRimfqw50-00WoevflgoaSelect Medical Specialty Hospital - ColumbusComment on above:HDL CHOL ATP- III CLASSIFICATION Cardiovascular RiskHDL > or equal to 60 mg/dL LOWHDL < 40 mg/dL HIGHResult Comment: HDL CHOL ATP-III CLASSIFICATION Cardiovascular Risk HDL > or equal to 60 mg/dL LOW HDL < 40 mg/dL HIGHPerformed By: #### CBC, PSAS, CMP, LIPID, TSH3 #### [place] [id number] USASerum or plasma total cholesterol/high density lipoprotein (HDL) cholesterol mass ratOrdered By: Edwardo Michael on 04-22-2024 Cholesterol.total/Cholesterol in HDL [Mass ratio]5.1 {ratio}Normal<5.0Select [facility] Hospital - ColumbusComment on above:Performed By: #### CBC, PSAS, CMP, LIPID, TSH3 #### [place] [address] USASodium [Moles/volume] in Serum or PlasmaOrdered By: Edwardo Michael on 16-45-6145Gmhjan [Moles/Vol]139 mmol/VOiridr655-907JbmnokmymSelect Medical Specialty Hospital - ColumbusComment on above:Performed By: #### CBC, PSAS, CMP, LIPID, TSH3 #### [place] [id number] USAThyrotropin [Units/volume] in Serum or PlasmaOrdered By: Edwardo Michael on 28-04-7742BOX Qn2.36 m[IU]/LNormal0.45-5.33[facility] Hospital - ColumbusComment on above:Result Comment: PERFORMED BY: [place] [address] PATHOLOGIST [employer] LADONNA NOEL M.D.Performed By: #### CBC, PSAS, CMP, LIPID, TSH3 #### [place] [id number] USATriglyceride [Mass/volume] in Serum or PlasmaOrdered By: Edwardo Michael on 67-89-8547Rsunrcubfaup [Mass/Vol]130 mg/dL0-149[facility] Hospital - ColumbusComment on above:TRIG ATP III CLASSIFICATIONTRIG less than 150 mg/dL NormalTRIG 150-199 mg/dL Borderline highTRIG 200-500 mg/dL High TRIG greater than 500 mg/dL Very highStandard traceable to the Center for Disease Co nrtrol and Prevention (CDC) test method.Urea nitrogen [Mass/volume] in Serum or PlasmaOrdered By: Edwarod Michael on 70-14-2130Homv nitrogen [Mass/Vol]18 mg/dLNormal 01-30[facility] Hospital - ColumbusComment on above:Performed By: #### CBC, PSAS, CMP, LIPID, TSH3 #### [facility] [address] [place] [id number] [facility] HOSPITALAlanine aminotransferase [Enzymatic activity/volume] in Serum or PlasmaOrdered By: Edwardo Michael on 99-29-5561TRF [Catalytic activity/Vol] 23 U/L7-52[facility] Hospital - ColumbusAlbumin [Mass/volume] in Serum or Plasma by Bromocresol green (BCG) dye binding methoOrdered By: Edwardo Michael on 04-26-4320Retleiz BCG dye [Mass/Vol]4.5 g/dL3.5-5.7FHolmes County Joel Pomerene Memorial HospitalAlkaline phosphatase [Enzymatic activity/volume] in Serum or PlasmaOrdered By: Edwardo Michael on 40-52-5774NLN [Catalytic activity/Vol]79 U/Z46-906CcqyxrcxaSelect Medical Specialty Hospital - ColumbusAspartate aminotransferase [Enzymatic activity/volume] in Serum or PlasmaOrdered By: Edwardo Michael on 86-66-1635UJB [Catalytic activity/Vol] 26 U/V14-93SomrgynytSelect Medical Specialty Hospital - ColumbusBasophils Auto (Bld) [#/Vol]Ordered By: Edwardo Michael on 61-98-6327Yqavssjhg (Bld) [#/Vol]0.1 10*3/uL0.0-0.2FHolmes County Joel Pomerene Memorial HospitalBasophils/100 WBC Auto (Bld)Ordered By: Edwardo Michael on 51-83-8017Tftqwygef/100 WBC (Bld)2.2 %.[facility] Bilirubin.total [Mass/volume] in Serum or PlasmaOrdered By: Edwardo Michael on 44-61-7860Eceoazctp [Mass/Vol]0.9 mg/dL0.3-1.0[facility] Calcium [Mass/volume] in Serum or PlasmaOrdered By: Edwardo Michael on 04-18-2023 Calcium [Mass/Vol]9.5 mg/dL8.6-10.3FHolmes County Joel Pomerene Memorial HospitalCarbon dioxide, total [Moles/volume] in Serum or PlasmaOrdered By: Edwardo Michael on 91-35-7501BI8 [Moles/Vol]32.4 mmol/L21.0-31.0[facility] Chloride [Moles/volume] in Serum or PlasmaOrdered By: Edwardo Michael on 04-18-2023 Chloride [Moles/Vol]103 mmol/M68-801IzlesgsnwSelect Medical Specialty Hospital - ColumbusCholesterol [Mass/volume] in Serum or PlasmaOrdered By: Edwardo Michael on 38-36-1709Mkfzkwlrdzm [Mass/Vol]184 mg/zE569-594NbvsguxrcSelect Medical Specialty Hospital - ColumbusComment on above: Chol less than 200 mg/dl low riskChol 201-239 mg/dl borderline riskChol 240 mg/dl and greater high riskCholesterol in LDL Calc [Mass/Vol]Ordered By: Edwardo Michael on 88-10-5283Panixitcpyp in LDL [Mass/Vol]121 mg/dL0-100[facility] Hospital - ColumbusComment on above:LDL ATP III CLASSIFICATIONLDL less than 100 mg/dL OptimalLDL 100-129 mg/dL Near or above lwsfspvEJD225-077 mg/dL Borderline highLDL 160-189 mg/dL HighLDL greater than 189 mg/dL Very highCholesterol in VLDL Calc [Mass/Vol]Ordered By: Edwardo Michael on 51-82-7957Xkbvoullalg in VLDL [Mass/Vol]24 mg/dLSelect Medical Specialty Hospital - ColumbusCreatinine [Mass/volume] in Serum or PlasmaOrdered By: Edwardo Michael on 02-10-8992Geokbxytve [Mass/Vol]1.08 mg/dL0.70-1.30[facility] Hospital - ColumbusEosinophils Auto (Bld) [#/Vol] Ordered By: Edwardo Michael on 14-32-6957Zqlxeeljbxo (Bld) [#/Vol]0.2 10*3/uL0.0-0.45 [facility] - ColumbusEosinophils/100 WBC Auto (Bld)Ordered By: Edwardo Michael on 34-69-0225Ffdwokqmvlj/100 WBC (Bld)3.2 %.[facility] Hospital - ColumbusErythrocyte distribution width Auto (RBC) [Ratio]Ordered By: Edwardo Michael on 45-81-2045Ufdqcicypvu distribution width (RBC) [Ratio]12.5 %12.0-14.8[facility] Hospital - ColumbusGlobulin Calc (S) [Mass/Vol]Ordered By: Edwardo Michael on 23-45-7154Dcmmlqtp (S) [Mass/Vol]2.8 g/dLSelect Medical Specialty Hospital - Columbus Glucose [Mass/volume] in Serum or PlasmaOrdered By: Edwardo Michael on 04-18-2023 Glucose [Mass/Vol]98 mg/wK17-200XfqivwpkeSelect Medical Specialty Hospital - ColumbusComment on above:ADA recommended reference rangeRandom Glucose Reference Range is dependent on time and content of last meal. Glucose of more than 200 mg/dL in a nonstressed, ambulatory subject supports the diagnosisof Diabetes Mellitus. Hematocrit Auto (Bld) [Volume fraction]Ordered By: Edwardo Michael on 04-18-2023 Hematocrit (Bld) [Volume fraction]45.1 %38.8-50.0[facility] Hospital - ColumbusHemoglobin [Mass/volume] in BloodOrdered By: Edwardo Michael on 04-18-2023 Hemoglobin (Bld) [Mass/Vol]15.6 g/dL13.0-17.0[facility] Leukocytes [#/volume] corrected for nucleated erythrocytes in Blood by Automated counOrdered By: Edwardo Michael on 85-75-7825ELL corrected for nucl RBC Auto (Bld) [#/Vol]5.4 10*3/uL4.1-10.5FHolmes County Joel Pomerene Memorial HospitalLymphocytes Auto (Bld) [#/Vol]Ordered By: Edwardo Michael on 81-91-4913Edghhesdlfb (Bld) [#/Vol]1.5 10*3/uL1.00-4.8[facility] Hospital - ColumbusLymphocytes/100 WBC Auto (Bld) Ordered By: Edwardo Michael on 56-90-4674Cnqxabbgkow/100 WBC (Bld)28.7 %.[facility] Hospital - ColumbusMCH Auto (RBC) [Entitic mass]Ordered By: Edwardo Michael on 96-29-0135ODB (RBC) [Entitic mass]32.0 pg27.5-35.2FHolmes County Joel Pomerene Memorial HospitalMCHC Auto (RBC) [Mass/Vol]Ordered By: Edwardo Michael on 03-09-7107AMMP (RBC) [Mass/Vol]34.6 g/dL32.5-35.6FHolmes County Joel Pomerene Memorial HospitalMCV Auto (RBC) [Entitic vol]Ordered By: Edwardo Michael on 84-23-8716XAK (RBC) [Entitic vol]92.7 fL 83.5-101[facility] - ColumbusMonocytes Auto (Bld) [#/Vol]Ordered By: Edwardo Michael on 52-75-0397Lsjscwxgr (Bld) [#/Vol]0.6 10*3/uL0.0-0.8[facility] Hospital - ColumbusMonocytes/100 WBC Auto (Bld)Ordered By: Edwardo Michael on 37-06-4857Uwgzgptvp/100 WBC (Bld)10.9 %.[facility] Neutrophils Auto (Bld) [#/Vol]Ordered By: Edwardo Michael on 90-27-8927Sfzukeioixr (Bld) [#/Vol]2.9 10*3/uL1.8-7.7FHolmes County Joel Pomerene Memorial HospitalNeutrophils/100 WBC Auto (Bld)Ordered By: Edwardo Mcihael on 64-57-6812Uebvixvumpz/100 WBC (Bld)55.0 %.[facility] - ColumbusNo Panel InformationOrdered By: Edwardo Michael on 75-66-3609Wykbannac GFR (CKD-EPI)> 60.0 mL/MinSelect Medical Specialty Hospital - Columbus Pharmacy Creatinine Clearance (ChemN/[facility] Memorial HospitalNucleated erythrocytes [Presence] in Blood by Automated countOrdered By: Edwardo Michael on 60-13-3308Kncphutil RBC Auto Ql (Bld)0.1 /100{WBC}0-0.5FHolmes County Joel Pomerene Memorial HospitalPlatelet mean volume Auto (Bld) [Entitic vol]Ordered By: Edwardo Michael on 65-82-7025Rqnrjqdy mean volume (Bld) [Entitic vol]10.1 fL6.6-10.1 [facility] Hospital - ColumbusPlatelets Auto (Bld) [#/Vol]Ordered By: Edwardo Michael on 77-60-8331Uxdwoohua (Bld) [#/Vol]252 10*3/kU019-957BpcqizbawSelect Medical Specialty Hospital - ColumbusPotassium [Moles/volume] in Serum or PlasmaOrdered By: Edwardo Michael on 03-05-1743Ssjbodvvh [Moles/Vol]4.7 mmol/L3.5-5.1FHolmes County Joel Pomerene Memorial HospitalProstate specific Ag [Mass/volume] in Serum or PlasmaOrdered By: Edwardo Michael on 20-23-4603Ymgpdhmx specific Ag [Mass/Vol]0.560 ng/mL0.000-4.000[facility] - ColumbusProtein [Mass/volume] in Serum or PlasmaOrdered By: Edwardo Michael on 92-29-9663Kwpfwrw [Mass/Vol]7.3 g/dL6.4-8.9[facility] - ColumbusRBC Auto (Bld) [#/Vol]Ordered By: Edwardo Michael on 96-70-6861XOG (Bld) [#/Vol]4.86 10*6/uL3.90-5.60[facility]UM[facility] Community Hospitalerum or plasma albumin/globulin mass ratioOrdered By: Edwardo Michael on 04-18-2023 Albumin/Globulin [Mass ratio]1.6 {ratio}[facility] Hospitalerum or plasma anion gap determinationOrdered By: Edwardo Michael on 68-05-9961Rzsox gap [Moles/Vol]8.3 mmol/L6.0-15.0WVUM[facility] Community Hospitalerum or plasma high density lipoprotein (HDL) cholesterol measurementOrdered By: Edwardo Michael on 82-43-3327Fpvtwcnmdwh in HDL [Mass/Vol]39 mg/cC95-24WdvpdjayySelect Medical Specialty Hospital - ColumbusComment on above:HDL CHOL ATP-III CLASSIFICATION Cardiovascular RiskHDL > or equal to 60 mg/dL LOWHDL < 40 mg/dL HIGHSerum or plasma total cholesterol/high density lipoprotein (HDL) cholesterol mass ratOrdered By: Edwardo Michael on 92-28-7555Hqtbtkrxnca.total/Cholesterol in HDL [Mass ratio]4.7 {ratio} <5.0WVUMedicine Harrison Community Hospitalodium [Moles/volume] in Serum or Plasma Ordered By: Edwardo Michael on 57-52-6616Wqvgdj [Moles/Vol]139 mmol/T170-579EtjgubyrjSelect Medical Specialty Hospital - ColumbusThyrotropin [Units/volume] in Serum or PlasmaOrdered By: Edwardo Michael on 07-42-3555MWN Qn2.12 m[IU]/L0.45-5.33[facility] Hospital - ColumbusThyroxine (T4) free [Mass/volume] in Serum or PlasmaOrdered By: Edwardo Michael on 24-45-3269Wjsl T4 [Mass/Vol]0.74 ng/dL0.61-1.12[facility] Hospital - ColumbusTriglyceride [Mass/volume] in Serum or PlasmaOrdered By: Edwardo Michael on 07-20-1718Qskjozprfkym [Mass/Vol]122 mg/dL0-149[facility] Comment on above:TRIG ATP III CLASSIFICATIONTRIG less than 150 mg/dL NormalTRIG 150-199 mg/dL Borderline highTRIG 200-500 mg/dL High TRIG greater than 500 mg/dL Very highStandard traceable to the Center for Disease Conrtrol and Prevention (CDC) test method.Urea nitrogen [Mass/volume] in Serum or PlasmaOrdered By: Edwardo Michael on 47-97-2171Dvfm nitrogen [Mass/Vol]19 mg/dL7-25[facility] - ColumbusVitamin D+Metabolites [Mass/volume] in Serum or PlasmaOrdered By: Edwardo Michael on 12-57-6214Gagnowv D+Metabolites [Mass/Vol]51.4 ng/zU17-727 [facility] - ColumbusComment on above:VITAMIN D STATUS 25(OH)VITAMIN D RANGE (ng/mL) Deficient <20 Insufficient 20 to <21Rpmsktnvuo50 to 100Reference: Sofya MF,Vincent NC, Xavi LANIER, et al. Evaluation,treatment, and prevention of vitamin D deficiency; an Endocrine Society clinical practice guideline. JCEM. 2010; 96(7):1911-30.WBC Auto (Bld) [#/Vol]Ordered By: Edwardo Michael on 89-67-5848SIF (Bld) [#/Vol]5.4 10*3/uL 4.1-10.5FHolmes County Joel Pomerene Memorial HospitalBasophils Auto (Bld) [#/Vol]Ordered By: Edwardo Michael on 38-16-0487Jibzkarwi (Bld) [#/Vol]0.0 10*3/uL0.0-0.2FHolmes County Joel Pomerene Memorial HospitalBasophils/100 WBC Auto (Bld)Ordered By: Edwardo Michael on 56-88-8444Gyeyoyeud/100 WBC (Bld)0.9 %.[facility] - ColumbusBlood hemoglobin measurement (mass/volume)Ordered By: Edwardo Michael on 04-06-2022 Hemoglobin (Bld) [Mass/Vol]15.7 g/dL13.0-17.0[facility] Blood leukocytes automated count (number/volume)Ordered By: Edwardo Michael on 78-85-7558IRS (Bld) [#/Vol]4.7 10*3/uL4.5-11.0[facility] Body fluid albumin measurement (mass/volume)Ordered By: Edwardo Michael on 04-06-2022 Albumin (Body fld) [Mass/Vol]3.8 g/dL3.2-5.5FHolmes County Joel Pomerene Memorial Hospital Cholesterol [Mass/volume] in Serum or PlasmaOrdered By: Edwardo Michael on 04-06-2022 Cholesterol [Mass/Vol]181 mg/tY376-969YaorygggsSelect Medical Specialty Hospital - ColumbusComment on above:Chol less than 200 mg/dl low riskChol 201-239 mg/dl borderline riskChol 240 mg/dl and greater high riskCholesterol in LDL Calc [Mass/Vol]Ordered By: Edwardo Michael on 42-59-1843Jyfbzayzowj in LDL [Mass/Vol]124 mg/dL0-100[facility] - ColumbusComment on above:LDL ATP III CLASSIFICATIONLDL less than 100 mg/dL OptimalLDL 100-129 mg/dL Near or above ftiulhgOLP082-604 mg/dL Borderline highLDL 160-189 mg/dL HighLDL greater than 189 mg/dL Very high Cholesterol in VLDL Calc [Mass/Vol]Ordered By: Edwardo Michael on 04-06-2022 Cholesterol in VLDL [Mass/Vol]24 mg/dLSelect Medical Specialty Hospital - Columbus Creatinine and Glomerular filtration rate.predicted panel (S/P/Bld)Ordered By: Edwardo Michael on 63-00-6822Xbfgllbfng [Mass/Vol]1.05 mg/dL0.64-1.27[facility] - ColumbusEosinophils Auto (Bld) [#/Vol]Ordered By: Edwardo Michael on 05-45-5083Rehxzvpszol (Bld) [#/Vol]0.1 10*3/uL0.0-0.45[facility] - ColumbusEosinophils/100 WBC Auto (Bld)Ordered By: Edwardo Michael on 04-06-2022 Eosinophils/100 WBC (Bld)2.0 %.[facility]ty Hospital - ColumbusErythrocyte distribution width Auto (RBC) [Ratio]Ordered By: Edwardo Michael on 04-06-2022 Erythrocyte distribution width (RBC) [Ratio]12.5 %12.0-14.8[facility] - ColumbusEstimated glomerular filtration rate (GFR) non- Ordered By: Edwardo Michael on 69-70-7979RJY/1.73 sq M.predicted among non-blacks MDRD (S/P/Bld) [Vol rate/Area]> 60 mL/MinSelect Medical Specialty Hospital - Columbus Globulin Calc (S) [Mass/Vol]Ordered By: Edwardo Michael on 22-39-0045Bmgffkbe (S) [Mass/Vol]2.8 g/dLSelect Medical Specialty Hospital - ColumbusHematocrit Auto (Bld) [Volume fraction]Ordered By: Edwardo Michael on 30-15-7048Tdxoljjhvd (Bld) [Volume fraction] 46.2 %38.8-50.0[facility] - ColumbusLaboratory - Hematology and Cell countsOrdered By: Edwardo Michael on 74-09-0885Vqdgdqoii RBC/100 WBC (Bld) [Ratio]0.1 %0-0.5FHolmes County Joel Pomerene Memorial HospitalLymphocytes Auto (Bld) [#/Vol]Ordered By: Edwardo Michael on 12-80-5347Fhssbktingd (Bld) [#/Vol]1.6 10*3/uL1.00-4.8 [facility] - ColumbusLymphocytes/100 WBC Auto (Bld)Ordered By: Edwardo Michael on 29-95-4330Mwuvdflxtts/100 WBC (Bld)34.1 %.[facility] - ColumbusMCH Auto (RBC) [Entitic mass]Ordered By: Edwardo Michael on 33-57-4012AZP (RBC) [Entitic mass]31.9 pg27.5-35.2FHolmes County Joel Pomerene Memorial HospitalMCHC Auto (RBC) [Mass/Vol]Ordered By: Edwardo Michael on 63-30-8388QFQZ (RBC) [Mass/Vol]34.0 g/dL 32.5-35.6FHolmes County Joel Pomerene Memorial HospitalMCV Auto (RBC) [Entitic vol]Ordered By: Edwardo Michael on 69-73-5206ARZ (RBC) [Entitic vol]93.8 fL83.5-101[facility] - ColumbusMonocytes Auto (Bld) [#/Vol]Ordered By: Edwardo Michael on 43-05-2158Pptjtektl (Bld) [#/Vol]0.4 10*3/uL0.0-0.8[facility] - ColumbusMonocytes/100 WBC Auto (Bld)Ordered By: Edwardo Michael on 04-06-2022 Monocytes/100 WBC (Bld)8.7 %.[facility] Hospital - ColumbusNeutrophils Auto (Bld) [#/Vol]Ordered By: Edwardo Michael on 91-56-8976Uuozryplvwl (Bld) [#/Vol]2.6 10*3/uL1.8-7.7FHolmes County Joel Pomerene Memorial HospitalNeutrophils/100 WBC Auto (Bld) Ordered By: Edwardo Michael on 61-70-9002Avnqepjrkwe/100 WBC (Bld)54.3 %.[facility] - ColumbusNo Panel InformationOrdered By: Edwardo Michael on 04-06-2022 25-Hydroxy Vitamin D Total41.8 ng/rK61-833TowtzbvacSelect Medical Specialty Hospital - Columbus Comment on above:VITAMIN D STATUS 25(OH)VITAMIN D RANGE (ng/mL) Deficient <20 Insufficient 20 to <39Tqiocqjoxo03 to 100Reference: Sofya MF,Vincent NC, Xavi LANIER, et al. Evaluation,treatment, and prevention of vitamin D deficiency; an Endocrine Society clinical practice guideline. JCEM. 2010; 96 (7):1911-30.Estimated GFR ()> 60 mL/MinSelect Medical Specialty Hospital - ColumbusComment on above:GFR estimated reference range: According to KDOQI guidelines, <60 ml/min/1.73m2 is sufficient todiagnose a patient with chronic kidney disease.Pharmacy Creatinine Clearance (ChemN/[facility] HospitalProstate Specific Antigen Screen0.460 ng/mL0.000-4.000[facility] - ColumbusPlatelet mean volume Auto (Bld) [Entitic vol]Ordered By: Edwardo Michael on 05-71-4406Imjdhimq mean volume (Bld) [Entitic vol]10.3 fL6.6-10.1 [facility] - ColumbusPlatelets Auto (Bld) [#/Vol]Ordered By: Edwardo Michael on 80-07-5381Wqgggwoud (Bld) [#/Vol]234 10*3/sI614-539LzxyqywiiSelect Medical Specialty Hospital - ColumbusProtein [Mass/volume] in Serum or PlasmaOrdered By: Edwardo Michael on 46-75-8635Pxvfbpy [Mass/Vol]6.6 g/dL6.1-7.9[facility] - ColumbusRBC Auto (Bld) [#/Vol]Ordered By: Edwardo Michael on 40-68-3278ZFN (Bld) [#/Vol]4.92 10*6/uL3.90-5.60WVUM[facility] Community Hospitalerum or plasma alanine aminotransferase measurement without P-5'-P (enzymatic activiOrdered By: Edwardo Michael on 03-67-1308MEX No additional P-5'-P [Catalytic activity/Vol]32 U/L10-60 [facility] Hospitalerum or plasma albumin/globulin mass ratio Ordered By: Edwardo Michael on 04-15-6244Dxcnttj/Globulin [Mass ratio]1.4 {ratio} [facility] Hospitalerum or plasma alkaline phosphatase measurement (enzymatic activity/volume)Ordered By: Edwardo Michael on 53-01-4956QHC [Catalytic activity/Vol]74 U/I84-89AcqalaxvcWVUMedicine Harrison Community Hospitalerum or plasma anion gap determinationOrdered By: Edwardo Michael on 72-33-0169Cuxyu gap [Moles/Vol]11.4 mmol/L6.0-15.0WVUM[facility] Community Hospitalerum or plasma aspartate aminotransferase measurement (enzymatic activity/volume)Ordered By: Edwardo Michael on 86-40-9629SRU [Catalytic activity/Vol]25 U/Z20-05WimwmqqccWVUMedicine Harrison Community Hospitalerum or plasma calcium measurement (mass/volume)Ordered By: Edwardo Michael on 54-96-9113Xflwicb [Mass/Vol]9.5 mg/dL8.2-10.2FFirelands Regional Medical Centererum or plasma chloride measurement (moles/volume) Ordered By: Edwardo Michael on 66-37-2023Osfmrbfk [Moles/Vol]102 mmol/L95-114 [facility] Hospitalerum or plasma glucose measurement (mass/volume)Ordered By: Edwardo Michael on 73-84-9425Gghmbdq [Mass/Vol]97 mg/dL 70-100[facility] - ColumbusComment on above:ADA recommended reference rangeRandom Glucose Reference Range is dependent on time and content of last meal. Glucose of more than 200 mg/dL in a nonstressed, ambulatory subject supports the diagnosisof Diabetes Mellitus.Serum or plasma high density lipoprotein (HDL) cholesterol measurementOrdered By: Edwardo Michael on 04-06-2022 Cholesterol in HDL [Mass/Vol]33 mg/kI46-96XkxtftluxSelect Medical Specialty Hospital - Columbus Comment on above:HDL CHOL ATP-III CLASSIFICATION Cardiovascular RiskHDL > or equal to 60 mg/dL LOWHDL < 40 mg/dL HIGHSerum or plasma potassium measurement (moles/volume)Ordered By: Edwardo Michael on 63-75-8075Fvhjhzqrd [Moles/Vol]4.4 mmol/L3.5-5.1FFirelands Regional Medical Centererum or plasma sodium measurement (moles/volume)Ordered By: Edwardo Michael on 87-45-8827Bkgkfu [Moles/Vol]138 mmol/L 136-146WVUMedicine Harrison Community Hospitalerum or plasma total bilirubin measurement (mass/volume)Ordered By: Edwardo Michael on 39-86-6232Jradqfbbl [Mass/Vol]0.8 mg/dL0.3-1.2FFirelands Regional Medical Centererum or plasma total carbon dioxide measurement (moles/volume)Ordered By: Edwardo Michael on 04-06-2022 CO2 [Moles/Vol]29.0 mmol/L22.0-30.0WVUMedicine Harrison Community Hospitalerum or plasma total cholesterol/high density lipoprotein (HDL) cholesterol mass rat Ordered By: Edwardo Michael on 93-39-3445Spuuagpvzcs.total/Cholesterol in HDL [Mass ratio]5.5 {ratio}<5.0WVUMedicine Harrison Community Hospitalerum or plasma urea nitrogen measurement (mass/volume)Ordered By: Edwardo Michael on 00-00-9801Bayj nitrogen [Mass/Vol]14 mg/dL9-23[facility] ColumbusTS DL <= 0.005 mIU/L QnOrdered By: Edwardo Michael on 48-67-4107FOL Qn1.82 m[IU]/L0.45-5.33[facility] - ColumbusTriglyceride [Mass/volume] in Serum or PlasmaOrdered By: Edwardo Michael on 38-47-0191Aayxeztorjyp [Mass/Vol]121 mg/bC50-250LlyjjskxtSelect Medical Specialty Hospital - ColumbusComment on above:TRIG ATP III CLASSIFICATIONTRIG less than 150 mg/dL NormalTRIG 150-199 mg/dL Borderline highTRIG 200-500 mg/dL High TRIG greater than 500 mg/dL Very highStandard traceable to the Center for Disease Conrtrol and Prevention (CDC) test method.Initial Visit (Orthopaedic Surgery)on 26-10-7629Cfuldhr Visit (Orthopaedic Surgery)Diagnoses/Problems Assessed Primary osteoarthritis of [...] Results/Data Xray Shoulder Bilateral, Complete, Min 2 Isorp36Dde3832 09:58AMBenny Muryr Test NameResultFlagReference Xray Shoulder Bilateral, Complete, Min 2 Views(Report) FINAL REPORT Interpreted by: BENNY MURRY MICHAEL, MD 04/27/21 10:22 Patient Name: BRANDBENNY STUDY: BILATERAL SHOULDER, CMPLT, MIN 2 VIEWS; ; 04/27/2021 9:58 am INDICATION: pain M25.511: Bilateral shoulder pain, unspecified chronicity M25.512:. ACCESSION NUMBER(S): [id number] ORDERING CLINICIAN: BENNY MURRY FINDINGS: AP axillary bilateral shoulder show moderately advanced osteoarthritic change of both shoulders inferior spurring is noted bilaterally with fumk-ba-ptqx arthrosis. On the axillary view the humeral head is centered in the glenoid fossa. There is no fracture no dislocation. There is some mild calcific blade changer the tuberosity is bilaterally. Overall advanced [...] Rahman, ; Apr 28 2021 3:22PM EST (Set Rider/Recorder) Electronically signed by : Benny Murry MD; Apr 28 2021 3:41PM Mira TouchworksRadiologyon 11-77-5796DJ Shoulder - bilateral 2 [facility]NoFormerly [facility]icsUniversity [facility] Work Phone: [phone]-42 PCR ([facility])on 53-12-5142NCRS-CoV-2 (COVID- 19) RNA ZHAGN+probe Ql (Unsp spec)Not detectedNormalNOT DETECTEDThe Martins Ferry HospitalComment on above:Result Comment: This test is not yet approved or cleared by the [place] FDA. When there are no FDA-approved or cleared tests available, and other criteria are met, FDA can make tests available under an emergency access mechanism called an Emergency Use Authorization (EUA). The EUA for this test is supported by the Inventory Checker of Health and Human Service's (HHS's) declaration [...] consistent with SARS-CoV-2.Performed By: #### [facility] #### [facility] [address] CARDIAC SCORINGon 56-65-1559KA CT CARDIAC SCORINGAddendum Begins Patient Name: BENNY [...] for cardiovascular disorders. COMPARISON: None. ACCESSION NUMBER(S): [id number] ORDERING CLINICIAN: EDWARDO MICHAEL TECHNIQUE: Using prospective [...] hernandez al. JACC 2015 (http://dx.doi.org/10.1016/j.j acc.2015.08.035) Reading Administrative Associate: Dr. Joselito Rousseau, Date: 09/19/2019 2:04 pm Electronically signed by: NICK PRESTON MDLECOM Health [facility] Vital Signs Date TimeVital SignValuePerforming YiezjkyeiVmldzvah29-36-2565 09:24-0400Body ednwqb799.26 cmEdwardo Michael DO Work Phone: [phone]10-08-2025 09:24-0400 Body mass index (BMI) [Ratio]26.6 kg/y2Xigbs Kuns DO Work Phone: [phone]10-08-2025 09:24-0400 Body .7 kgBryan Kuns DO Work Phone: [phone]10-08-2025 09:24-0400 Diastolic blood mfymvhnx24 mm[Hg]Edwardo Kuns DO Work Phone: [phone]10-08-2025 09:24-0400 Heart rate63 /minOtilioan Kuns DO Work Phone: [phone] [place], [place] 7936310-08-2025 09:24-0400 Respiratory rate18 /minOtilioan Kuns DO Work Phone: [phone] [place], [place] 7936310-08-2025 09:24-0400 SaO2% (BldA) [Mass fraction]99 %Edwardo Oscars DO Work Phone: [phone] [place], [place] 7936310-08-2025 09:24-0400 Systolic blood cjpyzdih272 mm[Hg]Edwardo Kuns DO Work Phone: [phone]10-23-2024 09:24-0400 Body jlaghy857.26 cmDO Edwardo Kuns Work Phone: [phone]10-23-2024 09:24-0400 Body mass index (BMI) [Ratio]26.6 kg/m2DO Edwardo Kuns Work Phone: [phone] [place], [place] 6354010-23-2024 09:24-0400 Body kjyooj14.64 kgDO Edwardo Kuns Work Phone: [phone]10-23-2024 09:24-0400 Diastolic blood kjbxtcoz05 mm[Hg]DO Edwardo Kuns Work Phone: [phone] [place], [place] 6354010-23-2024 09:24-0400 Heart rate64 /minDO Edwardo Michael Work Phone: [facility]10-23-2024 09:24-0400 Respiratory rate16 /minDO Edwardo Michael Work Phone: [facility]10-23-2024 09:24-0400 SaO2% (BldA) [Mass fraction]96 %DO Edwardo Michael Work Phone: [facility]10-23-2024 09:24-0400 Systolic blood dtyszuxy845 mm[Hg]DO Edwardo Michael Work Phone: [facility]10-24-2023 14:15-0400 Body jrrovq316.26 cmEdwardo Michael Other [employer] Other 10-24-2023 14:15-0400Body mass index (BMI) [Ratio] 26.14 kg/q4NhpupEdwardo Michael Other [employer] Other 10-24-2023 14:15-0400Body yhymee70.29 kgEdwardo Michael Other [employer] Other 10-24-2023 14:15-0400Diastolic blood gtsnlrut28 mm[Hg] Edwardo John Other [employer] Other 10-24-2023 14:15-0400Respiratory rate16 /minEdwardo Michael Other [employer] Other 10-24-2023 14:15-7303PvI5% (BldA) [Mass fraction]95 % Edwardo Moorebettye Other [employer] Other 10-24-2023 14:15-0400Systolic blood ihyllpkw062 mm[Hg] Edwardo Michael Other [employer] Other 10-07-2022 09:30-0400Body zchhyu311.26 cmEdwardo Michael Other [employer] Other 10-07-2022 09:30-0400Body mass index (BMI) [Ratio] 27.02 kg/t1FcwylEdwardo Michael Other [employer] Other 10-07-2022 09:30-0400Body yvvjms69.01 kgEdwardo Michael Other [employer] Other 10-07-2022 09:30-0400Diastolic blood mllxmsuy03 mm[Hg] Edwardo Michael Other [employer] Other 10-07-2022 09:30-0400Respiratory rate16 /minEdwardo Michael Other [employer] Other 10-07-2022 09:30-5759AjH4% (BldA) [Mass fraction]98 % Edwardo Michael Other [employer] Other 10-07-2022 09:30-0400Systolic blood jjbjutty789 mm[Hg] Edwardo Michael Other [employer] Other 10-21-2021 15:40-0400Body guaspf700.26 cmEdwardo Michael Work Phone: [phone]-Jnclpv For OrthopedicsUniversity [facility]als [facility] Work Phone: [phone] 516-724410-21-2021 15:40-0400Body mass index (BMI) [Ratio] 26.58 kg/r9ThuymEdwardo Michael Work Phone: [phone]-EogmzpSentara Careplex HospitalsUniversity Hospitals Beachwood Medical Center Work Phone: [phone] 15:40-0400Body surface area Derived from formula1.98 k6KsguyEdwardo Michael Work Phone: [phone]-OnvikySentara Careplex HospitalsUniversity Hospitals Beachwood [facility] Center Work Phone: [phone] 15:40-0400Body kpcadl09.65 kgEdwardo Michael Work Phone: [phone]-QwtwriSentara Careplex HospitalsUniversity Hospitals Beachwood [facility] Center Work Phone: [phone] 11:30-0400Body heightEdwardo Oscarbettye Other [employer] Other 10-06-2021 11:30-0400Body mass index (BMI) [Ratio] 27.02 kg/p5YirhgEdwardo Michael Other [employer] Other 10-06-2021 11:30-0400Body kbroqq92.01 kgEdwardo Michael Other [employer] Other 10-06-2021 11:30-0400Diastolic blood jngvuikk16 mm[Hg] Edwardo Michael Other [employer] Other 10-06-2021 11:30-0400Respiratory rate16 /minEdwardo Michael Other [employer] Other 10-06-2021 11:30-4471SuU1% (BldA) [Mass fraction]97 % Edwardo Michael Other [employer] Other 10-06-2021 11:30-0400Systolic blood uuvhqydg482 mm[Hg] Edwardo Michael Other [facility] [employer] Other Encounters Encounter DateEncounter TypeCare ProviderFacilityStart: 04-15-2025 End: 24-78-7151ehvnrhbdllYlwmv Kuns DO Work Phone: [facility] Work Phone: Start: 04-15-2025 End: 82-90-0519Amxeutj encounter procedureEdwardo Kingston DO-[facility] [place] Work Phone: Start: 04-08-2025 End: 99-30-0228Riultni encounter procedureEdwardo Kingston DO-Lab [place] Work Phone: Start: 04-08-2025 End: 68-96-4036iyohzjhebiZuqxg Kuns DO Work Phone: [facility] Work Phone: Start: 03-17-2025 End: 21-23-6144ypmksfukhoVUUI WINSLOWNot AvailableStart: 03-10-2025 End: 92-24-8871lgpsljtxvvKKMOZ HANSONNot AvailableStart: 03-03-2025 End: 12-48-0744hoilosscqjDNCJ WINSLOWNot AvailableStart: 02-26-2025 End: 72-36-6452bldechwztaAJEQH HANSONNot AvailableStart: 02-24-2025 End: 22-41-5815ebcoalyxyqKTEGA HANSONNot AvailableStart: 02-19-2025 End: 61-80-0621umkgmsrjybKQKLL HANSONNot AvailableStart: 02-17-2025 End: 70-69-7585rzglsrafaaTZMLA HANSONNot AvailableStart: 02-13-2025 End: 48-24-9018cqqhygjweiOZVX WINSLOWNot AvailableStart: 01-15-2025 End: 72-91-9409Dunesh outpatient visit 25 minutesMurhpy Tesfaye PA-C Work Phone: [facility] SystemComment on above:Low back pain, unspecified back pain laterality, unspecified chronicity, unspecified whether sciatica present (Primary Dx); Lumbar radiculopathyStart: 01-15-2025 End: 81-91-5874fuzuihqbxaLYWGVCarilion [facility] AmbulatoryStart: 12-31-2024 End: 21-30-7699Zijxrx outpatient new 30 minutesDominikcorie Thalia Murry MD Work Phone: [facility] Healthcare SystemComment on above:Pain of left hip; Right shoulder pain, unspecified chronicity; Tendinitis of right rotator cuffStart: 12-31-2024 End: 29-70-9150gmvoxcmusyXDWBBX M ZANOTTIAcmc Healthcare System AmbulatoryStart: 12-16-2024 End: 42-72-4869mrahfomgcoVBRIVAH A FELTERNot AvailableStart: 10-23-2024 End: 54-77-2995drhqmshmjfVQBP S BIEDENBACHNot AvailableStart: 06-20-2024 End: 51-75-6969mcpzdjiivrKWUC S BIEDENBACHNot AvailableStart: 06-17-2024 End: 53-14-4542jnuiknptkbZBNFPVW A FELTERNot AvailableStart: 06-02-2024 End: 15-25-0299gikpmcsaqkACRR S BIEDENBACHNot AvailableStart: 05-09-2024 End: 42-08-2041xtdtyygbgwZLAI S BIEDENBACHNot AvailableStart: 05-08-2024 End: 93-87-5897Zrbjshm encounter procedureDO Edwardo Michael Work Phone: [facility] [place] Work Phone: Start: 05-08-2024 End: 25-36-8027bgfamgpkwuZP Bryan Kuns Work Phone: [facility] Work Phone: Start: 05-02-2024 End: 11-56-1080nufpkmmglhQaxp BiedenbachFacility:[facility]UM[facility] Community Hospitaltart: 05-02-2024 End: 73-22-3685Addulkul ReferredDO Edwardo Michael Work Phone: [facility] [place] Work Phone: Start: 04-30-2024 End: 88-11-0375uutrfyowciFH Edwardo Michael Work Phone: [facility] Work Phone: Start: 04-30-2024 End: 85-49-6213Xmgtwip encounter procedureDO Edwardo Michael Work Phone: [facility] Work Phone: Start: 04-24-2024 End: 41-42-7089czptqwbsyuJRWM S BIEDENBACHNot AvailableStart: 04-22-2024 End: 71-49-2411Bewuztr encounter procedureDO Edwardo Michael Work Phone: [facility] [place] Work Phone: Start: 04-22-2024 End: 77-07-0572xurzwqbycqBD Edwardo Michael Work Phone: [facility] Work Phone: Start: 15-42-3744Rjp-patient / Non-visitDO Edwardo Michael Work Phone: [facility] Work Phone: Start: 04-07-2024 End: 59-16-1860ltiqulmnhzFLBPW A PETITTINot AvailableStart: 05-01-2023 End: 70-56-2140ciycrwjpmqFbejw Kuns Other [employer] Other Start: 43-28-8535Pzddoeh encounter procedureEdwardo Michael [facility] CastaliaStart: 04-18-2023 End: 94-91-3512rofqltfbemEP Edwardo Michael Work Phone: [facility] Work Phone: Start: 04-18-2023 End: 34-95-7004Bjlnrhs encounter procedureDO Edwardo Michael Work Phone: [facility] [place] Work Phone: Start: 03-21-2023 End: 21-01-2807fzkkagzfwkSmgwm Kuns Other [employer] Other Start: 66-29-2569Fqavbzdaa encounterBrydae MichaelG [facility] [place]Start: 01-10-2023 End: 05-07-0814mdzjybryptLdugu Kuns Other [employer] Other Start: 84-99-2993Qrvuzaoft encounterBrydae MichaelFP[facility] [place]aliaStart: 06-05-2022 End: 84-60-3860eokqtcflxiLgnjp Kuns Other [facility] [facility] [employer] Other Start: 89-41-4484Gzbaawtwb encounterBrydae MichaelFP[facility] [place]aliaStart: 04-14-2022 End: 35-95-3103ljxyryqikaWsdxy Kuns Other [employer] [facility] [employer] Other Start: 70-97-0675Zrbvyfs encounter procedureEdwardo Michael [facility] [place]Start: 04-06-2022 End: 97-62-5064gqfeuaxofcDT Edwardo Michael Work Phone: [facility] Work Phone: Start: 04-06-2022 End: 15-55-1331Kovvxul encounter procedureDO Edwardo Michael Work Phone: [facility]-Lab [place]Start: 03-07-2022 End: 67-39-4079sgisawmwoiLqqiq Kuns Other [employer] Other Start: 88-92-0749Psppetfqf encounterBrydae ReyG [facility] [place]Start: 12-27-2021 End: 18-05-1981tsugyvhfumFxyhf Kuns Other [employer] Other Start: 39-71-1715Sdonecoup encounterBrydae ReyG [facility] CastaliaStart: 00-65-9280Dcnwyfo encounter procedureEdwardo Michael Work Phone: [phone]-Jrcgll For OrthopedicsUniversity [facility]als [facility] Work Phone: Start: 04-26-2021 End: 05-88-6296iapwlzhrckUR EDWARDO MICHAELFacility:M4Rcuuj: 07-05-3205Ainsxxydy encounterEdwardo MooreLisaG [facility] Medicine CastaliaStart: 75-57-2629Bsunoe wellness visitEdwardo Michael Other [employer] Other Start: 24-10-2165Vmpnhwfsi for general adult medical examination without abnormal findingsEdwardo MoorebettyeG [facility] [place] Start: 34-80-7900Sikzvse encounter procedureEdwardo CandidoG [facility] [place]Start: 04-77-8086Vmzfyuwwq encounterEdwardo CandidoG [facility] CastaliaStart: 81-86-1148Rujbxme encounter procedureEdwardo Michael Other [employer] Other Procedures DateProcedureProcedure DetailPerforming ClinicianStart: 35-73-3388Gpadebscnvyaps aspir&/inj major jt/bursa w/o Delfina Murry MD Work Phone: Start: 98-88-1585IU angiography of headDO Edwardo Michael Work Phone: Screening for malignant neoplasm of prostateEdwardo Michael Other Plan of Treatment DateCare ActivityDetailAuthorStart: 90-74-4525RRyT/Tdap/Td Vaccines (3 - Td or Tdap)DTaP/Tdap/Td Vaccines (3 - Td or Tdap)[facility] Start: 59-61-8148FQkZ/Tdap/Td Vaccines (4 - Td or Tdap)DTaP/Tdap/Td Vaccines (4 - Td or Tdap)[facility]: 71-54-6331SXJ High Risk: (Elderly (60+) or Population) (1 - 1-dose 75+ series)RSV High Risk: (Elderly (60+) or Population) (1 - 1-dose 75+ series)[facility]: 30-88-4822Foaoctcyo for malignant neoplasm of colon [facility]: 58-99-7290Pspdjveqb vaccinationInfluenza Vaccine (#1)[facility]: 02-23-2025 End: 04-85-9203Aoaczhv encounter nmkuckyhs67/18/2025 1:15 PM EDT Office Visit [address] [address] Murphy Tesfaye PA-C [facility] [place] [address] [facility]: 01-15-2025 End: 85-38-6523EH Lumbar spine Views W flexion and W extensionNORTHERN [facility]AVA[facility] Service Area Work Phone: Comment on above:Expected: 01/15/2025, Expires: 01/15/2026Start: 51-95-8602HNLPA-19 Vaccine ( season)COVID-19 Vaccine ( season)[facility]: 78-83-0442Qkzkgbvbg C screeningHepatitis C ScreeningUnAkron Children's Hospital: 16-09-3996Trbrk panelLipid PanelUnAkron Children's Hospital: 06-15-1956Medicare Annual Wellness VisitMedicare Annual Wellness Visit (AWV) [facility]: 03-52-4848Dywnxibwi for malignant neoplasm of colonUnAkron Children's Hospital: 10-21-0411Rsxv Cancer ScreeningSkin Cancer ScreeningUniversity Hospitals of ClevelandStart: 1955 Yearly Adult PhysicalYearly Adult PhysicalUnOhioHealth Riverside Methodist Hospital Comprehensive metabolic 1999 panel - Serum or PlasmaSelect Medical Specialty Hospital - ColumbusComprehensive metabolic 1999 panel - Serum or [facility] CenterCT angiography of headH[facility] Immunizations Immunization DateImmunizationNotesCare LygwvdzhQafrljpe88-68-7130Gejddibdbxty Conjugate Vaccine, 20 valentEdwardo Michael DO Work Phone: [facility]10-03-2024influenza, high dose seasonal, preservative-freeDO Edwardo Michael Work Phone: [facility]10-03-2024influenza virus vaccine, unspecified formulationMurphy Tesfaye PA-C Work Phone: [facility] Work Phone: [phone] toxoid, reduced diphtheria toxoid, and acellular pertussis vaccine, adsorbedEdwardo Michael Other [facility]10-24-2023influenza, injectable, quadrivalent, preservative freeEdwardo Michael Other [facility]10-11-2023Flu Shot - Documentation Purposes OnlyEdwardo Michael Other [facility]10-11-2023Fluzone QIV High-Dose 65YR+DO Edwardo Michael Work Phone: [facility]10-07-2022influenza virus vaccine, unspecified formulationDO Edwardo Michael Work Phone: [facility]10-07-2022influenza, high dose seasonal, preservative-freeEdwardo Michael Other [facility]12-02-2021COVID-19 Vaccine Moderna - Documentation Purposes OnlyBryan Kuns Other [facility]10-01-2021Fluad Quadrivalent 0.5 ML Intramuscular Prefilled SyringeBryan P Kuns Work Phone: [facility]08-04-2021 pneumococcal conjugate vaccine, 13 valentBryan P Kuns Work Phone: [facility]04-19-2021Moderna COVID-19 Vaccine 100 MCG/0.5ML Intramuscular SuspensionBryan P Kuns Work Phone: [facility]03-16-2021Moderna COVID-19 Vaccine 100 MCG/0.5ML Intramuscular SuspensionBryan P Kuns Work Phone: [facility]08-20-2020influenza, seasonal, injectableBryan Kuns Other [facility]12-12-2019zoster vaccine recombinantBryan P Kuns Work Phone: [facility]09-24-2019influenza, injectable, quadrivalent, preservative freeBryan P Kuns Work Phone: [facility]09-24-2019zoster vaccine recombinantBryan P Kuns Work Phone: [facility]09-24-2019influenza, seasonal, injectableBryan Kuns Other [facility]01-09-2019Influenza, injectable, Madin Mira Canine Kidney, preservative free, quadrivalentBryan P Kuns Work Phone: [facility]01-09-2019 pneumococcal polysaccharide vaccine, 23 valentBryan P Kuns Work Phone: [facility]01-09-2019influenza, seasonal, injectableBryan Kuns Other [facility]07-17-2018Kenalog -40 mgBryan Kuns Other [employer] Other 909192-70-6943fxdnceq toxoid, reduced diphtheria toxoid, and acellular pertussis vaccine, adsorbedOtiliodae John DO Work Phone: [facility]01-02-2013tetanus and diphtheria toxoids, adsorbed, preservative free, for adult use (5 Lf of tetanus toxoid and 2 Lf of diphtheria toxoid)DO Edwardo Michael Work Phone: [facility]01-02-2013tetanus toxoid, reduced diphtheria toxoid, and acellular pertussis vaccine, adsorbed Edwardo Michael Work Phone: [facility] Payers DatePayer CategoryPayerPolicy [id number] Health InsuranceGENERIC COMMERCIAL [id number]-nyy [id number] 2.16.840.5.68718[id number] 2021MedicareMEDICARE PART A AND B .[id number] [id number] [id number] [id number] 2.16840.1.784574.3.57[id number] 2.16840.1.898410.3.57[id number] 2.16840.1.136311.3.57[id number] 2.840.1.444640.3.57[id number] 2.16840.1.304426.3.579.[id number] 2.16840.1.572458.3.57[id number] 2.16840.1.355564.3.57[id number] 2.16840.1.007092.3.57[id number] 2.16840.1.739136.3.57[id number] 2.16.840.1.840037.3.579.[id number] 2.16840.1.749899.3.579.2.[id number] 2.16840.1.810405.3.579.[id number] 2.16.840.1.350128.3.57[id number] 2.16.840.1.652206.3.579.2.3[id number] 2.16.840.1.437235.3.57[id number] 2..840.1.526196.3.579.2.809848-50-8796Ismdokv2350546 2..840.1.064558.3.579.2.886564-93-4583Qbzthmb6078579 2..840.1.805898.3.579.2.967346-91-8609Ikyrcyy9419485 2..0.1.892555.3.579.2.459052-81-4917Ggoozle0374053 2..0.1.424324.3.579.2.540319-02-0014Fnrdutv8665914 2..840.1.850021.3.57[id number] 2.16.840.1.908014.3.579.2.[id number] 629z9wd9-ia2b-2wwt-wk0g-x8d36zf7uhj9OyyfwxpBrqkzbjwn [id number] t3211735-4o97-3647-[id number] 2.16.840.1.7[id number] 2.16.840.1.879109.3.579.2.531 [id number] 2.16.840.1.9[id number] 2.16.840.1.794899.3.579.2.001Tomwgat84162870 2.16.840.1.231417.3.579.2.531 Social History DateTypeDetailFacilityUnknown if ever smokedHouston [employer] Other [facility] [employer] Other Start: 38-81-4460Bys [facility]igned At [facility] Hospitaltart: 08-12-2018 End: 02-01-3954Nbshhxx smoking status NHISNever smoked tobacco (finding) [facility] ColumbusTobacc smoking status NHISTobacco smoking consumption unknownUnOhioHealth Riverside Methodist Hospital Work Phone: Start: 44-83-8765Osb [facility]Not on file [facility] Work Phone: SexMale (finding)[facility] Clinical Notes 08-12-2009 to 01-15-2025 Note Date & [id number] History of Present illness Narrative* Murphy Tesfaye [...] pain. Murphy Tesfaye PA-C documented in this [facility] Work Phone: 1(296) 870-345006-25-2025 History of Present illness Narrative* Benny Murry [...] X-rays AP x-rays show severe shoulder osteoarthritis rqkb-az-zjlq arthrosis Right hip shows moderate arthritic change [...] called to verify the correctpatient, procedure, equipment, direct support worker and site/side marked as required. documented in [facility]Un[facility] Work Phone: 1(114) 834-532606-25-2025 Miscellaneous Notes* Addendum Note - Ani Szymanski MA - 12/31/2024 2:30 PM EDTAddended by: ANI SZYMANSKI on: 12/31/2024 02:57 PM Modules accepted: Orders documented in this encounterUnOhio[facility] Work Phone: 1(707) 576-717106-25-2025 Note* Addendum Note - Ani Szymanski MA - 12/31/2024 2:30 PM EDTAddended by: ANI SZYMANSKI on: 12/31/2024 02:57 PM Modules accepted: Orders [facility] Work Phone: 1(660) 285-168010-23-2024 Evaluation note* Author Fatoumata Coy [facility] ColumbusAuthoredOctober 2023 9:31amThe above note written by DEREK Moreno acting as human recorder, note dictated by Dr. Edwardo Michael. [facility] Work Phone: 1(633) 356-787810-24-2023 Evaluation note* Encounter Date Diagnosis Assessment Notes [...] He is to call if symptoms worsen. [employer] Other 09-13-2023 Evaluation note* Encounter Date Diagnosis Assessment Notes Treatment Notes Treatment Clinical Notes Mar, Thyroid nodule (ICD-10 - E04.1) [employer] Other 07-05-2023 Evaluation note* Encounter Date Diagnosis Assessment Notes Treatment Notes Treatment Clinical Notes Jan, Hyperlipidemia (ICD-10 - E78.5) Jan,Screening for prostate cancer (ICD-10 - Z12.5) Jan,Vitamin D deficiency (ICD-10 - E55.9) [employer] Other 10-07-2022 Evaluation note* Encounter Date Diagnosis [...] improved from 209 to181 and LDL improved cmbx562 to124. Per patient he started taking Zetia [...] medication and we will continue to monitor. [employer] Other 08-30-2022 Evaluation note* Encounter Date Diagnosis Assessment Notes Treatment Notes Treatment Clinical Notes Feb, Hyperlipidemia (ICD-10 - E78.5) Feb,creening for prostate cancer (ICD-10 - Z12.5) Feb,Vitamin D deficiency (ICD-10 - E55.9) [employer] Other 06-21-2022 Evaluation note* Encounter Date Diagnosis Assessment Notes Treatment Notes Treatment Clinical Notes Dec, Hyperlipidemia (ICD-10 - E78.5) Dec,Erectile dysfunction (ICD-10 - N52.9) [employer] Other 10-15-2021 Evaluation note* Encounter Date Diagnosis Assessment Notes Treatment Notes Treatment Clinical Notes Apr, Screening for viral disease (ICD -10 - Z11.59) [employer] Other 10-06-2021 Evaluation note* Encounter Date Diagnosis [...] to Medicare preventive visit (ICD-10 - Z00.00) [employer] Other 10-21-2011 History of Present illness NarrativePatient is new to us today, meaning he has not been here in three years but he actually had injections ten years ago.-[facility] Work Phone: 1(861) [phone] History general Narrative - Reported* Type Description Date Medical History 2007 psa level 0.652 Medical Wxctgbq2288 colonoscopy doneMedical Vplqarj6813 stress test doneMedical Viaiurv1-1-63; lipid panel, cmpMedical Pdvqcew3-70-23; lipid panel, cmp, cbc, t4, tsh, testosterone, psa (0.909)Medical HistoryBloodwork 05-19-11; lipid panel, cmp, cbc, t4, tsh, hgb a1c (5.5), psa with reflex to free psa (0.668) Medical HistoryCarotid/PVR Screening ( 08-[place]-14 [place] [facility] [place]Medical Historythyroid nodule-follows with Dr. RaiMedical History09/15/15 LabsMedical History CholesterolMedical Pkionpp30/19/19 PSA ( 0.7)Surgical Historytonsillectomy and adenoidectomy [employer] Other 02-04-2010 History general Narrative - Reported* Type Description Date Medical History 2007 psa level 0.652 Medical Utyudnc9237 colonoscopy doneMedical Ogplvif6877 stress test doneMedical Dyxtxnl0-0-33; lipid panel, cmpMedical Nusjdad3-26-88; lipid panel, cmp, cbc, t4, tsh, testosterone, psa (0.909)Medical HistoryBloodwork 05-19-11; lipid panel, cmp, cbc, t4, tsh, hgb a1c (5.5), psa with reflex to free psa (0.668) Medical HistoryCarotid/PVR Screening ( 08-15-14 @ [facility] [place])Medical Historythyroid nodule-follows with Dr. RaiMedical History09/15/15 LabsMedical History CholesterolMedical Qdoarsz52/19/19 PSA ( 0.7)Medical Qbqvffp0404/06/2022 PSA (0.460)Surgical Historytonsillectomy and adenoidectomy [facility] [employer] Other Evaluation noteNo InformationNortGeisinger Wyoming Valley Medical Center [employer] Other Evaluation noteNo assessment information available [facility] Work Phone: Evaluation note* Author Fatoumata Coy [facility] ColumbusAuthoredOctthe medical center 2023 9:31amThe above note written by DEREK Moreno acting as human recorder, note dictated by Dr. Edwardo Michael. [facility] Work Phone: Evaluation note* Diagnosis Pain of left hip Right shoulder pain, unspecified chronicity Tendinitis of right rotator cuff Right shoulder pain, unspecified chronicity Pain of left hip documented in this encounter [facility] Work Phone: Evaluation note* Diagnosis Low back pain, unspecified back pain laterality, unspecified chronicity, unspecified whether sciatica present- Primary Lumbar radiculopathy Thoracic or lumbosacral neuritis or radiculitis, unspecified documented in this encounter [facility] Work Phone: Reason for referral (narrative)No reason for referral information availableKindred Hospital [facility] Work Phone: Summary Purpose Family History No [...] section and content) DATE CREATED AUTHOR 09/22/2019 [facility] DATE CREATED AUTHOR AUTHOR'S ORGANIZ ATION 04/30/2021 [employer] DATE CREATED AUTHOR AUTHOR'S ORGANIZ ATION 05/03/2021 [facility] DATE CREATED AUTHOR AUTHOR'S ORGANIZ ATION 01/20/2025 [facility] DATE CREATED AUTHOR AUTHOR'S ORGANIZ ATION 03/19/2025 [facility] EPIC DATE CREATED AUTHOR AUTHOR'S ORGANIZ ATION 04/18/2025 [facility] REASON FOR VISIT (unrecogniz ed [...] Status Dates Dougie Abernathy DO Specialist Active Lee Ann Yuan , MDSpecialistActiveEdwardo Michael , DOPrigreene county hospitaly Care ProviderActive Team Status: Inactive Member Role [...] General09/19/19Team MemberRelationshipSpecialtyStart DateEnd Date Edwardo Michael DO [address] [place] [id number] PCP - General09/19/19 Team Status: Inactive Member [...] BE BASED ON THE PRIMARY CLINICAL RECORDS. [facility] [employer] [facility]. provides no warranty or guarantee of the accuracy or completeness of information in this document.
--- NOTE | 2025-05-06 14:57 | P.CN_ITS ---
Consult Note: HPI Data of Consult Patient: known to practice within the last 3 years Consult date: 05/06/25 Requesting Physician: Bertha Monsivais NP Primary Care Provider: Edwardo Lopez DO Consult Narrative Reason for consult: low back, left hip and buttock pain Narrative: 69yom who presents for evaluation. worsening low back, left buttocks, left hip, occasional left leg pain that has progressed. will have periodic flares that bring his pain to 10/10. very active and has had increasing difficulty completing tasks at home. lumbar xr shows multilevel degenerative changes, listhesis of l4 on 5. lumbar mri with results below. continues in chiropractic therapy >6 weeks. uses ice, stretching, occasional ibuprofen. cc:: CC: Bertha Monsivais NP Review of Systems ROS Musculoskeletal Reports: back pain and extremity pain Meds Home Medications and Allergies Home Medications ?Medication ?Instructions ?Recorded ?Confirmed ?Type ezetimibe 10 mg tablet (Zetia) 10 mg PO DAILY 04/27/25 04/27/25 History Allergies Allergy/AdvReac Type Severity Reaction Status Date / Time No Known Drug Allergies Allergy Verified 04/27/25 14:48 Exam Constitutional Documenting provider has reviewed patient's vital signs: yes Common normals: no apparent distress, oriented x3, healthy appearing, alert and well nourished General appearance: cooperative HENMT Common normals: normocephalic, hearing grossly normal bilaterally and moist oral mucous membranes Head and scalp: normocephalic Eye Common normals: PERRL Pupil: PERRL Neck & C-Spine Common normals: full ROM General: normal visual inspection Chest Common normals: inspection of chest normal Respiratory Common normals: normal respiratory effort, no retractions and no use of accessory muscles Back & Pelvis Lumbar spine/lower back: pain with ROM and straight leg raise positive left Sacroiliac joints: SI joint(s) abnormal Other: left positive claudia(patricks), gaenslens, thigh thrust, compression test intermittent radiculopathy left L4,5,S1 strength 4/5 in LLE and 5/5 in RLE Neuro Common normals: oriented x3 Sensorium/orientation: alert Psych Common normals: mental status grossly normal, thought process normal, co operative, affect normal, speech normal and activity/motor behavior normal Speech: normal speech Thought process: normal thought process Results Imaging lumbar MRI: Attestation: I have reviewed the pertinent imaging results. Radiologist's impression: Lumbar vertebral body heights are maintained. There is moderate levocurvature of the lumbar spine. There is mild dextrocurvature upper lumbar spine. Multilevel degenerative endplate changes L3-L5 noted Modic type II at L3-4 and Modic type I L4-5. Hemangioma involving the L2 vertebral body noted. Additionally Modic type I changes L1-L2. The conus medullaris terminates normally at L1-L2. Multilevel overall moderate disc space narrowing L2-L4 and vzen-xo-jhmmxwxh disc space narrowing at L5-S1. T12-L1: Facet arthropathy. No significant disease is canal neural foramen identified. L1-2: Broad-based disc bulge with left extraforaminal zone protrusion and associated T2 hyperintense signal suggestive fissure. Facet arthropathy, moderate. There is minor right-sided moderate left-sided neural foraminal narrowing. Mild central canal stenosis. There is mild predominantly left-sided subarticular recess narrowing. L2-L3: Circumferential disc bulge with moderate severe right moderate left facet arthropathy. Severe right subarticular recess narrowing and moderate left subarticular recess narrowing, correlate with right L3 radiculopathy. Additionally, there is moderate to severe right neural foraminal narrowing and moderate left neural from narrowing. L3-4: Circumferential disc bulge with moderate severe right and moderate left facet arthropathy this causes severe right subarticular recess narrowing, correlate with right L4 radiculopathy.. There is moderate severe right neural foraminal narrowing and encroachment upon the exiting right L3 nerve root. The canal moderately narrowed. Left foramen mild to moderately narrowed. Possible nerve root sheath diverticula left measuring 6 mm in size L4-5: Circumferential disc bulge with moderate severe facet arthropathy. Moderate severe right moderate left subarticular recess narrowing. There is moderate central stenosis. There is a synovial cyst arising from the left facet joints roughly 3 mm in size without definite mass effect otherwise moderate severe right and moderate left neural from narrowing. L5-S1: Circumferential disc bulge with left foraminal zone fissure noted. Moderate facet arthropathy and spurring. There is mild right-sided and auaqudtd-yk-uzhwfq left-sided neural foraminal narrowing. Canal is patent. Additional Findings Additional findings: If on a controlled substance or opioids, I have checked an [place]AR[place] report on this patient and there are no aberrancies noted in the prescribing history.??If on a controlled substance or opioid a drug screen was completed and reviewed within the last year, and if there has not been a drug screen completed we ordered one today to monitor higher risk, state monitored pain medication use. As part of providing excellent, safe, comprehensive care, the following was completed at our patient's visit: 1. A medication reconciliation and review to ensure accurate knowledge of current/active medications, including asking our patients to inform us about any waje-qks-meignau medications or herbal remedies/nutritional supplements/alternative remedies. 2. A review to specifically ensure our patients have had annual screening for screening for depression, screening for tobacco use, and screening for unhealthy alcohol use. For concerning screenings had a discussion with the patient, provided patient education, and recommended follow-up with primary care provider when appropriate. If patient noted with a risk of falling, they received education on strength, gait, and balance training to prevent future risk of falling. Portions of this note may have been carried over from the previous visit and updated as appropriate. Please note this office utilizes paper charting in addition to the electronic medical record. A list of current medications, vitals, and PMH is available there as the clinical staff outside of myself do not have access to [employer] charting during the clinic day operations. As part of providing quality comprehensive care the current medications, vitals, and PMH were reviewed in the paper chart. Assessment and Plan Assessment and Plan (1) Lumbar stenosis with neurogenic claudication: (2) Sacroiliitis: Plan The patient has had over 3 months of moderate to severe low back and LLE pain with functional impairment and inadequate response to conservative care including NSAIDS (unless there are contraindication such as concurrent blood thinners), multiple oral or topical pain medications, and home exercise program/physical therapy.? Patient has completed >6 weeks of guided home exercise program and/or formal physical therapy program without relief of their symptoms.? The Oswestry Disability Index was completed, and the patient scored a 34%.? lumbar MRI reviewed, defer NS consultation proceed with left L4-5 L5-S1 TFESI under fluoroscopy declining medication management f/u 2 weeks after injection, consider left SIJ injection
== END 2025-05-06 14:11 | disposition home or self-care (01) ==
LOC: PM 14:10
PROVIDERS: PCP Family Medicine; Visit Provider Nurse Practitioner
DX: M48.062 Spinal stenosis, lumbar region with neurogenic claudication (principal); M46.1 Sacroiliitis, not elsewhere classified
CPT/HCPCS: G0463

== ENCOUNTER 2025-05-11 09:21 | Day surgery (SDC) | payer MEDICARE, OTHER, SELFPAY ==
--- OUTSIDE RECORDS SUMMARY | 2025-05-11 09:29 | XMS_ITS | Clinical Summary ---
Author Organization [facility] Address [address] [place] [address] Phone Care Team Providers Care Journeyman Molder Name Role Phone John Edwardo Vashti CASTRO Primary Care Provider [phone] Allergies No known active allergies Medications MedicationSigDispense QuantityRefillsLast FilledStart DateEnd DateStatus predniSONE (Deltasone) 10 mg tablet Indications:Right shoulder pain, unspecified chronicity,Tendinitis of right rotator zyyq06VB FOR 2 DAYS, 40MG FOR 2 DAYS, 30MG FOR 2 DAYS, 20MG FOR 2 DAYS, 10MG FOR 2 DAYS 30 tablet 5Active Social History Tobacco UseTypesPacks/DayYears UsedDateSmoking Tobacco: Never AssessedSex and Gender InformationValueDate RecordedSex Assigned at BirthNot on fileLegal Sex Male06/03/2022 1:02 AM ESTGender IdentityNot on fileSexual OrientationNot on file Last Filed Vital Signs Vital SignReadingTime TakenCommentsBlood Pressure--Pulse--Temperature-- Respiratory Rate--Oxygen Saturation--Inhaled Oxygen Concentration--Cukgln06.6 kg (180 lb)04/28/2021 3:40 PM NVZEjjswu820.3 cm (5' 9 )04/28/2021 3:40 PM EDTBody Mass Index26.5804/28/2021 3:40 PM EDT Plan of Treatment Health MaintenanceDue DateLast DoneCommentsCT Ikoxdjtupccd67/15/1956olonoscopy 1955FIT1955Lipid Panel1955Medicare Annual Wellness Visit (AWV) 1955 0034Eeyrpvrjcdlxs27/15/1956MMR Vaccines (1 of 1 - Standard series) 12/21/1956Hepatitis C Ywstzrwae38/15/1974PSA Prostate Cancer Grfleckot03/15/2006 Influenza Vaccine (#1)/09/2023, 05/01/2023, 04/18/2023, Additional history existsCOVID-19 Vaccine (4 - season)/08/2020, 10/25/2020, 09/21/2020olorectal Cancer Upuenyjby38/10/2027FIT-DNA (Cologuard) /04/2024, 07/12/2020SV High Risk: (Elderly (60+) or Population) (1 - 1-dose 75+ series)1DTaP/Tdap/Td Vaccines (4 - Td or Tdap)31, 05/11/2016, 07/10/2012, Additional history exists Zoster QdiqatfyXueqavdrw83/12/2019, 04/01/2019Pneumococcal VaccineCompleted 08/12/2024, 02/09/2021, 07/17/2018HIB VaccinesAged OutNo [...] (Effective 2024-Present)Name:BENNY BRAND Relation to Subscriber:SelfName:BrandBenny Payer ID:[id number] Group ID:[id number] Type:Not on file Address: [address] [place] [id number] Care Teams Team MemberRelationshipSpecialtyStart DateEnd Date Edwardo Lopez DO [address] [place] [address] [facility]09/19/19
--- OUTSIDE RECORDS SUMMARY | 2025-05-11 09:29 | XMS_ITS | Clinical Summary ---
Author Organization modu tem Address [id number] [address] [place] [address] Care Team Providers Care Fudger Name Role Phone No Pcp, No Pcp Primary Care Provider Unavailabl e Social History Tobacco UseTypesPacks/DayYears UsedDateSmoking Tobacco: Never AssessedChildcare AnswerDate CudmcusxPaflbicmtFobjvhd27/12/2019EmploymentAnswerDate Recorded XblcgaqxmkHpkozyz55/12/2019Purpose - LifeAnswerDate RecordedPurpose and direction in tidzCzcvlug36/11/2021ex and Gender InformationValueDate Recorded Sex Assigned at BirthNot on fileLegal CobBoln5902/11/2015 11:35 AM EDTGender IdentityNot on fileSexual OrientationNot on file Plan of Treatment Not on file Medical Devices Not on file Insurance Care Teams Team MemberRelationshipSpecialtyStart DateEnd Date No Pcp, [place] [address] [facility]
--- OUTSIDE RECORDS SUMMARY | 2025-05-11 09:29 | XMS_ITS | Clinical Summary ---
Author Organization [facility] Address [address] [place] [address] Care Team Providers Care Consulting Business Developer Name Role Phone Lee Ann Gupta MD Unavailable [phone] Dougie Marshall DO Unavailable [phone] Edwardo Lopez DO Primary Care Provider [phone] Allergies No known active allergies Medications MedicationSigDispense [...] Active Problems ProblemNoted DateDiagnosed DateLumbar and sacral ojhywgvze35/08/2025Left hip pain02/13/2025Pain in right ankle and joints of right foot10/23/2024 Resolved Problems ProblemNoted DateDiagnosed DateResolved DateActinic tgdpyivyz40/31/2024 05/08/20244024Wflcbtvnisfkr32Medicare annual wellness visit, tfvfciccgy39Skin fhcmsjpnc86Stroke-like vpabspw19/3164Deroyzk58Hyperlipidemia04/23/2024 04/23/2024rimary osteoarthritis of right kneeVitamin D enmofsygxt54 Encounters DateTypeDepartmentCare ZabzKewcvfqeteu61/09/2025 12:30 PM EDTTreatment [facility] [address] [place] [address] Lawrence Armstrong, PT Lumbar and sacral arthritis (Primary Dx); Left hip pain03/17/2025amboo flowsheet [facility] [address] [place] [address] Lawrence Armstrong, PT 03/17/20256293Dzlsct29/02/2025 12:30 PM EDTTreatment [facility] [address] [place] [address] Guero Padilla, HAZ TECH Lumbar and sacral arthritis (Primary Dx); Left hip pain03/10/2025amboo flowsheet [facility] [address] [place] [address] Guero Padilla, HAZ TECH 03/10/20250771Eojaft55/26/2025 12:30 PM EDTTreatment [facility] [address] [place] [address] Lawrence Armstrong, PT Lumbar and sacral arthritis (Primary Dx); Left hip pain03/03/2025amboo flowsheet [facility] [address] [place] [address] Lawrence Armstrong, PT 03/03/20254538Odlorf52/21/2025 10:30 AM EDTTreatment [facility] [address] [place] [address] Guero Padilla, HAZ TECH Lumbar and sacral arthritis (Primary Dx); Left hip pain02/26/2025amboo flowsheet [facility] [address] [place] [address] Guero Padilla, HAZ TECH 02/26/20257717Yjrped51/19/2025 12:30 PM EDTTreatment [facility] [address] [place] [address] Guero Padilla, HAZ TECH Lumbar and sacral arthritis (Primary Dx); Left hip pain02/24/2025amboo flowsheet [facility] [address] [place] [address] Guero Padilla, HAZ TECH 02/24/20255634Yodxdp37/14/2025 12:30 PM EDTTreatment [facility] [address] [place] [address] Guero Padilla, HAZ TECH Lumbar and sacral arthritis (Primary Dx); Left hip pain02/19/2025amboo flowsheet [facility] [address] [place] [address] Guero Padilla, HAZ TECH 02/19/20250688Jthgyz13/12/2025 12:30 PM EDTTreatment [facility] [address] [place] [address] Guero Padilla, HAZ TECH Lumbar and sacral arthritis (Primary Dx); Left hip pain02/17/2025amboo flowsheet [facility] [address] [place] [address] Guero Padilla, HAZ TECH 02/17/20253877Kkqqfn99/08/2025 11:00 AM EDTEvaluation [facility] [address] [place] [address] Patti, Lawrence, PT Lumbar and sacral arthritis (Primary Dx); Left hip pain02/13/2025Plan of Care Documentation [facility] [address] [place] [id number] 02/13/2025amboo flowsheet [facility] [address] [place] [address] Lawrence Armstrong, PT 02/13/2025Travelfrom Last 3 Months Immunizations ImmunizationAdministration DatesNext DueInfluenza, High Dose Seasonal, Preservative Free04/10/2024,04/14/2022Influenza, High-dose Seasonal, Quadrivalent, Preservative Free04/18/2023Influenza, Seasonal, Quadrivalent, Hqimjvzonn87/01/2021Influenza, injectable, MDCK, preservative free, quadrivalent 07/17/2018Influenza, injectable, quadrivalent, preservative free05/01/2023, 04/01/2019Influenza, seasonal, sijsarfzxv94/20/2020Pneumococcal Conjugate PCV 13 02/09/2021neumococcal Conjugate PCV Pneumococcal Polysaccharide [id number] (adult), 5 Lf tetanus toxoid, preservative free, adsorbed 07/10/2012Tdap1,07/10/2012Zoster, Xqzkedzestz05/12/2019,04/01/2019 Social History Tobacco UseTypesPacks/DayYears UsedDateSmoking Tobacco: NeverSmokeless Tobacco: Never Tobacco Cessation:Counseling Given: Not Answered Alcohol UseStandard Drinks/WeekCommentsNot Currently0 (1 standard drink = 0.6 oz pure alcohol)Sex and Gender InformationValueDate RecordedSex Assigned at Not on fileLegal DxbVcws0509/20/2022 7:19 PM EDTGender IdentityChoose not to qjuvkxzn53/22/2023 3:10 PM EDTSexual OrientationChoose not to kgoykupw72/22/2023 3:10 PM EDT Last Filed Vital Signs Vital SignReadingTime TakenCommentsBlood Pressure--Pulse--Temperature-- Respiratory Rate--Oxygen Saturation--Inhaled Oxygen Concentration--Dtscfh43.4 kg (175 lb)10/23/2024 2:43 PM TDUZstgkn112.7 cm (5' 8 )10/23/2024 2:43 PM EDTBody Mass Index26.61010/23/2024 2:43 PM EDT Plan of Treatment DateTypeDepartmentCare Team (Latest Contact Info)Fttdmenbkbi73/11/2026 10:50 AM EDTOffice Visit [facility] [address] [place] [address] Concha García, ADMINISTRATIVE STAFF SUPERVISOR-[employer]VER[employer] SALESPERSON [address] [place] [address] Health MaintenanceDue DateLast DoneCommentsCT Pgwrfpeeqjho09/15/1956olonoscopy 1955 5942Raxzjjlnjuuar65/15/3588QVS61, 02/10/2019FOBT DTaP/Tdap/Td Vaccines (3 - Td or Tdap), 07/10/2012, 07/10/2012COVID-19 Vaccine ( - 2024- season), 10/25/2020, 09/21/2020Influenza Vaccine (#1)/09/2023, 05/01/2023, 04/18/2023, Additional history existsColorectal Cancer Innxokqvy63/10/2027 FIT-DNA, 1Pneumococcal Vaccine: 65+ YearsCompleted 08/12/2024, 02/09/2021, 07/17/2018HIB VaccinesAged OutNo longer eligible [...] on patient's age to complete this topicMeningococcal B VaccineAged OutNo longer eligible based on patient's age to complete this topicMeningococcal VaccineAged OutNo longer eligible based on patient's age to complete this topicRotavirus VaccinesAged OutNo longer eligible based on patient's age to complete this topic Insurance * Guarantor: Ramon Brand TypeRelation to PatientDate of BirthPhone Billing AddressPersonal/QebrokQehb28[birth year][address] [address] Care Teams Team MemberRelationshipSpecialtyStart DateEnd Date Edwardo Lopez DO [address] [place] [phone] PCP - General10/21/24 Lee Ann Gupta MD [address] [place] [address] Referring OintgskdvMaqewfovljy92/11/24 Dougie Marshall DO [address] [place] [address] Jqxvmervoongtq74/17/24
[2025-05-11 09:31] VITALS: BP 116/79; PULSE 60; TEMP 37.1; O2SAT 98
[2025-05-11 10:01] VITALS: BP 126/67; PULSE 57; O2SAT 97
[2025-05-11 10:02] VITALS: BP 127/69; PULSE 56; O2SAT 98
[2025-05-11] MEDS: BUPIVACAINE HCL 0.25% PF 25 MG/10 ML VIAL INJ (10:02)
[2025-05-11] MEDS: IOHEXOL 240 MG/ML - 10 ML VIAL 24 MG INJ (10:02)
[2025-05-11] MEDS: LIDOCAINE HCL 2% 400 MG/20 ML MDV INJ (10:02)
[2025-05-11] MEDS: 0.9 % SODIUM CHLORIDE 10 ML SYRINGE - SALINE FLUSH INJ (10:02)
[2025-05-11] MEDS: METHYLPREDNISOLONE ACETATE 80 MG/ML VIAL INJ (10:03)
--- NOTE | 2025-05-11 10:06 | P.ON_ITS ---
Date of procedure: 05/11/25 Pre-op diagnosis: Pain due to lumbar stenosis with neurogenic claudication Post-op diagnosis: same as pre-op Procedure: Procedure: Left L4-5, L5-S1 transforaminal epidural steroid injection Medications: Bupivacaine 0.25% 2cc, lidocaine 2% 1cc, depomedrol 80mg The patient was seen and examined in the preoperative holding area.? Informed consent was obtained and placed on the chart.? Patient was brought to the medical procedure unit and placed in the prone position where a timeout was completed verifying the correct patient, procedure site, position, and planned special equipment using sterile aseptic technique.? Under direct fluoroscopic visualization a 25-gauge Quincke tipped spinal needle was advanced to the designated neural foramen where contrast dye was injected to show adequate spread.? The needle was inserted at level left L4-5. There was no evidence of vascular or adverse uptake.? Epidural spread was appreciated.? The above- mentioned injectate was then placed in a 1.5 mL aliquot preceded by negative aspiration.? The needle was removed. The needle was inserted and the procedure repeated at level left L5-S1.? The surgery site was covered.? Patient was taken to the postprocedural recovery area and monitored for an appropriate length of time before found suitable for discharge in the accompaniment of a responsible adult. Anesthesia: Local Surgeon: Jesse Mckeon Pathology: none sent Condition: stable Disposition: no change
== END 2025-05-11 11:10 | disposition home or self-care (01) ==
PROVIDERS: PCP Family Medicine; Visit Provider Anesthesiology
DX: M48.062 Spinal stenosis, lumbar region with neurogenic claudication (principal); M54.50 Low back pain, unspecified
CPT/HCPCS: 64483; 64484; J0665; J1010; Q9966

== ENCOUNTER 2025-06-03 08:10 | Outpatient (OUT) | payer MEDICARE, OTHER, SELFPAY ==
--- OUTSIDE RECORDS SUMMARY | 2024-03-18 04:45 | XMS_ITS ---
Author Organization [facility] in [place] Address [address] [place] [address] Care Team Providers Care Vocational Counselor Name Role Phone Edwardo Lopez DO Primary Care Provider Riaz Rai Unavailable [phone] REASON FOR VISIT 5 week f/u Encounters Encounter Location Date Provider Diagnosis [facility] (PODIATRY) [address] [place] [address] [place] [address] 03/18/2024 Riaz Tan Plan Of Treatment No Information Progress Notes * Ramon BRANDDOB:1955 ( 69 yo M)Acc No.[id number]:03/18/2024 UNLOCKED PROGRESS NOTE Follow Up Patient: Ramon JUAREZ :?Riaz Tan DPM, MSDOB:1955???Age: 68 Y???Sex:MaleDate:4Phone:[phone]:[address] [place] [address], [id number]:Edwardo Lopez DO Subjective: * Chief Complaints: * 1 . 5 week f/u. * Medical History: Objective: * Vitals: Assessment: Plan: * Treatment: * * Electronic signature of Riaz Tan DPM on 06/03/2025 at 08:13 AM ESTSign off status: PendingVisit Status:?CANC (Cancelled) * Provider: Vashti Tan DPM, MS Date: 0 03/18/2024 Generated for Printing/Faxing/eTransmitting on:?06/03/2025 08:13 AM EST
--- OUTSIDE RECORDS SUMMARY | 2025-06-03 08:13 | XMS_ITS | CCD ---
Author Organization [facility] Care Team Providers Care Utility Bill Complaints Investigator Name Role Phone Edwardo Michael Unavailable Unavailable Unavailable JOHN, DR BROOKE Attending Unavailable JOHN, DR BROOKE Consulting Unavailable JOHN, DR BROOKE Admitting Unavailable Edwardo Michael Unavailable John, DO Brooke Primary Care Provider [phone] John, DO Brooke Attending Provider [phone] DO Edwardo Michael Primary Care Provider John, DO Brooke Attending Provider John, DO Brooke Primary Care Provider [phone] John, DO Brooke Attending Provider DO Dougie Abernathy Attending Provider [phone] Edwardo Mihcael DO Primary Care Provider Edwardo Michael DO Primary Care Provider [phone] BENNY MURRY Attending Unavailable EDWARDO MICHAEL Primary [...] [ALLERGIES NOT ON FILE]Propensity to adverse reactions (disorder)[facility] 3 Repository Medications Current Medications MedicationDrug Class(es)DatesSig (Normalized)Sig (Original)Ascorbic Acid (6 sources)Vitamin CVitamin C Activeaspirin 81 mg delayed release oral tablet (4 sources)Platelet Aggregation Inhibitor, Nonsteroidal Anti-inflammatory Drug Start: 06-28-4601pjce 1 tablet by mouth once dailyAspirin 81 mg tablet,delayed release (DR/EC) Active 81 MG PO Daily April 30, 2024 12:00am Complies with drug therapyazithromycin 250 mg oral tablet (4 sources)Macrolide AntimicrobialStart: 92-92-1351Dbimbwhdl Z-Romero 250 MG as directed Orally May, Activecholecalciferol 0.05 mg oral capsule (5 sources)Vitamin DStart: 36-95-3953haoz 1 capsule by mouth once daily Cholecalciferol (Vitamin D3) 50 mcg (2,000 unit) capsule Active 50 MCG PO Daily April 07, 2024 12:00am Complies with drug therapyezetimibe 10 mg oral tablet (20 sources)Dietary Cholesterol Absorption InhibitorStart: 04-07-2024 End: 16-33-0904tmbm 1 tablet by mouth once dailyEzetimibe (Zetia) 10 mg tablet Active 10 MG PO Daily April 15, 2025 10:25am Complies with drug therapy Start: 21-79-3931puhj 1 tablet by mouth every twenty-four hoursZetia 10 MG 1 tablet Orally Once a day Sep, Activefluorouracil 50 mg/ml topical cream (4 sources)Nucleoside Metabolic InhibitorStart: 29-43-1015Tzzvtrelfwjh (Efudex) 5 % cream Active 1 APPLIC TOPICAL Twice daily 40 April 30, 2024 12:00am Complies with drug therapymethylPREDNISolone 4 mg oral tablet (4 sources)CorticosteroidStart: 31-12-5848Nsnuqr 4 MG as directed Orally May, ActiveMultivitamin preparation (2 sources)Start: 86-24-1447pgtn 1 tablet by mouth once dailyMultivitamin Active 1 TAB PO Daily April 30, 2024 12:00amMultivitamin tablet (2 sources)Start: 20-05-5905agap 1 tablet by mouth once dailyMultivitamin tablet Active 1 TAB PO Daily April 30, 2024 12:00am Complies with drug therapy Start: 96-35-7969uusr 1 tablet by mouth once dailypredniSONE 10 mg oral tablet (1 source)Start: 22-00-8854jlevnsHFSW (Deltasone) 10 mg tablet Indications: Right shoulder pain, unspecified chronicity , Tendinitis of right rotator cuff 50MG FOR 2 DAYS, 40MG FOR 2 DAYS, 30MG FOR 2 DAYS, 20MG FOR 2 DAYS, 10MG FOR 2 DAYS 30 tablet 12/31/2024 Activesildenafil 100 mg oral tablet (17 sources)Phosphodiesterase 5 InhibitorStart: 04-07-2024 End: 90-38-9293yvvq 1 tablet by mouth once daily as neededSildenafil (Viagra) 100 mg tablet Active 100 MG PO Daily as needed for sexual activity April 302023 10:25am Complies with drug therapyStart: 13-74-1626fxst 1 tablet by mouth every twenty-four hoursViagra 100 MG 1 tablet as needed Orally Once a day for 30 day(s) alternates with cialis, NO NOT TAKE TOGETHER Jan, Active Vitamin D (6 sources)Vitamin D ActiveZinc (6 sources)Zinc Activezinc gluconate 50 mg oral tablet (5 sources)Start: 08-30-0612ohzh 1 tablet by mouth once dailyZinc Gluconate 50 mg tablet Active 50 MG PO Daily April 07, 2024 12:00am Complies with drug therapy Completed/Discontinued Medications MedicationDrug Class(es)DatesSig (Normalized)Sig (Original)betamethasone 3 mg/ml / betamethasone acetate 3 mg/ml injectable suspension (4 sources)CorticosteroidStart: 12-31-2024 End: 56-86-7725vxoyplbrcyiyo acet,sod phos (Celestone) injection 2 mLStart: 12-31-2024 End: mL, intra-articular, Once PRN Procedure, Starting on Sun12/31/24 at 1450, For 1 doseStart: 25-34-1110Bzlpkhmbxobhl Sod Phos & Acet 6 (3- 3) MG/ML Injection Suspension USE DIRECTED. Quantity: 0 Refills: 0 Ordered: 27-Apr-2021 Benny Murry MD Start : 27-Apr-2021 CompleteLidocaine (4 sources)Antiarrhythmic, Amide Local AnestheticStart: 12-31-2024 End: 26-92-3559zxzwphawf (Xylocaine) 10 mg/mL (1 %) injection 5 mLStart: 12-31-2024 End: mL, injection, Once PRN Procedure, Starting on Sun12/31/24 at 1450, For 1 doseStart: 65-54-1964Hhfhwwrja HCl - 1 % Injection Solution USE DIRECTED. Quantity: 0 Refills: 0 Ordered: 40-Lfk-1536Vanyshm MD, Robert Start : 27-Apr-2021 Completetadalafil 20 mg oral tablet (16 sources)Phosphodiesterase 5 InhibitorStart: 04-07-2024 End: 17-57-3501kfdj 1 tablet by mouth once daily as neededTadalafil 20 mg tablet Discontinued 20 MG PO Daily as needed April 07, 2024 12:00am April 30, 2024 9:34am FreeTextSi tablet as needed Orally once a day PRN; Note: Source Status: Takingalternates with viagra, DO NOT TAKE TOGETHER; Refills: 3; Provider: John Brooke PStart: 99-92-7970bykr 1 tablet by mouth once daily as neededCialis 20 MG 1 tablet as needed Orally once a day PRN alternates with viagra, DO NOT TAKE TOGETHER Apr, ActiveTriamcinolone (8 sources)CorticosteroidStart: 65-75-4769Jfrmxfh -40 mg Jan, 40 mg Problems Active Problems Problem ClassificationProblemDateDocumented DateEpisodic/ChronicAnxiety disorders (17 sources)Anxiety; Translations: [Anxiety disorder, unspecified]Onset: 275045-06-8214VeysmqqIlbuvbc dysrhythmias (1 source)PalpitationsEpisodicDiabetes mellitus without complication (6 sources)Hyperglycemia; Translations: [Hyperglycemia, unspecified]04-30-2024 EpisodicDisorders of lipid metabolism (20 sources)Hyperlipidemia; Translations: [Hyperlipidemia, unspecified]Onset: 04-13-2021 Resolved: 04-68-1791BwaqngxEyxbeyxhohhod and screening for infectious disease (9 sources)Contact with and (suspected) exposure to other viral communicable diseases; Translations: [Encounter for screening for other viral diseases]Onset: 04-22-2021 Resolved: 02-37-8320NfjyokhuLfagwinlbtc deficiencies (20 sources)Vitamin D deficiency; Translations: [Vitamin D deficiency, unspecified]Onset: 03-07-2022 Resolved: 09-38-9191QmxtlamAhqe wounds of extremities (1 source)Laceration without foreign body of right middle finger without damage to nail, initial encounterEpisodicOsteoarthritis (17 sources)Bilateral shoulder osteoarthritis; Translations: [Osteoarthrosis, localized, primary, shoulder region]36-54-6467EepusdyYvapq connective tissue disease (4 sources)Neurological symptom; Translations: [Unspecified symptoms and signs involving the nervous system]48-62-5421ZnuvlnxlJrkne connective tissue disease (1 source)Tendinitis of right rotator cuff; Translations: [Other shoulder lesions, right shoulder]07-77-1429VyukyecgGuerk connective tissue disease (2 sources)Other shoulder lesions, right shoulder; Translations: [Other shoulder lesions, right shoulder]Onset: 02-84-7954UejdirniLswot male genital disorders (11 sources)Impotence of organic origin; Translations: [Male erectile dysfunction, unspecified]ChronicOther male genital disorders (3 sources)Male erectile dysfunction, unspecified; Translations: [Erectile dysfunction N52.9]Onset: 04-13-2021 Resolved: 10-54-0668YitikzvZgvml non-traumatic joint disorders (1 source)Shoulder pain; Translations: [Pain in joint, shoulder region]Episodic Other non-traumatic joint disorders (2 sources)Hip pain; Translations: [Pain in left hip]14-17-8610KoeipdvoMbyha non-traumatic joint disorders (3 sources)Pain in right shoulder; Translations: [Pain in joint, shoulder region]Onset: 185826-32-3725DhhgbuzpQyuqn non-traumatic joint disorders (2 sources)Pain in left [...] sources)Lumbar radiculopathy; Translations: [Low back pain]Onset: 01-15-2025 99-38-0760DytoarwiCgofmeb disorders (12 sources)Thyroid nodule; Translations: [Nontoxic single thyroid nodule] ChronicUnclassified (3 sources)CONTACT W/AND (SUSP) EXPOS COVID-19; Translations: [CONTACT W/AND (SUSP) EXPOS COVID-19]Onset: 92-26-3586Bxkhzjdlifnm (3 sources)Right shoulder pain, unspecified ofaevhmxqm19-54-8545Tulkbwnyrbgl (1 source)Low back pain, unspecified; Translations: [Low back pain, unspecified] Onset: 01-15-2025 Past or Other Problems Problem ClassificationProblemDateDocumented DateEpisodic/ChronicOther connective tissue disease (3 sources)Unspecified symptoms and signs involving the nervous system; Translations: [Other symptoms involving nervous and musculoskeletal systems] Onset: 796506-85-0439AuertlptRhrur non-epithelial cancer of skin (7 sources)Malignant neoplasm of skin; Translations: [Other specified malignant neoplasm of skin, unspecified]Onset: 321239-93-0048HiqgleozEepvh screening for suspected conditions (not mental disorders or infectious disease) (20 sources)Patient encounter status; Translations: [Encounter for screening for cardiovascular disorders]Onset: 04-13-2021 Resolved: 08-40-4835WqnaluneYfclu skin disorders (1 source)Disorder of the skin and subcutaneous tissue, unspecified; Translations: [Disorder of the skin and subcutaneous tissue, unspecified]Onset: 01-64-7295QxcfvgmrJdawslps codes; unclassified (1 source)Other amnesia; Translations: [Memory changes R41.3]Onset: 04-13-2021 Resolved: 33-12-3135JzrxnyweLlfmpndhssbr (1 source)CONTACT W/AND (SUSP) EXPOS COVID-19; Translations: [CONTACT W/AND (SUSP) EXPOS COVID-19]Onset: 64-47-5706Iqcpfhwtqovd (1 source)Low back pain, unspecified; Translations: [Low back pain, unspecified] Onset: 01-15-2025 Results Test NameValueInterpretationReference RangeFacilityAlanine aminotransferase [Enzymatic activity/volume] in Serum or PlasmaOrdered By: Edwardo Michael on 71-84-7431VUY [Catalytic activity/Vol]21 U/LNormal7-52[facility] HospitalComment on above:Performed By: #### CMP, LIPID, TSH3, CBC, PSAS ####[facility] [place] [address] USAAlbumin [Mass/volume] in Serum or Plasma by Bromocresol green (BCG) dye binding metho Ordered By: Edwardo Michael on 07-81-6470Vijhhml BCG dye [Mass/Vol]4.3 g/dL3.5-5.7 [facility] HospitalAlkaline phosphatase [Enzymatic activity/volume] in Serum or PlasmaOrdered By: Edwardo Michael on 70-33-4593SAI [Catalytic activity/Vol]73 U/VJpwxnk99-315PavqrtpmjOhiohealth Grove City Methodist Hospital Comment on above:Performed By: #### CMP, LIPID, TSH3, CBC, PSAS ####[facility] [place] [address] USAAspartate aminotransferase [Enzymatic activity/volume] in Serum or PlasmaOrdered By: Edwardo Michael on 87-20-8642LJG [Catalytic activity/Vol]22 U/VVorwrp72-66LjxupulwmOhiohealth Grove City Methodist HospitalComment on above:Performed By: #### CMP, LIPID, TSH3, CBC, PSAS ####[facility] [place] [address] USABasophils [#/volume] in Blood by Automated countOrdered By: Edwardo Michael on 21-72-8038Vzxmldwdz (Bld) [#/Vol]0.0 10*3/uLNormal0.0-0.2FWexner Medical CenterComment on above:Result Comment: PERFORMED BY: [facility] [address] [place] [address] PATHOLOGIST DELI WORKER LIVIER MOSS M.D.Performed By: #### CMP, LIPID, TSH3, CBC, PSAS #### [place] [address] USABasophils/100 leukocytes in Blood by Automated count Ordered By: Edwardo Michael on 00-75-6830Grojcesrw/100 WBC (Bld)0.7 %Normal.[facility] HospitalComment on above:Performed By: #### CMP, LIPID, TSH3, CBC, PSAS #### [facility] [address] [place] [address] USABilirubin.total [Mass/volume] in Serum or PlasmaOrdered By: Edwardo Michael on 88-17-6278Coqkecric [Mass/Vol]0.7 mg/dLNormal0.3-1.0[facility] HospitalComment on above:Performed By: #### CMP, LIPID, TSH3, CBC, PSAS ####[facility] [place] [id number] USACalcium [Mass/volume] in Serum or PlasmaOrdered By: Edwardo Michael on 04-08-2025 Calcium [Mass/Vol]9.5 mg/dLNormal8.6-10.3FWexner Medical Center Comment on above:Performed By: #### CMP, LIPID, TSH3, CBC, PSAS ####[place] [address] [place] [id number] USACarbon dioxide, total [Moles/volume] in Serum or PlasmaOrdered By: Edwardo Michael on 09-11-5032AG4 [Moles/Vol]28.4 mmol/EEhcjlo57.0-31.0[facility] HospitalComment on above:Performed By: #### CMP, LIPID, TSH3, CBC, PSAS ####[place] [id number] USAChloride [Moles/volume] in Serum or PlasmaOrdered By: Edwardo Michael on 27-09-0398Irdhqcls [Moles/Vol]106 mmol/NBailtn09-154TfccguobyOhiohealth Grove City Methodist HospitalComment on above:Performed By: #### CMP, LIPID, TSH3, CBC, PSAS ####[place] [id number] USACholesterol [Mass/volume] in Serum or Plasma Ordered By: Edwardo Michael on 13-42-2317Jfvjztmxcsy [Mass/Vol]203 mg/qCLvyy539-713 [facility] HospitalComment on above:Chol less than 200 mg/dl low riskChol 201-239 mg/dl borderline riskChol 240 mg/dl and greater high riskResult Comment: Chol less than 200 mg/dl low risk Chol 201-239 mg/dl borderline risk Chol 240 mg/dl and greater high riskPerformed By: #### CMP, LIPID, TSH3, CBC, PSAS ####[facility] [address] [place] [address] [place] Cholesterol in HDL [Mass/volume] in Serum or PlasmaOrdered By: Edwardo Michael on 73-21-3985Zbmuydkgvsg in HDL [Mass/Vol]37 mg/lBFpxzxy49-38HeresbnytOhiohealth Grove City Methodist HospitalComment on above:HDL CHOL ATP-III CLASSIFICATION Cardiovascular RiskHDL > or equal to 60 mg/dL LOWHDL < 40 mg/dL HIGHResult Comment: HDL CHOL ATP-III CLASSIFICATION Cardiovascular Risk HDL > or equal to 60 mg/dL LOW HDL < 40 mg/dL HIGHPerformed By: #### CMP, LIPID, TSH3, CBC, PSAS ####[facility] [address] [place] [address] USACholesterol in LDL Calc [Mass/Vol]Ordered By: Edwardo Michael on 26-90-1808Dgqkbobjpmb in LDL [Mass/Vol] 142 mg/dLHigh0-100[facility] HospitalComment on above:LDL ATP III CLASSIFICATIONLDL less than 100 mg/dL OptimalLDL 100-129 mg/dL Near or above ivilchqMQH207-547 mg/dL Borderline highLDL 160-189 mg/dL HighLDL greater than 189 mg/dL Very highCholesterol in VLDL Calc [Mass/Vol]Ordered By: Edwardo Michael on 20-04-3200Rspcxztxefo in VLDL [Mass/Vol]24 mg/dLOhiohealth Grove City Methodist HospitalComplete Blood Count Auto Diffon 98-38-8985Nkkq Corpuscular HGB Conc34.3 g/uLFnbctn63.5-35.6The [facility] Physician GroupComment on above:Performed By: #### CMP, LIPID, TSH3, CBC, PSAS #### [facility] [address] [place] [address] USANRBC%0.2 /100{WBC}Normal0-0.5[facility] Comment on above:Performed By: #### CMP, LIPID, TSH3, CBC, PSAS #### [facility] [address] [place] [address] USAWhite Blood Count5.6 [CFU]/mLNormal4.1-10.5The [facility] Physician GroupComment on above:Performed By: #### CMP, LIPID, TSH3, CBC, PSAS #### [facility] [address] [place] [address] USAComprehensive Metabolic Panelon 38-15-6374Kwixtrh [Mass/Vol]4.3 g/dLNormal3.5-5.7The [facility] Physician GroupComment on above: Performed By: #### CMP, LIPID, TSH3, CBC, PSAS ####[facility] [place] [address] USAGFR/1.73 sq M.predicted MDRD (S/P/Bld) [Vol rate/Area]mL/min/{1.73_m2}NormalThe Formerly [facility] Physician GroupComment on above:Performed By: #### CMP, LIPID, TSH3, CBC, PSAS ####[facility] [place] [address] USACreatinine [Mass/volume] in Serum or PlasmaOrdered By: Edwardo Michael on 67-96-6082Sbvwikfyuj [Mass/Vol]1.01 mg/dLNormal0.70-1.30[facility] HospitalComment on above:Performed By: #### CMP, LIPID, TSH3, CBC, PSAS ####[facility] [place] [address] USAEosinophils [#/volume] in Blood by Automated countOrdered By: Edwardo Michael on 21-91-1155Uqdgofigvrk (Bld) [#/Vol]0.1 10*3/uL Normal0.0-0.45[facility] HospitalComment on above:Performed By: #### CMP, LIPID, TSH3, CBC, PSAS #### [facility] [address] [place] [address] USAEosinophils/100 leukocytes in Blood by Automated count Ordered By: Edwardo Michael on 87-77-6967Lhnximjnvdr/100 WBC (Bld)1.6 %Normal. [facility] HospitalComment on above:Performed By: #### CMP, LIPID, TSH3, CBC, PSAS #### [facility] [address] [place] [address] USAErythrocyte distribution width [Ratio] by Automated count Ordered By: Edwardo Michael on 73-13-7330Eydfjryzrjn distribution width (RBC) [Ratio] 12.8 %Bneijp49.0-14.8[facility] HospitalComment on above:Performed By: #### CMP, LIPID, TSH3, CBC, PSAS #### [facility] [address] [place] [address] USAErythrocytes [#/volume] in Blood by Automated countOrdered By: Edwardo Michael on 70-86-9323FAF (Bld) [#/Vol]4.77 10*6/uLNormal3.90-5.60 [facility] HospitalComment on above:Performed By: #### CMP, LIPID, TSH3, CBC, PSAS #### [place] [address] USAGlomerular filtration rate [Volume Rate/Area] in Serum, Plasma or Blood by CreatinineOrdered By: Edwardo Michael on 42-91-1623Vobtouinhw filtration rate [Volume Rate/Area] in Serum, Plasma or Blood by Creatinine> 60.0 mL/MinOhiohealth Grove City Methodist HospitalGlucose [Mass/volume] in Serum or Plasma Ordered By: Edwardo Michael on 64-41-8197Plbnrov [Mass/Vol]105 mg/yDMiin20-882 [facility] HospitalComment on above:ADA recommended reference rangeRandom Glucose Reference [...] #### CMP, LIPID, TSH3, CBC, PSAS ####[facility] [address] [place] [address] [place] Hematocrit [Volume Fraction] of Blood by Automated countOrdered By: Edwardo Michael on 36-16-1343Ibvoglatcz (Bld) [Volume fraction]44.4 %Gaoqxk35.8-50.0[facility] HospitalComment on above:Performed By: #### CMP, LIPID, TSH3, CBC, PSAS #### [facility] [address] [place] [address] USAHemoglobin [Mass/volume] in BloodOrdered By: Edwardo Michael on 30-62-4094Otwnbihgxv (Bld) [Mass/Vol]15.2 g/bFUuhwjt53.0-17.0[facility] HospitalComment on above:Performed By: #### CMP, LIPID, TSH3, CBC, PSAS #### [facility] [address] [place] [address] USALeukocytes [#/volume] corrected for nucleated erythrocytes in Blood by Automated counOrdered By: Edwardo Michael on 17-27-6655QHF corrected for nucl RBC Auto (Bld) [#/Vol]5.6 10*3/uL4.1-10.5FWexner Medical Center Leukocytes [#/volume] in Blood by Automated countOrdered By: Edwardo Michael on 80-72-5278DTC (Bld) [#/Vol]5.6 10*3/uLNormal4.1-10.5FWexner Medical CenterComment on above:Performed By: #### CMP, LIPID, TSH3, CBC, PSAS #### [facility] [address] [place] [address] USALipid Panelon 05-31-5280HYK Cholesterol,Ecoaqjrebs153 mg/dLHigh0-100The [facility] Physician GroupComment on above:Result Comment: LDL ATP III CLASSIFICATION LDL less than 100 mg/dL Optimal LDL 100-129 mg/dL Near or above optimal LDL 130-159 mg/dL Borderline high LDL 160-189 mg/dL High LDL greater than 189 mg/dL Very highPerformed By: #### CMP, LIPID, TSH3, CBC, PSAS ####[facility] Triglyceride w/Hbjkxg977 mg/dLNormal0-149[facility] Physician GroupComment on above:Result Comment: TRIG ATP III CLASSIFICATION TRIG less than 150 mg/dL Normal TRIG 150-199 mg/dL Borderline high TRIG 200-500 mg/dL High TRIG greater than 500 mg/dL Very high Standard traceable to the Center for Disease Conrtrol and Prevention (CDC) test method.Performed By: #### CMP, LIPID, TSH3, CBC, PSAS ####[facility] [place] [address] USAVLDL KFCNPJKEGMA84 mg/dLNormAdventHealth Four Corners ER Physician GroupComment on above:Performed By: #### CMP, LIPID, TSH3, CBC, PSAS ####[facility] [place] [address] USALymphocytes [#/volume] in Blood by Automated countOrdered By: Edwardo Michael on 92-20-8087Whrogrkntgz (Bld) [#/Vol]1.3 10*3/uL Normal1.00-4.8[facility] HospitalComment on above:Performed By: #### CMP, LIPID, TSH3, CBC, PSAS #### [place] [address] USALymphocytes/100 leukocytes in Blood by Automated count Ordered By: Edwardo Michael on 17-00-8748Awfdezanpop/100 WBC (Bld)23.2 %Normal. [facility] HospitalComment on above:Performed By: #### CMP, LIPID, TSH3, CBC, PSAS #### [facility] [address]H [Entitic mass] by Automated countOrdered By: Edwardo Michael on 89-92-7917GAE (RBC) [Entitic mass]31.9 yaGyasgk72.5-35.2FWexner Medical CenterComment on above:Performed By: #### CMP, LIPID, TSH3, CBC, PSAS #### [facility] [address] Auto (RBC) [Mass/Vol]Ordered By: Edwardo Michael on 18-46-4905OGJU (RBC) [Mass/Vol]34.3 g/dL32.5-35.6FWexner Medical CenterMCV [Entitic volume] by Automated countOrdered By: Edwardo Michael on 77-59-7015CWY (RBC) [Entitic vol]93.1 gPPqztnd66.5-101[facility] HospitalComment on above:Performed By: #### CMP, LIPID, TSH3, CBC, PSAS #### [facility] [address] [place] [address] USAMonocytes [#/volume] in Blood by Automated countOrdered By: Edwardo Michael on 92-06-3744Efbuhljwo (Bld) [#/Vol]0.6 10*3/uLNormal0.0-0.8 [facility] HospitalComment on above:Performed By: #### CMP, LIPID, TSH3, CBC, PSAS #### [facility] [address] [place] [id number] USAMonocytes/100 leukocytes in Blood by Automated count Ordered By: Edwardo Michael on 03-85-2056Gcjchixuh/100 WBC (Bld)10.0 %Normal. [facility] HospitalComment on above:Performed By: #### CMP, LIPID, TSH3, CBC, PSAS #### [facility] [address] [place] [address] USANeutrophils [#/volume] in Blood by Automated countOrdered By: Edwardo Michael on 53-53-4487Holjppbudiq (Bld) [#/Vol]3.6 10*3/uLNormal1.8-7.7 [facility] HospitalComment on above:Performed By: #### CMP, LIPID, TSH3, CBC, PSAS #### [facility] [address] [place] [id number] USANeutrophils/100 leukocytes in Blood by Automated count Ordered By: Edwardo Michael on 36-10-3987Nsattyhpycq/100 WBC (Bld)64.5 %Normal. [facility] HospitalComment on above:Performed By: #### CMP, LIPID, TSH3, CBC, PSAS #### [facility] [address] [place] [address] USANo Panel InformationOrdered By: Edwardo Michael on 04-08-2025 Pharmacy Creatinine Clearance (ChemN/AFWexner Medical CenterNucleated erythrocytes [Presence] in Blood by Automated countOrdered By: Edwardo Michael on 15-57-8688Alcdmryee RBC Auto Ql (Bld)0.2 /100{WBC}0-0.5FWexner Medical CenterPSA Screen (Yearly Only)on 83-96-5297LYU Screen (Yearly Only)0.620 ng/mLNormal0.000-4.000The [facility] Physician GroupComment on above:Order Comment: Is patient <50 yrs? Medicare does not pay <50.: N What is the date of the last PSA Screen?: [id number] Is Medicare the insurance?: Y Did you verify eligibility (Dx Time) check TestViewGp: YES TO ALLResult Comment: Serial tumor marker results determined by assays using different manufacturers or methods may not be comparable. [facility] Laboratory fundraising coordinator and method: [employer] SystemsEL DXI, CHEMILUMINESCENT IMMUNOASSAY. PERFORMED BY: [place] [address] PATHOLOGIST DELI WORKER LIVIER MOSS M.D.Performed By: #### CMP, LIPID, TSH3, CBC, PSAS #### [place] [id number] USAPlatelet mean volume [Entitic volume] in Blood by Automated countOrdered By: Edwardo Michael on 96-91-6844Kasdxtnl mean volume (Bld) [Entitic vol]9.8 fLNormal6.6-10.1FWexner Medical CenterComment on above:Performed By: #### CMP, LIPID, TSH3, CBC, PSAS #### [facility] [address] [place] [id number] USAPlatelets [#/volume] in Blood by Automated countOrdered By: Edwardo Michael on 83-60-5730Dfbkvaryn (Bld) [#/Vol]268 10*3/hKDqlchv530-436 [facility] HospitalComment on above:Performed By: #### CMP, LIPID, TSH3, CBC, PSAS #### [facility] [address] [place] [address] USAPotassium [Moles/volume] in Serum or PlasmaOrdered By: Edwardo Michael on 13-90-3849Aehimyszz [Moles/Vol]4.5 mmol/LNormal3.5-5.1FWexner Medical CenterComment on above:Performed By: #### CMP, LIPID, TSH3, CBC, PSAS ####[facility] [address] [place] [address] USAProstate specific Ag [Mass/volume] in Serum or PlasmaOrdered By: Edwardo Michael on 49-72-5639Tvhocuxf specific Ag [Mass/Vol]0.620 ng/mL0.000-4.000Ohiohealth Grove City Methodist HospitalComment on above:Serial tumor marker results determined by assays using different manufacturers or methods may not be comparable.[facility] Laboratory fundraising coordinator and method:[employer]ile[employer] DXI, CHEMILUMINESCENT IMMUNOASSAY.Protein [Mass/volume] in Serum or PlasmaOrdered By: Edwardo Michael on 55-34-4367Nrfrssg [Mass/Vol]7.1 g/dLNormal6.4-8.9Ohiohealth Grove City Methodist HospitalComment on above:Performed By: #### CMP, LIPID, TSH3, CBC, PSAS ####[facility] [place] [address] USASerum globulin measurement by calculation (mass/volume)Ordered By: Edwardo Michael on 87-20-7403Agffrtdd (S) [Mass/Vol]2.8 g/dLNormalOhiohealth Grove City Methodist HospitalComment on above:Performed By: #### CMP, LIPID, TSH3, CBC, PSAS ####[facility] [place] [address] USASerum or plasma albumin/globulin mass ratioOrdered By: Edwardo Michael on 04-08-2025 Albumin/Globulin [Mass ratio]1.5 {ratio}NormalOhiohealth Grove City Methodist Hospital Comment on above:Performed By: #### CMP, LIPID, TSH3, CBC, PSAS ####[address] [place] [address] USASerum or plasma anion gap determinationOrdered By: Edwardo Michael on 36-90-7609Hcvsl gap [Moles/Vol]10.1 mmol/LNormal6.0-15.0Ohio[facility] City Methodist HospitalComment on above:Performed By: #### CMP, LIPID, TSH3, CBC, PSAS ####[address] [address] USASerum or plasma total cholesterol/high density lipoprotein (HDL) cholesterol mass ratOrdered By: Edwardo Michael on 04-08-2025 Cholesterol.total/Cholesterol in HDL [Mass ratio]5.5 {ratio}Normal<5.0Ohio[facility] Grove City Methodist HospitalComment on above:Performed By: #### CMP, LIPID, TSH3, CBC, PSAS ####[address] [address] USASodium [Moles/volume] in Serum or PlasmaOrdered By: Edwardo Michael on 04-08-2025 Sodium [Moles/Vol]140 mmol/QAikmar032-477YllqyhbwaOhiohealth Grove City Methodist Hospital Comment on above:Performed By: #### CMP, LIPID, TSH3, CBC, PSAS ####[address] [address] USAThyrotropin [Units/volume] in Serum or PlasmaOrdered By: Edwardo Michael on 98-25-2055FGY Qn1.23 m[IU]/LNormal0.45-5.33Ohio[facility] Grove City Methodist HospitalComment on above:Result Comment: PERFORMED BY: [facility] [address] [place] [address] PATHOLOGIST DELI WORKER LIVIER MOSS M.D.Performed By: #### CMP, LIPID, TSH3, CBC, PSAS ####[address] [address] [place] Triglyceride [Mass/volume] in Serum or PlasmaOrdered By: Edwardo Michael on 87-55-7641Orrptcqbtkto [Mass/Vol]122 mg/dL0-149[facility] Comment on above:TRIG ATP III CLASSIFICATIONTRIG less than 150 mg/dL NormalTRIG 150-199 mg/dL Borderline highTRIG 200-500 mg/dL High TRIG greater than 500 mg/dL Very highStandard traceable to the Center for Disease Conrtrol and Prevention (CDC) test method.Urea nitrogen [Mass/volume] in Serum or PlasmaOrdered By: Edwardo Michael on 73-80-5779Lktf nitrogen [Mass/Vol]17 mg/dLNormal01-30Ohio[facility] City Methodist HospitalComment on above:Performed By: #### CMP, LIPID, TSH3, CBC, PSAS ####[facility] [address] [place] [address] USAXR LUMBAR SPINE 4+ VIEWS WITH FLEXION EXTENSIONon 05-33-5566WO LUMBAR SPINE 4+ VIEWS WITH FLEXION EXTENSIONInterpreted By: Benny Edwards, STUDY: XR LUMBAR SPINE 4+ VIEWS WITH FLEXION EXTENSION; 01/15/2025 1:09 pm INDICATION: Signs/Symptoms:pain. ACCESSION NUMBER(S): [id number] ORDERING CLINICIAN: BENNY EDWARDS FINDINGS: AP lateral [...] Benny Edwards 01/16/2025 1:03 PM Dictation workstation: [id number] Hospitals AmbulatoryL Inj/Asp: R subacromial bursaon 13-74-7960RocnodBenny Murry MD 12/31/2024 2:50 PM L Inj/Asp: [...] to verify the correct patient, procedure, equipment, application support manager and site/side marked as required. [facility] Work Phone: [facility] Work Phone: XR HIP LEFT WITH PELVIS WHEN PERFORMED 2 OR 3 VIEWSon 60-37-5070NJ HIP LEFT WITH PELVIS WHEN PERFORMED 2 OR 3 VIEWSInterpreted By: Benny Murry, STUDY: XR HIP LEFT WITH PELVIS WHEN PERFORMED 2 OR 3 VIEWS; 12/31/2024 2:41 pm INDICATION: Signs/Symptoms:pain. 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 No fracture dislocation noted Signed by: Benny Murry 12/31/2024 2:54 PM Dictation workstation: [id number] Memorial HospitalComment on above:Order Comment: AP/LATXR Hip Viewson 18-57-2748Vgaepltwlwt By: Benny Murry STUDY: XR HIP LEFT WITH PELVIS WHEN PERFORMED 2 OR 3 VIEWS; 12/31/2024 2:41 pm INDICATION: Signs/Symptoms:pain. 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 No fracture dislocation noted Signed by: Benny Murry 12/31/2024 2:54 PM Dictation workstation: [id number] Benny Gupta MD - 12/31/2024 Interpreted By: Benny Murry STUDY: XR HIP LEFT WITH PELVIS WHEN PERFORMED 2 OR 3 VIEWS; 12/31/2024 2:41 pm INDICATION: Signs/Symptoms:pain. 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 No fracture dislocation noted Signed by: Benny Murry 12/31/2024 2:54 PM Dictation workstation: [id number] [facility] Work Phone: [facility] Work Phone: Radiology Study observation (narrative)[facility] Work Phone: XR SHOULDER RIGHT 2+ VIEWSon 70-56-0644RB SHOULDER RIGHT 2+ VIEWSInterpreted By: Benny Murry, STUDY: XR SHOULDER RIGHT 2+ VIEWS; 12/31/2024 2:53 pm INDICATION: Signs/Symptoms:pain. ACCESSION NUMBER(S): [id number] ORDERING CLINICIAN: BENNY MURRY FINDINGS: AP axillary right shoulder shows advanced arthritis right glenohumeral joint osteophyte spur formation is noted. The subacromial space is still preserved. On the axillary view there is severe arthrosis with dyiz-ef-ftpm arthritis Signed by: Benny Murry 12/31/2024 2:54 PM Dictation workstation: [id number] Memorial HospitalXR Shoulder - right 2 Viewson [id number] By: Benny Murry, STUDY: XR SHOULDER RIGHT 2+ VIEWS; 12/31/2024 2:53 pm INDICATION: Signs/Symptoms:pain. ACCESSION NUMBER(S): [id number] ORDERING CLINICIAN: BENNY MURRY FINDINGS: AP axillary right shoulder shows advanced arthritis right glenohumeral joint osteophyte spur formation is noted. The subacromial space is still preserved. On the axillary view there is severe arthrosis with usci-de-gkyf arthritis Signed by: Benny Murry 12/31/2024 2:54 PM Dictation workstation: [id number] Benny Gupta MD - 12/31/2024 Interpreted By: Benny Murry, STUDY: XR SHOULDER RIGHT 2+ VIEWS; 12/31/2024 2:53 pm INDICATION: Signs/Symptoms:pain. ACCESSION NUMBER(S): [id number] ORDERING CLINICIAN: BENNY MURRY FINDINGS: AP axillary right shoulder shows advanced arthritis right glenohumeral joint osteophyte spur formation is noted. The subacromial space is still preserved. On the axillary view there is severe arthrosis with wykl-xp-vahj arthritis Signed by: Benny Murry 12/31/2024 2:54 PM Dictation workstation: [id number] [facility] Work Phone: [facility] Work Phone: Radiology Study observation (narrative)[facility] Work Phone: Lon 06-02-2024 Specimen: [id number] Received: 06/02/24 Status: ANNA Valenzuela Num: [id number] Spec Type: Surgical Subm Dr: Dougie Abernathy DO Tissues: A Skin-Other than Cyst, tag, debridement or plastic repair (LEFT FOREHEAD LESI B Skin-Other than Cyst, tag, debridement or plastic repair (LEFT SCALP LESION) Procedures: HE/2, Gross/Micro L4/2 Age/ Patient Sex Location Account Attending Physician Benny Brand 68/M [place] [id number] Dougie Abernathy,DO SPEC NUM: [id number] RECD: 06/02/24 STATUS: ANNA ROSARIOKasia NUM: [id number] SUSIE: 06/02/[address] [facility] [address]: Dougie Abernathy DO ENTERED: 06/02/[address] [facility] [address]: FELICIA TYPE: Surgical DEPT: S ENTERED BY: [id number] RECV BY: [id number] ORDERED: HE/2, Gross/Micro L4/2 ORDERED: HE/2, Gross/Micro [...] intact in a single cassette. (1, ns, E97-8151 A0) J Part B is received in formalin labeled with the patients name, date of , and scalp lesion left are 2 brand-kimble, finely granular, 0.2 cm in greatest dimension each polypoid- like portions of skin. The specimens are inked black at the apparent point of attachment and entirely submitted in a single cassette. (1, ns, B19-2118 B) JG Specimen: [id number] Received: 06/02/24 Status: ANNA Valenzuela Num: [id number] Spec Type: Surgical Subm Dr: Dougie Abernathy DO Tissues: A Skin-Other than Cyst, tag, debridement or plastic repair (LEFT FOREHEAD LESI B Skin-Other than Cyst, tag, debridement or plastic repair (LEFT SCALP LESION) Procedures: HE/2, Gross/Micro L4/2 Patient: Benny Brand [id number] (Continued) Specimen: [id number] Received: 06/02/24 (Continued) Signed (signature on file) Gray Cook MD 06/03/24 1647 Specimen: [id number] Received: 06/02/24 Status: ANNA Valenzuela Num: [id number] Spec Type: Surgical Subm Dr: Dougie Abernathy DO Tissues: A Skin-Other than Cyst, tag, debridement or plastic repair (LEFT FOREHEAD LESI B Skin-Other than Cyst, tag, debridement or plastic repair (LEFT SCALP LESION) Procedures: HE/2, Gross/Micro L4/2 Patient: Benny Brand [id number] (Continued) Specimen: [id number] Received: 06/02/24 (Continued) CPT Codes 82611y2 Specimen: [id number] Received: 06/02/24 Status: ANNA Valenzuela Num: [id number] Spec Type: Surgical Subm Dr: Dougie Abernathy DO Tissues: A Skin-Other than Cyst, tag, debridement or plastic repair (LEFT FOREHEAD LESI B Skin-Other than Cyst, tag, debridement or plastic repair (LEFT SCALP LESION) Procedures: HE/2, Gross/Micro L4/2 Patient: BrandBenny Ann Marie [id number] (Continued) Signed (signature on file) Gray Cook MD 06/03/[address] [place] [address] Physician GroupCT angio [facility] 31-30-7669[place] [address] [place] Scan Report Signed Patient: Benny Brand MR#: [id number] 3 : 1955 Acct:[id number] Age/Sex: 68 / M ADM Date: 05/08/24 [...] Posterior cerebral arteries: 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 Both are patent. Intracranial segments of the internal carotid arteries: Mild calcification without critical stenosis or occlusion. MCA: patent NOREEN: patent Anterior Communicating artery: patent Posterior Communicating arteries: Patent. CT/CT angio head IMPRESSION: No evidence of critical stenosis, aneurysmal dilatation, dissection or occlusion. Impression dictated by: Jose Ramirez Jr., D.OIlana05/08/2024 3:05 PM Dictation Location: [place] [address] Transcribed By: [facility] 05/08/24 1505 Dictated By: Jose Ramirez Jr, DO 05/08/24 1502 Signed By: 05/08/24 1505[facility] Phys[facility] GroupLon 05-02-2024L Specimen: [id number] Received: 05/02/24 Status: ANNA Valenzuela Num: [id number] Spec Type: Surgical Subm Dr: Dougie Abernathy DO Tissues: A Skin-Other than Cyst, tag, debridement or plastic repair (LT EAR LESION) B Skin-Other than Cyst, tag, debridement or plastic repair (DEEP MARGIN FOR PE Procedures: HE/6, Gross/Micro L4/2, FS HE/6 Age/ Patient Sex Location Account Attending Physician Benny Brand/Thalia ESCOBAR [id number] Dougie Abernathy DO SPEC NUM: [id number] RECD: 05/02/24 STATUS: ANNA VALENZUELA NUM: [id number] SUSIE: 05/02/[address] [facility] [address]: Dougie Abernathy DO ENTERED: 05/02/[address] [facility] [address]: FELICIA TYPE: Surgical DEPT: S ENTERED BY: [id number] RECV BY: [id number] ORDERED: HE/6, Gross/Micro L4/2, FS HE/6 ORDERED: [...] skin graft short 12:00, long 3:00 Specimen: [id number] Received: 05/02/24 Status: ANNA Valenzuela Num: [id number] Spec Type: Surgical Subm Dr: Dougie Abernathy DO Tissues: A Skin-Other than Cyst, tag, debridement or plastic repair (LT EAR LESION) B Skin-Other than Cyst, tag, debridement or plastic repair (DEEP MARGIN FOR PE Procedures: RYAN/6, Gross/Micro L4/2, FS RYAN/6 Patient: Benny Brand [id number] (Continued) Specimen: [id number] Received: 05/02/24 (Continued) Signed (signature on file) Vy Valdez MD 05/16/24 1325 Specimen: [id number] Received: 05/02/24 Status: ANNA Valenzuela Num: [id number] Spec Type: Surgical Subm Dr: Dougie Abernathy, Tissues: A Skin-Other than Cyst, tag, debridement or plastic repair (LT EAR LESION) B Skin-Other than Cyst, tag, debridement or plastic repair (DEEP MARGIN FOR PE Procedures: HE/6, Gross/Micro L4/2, FS HE/6 Patient: Benny Brand [id number] (Continued) Specimen: [id number] Received: 05/02/24 (Continued) Gross Description Part a [...] performed supporting the above interpretation CPT Codes 55329o3 24778r8 50107 Specimen: [id number] Received: 05/02/24 Status: ANNA Valenzuela Num: [id number] (more content not included)...NormalThe [place] Physician DfbpcYaN3o HPLC (Bld) [Mass fraction]on 70-85-6367NiM7s (Bld) [Mass fraction]5.6 %[facility] City Methodist HospitalAlanine aminotransferase [Enzymatic activity/volume] in Serum or PlasmaOrdered By: Edwardo Michael on 20-03-6463ALW [Catalytic activity/Vol]21 U/L Normal7-52Ohio[facility] Grove City Methodist HospitalComment on above:Performed By: #### CBC, PSAS, CMP, LIPID, TSH3 #### [facility] [address] [place] [address] USAAlbumin [Mass/volume] in Serum or Plasma by Bromocresol green (BCG) dye binding methoOrdered By: Edwardo Michael on 86-93-0311Ttvflhf BCG dye [Mass/Vol]4.2 g/dL3.5-5.7FWexner Medical CenterAlkaline phosphatase [Enzymatic activity/volume] in Serum or PlasmaOrdered By: Edwardo Michael on 23-02-8611FWC [Catalytic activity/Vol]73 U/KJiiqlt28-471JvvsaryugOhiohealth Grove City Methodist HospitalComment on above:Performed By: #### CBC, PSAS, CMP, LIPID, TSH3 #### [facility] [address] [place] [address] USAAspartate aminotransferase [Enzymatic activity/volume] in Serum or PlasmaOrdered By: Edwardo Michael on 75-51-3812XDM [Catalytic activity/Vol] 23 U/WXzrjgb24-87XgvsbognhOhiohealth Grove City Methodist HospitalComment on above:Performed By: #### CBC, PSAS, CMP, LIPID, TSH3 #### [facility] [address] [place] [address] USAAutomated basophil %Ordered By: Edwardo Michael on 04-22-2024 Basophils/100 WBC (Bld)1.2 %Normal.Ohio[facility] City Methodist HospitalComment on above:Performed By: #### CBC, PSAS, CMP, LIPID, TSH3 #### [place] [address] USAAutomated basophil countOrdered By: Edwardo Michael on 06-40-1793Ujobcdhon (Bld) [#/Vol]0.1 10*3/uLNormal0.0-0.2FWexner Medical CenterComment on above:Result Comment: PERFORMED BY: [place] [address] PATHOLOGIST DELI WORKER LADONNA NOEL M.D.Performed By: #### CBC, PSAS, CMP, LIPID, TSH3 #### [place] [address] USAAutomated blood monocyte countOrdered By: Edwardo Michael on 23-51-9273Miohyflui (Bld) [#/Vol]0.6 10*3/uLNormal0.0-0.8[facility] City Methodist HospitalComment on above:Performed By: #### CBC, PSAS, CMP, LIPID, TSH3 #### [place] [address] USAAutomated eosinophil %Ordered By: Edwardo Michael on 04-22-2024 Eosinophils/100 WBC (Bld)2.4 %Normal.[facility] Methodist HospitalComment on above:Performed By: #### CBC, PSAS, CMP, LIPID, TSH3 #### [place] [address] USAAutomated eosinophil countOrdered By: Edwardo Michael on 23-66-6767Egnqlbriemv (Bld) [#/Vol]0.1 10*3/uLNormal0.0-0.45Ohio[facility] HospitalComment on above:Performed By: #### CBC, PSAS, CMP, LIPID, TSH3 #### [place] [address] USAAutomated monocyte %Ordered By: Edwardo Michael on 04-22-2024 Monocytes/100 WBC (Bld)11.7 %Normal.[facility] City Methodist HospitalComment on above:Performed By: #### CBC, PSAS, CMP, LIPID, TSH3 #### [place] [address] USAAutomated neutrophil %Ordered By: Edwardo Michael on 04-22-2024 Neutrophils/100 WBC (Bld)55.8 %Normal.[facility] Methodist HospitalComment on above:Performed By: #### CBC, PSAS, CMP, LIPID, TSH3 #### [facility] [address] [place] [address] USABilirubin.total [Mass/volume] in Serum or PlasmaOrdered By: Edwardo Michael on 29-37-2955Khwmzmbwu [Mass/Vol]0.6 mg/dLNormal0.3-1.0[facility] Methodist HospitalComment on above:Performed By: #### CBC, PSAS, CMP, LIPID, TSH3 #### [facility] [address] [place] [address] USACalcium [Mass/volume] in Serum or PlasmaOrdered By: Edwardo Michael on 67-13-7171Qgrfeoj [Mass/Vol]9.5 mg/dLNormal8.6-10.3FWexner Medical CenterComment on above:Performed By: #### CBC, PSAS, CMP, LIPID, TSH3 #### [place] [address] USACarbon dioxide, total [Moles/volume] in Serum or Plasma Ordered By: Edwardo Michael on 05-57-1504EZ5 [Moles/Vol]30.2 mmol/CPwaiwe63.0-31.0 [facility] HospitalComment on above:Performed By: #### CBC, PSAS, CMP, LIPID, TSH3 #### [place] [address] USAChloride [Moles/volume] in Serum or PlasmaOrdered By: Edwardo Michael on 38-16-1401Ogyskvcf [Moles/Vol]105 mmol/XNgzkxj95-837MmvbujeuvOhiohealth Grove City Methodist HospitalComment on above:Performed By: #### CBC, PSAS, CMP, LIPID, TSH3 #### [place] [address] USACholesterol [Mass/volume] in Serum or PlasmaOrdered By: Edwardo Michael on 44-68-1003Etmecfvgaaj [Mass/Vol]185 mg/tSWccnjm196-979GssfqdzraOhiohealth Grove City Methodist HospitalComment on above:Chol less than 200 mg/dl low riskChol 201-239 mg/dl borderline riskChol 240 mg/dl and greater high riskResult Comment: Chol less than 200 mg/dl low risk Chol 201-239 mg/dl borderline risk Chol 240 mg/dl and greater high riskPerformed By: #### CBC, PSAS, CMP, LIPID, TSH3 #### [facility] [address] [place] [address] USACholesterol in LDL Calc [Mass/Vol]Ordered By: Edwardo Michael on 42-43-2942Ljefnwttbyc in LDL [Mass/Vol]123 mg/dLHigh0-100Ohio[facility] Methodist HospitalComment on above:LDL ATP III CLASSIFICATIONLDL less than 100 mg/dL OptimalLDL 100-129 mg/dL Near or above bmbmoidMUJ930-286 mg/dL Borderline highLDL 160-189 mg/dL HighLDL greater than 189 mg/dL Very highCholesterol in VLDL Calc [Mass/Vol]Ordered By: Edwardo Michael on 37-54-5791Oxyadqekwrh in VLDL [Mass/Vol]26 mg/dLOhiohealth Grove City Methodist HospitalComplete Blood Count Auto Diffon 52-61-9894Dzim Corpuscular HGB Conc34.5 g/uIThzxtr78.5-35.6The [facility] Physician GroupComment on above:Performed By: #### CBC, PSAS, CMP, LIPID, TSH3 #### [facility] [address] [place] [address] USANRBC%0.2 /100{WBC}Normal0-0.5The [facility] Comment on above:Performed By: #### CBC, PSAS, CMP, LIPID, TSH3 #### [facility] [address] [place] [address] USAComprehensive Metabolic Panelon 21-94-1699Veknkkg [Mass/Vol]4.2 g/dLNormal3.5-5.7The [facility] Physician GroupComment on above: Performed By: #### CBC, PSAS, CMP, LIPID, TSH3 #### [facility] [address] [place] [id number] USAGFR/1.73 sq M.predicted MDRD (S/P/Bld) [Vol rate/Area] mL/min/{1.73_m2}NormalThe Formerly [facility] Physician GroupComment on above:Performed By: #### CBC, PSAS, CMP, LIPID, TSH3 #### [facility] [address] [place] [address] USACreatinine [Mass/volume] in Serum or PlasmaOrdered By: Edwardo Michael on 99-66-2361Kmlfhzejee [Mass/Vol]1.05 mg/dLNormal0.70-1.30[facility] HospitalComment on above:Performed By: #### CBC, PSAS, CMP, LIPID, TSH3 #### [facility] [address] [place] [address] USAErythrocyte distribution width [Ratio] by Automated count Ordered By: Edwardo Michael on 80-04-0895Fovetgvuzjx distribution width (RBC) [Ratio] 12.8 %Blxggc84.0-14.8Ohio[facility] Methodist HospitalComment on above:Performed By: #### CBC, PSAS, CMP, LIPID, TSH3 #### [place] [address] USAErythrocytes [#/volume] in Blood by Automated countOrdered By: Edwardo Michael on 24-73-6609PDA (Bld) [#/Vol]4.77 10*6/uLNormal3.90-5.60 [facility] HospitalComment on above:Performed By: #### CBC, PSAS, CMP, LIPID, TSH3 #### [place] [address] USAGlucose [Mass/volume] in Serum or PlasmaOrdered By: Edwardo Michael on 82-57-2964Zsvgefv [Mass/Vol]103 mg/bJAmjw39-345WrbnluljkOhiohealth Grove City Methodist HospitalComment on above:ADA recommended reference rangeRandom Glucose Reference [...] CBC, PSAS, CMP, LIPID, TSH3 #### [facility] [address] [place] [address] USAHematocrit [Volume Fraction] of Blood by Automated count Ordered By: Edwardo Michael on 35-00-1061Cfiaorfvch (Bld) [Volume fraction]44.5 % Tjioti73.8-50.0[facility] Methodist HospitalComment on above:Performed By: #### CBC, PSAS, CMP, LIPID, TSH3 #### [facility] [address] [place] [address] USAHemoglobin [Mass/volume] in BloodOrdered By: Edwardo Michael on 18-22-4863Xolghmdnkn (Bld) [Mass/Vol]15.3 g/wHJpydme81.0-17.0[facility] HospitalComment on above:Performed By: #### CBC, PSAS, CMP, LIPID, TSH3 #### [facility] [address] [place] [address] USALeukocytes [#/volume] corrected for nucleated erythrocytes in Blood by Automated counOrdered By: Edwardo Michael on 23-07-5574FTM corrected for nucl RBC Auto (Bld) [#/Vol]5.4 10*3/uL4.1-10.5FWexner Medical Center Leukocytes [#/volume] in Blood by Automated countOrdered By: Edwardo Michael on 26-60-3214ANY (Bld) [#/Vol]5.4 10*3/uLNormal4.1-10.5FWexner Medical CenterComment on above:Performed By: #### CBC, PSAS, CMP, LIPID, TSH3 #### [facility] [address] [place] [address] USALipid Panelon 67-11-4211FLL Cholesterol,Szbluuqfhc481 mg/dLHigh0-100The [facility] Physician GroupComment on above:Result Comment: LDL ATP III CLASSIFICATION LDL less than 100 mg/dL Optimal LDL 100-129 mg/dL Near or above optimal LDL 130-159 mg/dL Borderline high LDL 160-189 mg/dL High LDL greater than 189 mg/dL Very highPerformed By: #### CBC, PSAS, CMP, LIPID, TSH3 #### [facility] [address] [place] [address] USATriglyceride w/Hbainb832 mg/dLNormal0-149[facility] Physician GroupComment on above:Result Comment: TRIG ATP III CLASSIFICATION TRIG less than 150 mg/dL Normal TRIG 150-199 mg/dL Borderline high TRIG 200-500 mg/dL High TRIG greater than 500 mg/dL Very high Standard traceable to the Center for Disease Conrtrol and Prevention (CDC) test method.Performed By: #### CBC, PSAS, CMP, LIPID, TSH3 #### [place] [address] USAVLDL DZWSZJKBPCG98 mg/dLNormalThe [facility] Physician GroupComment on above:Performed By: #### CBC, PSAS, CMP, LIPID, TSH3 #### [place] [address] USALymphocytes [#/volume] in Blood by Automated countOrdered By: Edwardo Michael on 53-95-8893Nlzzieemrsx (Bld) [#/Vol]1.6 10*3/uLNormal1.00-4.8 [facility] HospitalComment on above:Performed By: #### CBC, PSAS, CMP, LIPID, TSH3 #### [place] [address] USALymphocytes/100 leukocytes in Blood by Automated count Ordered By: Edwardo Michael on 57-20-6619Jjawwdbjwev/100 WBC (Bld)28.9 %Normal. [facility] HospitalComment on above:Performed By: #### CBC, PSAS, CMP, LIPID, TSH3 #### [place] [address] USAH [Entitic mass] by Automated countOrdered By: Edwardo Michael on 09-45-2837DAA (RBC) [Entitic mass]32.1 ytDdydbe32.5-35.2FWexner Medical CenterComment on above:Performed By: #### CBC, PSAS, CMP, LIPID, TSH3 #### [facility] [address]HC Auto (RBC) [Mass/Vol]Ordered By: Edwardo Michael on 60-21-3558VTWS (RBC) [Mass/Vol]34.5 g/dL32.5-35.6FWexner Medical CenterMCV [Entitic volume] by Automated countOrdered By: Edwardo Michael on 38-40-3645FFB (RBC) [Entitic vol]93.2 kLHqngoz50.5-101Ohio[facility] HospitalComment on above:Performed By: #### CBC, PSAS, CMP, LIPID, TSH3 #### [facility] [address] [place] [address] USANeutrophils [#/volume] in Blood by Automated countOrdered By: Edwardo Michael on 42-33-8695Iqepnhugdwq (Bld) [#/Vol]3.0 10*3/uLNormal1.8-7.7 [facility] HospitalComment on above:Performed By: #### CBC, PSAS, CMP, LIPID, TSH3 #### [facility] [address] [place] [address] USANo Panel InformationOrdered By: Edwardo Michael on 04-22-2024 Estimated GFR (CKD-EPI)> 60.0 mL/MinOhiohealth Grove City Methodist HospitalPharmacy Creatinine Clearance (ChemN/AFWexner Medical CenterNucleated erythrocytes [Presence] in Blood by Automated countOrdered By: Edwardo Michael on 38-95-5498Genftoheu RBC Auto Ql (Bld)0.2 /100{WBC}0-0.5FWexner Medical CenterPSA Screen (Yearly Only)on 87-65-3595AWC Screen (Yearly Only)0.650 ng/mLNormal0.000-4.000The [facility] Physician GroupComment on above:Order Comment: Is patient <50 yrs? Medicare does not pay <50.: N What is the date of the last PSA Screen?: 015661 Is Medicare the insurance?: Y Did you verify eligibility (Dx Time) check TestViewGp: YES TO ALLResult Comment: Serial tumor marker results determined by assays using different manufacturers or methods may not be comparable. [facility] fundraising coordinator and method: Zik[employer] SystemsEL DXI, CHEMILUMINESCENT IMMUNOASSAY. PERFORMED BY: [place] [address] PATHOLOGIST DELI WORKER LADONNA NOEL M.D.Performed By: #### CBC, PSAS, CMP, LIPID, TSH3 #### [place] [address] USAPlatelet mean volume [Entitic volume] in Blood by Automated countOrdered By: Edwardo Michael on 78-32-2853Rjvvcniv mean volume (Bld) [Entitic vol]9.6 fLNormal6.6-10.1FWexner Medical CenterComment on above:Performed By: #### CBC, PSAS, CMP, LIPID, TSH3 #### [place] [address] USAPlatelets [#/volume] in Blood by Automated countOrdered By: Edwardo Michael on 81-61-4121Sxjkxtfwj (Bld) [#/Vol]249 10*3/cSXyfsdw162-958 [facility] HospitalComment on above:Performed By: #### CBC, PSAS, CMP, LIPID, TSH3 #### [place] [address] USAPotassium [Moles/volume] in Serum or PlasmaOrdered By: Edwardo Michael on 23-45-7362Pwhafuoqq [Moles/Vol]4.4 mmol/LNormal3.5-5.1FWexner Medical CenterComment on above:Performed By: #### CBC, PSAS, CMP, LIPID, TSH3 #### [place] [address] USAProstate specific Ag [Mass/volume] in Serum or Plasma Ordered By: Edwardo Michael on 12-89-3970Sefnqwvm specific Ag [Mass/Vol]0.650 ng/mL 0.000-4.000Ohio[facility] Methodist HospitalComment on above:Serial tumor marker results determined by assays using different manufacturers or methods may not be comparable.[facility] fundraising coordinator and method:[employer] DXI, CHEMILUMINESCENT IMMUNOASSAY.Protein [Mass/volume] in Serum or PlasmaOrdered By: Edwardo Michael on 72-65-3302Fjcgbiv [Mass/Vol]7.2 g/dLNormal6.4-8.9[facility] HospitalComment on above:Performed By: #### CBC, PSAS, CMP, LIPID, TSH3 #### [facility] [address] [place] [address] USASerum globulin measurement by calculation (mass/volume) Ordered By: Edwardo Michael on 57-97-9822Onkkwovh (S) [Mass/Vol]3.0 g/dLNormal [facility] HospitalComment on above:Performed By: #### CBC, PSAS, CMP, LIPID, TSH3 #### [facility] [address] [place] [address] USASerum or plasma albumin/globulin mass ratioOrdered By: Edwardo Michael on 65-79-6482Mrxlxdz/Globulin [Mass ratio]1.4 {ratio}NormalOhiohealth Grove City Methodist HospitalComment on above:Performed By: #### CBC, PSAS, CMP, LIPID, TSH3 #### [facility] [address] [place] [address] USASerum or plasma anion gap determinationOrdered By: Edwardo Michael on 46-21-8504Lqxlw gap [Moles/Vol]8.2 mmol/LNormal6.0-15.0[facility] HospitalComment on above:Performed By: #### CBC, PSAS, CMP, LIPID, TSH3 #### [facility] [address] [place] [id number] USASerum or plasma high density lipoprotein (HDL) cholesterol measurementOrdered By: Edwardo Michael on 31-42-7189Hmguyxamsly in HDL [Mass/Vol]36 mg/aGWrgleg58-23CstgpxcoqOhiohealth Grove City Methodist HospitalComment on above:HDL CHOL ATP- III CLASSIFICATION Cardiovascular RiskHDL > or equal to 60 mg/dL LOWHDL < 40 mg/dL HIGHResult Comment: HDL CHOL ATP-III CLASSIFICATION Cardiovascular Risk HDL > or equal to 60 mg/dL LOW HDL < 40 mg/dL HIGHPerformed By: #### CBC, PSAS, CMP, LIPID, TSH3 #### [place] [id number] USASerum or plasma total cholesterol/high density lipoprotein (HDL) cholesterol mass ratOrdered By: Edwardo Michael on 04-22-2024 Cholesterol.total/Cholesterol in HDL [Mass ratio]5.1 {ratio}Normal<5.0[facility] HospitalComment on above:Performed By: #### CBC, PSAS, CMP, LIPID, TSH3 #### [place] [address] USASodium [Moles/volume] in Serum or PlasmaOrdered By: Edwardo Michael on 06-05-3622Zaafte [Moles/Vol]139 mmol/SOfqrlo368-307DggysbokmOhiohealth Grove City Methodist HospitalComment on above:Performed By: #### CBC, PSAS, CMP, LIPID, TSH3 #### [place] [id number] USAThyrotropin [Units/volume] in Serum or PlasmaOrdered By: Edwardo Michael on 01-47-7443CML Qn2.36 m[IU]/LNormal0.45-5.33[facility] HospitalComment on above:Result Comment: PERFORMED BY: [place] [address] PATHOLOGIST DELI WORKER LADONNA NOEL M.D.Performed By: #### CBC, PSAS, CMP, LIPID, TSH3 #### [place] [id number] USATriglyceride [Mass/volume] in Serum or PlasmaOrdered By: Edwardo Michael on 60-56-8878Zwvwzkwckbqf [Mass/Vol]130 mg/dL0-149[facility] HospitalComment on above:TRIG ATP III CLASSIFICATIONTRIG less than 150 mg/dL NormalTRIG 150-199 mg/dL Borderline highTRIG 200-500 mg/dL High TRIG greater than 500 mg/dL Very highStandard traceable to the Center for Disease Co nrtrol and Prevention (CDC) test method.Urea nitrogen [Mass/volume] in Serum or PlasmaOrdered By: Edwardo Michael on 70-68-3692Gvsp nitrogen [Mass/Vol]18 mg/dLNormal 01-30[facility] HospitalComment on above:Performed By: #### CBC, PSAS, CMP, LIPID, TSH3 #### [facility] [address] [place] [id number] [facility] HOS[facility]ITALAlanine aminotransferase [Enzymatic activity/volume] in Serum or PlasmaOrdered By: Edwardo Michael on 09-16-9924XIA [Catalytic activity/Vol] 23 U/L7-52[facility] HospitalAlbumin [Mass/volume] in Serum or Plasma by Bromocresol green (BCG) dye binding methoOrdered By: Edwardo Michael on 49-93-5370Nbuqaou BCG dye [Mass/Vol]4.5 g/dL3.5-5.7FWexner Medical CenterAlkaline phosphatase [Enzymatic activity/volume] in Serum or PlasmaOrdered By: Edwardo Michael on 27-27-3756BFC [Catalytic activity/Vol]79 U/A09-869KmzgepsfvOhiohealth Grove City Methodist HospitalAspartate aminotransferase [Enzymatic activity/volume] in Serum or PlasmaOrdered By: Edwardo Michael on 43-20-3451VWW [Catalytic activity/Vol] 26 U/R34-87QibkxgejoOhiohealth Grove City Methodist HospitalBasophils Auto (Bld) [#/Vol]Ordered By: Edwardo Michael on 66-06-4731Zsfsyqumf (Bld) [#/Vol]0.1 10*3/uL0.0-0.2FWexner Medical CenterBasophils/100 WBC Auto (Bld)Ordered By: Edwardo Michael on 67-58-6692Xbfzjwdkc/100 WBC (Bld)2.2 %.[facility] Bilirubin.total [Mass/volume] in Serum or PlasmaOrdered By: Edwardo Michael on 75-70-2225Djrwlgnme [Mass/Vol]0.9 mg/dL0.3-1.0[facility] Calcium [Mass/volume] in Serum or PlasmaOrdered By: Edwardo Michael on 04-18-2023 Calcium [Mass/Vol]9.5 mg/dL8.6-10.3FWexner Medical CenterCarbon dioxide, total [Moles/volume] in Serum or PlasmaOrdered By: Edwardo Michael on 16-16-1360MC3 [Moles/Vol]32.4 mmol/L21.0-31.0[facility] Chloride [Moles/volume] in Serum or PlasmaOrdered By: Edwardo Michael on 04-18-2023 Chloride [Moles/Vol]103 mmol/A75-104SwwoeqzhnOhiohealth Grove City Methodist HospitalCholesterol [Mass/volume] in Serum or PlasmaOrdered By: Edwardo Michael on 31-50-9988Mkejqfxdffj [Mass/Vol]184 mg/aR010-294BxqwpxbayOhiohealth Grove City Methodist HospitalComment on above: Chol less than 200 mg/dl low riskChol 201-239 mg/dl borderline riskChol 240 mg/dl and greater high riskCholesterol in LDL Calc [Mass/Vol]Ordered By: Edwardo Michael on 63-18-7031Gqtoobwehqb in LDL [Mass/Vol]121 mg/dL0-100[facility] HospitalComment on above:LDL ATP III CLASSIFICATIONLDL less than 100 mg/dL OptimalLDL 100-129 mg/dL Near or above vwfcqmmXWZ163-737 mg/dL Borderline highLDL 160-189 mg/dL HighLDL greater than 189 mg/dL Very highCholesterol in VLDL Calc [Mass/Vol]Ordered By: Edwardo Michael on 88-18-2254Uhpbygttptb in VLDL [Mass/Vol]24 mg/dLOhiohealth Grove City Methodist HospitalCreatinine [Mass/volume] in Serum or PlasmaOrdered By: Edwardo Michael on 33-95-2443Ypxoovvzyb [Mass/Vol]1.08 mg/dL0.70-1.30[facility] HospitalEosinophils Auto (Bld) [#/Vol] Ordered By: Edwardo Michael on 22-34-6760Yeuejotwqjb (Bld) [#/Vol]0.2 10*3/uL0.0-0.45 [facility] HospitalEosinophils/100 WBC Auto (Bld)Ordered By: Edwardo Michael on 03-55-7802Uotojfaweta/100 WBC (Bld)3.2 %.[facility] HospitalErythrocyte distribution width Auto (RBC) [Ratio]Ordered By: Edwardo Michael on 18-96-2109Wmxxmnogfhh distribution width (RBC) [Ratio]12.5 %12.0-14.8[facility] HospitalGlobulin Calc (S) [Mass/Vol]Ordered By: Edwardo Michael on 81-86-6053Zepysjxc (S) [Mass/Vol]2.8 g/dLOhiohealth Grove City Methodist Hospital Glucose [Mass/volume] in Serum or PlasmaOrdered By: Edwardo Michael on 04-18-2023 Glucose [Mass/Vol]98 mg/rS13-114FjaymmumfOhiohealth Grove City Methodist HospitalComment on above:ADA recommended reference rangeRandom Glucose Reference Range is dependent on time and content of last meal. Glucose of more than 200 mg/dL in a nonstressed, ambulatory subject supports the diagnosisof Diabetes Mellitus. Hematocrit Auto (Bld) [Volume fraction]Ordered By: Edwardo Michael on 04-18-2023 Hematocrit (Bld) [Volume fraction]45.1 %38.8-50.0[facility] HospitalHemoglobin [Mass/volume] in BloodOrdered By: Edwardo Michael on 04-18-2023 Hemoglobin (Bld) [Mass/Vol]15.6 g/dL13.0-17.0[facility] Leukocytes [#/volume] corrected for nucleated erythrocytes in Blood by Automated counOrdered By: Edwardo Michael on 48-66-9392SGI corrected for nucl RBC Auto (Bld) [#/Vol]5.4 10*3/uL4.1-10.5FWexner Medical CenterLymphocytes Auto (Bld) [#/Vol]Ordered By: Edwardo Michael on 09-17-7904Jqqplgxuiaf (Bld) [#/Vol]1.5 10*3/uL1.00-4.8[facility] HospitalLymphocytes/100 WBC Auto (Bld) Ordered By: Edwardo Michael on 69-07-1114Ycymmzwrnet/100 WBC (Bld)28.7 %.[facility] HospitalMCH Auto (RBC) [Entitic mass]Ordered By: Edwardo Michael on 28-45-6142OMU (RBC) [Entitic mass]32.0 pg27.5-35.2FWexner Medical CenterMCHC Auto (RBC) [Mass/Vol]Ordered By: Edwardo Michael on 20-49-8300STRZ (RBC) [Mass/Vol]34.6 g/dL32.5-35.6FWexner Medical CenterMCV Auto (RBC) [Entitic vol]Ordered By: Edwardo Michael on 86-61-9080FIZ (RBC) [Entitic vol]92.7 fL 83.5-101[facility] HospitalMonocytes Auto (Bld) [#/Vol]Ordered By: Edwardo Michael on 55-80-9319Hnaqzequl (Bld) [#/Vol]0.6 10*3/uL0.0-0.8[facility] HospitalMonocytes/100 WBC Auto (Bld)Ordered By: Edwardo Michael on 57-47-4533Xtqzhovwk/100 WBC (Bld)10.9 %.[facility] Neutrophils Auto (Bld) [#/Vol]Ordered By: Edwardo Michael on 85-71-6227Udbjnfuowub (Bld) [#/Vol]2.9 10*3/uL1.8-7.7FWexner Medical CenterNeutrophils/100 WBC Auto (Bld)Ordered By: Edwardo Michael on 53-96-4240Barnwjxodub/100 WBC (Bld)55.0 %.[facility] HospitalNo Panel InformationOrdered By: Edwardo Michael on 09-56-0374Dbjnorfxt GFR (CKD-EPI)> 60.0 mL/MinOhiohealth Grove City Methodist Hospital Pharmacy Creatinine Clearance (ChemN/[facility] HospitalNucleated erythrocytes [Presence] in Blood by Automated countOrdered By: Edwardo Michael on 93-50-4957Zhhyhtwih RBC Auto Ql (Bld)0.1 /100{WBC}0-0.5FWexner Medical CenterPlatelet mean volume Auto (Bld) [Entitic vol]Ordered By: Edwardo Michael on 83-46-0724Trmcfplx mean volume (Bld) [Entitic vol]10.1 fL6.6-10.1 [facility] HospitalPlatelets Auto (Bld) [#/Vol]Ordered By: Edwardo Michael on 79-18-9109Kubwxquln (Bld) [#/Vol]252 10*3/cP219-870KeezwogtfOhiohealth Grove City Methodist HospitalPotassium [Moles/volume] in Serum or PlasmaOrdered By: Edwardo Michael on 50-90-7674Nhfofbqbs [Moles/Vol]4.7 mmol/L3.5-5.1FWexner Medical CenterProstate specific Ag [Mass/volume] in Serum or PlasmaOrdered By: Edwardo Michael on 51-04-1499Mgdpxlux specific Ag [Mass/Vol]0.560 ng/mL0.000-4.000[facility] HospitalProtein [Mass/volume] in Serum or PlasmaOrdered By: Edwardo Michael on 07-04-6784Eafdmls [Mass/Vol]7.3 g/dL6.4-8.9[facility] HospitalRBC Auto (Bld) [#/Vol]Ordered By: Edwardo Michael on 85-97-3276AGF (Bld) [#/Vol]4.86 10*6/uL3.90-5.60[facility] Centererum or plasma albumin/globulin mass ratioOrdered By: Edwardo Michael on 04-18-2023 Albumin/Globulin [Mass ratio]1.6 {ratio}[facility] Centererum or plasma anion gap determinationOrdered By: Edwardo Michael on 63-62-4053Sfile gap [Moles/Vol]8.3 mmol/L6.0-15.0[facility] Centererum or plasma high density lipoprotein (HDL) cholesterol measurementOrdered By: Edwardo Michael on 35-06-6568Occvycniwqu in HDL [Mass/Vol]39 mg/bQ40-20UjweenwpwOhiohealth Grove City Methodist HospitalComment on above:HDL CHOL ATP-III CLASSIFICATION Cardiovascular RiskHDL > or equal to 60 mg/dL LOWHDL < 40 mg/dL HIGHSerum or plasma total cholesterol/high density lipoprotein (HDL) cholesterol mass ratOrdered By: Edwardo Michael on 90-64-6180Mypnnkzfdvk.total/Cholesterol in HDL [Mass ratio]4.7 {ratio} <5.0[facility] Centerodium [Moles/volume] in Serum or Plasma Ordered By: Edwardo Michael on 28-41-0337Kfoxsb [Moles/Vol]139 mmol/J023-162GuniqrpvmOhiohealth Grove City Methodist HospitalThyrotropin [Units/volume] in Serum or PlasmaOrdered By: Edwardo Michael on 57-03-6914JQO Qn2.12 m[IU]/L0.45-5.33[facility] HospitalThyroxine (T4) free [Mass/volume] in Serum or PlasmaOrdered By: Edwardo Michael on 38-86-1972Vrmz T4 [Mass/Vol]0.74 ng/dL0.61-1.12[facility] HospitalTriglyceride [Mass/volume] in Serum or PlasmaOrdered By: Edwardo Michael on 23-41-2059Hfbdtoofsuom [Mass/Vol]122 mg/dL0-149[facility] Comment on above:TRIG ATP III CLASSIFICATIONTRIG less than 150 mg/dL NormalTRIG 150-199 mg/dL Borderline highTRIG 200-500 mg/dL High TRIG greater than 500 mg/dL Very highStandard traceable to the Center for Disease Conrtrol and Prevention (CDC) test method.Urea nitrogen [Mass/volume] in Serum or PlasmaOrdered By: Edwardo Michael on 14-54-1534Hqft nitrogen [Mass/Vol]19 mg/dL7-25[facility] HospitalVitamin D+Metabolites [Mass/volume] in Serum or PlasmaOrdered By: Edwardo Michael on 37-86-2367Edxxmol D+Metabolites [Mass/Vol]51.4 ng/cQ85-219 [facility] HospitalComment on above:VITAMIN D STATUS 25(OH)VITAMIN D RANGE (ng/mL) Deficient <20 Insufficient 20 to <08Jadkvhuaad31 to 100Reference: Sofya MF,Vincent NC, Xavi LANIER, et al. Evaluation,treatment, and prevention of vitamin D deficiency; an Endocrine Society clinical practice guideline. JCEM. 2010; 96(7):1911-30.WBC Auto (Bld) [#/Vol]Ordered By: Edwardo Michael on 84-77-3687RPV (Bld) [#/Vol]5.4 10*3/uL 4.1-10.5FWexner Medical CenterBasophils Auto (Bld) [#/Vol]Ordered By: Edwardo Michael on 40-90-0508Jbagftlbf (Bld) [#/Vol]0.0 10*3/uL0.0-0.2FWexner Medical CenterBasophils/100 WBC Auto (Bld)Ordered By: Edwardo Michael on 05-66-4686Feadrfvvy/100 WBC (Bld)0.9 %.[facility] HospitalBlood hemoglobin measurement (mass/volume)Ordered By: Edwardo Michael on 04-06-2022 Hemoglobin (Bld) [Mass/Vol]15.7 g/dL13.0-17.0[facility] Blood leukocytes automated count (number/volume)Ordered By: Edwardo Michael on 75-35-9307RVS (Bld) [#/Vol]4.7 10*3/uL4.5-11.0[facility] Body fluid albumin measurement (mass/volume)Ordered By: Edwardo Michael on 04-06-2022 Albumin (Body fld) [Mass/Vol]3.8 g/dL3.2-5.5FWexner Medical Center Cholesterol [Mass/volume] in Serum or PlasmaOrdered By: Edwardo Michael on 04-06-2022 Cholesterol [Mass/Vol]181 mg/eN793-874YtuovguejOhiohealth Grove City Methodist HospitalComment on above:Chol less than 200 mg/dl low riskChol 201-239 mg/dl borderline riskChol 240 mg/dl and greater high riskCholesterol in LDL Calc [Mass/Vol]Ordered By: Edwardo Michael on 70-68-3450Qgqbyjxswdk in LDL [Mass/Vol]124 mg/dL0-100[facility] HospitalComment on above:LDL ATP III CLASSIFICATIONLDL less than 100 mg/dL OptimalLDL 100-129 mg/dL Near or above mpqjssuEWZ599-781 mg/dL Borderline highLDL 160-189 mg/dL HighLDL greater than 189 mg/dL Very high Cholesterol in VLDL Calc [Mass/Vol]Ordered By: Edwardo Michael on 04-06-2022 Cholesterol in VLDL [Mass/Vol]24 mg/dLOhiohealth Grove City Methodist Hospital Creatinine and Glomerular filtration rate.predicted panel (S/P/Bld)Ordered By: Edwardo Michael on 06-30-2199Guflxnmsjw [Mass/Vol]1.05 mg/dL0.64-1.27[facility] HospitalEosinophils Auto (Bld) [#/Vol]Ordered By: Edwardo Michael on 48-51-2537Ckquswqgjzm (Bld) [#/Vol]0.1 10*3/uL0.0-0.45[facility] HospitalEosinophils/100 WBC Auto (Bld)Ordered By: Edwardo Michael on 04-06-2022 Eosinophils/100 WBC (Bld)2.0 %.[facility] HospitalErythrocyte distribution width Auto (RBC) [Ratio]Ordered By: Edwardo Michael on 04-06-2022 Erythrocyte distribution width (RBC) [Ratio]12.5 %12.0-14.8[facility] HospitalEstimated glomerular filtration rate (GFR) non- Ordered By: Edwardo Michael on 80-05-8833PTK/1.73 sq M.predicted among non-blacks MDRD (S/P/Bld) [Vol rate/Area]> 60 mL/MinOhiohealth Grove City Methodist Hospital Globulin Calc (S) [Mass/Vol]Ordered By: Edwardo Michael on 25-82-2863Faegkcro (S) [Mass/Vol]2.8 g/dLOhiohealth Grove City Methodist HospitalHematocrit Auto (Bld) [Volume fraction]Ordered By: Edwardo Michael on 05-08-2538Emvyjlbbub (Bld) [Volume fraction] 46.2 %38.8-50.0[facility] HospitalLaboratory - Hematology and Cell countsOrdered By: Edwardo Michael on 36-17-3205Pqjzjahks RBC/100 WBC (Bld) [Ratio]0.1 %0-0.5FWexner Medical CenterLymphocytes Auto (Bld) [#/Vol]Ordered By: Edwardo Michael on 00-70-5611Waupteeelrk (Bld) [#/Vol]1.6 10*3/uL1.00-4.8 [facility] HospitalLymphocytes/100 WBC Auto (Bld)Ordered By: Edwardo Michael on 56-95-3990Otxkhzzdsks/100 WBC (Bld)34.1 %.[facility] HospitalMCH Auto (RBC) [Entitic mass]Ordered By: Edwardo Michael on 35-00-7106OLS (RBC) [Entitic mass]31.9 pg27.5-35.2FWexner Medical CenterMCHC Auto (RBC) [Mass/Vol]Ordered By: Edwardo Michael on 83-59-5618XEHZ (RBC) [Mass/Vol]34.0 g/dL 32.5-35.6FWexner Medical CenterMCV Auto (RBC) [Entitic vol]Ordered By: Edwardo Michael on 19-65-8401EPL (RBC) [Entitic vol]93.8 fL83.5-101[facility] HospitalMonocytes Auto (Bld) [#/Vol]Ordered By: Edwardo Michael on 80-35-6300Xmjdlnnbo (Bld) [#/Vol]0.4 10*3/uL0.0-0.8[facility] HospitalMonocytes/100 WBC Auto (Bld)Ordered By: Edwardo Michael on 04-06-2022 Monocytes/100 WBC (Bld)8.7 %.[facility] HospitalNeutrophils Auto (Bld) [#/Vol]Ordered By: Edwardo Michael on 22-47-6320Lnonngnqwgu (Bld) [#/Vol]2.6 10*3/uL1.8-7.7FWexner Medical CenterNeutrophils/100 WBC Auto (Bld) Ordered By: Edwardo Michael on 07-81-7685Cvaoapzmcle/100 WBC (Bld)54.3 %.[facility] HospitalNo Panel InformationOrdered By: Edwardo Michael on 04-06-2022 25-Hydroxy Vitamin D Total41.8 ng/qA11-098PcbkvjmckOhiohealth Grove City Methodist Hospital Comment on above:VITAMIN D STATUS 25(OH)VITAMIN D RANGE (ng/mL) Deficient <20 Insufficient 20 to <18Hiegyxowvj42 to 100Reference: Sofya MF,Vincent NC, Xavi LANIER, et al. Evaluation,treatment, and prevention of vitamin D deficiency; an Endocrine Society clinical practice guideline. JCEM. 2010; 96 (7):1911-30.Estimated GFR ()> 60 mL/MinOhiohealth Grove City Methodist HospitalComment on above:GFR estimated reference range: According to KDOQI guidelines, <60 ml/min/1.73m2 is sufficient todiagnose a patient with chronic kidney disease.Pharmacy Creatinine Clearance (ChemN/[facility] HospitalProstate Specific Antigen Screen0.460 ng/mL0.000-4.000[facility] HospitalPlatelet mean volume Auto (Bld) [Entitic vol]Ordered By: Edwardo Michael on 06-65-5582Oinesmiq mean volume (Bld) [Entitic vol]10.3 fL6.6-10.1 [facility] HospitalPlatelets Auto (Bld) [#/Vol]Ordered By: Edwardo Michael on 76-51-0922Muloontnv (Bld) [#/Vol]234 10*3/zC911-871LnpenxqafOhiohealth Grove City Methodist HospitalProtein [Mass/volume] in Serum or PlasmaOrdered By: Edwardo Michael on 81-93-7949Kazzrua [Mass/Vol]6.6 g/dL6.1-7.9[facility] HospitalRBC Auto (Bld) [#/Vol]Ordered By: Edwardo Michael on 71-02-6568XKL (Bld) [#/Vol]4.92 10*6/uL3.90-5.60[facility] Centererum or plasma alanine aminotransferase measurement without P-5'-P (enzymatic activiOrdered By: Edwardo Michael on 73-62-7460BQJ No additional P-5'-P [Catalytic activity/Vol]32 U/L10-60 [facility] Centererum or plasma albumin/globulin mass ratio Ordered By: Edwardo Michael on 88-11-7534Uhdbhhh/Globulin [Mass ratio]1.4 {ratio} [facility] Centererum or plasma alkaline phosphatase measurement (enzymatic activity/volume)Ordered By: Edwardo Michael on 11-32-4731HSJ [Catalytic activity/Vol]74 U/L83-37AjgclwghuUniversity Hospitals Portage Medical Centererum or plasma anion gap determinationOrdered By: Edwardo Michael on 44-89-1077Bebhp gap [Moles/Vol]11.4 mmol/L6.0-15.0[facility] Centererum or plasma aspartate aminotransferase measurement (enzymatic activity/volume)Ordered By: Edwardo Michael on 19-28-9521URH [Catalytic activity/Vol]25 U/Z32-23YewklodxzUniversity Hospitals Portage Medical Centererum or plasma calcium measurement (mass/volume)Ordered By: Edwardo Michael on 81-65-9833Jdroryz [Mass/Vol]9.5 mg/dL8.2-10.2FBucyrus Community Hospitalerum or plasma chloride measurement (moles/volume) Ordered By: Edwardo Michael on 96-84-4868Csokgkse [Moles/Vol]102 mmol/L95-114 [facility] Centererum or plasma glucose measurement (mass/volume)Ordered By: Edwardo Michael on 48-82-3886Jgnfrfw [Mass/Vol]97 mg/dL 70-100[facility] HospitalComment on above:ADA recommended reference rangeRandom Glucose Reference Range is dependent on time and content of last meal. Glucose of more than 200 mg/dL in a nonstressed, ambulatory subject supports the diagnosisof Diabetes Mellitus.Serum or plasma high density lipoprotein (HDL) cholesterol measurementOrdered By: Edwardo Michael on 04-06-2022 Cholesterol in HDL [Mass/Vol]33 mg/vI21-97QdoieyzutOhiohealth Grove City Methodist Hospital Comment on above:HDL CHOL ATP-III CLASSIFICATION Cardiovascular RiskHDL > or equal to 60 mg/dL LOWHDL < 40 mg/dL HIGHSerum or plasma potassium measurement (moles/volume)Ordered By: Edwardo Michael on 94-21-5345Fxegbtbix [Moles/Vol]4.4 mmol/L3.5-5.1FBucyrus Community Hospitalerum or plasma sodium measurement (moles/volume)Ordered By: Edwardo Michael on 54-99-7315Jszalp [Moles/Vol]138 mmol/L 136-146[facility] Centererum or plasma total bilirubin measurement (mass/volume)Ordered By: Edwardo Michael on 61-13-3662Fgsabbhnh [Mass/Vol]0.8 mg/dL0.3-1.2FBucyrus Community Hospitalerum or plasma total carbon dioxide measurement (moles/volume)Ordered By: Edwardo Michael on 04-06-2022 CO2 [Moles/Vol]29.0 mmol/L22.0-30.0[facility] Medical Centererum or plasma total cholesterol/high density lipoprotein (HDL) cholesterol mass rat Ordered By: Edwardo Michael on 89-62-1291Cjjujocvsel.total/Cholesterol in HDL [Mass ratio]5.5 {ratio}<5.0[facility] Centererum or plasma urea nitrogen measurement (mass/volume)Ordered By: Edwardo Michael on 15-03-1198Hxwt nitrogen [Mass/Vol]14 mg/dL9-23[facility] HospitalTS DL <= 0.005 mIU/L QnOrdered By: Edwardo Michael on 44-47-6284BKV Qn1.82 m[IU]/L0.45-5.33[facility] HospitalTriglyceride [Mass/volume] in Serum or PlasmaOrdered By: Edwardo Michael on 78-80-9353Paohyzruxjde [Mass/Vol]121 mg/vW02-699GqnpjntlrOhiohealth Grove City Methodist HospitalComment on above:TRIG ATP III CLASSIFICATIONTRIG less than 150 mg/dL NormalTRIG 150-199 mg/dL Borderline highTRIG 200-500 mg/dL High TRIG greater than 500 mg/dL Very highStandard traceable to the Center for Disease Conrtrol and Prevention (CDC) test method.Initial Visit (Orthopaedic Surgery)on 06-91-1062Slpeeto Visit (Orthopaedic Surgery)Diagnoses/Problems Assessed Primary osteoarthritis of [...] Results/Data Xray Shoulder Bilateral, Complete, Min 2 Cekyk27Hod4900 09:58AMBenny Murry Test NameResultFlagReference Xray Shoulder Bilateral, Complete, Min 2 Views(Report) FINAL REPORT Interpreted by: BENNY MURRY MICHAEL, MD 04/27/21 10:22 Patient Name: BRANDBENNY STUDY: BILATERAL SHOULDER, CMPLT, MIN 2 VIEWS; ; 04/27/2021 9:58 am INDICATION: pain M25.511: Bilateral shoulder pain, unspecified chronicity M25.512:. ACCESSION NUMBER(S): [id number] ORDERING CLINICIAN: BENNY MURRY FINDINGS: AP axillary bilateral shoulder show moderately advanced osteoarthritic change of both shoulders inferior spurring is noted bilaterally with lqvb-kj-soct arthrosis. On the axillary view the humeral head is centered in the glenoid fossa. There is no fracture no dislocation. There is some mild calcific recovery auditor the tuberosity is bilaterally. Overall advanced osteoarthritic [...] Rahman, ; Apr 28 2021 3:22PM EST (Office Analyst/Recorder) Electronically signed by : Benny Murry MD; Apr 28 2021 3:41PM M[facility] TouchworksRadiologyon 91-58-9791KZ Shoulder - bilateral 2 [facility] HospitalNoW[facility] For [facility]icsDay[facility] Work Phone: [phone]-65 PCR ([facility])on 86-04-4072IMRM-CoV-2 (COVID- 19) RNA ZHANG+probe Ql (Unsp spec)Not detectedNormalNOT DETECTEDThe St. Francis HospitalComment on above:Result Comment: This test is not yet approved or cleared by the [place] FDA. When there are no FDA-approved or cleared tests available, and other criteria are met, FDA can make tests available under an emergency access mechanism called an Emergency Use Authorization (EUA). The EUA for this test is supported by the Homicide Squad Captain of Health and Human Service's (HHS's) declaration [...] and symptoms consistent with SARS-CoV-2.Performed By: #### [facility] #### [facility] [address] CARDIAC SCORINGon 09-68-7501TF CT CARDIAC SCORINGAddendum Begins Patient Name: BENNY [...] for cardiovascular disorders. COMPARISON: None. ACCESSION NUMBER(S): [id number] ORDERING CLINICIAN: EDWARDO MICHAEL TECHNIQUE: Using prospective [...] hernandez al. JACC 2015 (http://dx.doi.org/10.1016/j.j acc.2015.08.035) Reading Aviation Electrical Technician: Dr. Joselito Rousseau, Date: 09/19/2019 2:04 pm Electronically signed by: NICK PRESTON [facility]DL[facility] Vital Signs Date TimeVital SignValuePerforming ZctgtvdyuTqkgrogt26-70-6261 09:24-0400Body xhnema851.26 cmEdwardo Michael DO Work Phone: [phone]10-08-2025 09:24-0400 Body mass index (BMI) [Ratio]26.6 kg/h5Dngiw Kuns DO Work Phone: [phone]10-08-2025 09:24-0400 Body .7 kgBryan Kuns DO Work Phone: [phone]10-08-2025 09:24-0400 Diastolic blood mm[Hg]Edwardo Kuns DO Work Phone: [phone]10-08-2025 09:24-0400 Heart rate63 /minOtilioan Kuns DO Work Phone: [phone] [place], [place] 4847510-08-2025 09:24-0400 Respiratory rate18 /minOtilioan Kuns DO Work Phone: [phone] [place], [place] 4847510-08-2025 09:24-0400 SaO2% (BldA) [Mass fraction]99 %Edwardo Oscars DO Work Phone: [phone] [place], [place] 4847510-08-2025 09:24-0400 Systolic blood hkeukdos360 mm[Hg]Edwardo Kuns DO Work Phone: [phone]10-23-2024 09:24-0400 Body inezlk365.26 cmDO Edwardo Kuns Work Phone: [phone]10-23-2024 09:24-0400 Body mass index (BMI) [Ratio]26.6 kg/m2DO Edwardo Kuns Work Phone: [phone] [place], [place] 4550510-23-2024 09:24-0400 Body fncgsu54.64 kgDO Edwardo Kuns Work Phone: [phone]10-23-2024 09:24-0400 Diastolic blood agbaxxcg79 mm[Hg]DO Edwardo Kuns Work Phone: [phone] [place], [place] 4550510-23-2024 09:24-0400 Heart rate64 /minDO Edwardo Michael Work Phone: [facility]10-23-2024 09:24-0400 Respiratory rate16 /minDO Edwardo Michael Work Phone: [facility]10-23-2024 09:24-0400 SaO2% (BldA) [Mass fraction]96 %DO Edwardo Michael Work Phone: [facility]10-23-2024 09:24-0400 Systolic blood ncvdzukb655 mm[Hg]DO Edwardo Michael Work Phone: [facility]10-24-2023 14:15-0400 Body .26 cmEdwardo Michael Other [employer] Other 10-24-2023 14:15-0400Body mass index (BMI) [Ratio] 26.14 kg/j3CbyorEdwardo Michael Other [employer] Other 10-24-2023 14:15-0400Body elbzfb96.29 kgEdwardo Michael Other [employer] Other 10-24-2023 14:15-0400Diastolic blood mm[Hg] Edwardo John Other [employer] Other 10-24-2023 14:15-0400Respiratory rate16 /minEdwardo Michael Other [employer] Other 10-24-2023 14:15-8037WlO4% (BldA) [Mass fraction]95 % Edwardo Moorebettye Other [employer] Other 10-24-2023 14:15-0400Systolic blood kvrkzpci670 mm[Hg] Edwardo Michael Other [employer] Other 10-07-2022 09:30-0400Body yvxsem740.26 cmEdwardo Michael Other [employer] Other 10-07-2022 09:30-0400Body mass index (BMI) [Ratio] 27.02 kg/r3PkucbEdwardo Michael Other [employer] Other 10-07-2022 09:30-0400Body .01 kgEdwardo Michael Other [employer] Other 10-07-2022 09:30-0400Diastolic blood comlabyt03 mm[Hg] Edwardo Michael Other [employer] Other 10-07-2022 09:30-0400Respiratory rate16 /minEdwardo Michael Other [employer] Other 10-07-2022 09:30-2151XbW1% (BldA) [Mass fraction]98 % Edwardo Michael Other [employer] Other 10-07-2022 09:30-0400Systolic blood zqbhhilj865 mm[Hg] Edwardo Michael Other [employer] Other 10-21-2021 15:40-0400Body tcoduz991.26 cmEdwardo Michael Work Phone: [phone]-Lgkyra For OrthopedicsDayton [facility] Hospital Work Phone: [phone] 259-802910-21-2021 15:40-0400Body mass index (BMI) [Ratio] 26.58 kg/h5IxoubEdwardo Michael Work Phone: mp785-6332GB-RpdwitPoplar Springs HospitalsDayton Children's Hospital Work Phone: [phone] 15:40-0400Body surface area Derived from formula1.98 i4GrmtxEdwardo Michael Work Phone: [phone]-YrrzezPoplar Springs HospitalsDayton Children's Hospital Work Phone: [phone] 15:40-0400Body figrjo31.65 kgEdwardo Michael Work Phone: [phone]-VjljclPoplar Springs HospitalsDayton Children's Hospital Work Phone: [phone] 11:30-0400Body heightEdwardo Oscarbettye Other [employer] Other 10-06-2021 11:30-0400Body mass index (BMI) [Ratio] 27.02 kg/n0EkzwuEdwardo Michael Other [employer] Other 10-06-2021 11:30-0400Body mvicyi39.01 kgEdwardo Michael Other [employer] Other 10-06-2021 11:30-0400Diastolic blood mm[Hg] Edwardo Michael Other [employer] Other 10-06-2021 11:30-0400Respiratory rate16 /minEdwardo Michael Other [employer] Other 10-06-2021 11:30-8482NgL9% (BldA) [Mass fraction]97 % Edwardo Michael Other [employer] Other 10-06-2021 11:30-0400Systolic blood ajdyhfxp785 mm[Hg] Edwardo Michael Other [facility] Other Encounters Encounter DateEncounter TypeCare ProviderFacilityStart: 04-15-2025 End: 31-91-3979iblfqcvtpuIazpt Kuns DO Work Phone: [facility] Work Phone: Start: 04-15-2025 End: 13-26-8754Ujkxqhh encounter procedureEdwardo Kingston DO-[facility] [place] Work Phone: Start: 04-08-2025 End: 77-54-2470Cyuwxek encounter procedureEdwardo Kingston DO-[facility] [place] Work Phone: Start: 04-08-2025 End: 03-01-5486axustokesoOfhln Kuns DO Work Phone: [facility] Work Phone: Start: 03-17-2025 End: 63-80-1056vpylxvahbzQJEJ WINSLOWNot AvailableStart: 03-10-2025 End: 71-13-4065mkniyotjoaHXQVU HANSONNot AvailableStart: 03-03-2025 End: 13-61-6853nnwccxnfbsELQD WINSLOWNot AvailableStart: 02-26-2025 End: 88-70-3044ysqbnsywbsQGFDH HANSONNot AvailableStart: 02-24-2025 End: 52-01-0208ojjksjvtaoWHZAO HANSONNot AvailableStart: 02-19-2025 End: 08-04-0327xjsmtxdbsiHUXVN HANSONNot AvailableStart: 02-17-2025 End: 92-42-6918fmcmdbczwpOIJFI HANSONNot AvailableStart: 02-13-2025 End: 48-74-6935ltqismkeloYAOF WINSLOWNot AvailableStart: 01-15-2025 End: 18-25-0715Hkyoee outpatient visit 25 minutesMurphy Tesfaye PA-C Work Phone: [facility] HospitalComment on above:Low back pain, unspecified back pain laterality, unspecified chronicity, unspecified whether sciatica present (Primary Dx); Lumbar radiculopathyStart: 01-15-2025 End: 27-97-7554cajtopxbioXCLOGVCU Medical Center AmbulatoryStart: 12-31-2024 End: 95-35-4955Pygbnf outpatient new 30 minutesDominikcorie Thalia Murry MD Work Phone: [facility] HospitalComment on above:Pain of left hip; Right shoulder pain, unspecified chronicity; Tendinitis of right rotator cuffStart: 12-31-2024 End: 65-14-0635zrdvnegnxyWVWJTS M ZANOTTICleveland Clinic Fairview Hospital AmbulatoryStart: 12-16-2024 End: 20-36-7622bpxyxnuabpORULPAU A FELTERNot AvailableStart: 10-23-2024 End: 79-32-8620rtnkldyntiVLYV S BIEDENBACHNot AvailableStart: 06-20-2024 End: 31-90-9460ylpiipdkgjOZWU S BIEDENBACHNot AvailableStart: 06-17-2024 End: 18-61-7039drztebenegXNWSYON A FELTERNot AvailableStart: 06-02-2024 End: 19-19-2140rglknzdmdmYDNY S BIEDENBACHNot AvailableStart: 05-09-2024 End: 64-21-5888gpleaexlqoFIWK S BIEDENBACHNot AvailableStart: 05-08-2024 End: 67-87-1815Aphhprn encounter procedureDO Edwardo Michael Work Phone: [facility] [place] Work Phone: Start: 05-08-2024 End: 85-95-0983fqtonljfsjBK Bryan Kuns Work Phone: [facility] Work Phone: Start: 05-02-2024 End: 89-12-1565vhvtbitwhlZaxb BiedenbachFacility:[facility] Centertart: 05-02-2024 End: 29-75-6094Kwqvdswj ReferredDO Edwardo Michael Work Phone: [facility]-Lab [facility] [place] Work Phone: Start: 04-30-2024 End: 48-78-5179lsdsljshmvLG Edwardo Michael Work Phone: [facility] Work Phone: Start: 04-30-2024 End: 45-67-5578Zwwbwxz encounter procedureDO Edwardo Michael Work Phone: [facility] Work Phone: Start: 04-24-2024 End: 65-05-4851gblmmlssysSWZC S BIEDENBACHNot AvailableStart: 04-22-2024 End: 75-08-3435Puwgwap encounter procedureDO Edwardo Michael Work Phone: [facility] [place] Work Phone: Start: 04-22-2024 End: 66-34-0449ryejdvsirxFM Edwardo Michael Work Phone: [facility] Work Phone: Start: 93-37-6352Jdw-patient / Non-visitDO Edwardo Michael Work Phone: [facility] Work Phone: Start: 04-07-2024 End: 64-07-0449nbpctxqhagCVKPE A PETITTINot AvailableStart: 05-01-2023 End: 38-91-9573uzgjpmirbgEvjpf Kuns Other [place] [employer] Other Start: 83-79-5651Cljnkdi encounter procedureEdwardo Michael [facility] CastaliaStart: 04-18-2023 End: 19-18-3082kwlmlrlltlTH Edwardo Michael Work Phone: [facility] Work Phone: Start: 04-18-2023 End: 49-36-7495Ypnnkkn encounter procedureDO Edwardo Michael Work Phone: [facility] [place] Work Phone: Start: 03-21-2023 End: 74-41-1854voriscwvalYycqc Kuns Other [employer] Other Start: 26-75-5597Lfjnbbkjm encounterBrydae MichaelG [facility] [place]Start: 01-10-2023 End: 04-97-8276qscbhstsvrNtnob Kuns Other [employer] Other Start: 45-32-2670Wvivxvplg encounterBrydae MichaelFPG [facility] CastaliaStart: 06-05-2022 End: 05-46-4426mdegobvzebPbruy Kuns Other [facility] [employer] Other Start: 41-98-6030Gvhtqdvck encounterBrydae MichaelFP[facility] CastaliaStart: 04-14-2022 End: 74-53-5210atjpgtkpkyYwuvw Kuns Other [facility] [employer] Other Start: 19-94-4579Mvynrup encounter procedureEdwardo Michael [facility] Family Medicine [place]Start: 04-06-2022 End: 97-26-1315nrsnqnbccpYZ Edwardo Michael Work Phone: [facility] Work Phone: Start: 04-06-2022 End: 50-82-8964Ickawcx encounter procedureDO Edwardo Michael Work Phone: [facility]-Lab CastaliaStart: 03-07-2022 End: 61-19-4115nbincrqxycFbhui Kuns Other [employer] Other Start: 40-12-0536Dzbfedjll encounterBrydae ReyG [facility] [place]Start: 12-27-2021 End: 38-25-3958fektfpzuiuIpxys Kuns Other [employer] Other Start: 74-27-9996Wodprizup encounterBrydae ReyG [facility] CastaliaStart: 30-48-1826Ppjmvmv encounter procedureEdwardo Michael Work Phone: [phone]-Xtodhk For OrthopedicsDayton [facility] Work Phone: Start: 04-26-2021 End: 52-38-8989tptwosfduoGP EDWARDO MICHAELFacility:W0Vktzq: 33-32-3697Evnyoowes encounterEdwardo MooreLisaG [facility] Medicine CastaliaStart: 36-49-3292Biulqc wellness visitEdwardo Michael Other [place] [employer] Other Start: 08-47-2415Fqjhhzivx for general adult medical examination without abnormal findingsEdwardo MoorebettyeG [facility] [place] Start: 31-17-9567Obbdkak encounter procedureEdwardo CandidoG [facility] CastaliaStart: 44-48-6782Tviiuqyts encounterEdwardo CandidoG [facility] CastaliaStart: 45-61-0176Tduzkkj encounter procedureEdwardo Michael Other [place] [employer] Other Procedures DateProcedureProcedure DetailPerforming ClinicianStart: 59-91-3665Ejdkycjbvibiam aspir&/inj major jt/bursa w/o Delfina Murry MD Work Phone: Start: 23-51-7915HD angiography of headDO Edwardo Michael Work Phone: Screening for malignant neoplasm of prostateEdwardo Michael Other Plan of Treatment DateCare ActivityDetailAuthorStart: 03-87-2942LIiO/Tdap/Td Vaccines (3 - Td or Tdap)DTaP/Tdap/Td Vaccines (3 - Td or Tdap)[facility] Start: 41-72-7562SQgR/Tdap/Td Vaccines (4 - Td or Tdap)DTaP/Tdap/Td Vaccines (4 - Td or Tdap)[facility]: 43-81-5768KQY High Risk: (Elderly (60+) or Population) (1 - 1-dose 75+ series)RSV High Risk: (Elderly (60+) or Population) (1 - 1-dose 75+ series)[facility]: 06-26-1693Yhnhiiqfv for malignant neoplasm of colon [facility]: 9847Sbeumjzmd vaccinationInfluenza Vaccine (#1)[facility]: 02-23-2025 End: 66-40-7230Asljhvt encounter igvmitulg02/18/2025 1:15 PM EDT Office Visit [address] [address] Murphy Tesfaye PA-C [facility] [address] [facility]: 01-15-2025 End: 68-05-8224YP Lumbar spine Views W flexion and W extensionALTA [facility]IST[facility] Service Area Work Phone: Comment on above:Expected: 01/15/2025, Expires: 01/15/2026Start: 44-23-0311TMPNF-19 Vaccine ( season)COVID-19 Vaccine ( season)[facility]: 82-68-9498Srwrflzhi C screeningHepatitis C ScreeningUnTrinity Health System East Campus: 72-99-5281Hpszj panelLipid PanelUnTrinity Health System East Campus: 06-15-1956Medicare Annual Wellness VisitMedicare Annual Wellness Visit (AWV) [facility]: 76-54-4144Xzqyruplw for malignant neoplasm of colonUnTrinity Health System East Campus: 91-17-9429Qnus Cancer ScreeningSkin Cancer ScreeningUniversity Hospitals of ClevelandStart: 1955 Yearly Adult PhysicalYearly Adult PhysicalUnUniversity Hospitals [facility] Medical Center Comprehensive metabolic 1999 panel - Serum or PlasmaOhiohealth Grove City Methodist HospitalComprehensive metabolic 1999 panel - Serum or [facility] HospitalCT angiography of headH[facility] Immunizations Immunization DateImmunizationNotesCare GaxuoywuGjywbxbt52-41-8676Hlybhgnylhke Conjugate Vaccine, 20 valentEdwardo Michael DO Work Phone: [facility]10-03-2024influenza, high dose seasonal, preservative-freeDO Edwardo Micheal Work Phone: [facility]10-03-2024influenza virus vaccine, unspecified formulationMurphy Tesfaye PA-C Work Phone: [facility] Work Phone: [phone] toxoid, reduced diphtheria toxoid, and acellular pertussis vaccine, adsorbedEdwardo Michael Other [facility]10-24-2023influenza, injectable, quadrivalent, preservative freeEdwardo Michael Other [facility]10-11-2023Flu Shot - Documentation Purposes OnlyEdwardo Michael Other [facility]10-11-2023Fluzone QIV High-Dose 65YR+DO Edwardo Michael Work Phone: [facility]10-07-2022influenza virus vaccine, unspecified formulationDO Edwardo Michael Work Phone: [facility]10-07-2022influenza, high dose seasonal, preservative-freeEdwardo Michael Other [facility]12-02-2021COVID-19 Vaccine Moderna - Documentation Purposes OnlyBryan Kuns Other [facility]10-01-2021Fluad Quadrivalent 0.5 ML Intramuscular Prefilled SyringeBryan P Kuns Work Phone: [facility]08-04-2021 pneumococcal conjugate vaccine, 13 valentBryan P Kuns Work Phone: [facility]04-19-2021Moderna COVID-19 Vaccine 100 MCG/0.5ML Intramuscular SuspensionBryan P Kuns Work Phone: [facility]03-16-2021Moderna COVID-19 Vaccine 100 MCG/0.5ML Intramuscular SuspensionBryan P Kuns Work Phone: [facility]08-20-2020influenza, seasonal, injectableBryan Kuns Other [facility]12-12-2019zoster vaccine recombinantBryan P Kuns Work Phone: [facility]09-24-2019influenza, injectable, quadrivalent, preservative freeBryan P Kuns Work Phone: [facility]09-24-2019zoster vaccine recombinantBryan P Kuns Work Phone: [facility]09-24-2019influenza, seasonal, injectableBryan Kuns Other [facility]01-09-2019Influenza, injectable, Madin Mira Canine Kidney, preservative free, quadrivalentBryan P Kuns Work Phone: [facility]01-09-2019 pneumococcal polysaccharide vaccine, 23 valentBryan P Kuns Work Phone: [facility]01-09-2019influenza, seasonal, injectableBryan Kuns Other [facility]07-17-2018Kenalog -40 mgBryan Kuns Other [place] [employer] Other 065419-56-3941etdbykj toxoid, reduced diphtheria toxoid, and acellular pertussis vaccine, adsorbedOtiliodae John DO Work Phone: [facility]01-02-2013tetanus and diphtheria toxoids, adsorbed, preservative free, for adult use (5 Lf of tetanus toxoid and 2 Lf of diphtheria toxoid)DO Edwardo Michael Work Phone: [facility]01-02-2013tetanus toxoid, reduced diphtheria toxoid, and acellular pertussis vaccine, adsorbed Edwardo Michael Work Phone: [facility] Payers DatePayer CategoryPayerPolicy [id number] Health InsuranceGENERIC COMMERCIAL [id number]-cad [id number] 2.16.840.1.05660[id number] 2021MedicareMEDICARE PART A AND B .[id number] [id number] [id number] 2.16840.1.763656.3.57[id number] 2.16840.1.500289.3.57[id number] 2.16840.1.772677.3.57[id number] 2.840.1.181904.3.57[id number] 2.16840.1.325718.3.57[id number] 2.16840.1.598578.3.57[id number] 2.16840.1.058155.3.579.2.9[id number] 2.16840.1.549509.3.579.[id number] 2.16840.1.314670.3.57[id number] 2.16.840.1.856193.3.579.[id number] 2.16840.1.425676.3.579.2.5[id number] 2.16840.1.762505.3.579.2.[id number] 2.16.840.1.712381.3.57[id number] 2.16.840.1.374940.3.579.[id number] 2.16.840.1.958408.3.579.2.614362-46-6064Atzabgd7779683 2..840.1.777735.3.579.2.406304-18-8525Twqbxac5124409 2..840.1.454241.3.579.2.409521-03-8875Myjnnds9705496 2..840.1.246389.3.579.2.840361-75-8258Lrmstnd0621821 2..0.1.692779.3.579.2.970622-98-8563Opujfjh5472680 2..0.1.698630.3.579.2.879276-77-8478Kcpdgmm3045378 2..840.1.523899.3.579.2.056747-55-6745Lwdovap3514535 2.16.840.1.793794.3.579.2.[id number] 245y1gw6-mk6i-1xye-vt8x-o6r47vz2awa9NydtowuEiykayajm [id number] e1121317-3k99-8222-[id number] 2.16.840.1.00733[id number] 2.16.840.1.448907.3.579.2.531 [id number] 2.16.840.1.0121[id number] 2.16.840.1.275652.3.579.2.709Uqrogyv15430232 2.16.840.1.232257.3.579.2.531 Social History DateTypeDetailFacilityUnknown if ever smokedAtchison [employer] [facility] Other [facility] Assigned At [facility] Other Start: 06-41-3101Ytm [facility]: 08-12-2018 End: 18-11-3813Rwbdtra smoking status NHISNever smoked tobacco (finding) [facility] HospitalTobacc smoking status NHISTobacco smoking consumption unknownUnUniversity Hospitals Geaug[facility] Medical Center Work Phone: Start: 42-63-2971Vcq [facility]Not on file [facility] Work Phone: SexMale (finding)[facility] Clinical Notes 08-12-2009 to 01-15-2025 Note Date & QzruPiymWnectwih50-76-6927 History of Present illness Narrative* Murphy Tesfaye [...] pain. Murphy Tesfaye PA-C documented in this [facility] Work Phone: 1(636) 470-949106-25-2025 History of Present illness Narrative* Benny Murry [...] X-rays AP x-rays show severe shoulder osteoarthritis odtr-oo-uoel arthrosis Right hip shows moderate arthritic change [...] called to verify the correctpatient, procedure, equipment, application support manager and site/side marked as required. documented in this encounterUnUniversity Hospitals Geauga Medical Center Work Phone: 1(612) 811-460506-25-2025 Miscellaneous Notes* Addendum Note - Ani Szymanski MA - 12/31/2024 2:30 PM EDTAddended by: ANI SZYMANSKI on: 12/31/2024 02:57 PM Modules accepted: Orders documented in this encounterUnUniversity Hospitals Geauga Medical Center Work Phone: 1(992) 960-788706-25-2025 Note* Addendum Note - Ani Szymanski MA - 12/31/2024 2:30 PM EDTAddended by: ANI SZYMANSKI on: 12/31/2024 02:57 PM Modules accepted: Orders [facility] Work Phone: 1(986) 662-368810-23-2024 Evaluation note* Author Fatoumata Coy [facility] HospitalAuthoredOctober 2023 9:31amThe above note written by DEREK Moreno acting as human recorder, note dictated by Dr. Edwardo Michael. [facility] Work Phone: 1(743) 585-499110-24-2023 Evaluation note* Encounter Date Diagnosis Assessment Notes [...] He is to call if symptoms worsen. [facility] Other 09-13-2023 Evaluation note* Encounter Date Diagnosis Assessment Notes Treatment Notes Treatment Clinical Notes Mar, Thyroid nodule (ICD-10 - E04.1) [facility] Other 07-05-2023 Evaluation note* Encounter Date Diagnosis Assessment Notes Treatment Notes Treatment Clinical Notes Jan, Hyperlipidemia (ICD-10 - E78.5) Jan,Screening for prostate cancer (ICD-10 - Z12.5) Jan,Vitamin D deficiency (ICD-10 - E55.9) [facility] Other 10-07-2022 Evaluation note* Encounter Date Diagnosis [...] improved from 209 to181 and LDL improved trqp136 to124. Per patient he started taking Zetia [...] medication and we will continue to monitor. [facility] Other 08-30-2022 Evaluation note* Encounter Date Diagnosis Assessment Notes Treatment Notes Treatment Clinical Notes Feb, Hyperlipidemia (ICD-10 - E78.5) Feb,creening for prostate cancer (ICD-10 - Z12.5) Feb,Vitamin D deficiency (ICD-10 - E55.9) [facility] Other 06-21-2022 Evaluation note* Encounter Date Diagnosis Assessment Notes Treatment Notes Treatment Clinical Notes Dec, Hyperlipidemia (ICD-10 - E78.5) Dec,Erectile dysfunction (ICD-10 - N52.9) [facility] Other 10-15-2021 Evaluation note* Encounter Date Diagnosis Assessment Notes Treatment Notes Treatment Clinical Notes Apr, Screening for viral disease (ICD -10 - Z11.59) [facility] Other 10-06-2021 Evaluation note* Encounter Date Diagnosis [...] to Medicare preventive visit (ICD-10 - Z00.00) [facility] Other 10-21-2011 History of Present illness NarrativePatient is new to us today, meaning he has not been here in three years but he actually had injections ten years ago.-[place] [facility] Work Phone: 1(586) 255-175902-04-2010 History general Narrative - Reported* Type Description Date Medical History 2007 psa level 0.652 Medical Ifkpkke9090 colonoscopy doneMedical Rwlftnv4579 stress test doneMedical Uphgkxf5-8-12; lipid panel, cmpMedical Rnvqcbz3-46-85; lipid panel, cmp, cbc, t4, tsh, testosterone, psa (0.909)Medical HistoryBloodwork 05-19-11; lipid panel, cmp, cbc, t4, tsh, hgb a1c (5.5), psa with reflex to free psa (0.668) Medical HistoryCarotid/PVR Screening ( 08-[place]-14 [place] [facility]Medical Historythyroid nodule-follows with Dr. RaiMedical History09/15/15 LabsMedical History CholesterolMedical Jcrkpgw85/19/19 PSA ( 0.7)Surgical Historytonsillectomy and adenoidectomy [facility] Other 02-04-2010 History general Narrative - Reported* Type Description Date Medical History 2007 psa level 0.652 Medical Tothtjm2711 colonoscopy doneMedical Stjtwpr8125 stress test doneMedical Lwzxlrl6-9-43; lipid panel, cmpMedical Rddudpy1-39-10; lipid panel, cmp, cbc, t4, tsh, testosterone, psa (0.909)Medical HistoryBloodwork 05-19-11; lipid panel, cmp, cbc, t4, tsh, hgb a1c (5.5), psa with reflex to free psa (0.668) Medical HistoryCarotid/PVR Screening ( 08-15-14 @ [facility] [place]Medical Historythyroid nodule-follows with Dr. RaiMedical History09/15/15 LabsMedical History CholesterolMedical Ryuvenr65/19/19 PSA ( 0.7)Medical Zqzcdsq2204/06/2022 PSA (0.460)Surgical Historytonsillectomy and adenoidectomy [facility] Other Evaluation noteNo InformationNortWest Penn Hospital [facility] Other Evaluation noteNo assessment information available [facility] Work Phone: Evaluation note* Author Fatoumata Coy [facility] HospitalAuthoredOctmiddlesboro [facility] hospital 2023 9:31amThe above note written by DEREK Moreno acting as human recorder, note dictated by Dr. Edwardo Michael. [facility] Work Phone: Evaluation note* Diagnosis Pain of left hip Right shoulder pain, unspecified chronicity Tendinitis of right rotator cuff Right shoulder pain, unspecified chronicity Pain of left hip documented in this encounter [facility] Work Phone: Evaluation note* Diagnosis Low back pain, unspecified back pain laterality, unspecified chronicity, unspecified whether sciatica present- Primary Lumbar radiculopathy Thoracic or lumbosacral neuritis or radiculitis, unspecified documented in this encounter [facility] Work Phone: Reason for referral (narrative)No reason for referral information availableTrihealth [facility] Work Phone: Summary Purpose Family History No [...] section and content) DATE CREATED AUTHOR 09/22/2019 [facility] DATE CREATED AUTHOR AUTHOR'S ORGANIZ ATION 04/30/2021 [employer] DATE CREATED AUTHOR AUTHOR'S ORGANIZ ATION 05/03/[address] [facility] DATE CREATED AUTHOR AUTHOR'S ORGANIZ ATION 01/20/2025 [facility] DATE CREATED AUTHOR AUTHOR'S ORGANIZ ATION 03/19/2025 [facility] EPIC DATE CREATED AUTHOR AUTHOR'S ORGANIZ ATION 04/18/2025 [facility] REASON FOR VISIT (unrecogniz [...] Lee Ann Yuan , MDSpecialistActiveEdwardo Michael , DOPriencompass health rehabilitation hospital of montgomeryy Care ProviderActive Team Status: Inactive Member Role [...] General09/19/19Team MemberRelationshipSpecialtyStart DateEnd Date Edwardo Michael DO [address] [place] [id number] PCP - General09/19/19 Team Status: Inactive Member [...] BE BASED ON THE PRIMARY CLINICAL RECORDS. [facility] [employer] [facility]. provides no warranty or guarantee of the accuracy or completeness of information in this document.
--- OUTSIDE RECORDS SUMMARY | 2025-06-03 08:13 | XMS_ITS | Patient Health Record ---
Author Organization [facility] in [place] Address [address] [place] [address] Care Team Providers Care Beef Ribber Name Role Phone Edwardo Lopez DO Primary Care Provider Unavailabl e Allergies No Known Allergies Reason For Referral No Information Medications Medication SIG (Take, Route, Frequency, Duration) Notes Start Date End Date Status Aspirin 81 MG 1 capsule Orally Once a day ActiveMeloxicam 15 MG 1 tablet Orally Once a day; Duration: 30 days 1 tab daily x 2 weeks, then 1 tab daily prn pain 4Active Problems Problem Type SNOMED Code ICD Code Onset Dates Problem Status W/U Status Risk Notes Problem Arthralgia of the ankle and/or f oot (708930361) Right ankle pain (M25.571) Activeconfirmed Plan Of Treatment Pending Test Test Name Order Date XR Ankle RT (3 views) * (161) 02/11/2024 XR ankle RT min 3V 02/13/2024 Insurance Providers Payer Name Payer Address Payer Phone Subscriber Number Group Number Insured Name Patient Relationship to Insured Coverage Start Date Coverage End Date [place]IC[place] [address] [place] [address] [id number] Ronald Brand - [facility] [address] [place] [phone] Ronald Gaffney - patient is the insured
--- OUTSIDE RECORDS SUMMARY | 2025-06-03 08:14 | XMS_ITS | Clinical Summary ---
Author Organization [facility] Address [address] [place] [address] Care Team Providers Care Adjunct Faculty Mathematics Department Name Role Phone Lee Ann Gupta MD Unavailable [phone] Dougie Marshall DO Unavailable [phone] Edwardo Lopez DO Primary Care Provider [phone] Allergies No known active allergies Medications MedicationSigDispense [...] Active Problems ProblemNoted DateDiagnosed DateLumbar and sacral wfxiwgryo18/08/2025Left hip pain02/13/2025Pain in right ankle and joints of right foot10/23/2024 Resolved Problems ProblemNoted DateDiagnosed DateResolved DateActinic nawdtjuci51/31/2024 05/08/20242597Qmhiilugjklrs65Medicare annual wellness visit, ndpguvlqmf61Skin dxdagwpbq57Stroke-like /6776Plkgvqp78Hyperlipidemia04/23/2024 04/23/2024rimary osteoarthritis of right kneeVitamin D nrifkzzwxs39 Encounters DateTypeDepartmentCare GjtdTrhqvenidyd56/09/2025 12:30 PM EDTTreatment [facility] [address] [place] [address] Lawrence Armstrong, PT Lumbar and sacral arthritis (Primary Dx); Left hip pain03/17/2025amboo flowsheet [facility] [address] [place] [address] Lawrence Armstrong, PT 03/17/20259679Zqtvek17/02/2025 12:30 PM EDTTreatment [facility] [address] [place] [address] Guero Padilla, PROFESSIONAL NURSING ASSISTANT Lumbar and sacral arthritis (Primary Dx); Left hip pain03/10/2025amboo flowsheet [facility] [address] [place] [address] Guero Padilla, PROFESSIONAL NURSING ASSISTANT 03/10/20256679Kujbtg35/26/2025 12:30 PM EDTTreatment [facility] [address] [place] [address] Lawrence Armstrong, PT Lumbar and sacral arthritis (Primary Dx); Left hip pain03/03/2025amboo flowsheet [facility] [address] [place] [address] Lawrence Armstrong, PT 03/03/2025Travelfrom Last 3 Months Immunizations ImmunizationAdministration DatesNext DueInfluenza, High Dose Seasonal, Preservative Free04/10/2024,04/14/2022Influenza, High-dose Seasonal, Quadrivalent, Preservative Free04/18/2023Influenza, Seasonal, Quadrivalent, Csouichgxm83/01/2021Influenza, injectable, MDCK, preservative free, quadrivalent 07/17/2018Influenza, injectable, quadrivalent, preservative free05/01/2023, 04/01/2019Influenza, seasonal, alrntowzlh56/20/2020Pneumococcal Conjugate PCV 13 1Pneumococcal Conjugate PCV Pneumococcal Polysaccharide MIPV3784Td (adult), 5 Lf tetanus toxoid, preservative free, adsorbed 07/10/2012Tdap1,07/10/2012Zoster, Sujmbzajydc70/12/2019,04/01/2019 Social History Tobacco UseTypesPacks/DayYears UsedDateSmoking Tobacco: NeverSmokeless Tobacco: Never Tobacco Cessation:Counseling Given: Not Answered Alcohol UseStandard Drinks/WeekCommentsNot Currently0 (1 standard drink = 0.6 oz pure alcohol)Sex and Gender InformationValueDate RecordedSex Assigned at Not on fileLegal TzmMopm0709/20/2022 7:19 PM EDTGender IdentityChoose not to drajhkfc40/22/2023 3:10 PM EDTSexual OrientationChoose not to /22/2023 3:10 PM EDT Last Filed Vital Signs Vital SignReadingTime TakenCommentsBlood Pressure--Pulse--Temperature-- Respiratory Rate--Oxygen Saturation--Inhaled Oxygen Concentration--Pahjqk35.4 kg (175 lb)10/23/2024 2:43 PM DBQHppift215.7 cm (5' 8 )10/23/2024 2:43 PM EDTBody Mass Index26.61010/23/2024 2:43 PM EDT Plan of Treatment DateTypeDepartmentCare Team (Latest Contact Info)Yztkuevyswm61/11/2026 10:50 AM EDTOffice Visit [facility] [address] [place] [address] Concha García, NOISE ABATEMENT ENGINEER-PRODUCTION CONTROL PLANNER [address] [place] [address] Health MaintenanceDue DateLast DoneCommentsCT Jvtfkpbbaszx68/15/1956olonoscopy 1955 3078Zjhbotordvycn71/15/6686PIZ48, 02/10/2019FOBT COVID-19 Vaccine ( season)/08/2020, 10/25/2020, 09/21/2020Influenza Vaccine (#1)/09/2023, 05/01/2023, 04/18/2023, Additional history existsColorectal Cancer Lzpxirbes22/10/2027 FIT-DNA, 07/12/2020neumococcal Vaccine: 65+ YearsCompleted 08/12/2024, 02/09/2021, 07/17/2018 Insurance Care Teams Team MemberRelationshipSpecialtyStart DateEnd Date Edwardo Lopez DO [address] [place] [address] [facility] - General10/21/24 Lee Ann Gupta MD [address] [place] [address] [id number] Referring IlbahjectMvyzmqvkkpl52/11/24 Dougie Marshall DO [address] [place] [address] Rmodqnmtrcmyfi64/17/24
--- OUTSIDE RECORDS SUMMARY | 2025-06-03 08:14 | XMS_ITS | Clinical Summary ---
Author Organization [employer] Address [id number] [place] [address] Care Team Providers Care Crawler Crane Operator Name Role Phone No Pcp, No Pcp Primary Care Provider Unavailabl e Social History Tobacco UseTypesPacks/DayYears UsedDateSmoking Tobacco: Never AssessedChildcare AnswerDate NzjalorrPizskpoacHriohvm32/12/2019EmploymentAnswerDate Recorded TkiieqibyiPfwlxtp51/12/2019Purpose - LifeAnswerDate RecordedPurpose and direction in qtouVgzlahn49/11/2021ex and Gender InformationValueDate Recorded Sex Assigned at BirthNot on fileLegal NkhRfvc0002/11/2015 11:35 AM EDTGender IdentityNot on fileSexual OrientationNot on file Plan of Treatment Not on file Medical Devices Not on file Insurance Care Teams Team MemberRelationshipSpecialtyStart DateEnd Date No Pcp, [place] [address] [facility]
--- OUTSIDE RECORDS SUMMARY | 2025-06-03 08:14 | XMS_ITS | Clinical Summary ---
Author Organization [facility] Address [address] [place] [address] Phone Care Team Providers Care Range Ecologist Name Role Phone John Edwardo Vashti CASTRO Primary Care Provider Allergies No known active allergies Medications MedicationSigDispense QuantityRefillsLast FilledStart DateEnd DateStatus predniSONE (Deltasone) 10 mg tablet Indications:Right shoulder pain, unspecified chronicity,Tendinitis of right rotator fsxq17AF FOR 2 DAYS, 40MG FOR 2 DAYS, 30MG FOR 2 DAYS, 20MG FOR 2 DAYS, 10MG FOR 2 DAYS 30 tablet 5Active Social History Tobacco UseTypesPacks/DayYears UsedDateSmoking Tobacco: Never AssessedSex and Gender InformationValueDate RecordedSex Assigned at BirthNot on fileLegal Sex Male06/03/2022 1:02 AM ESTGender IdentityNot on fileSexual OrientationNot on file Last Filed Vital Signs Vital SignReadingTime TakenCommentsBlood Pressure--Pulse--Temperature-- Respiratory Rate--Oxygen Saturation--Inhaled Oxygen Concentration--Bjtliz17.6 kg (180 lb)04/28/2021 3:40 PM YSXPbbubc135.3 cm (5' 9 )04/28/2021 3:40 PM EDTBody Mass Index26.5804/28/2021 3:40 PM EDT Plan of Treatment Health MaintenanceDue DateLast DoneCommentsCT Jqmrvrkpfppn59/15/1956olonoscopy 1955FIT1955Lipid Panel1955Medicare Annual Wellness Visit (AWV) 1955 1556Fbzywxmzwtnpx07/15/1956MMR Vaccines (1 of 1 - Standard series) 12/21/1956Hepatitis C Fvezzshin45/15/1974PSA Prostate Cancer Wxequnsdp46/15/2006 Influenza Vaccine (#1)/09/2023, 05/01/2023, 04/18/2023, Additional history existsCOVID-19 Vaccine (4 - season)/08/2020, 10/25/2020, 09/21/2020olorectal Cancer Vzuphywlk78/10/2027FIT-DNA (Cologuard) /04/2024, 07/12/2020SV High Risk: (Elderly (60+) or Population) (1 - 1-dose 75+ series)1DTaP/Tdap/Td Vaccines (4 - Td or Tdap)31, 05/11/2016, 07/10/2012, Additional history exists Zoster XlnosgwiSyymoarua80/12/2019, 04/01/2019Pneumococcal VaccineCompleted 08/12/2024, 02/09/2021, 07/17/2018HIB VaccinesAged OutNo [...] (Effective 2024-Present)Name:BENNY BRAND Relation to Subscriber:SelfName:BrandBenny Payer ID:[id number] Group ID:[id number] Type:Not on file Address: [address] [place] [id number] Care Teams Team MemberRelationshipSpecialtyStart DateEnd Date Edwardo Lopez DO [address] [place] [address] [facility]09/19/19
--- NOTE | 2025-06-03 08:32 | P.CN_ITS ---
Consult Note: HPI Data of Consult Patient: known to practice within the last 3 years Consult date: 06/03/25 Requesting Physician: Bertha Monsivais NP Primary Care Provider: Edwardo Lopez DO Consult Narrative Reason for consult: low back, left hip and buttock pain Narrative: 69yom who presents for evaluation. worsening low back, left buttocks, left hip, occasional left leg pain that has progressed. will have periodic flares that bring his pain to 10/10. very active and has had increasing difficulty completing tasks at home. lumbar xr shows multilevel degenerative changes, listhesis of l4 on 5. lumbar mri with results below. continues in chiropractic therapy >6 weeks. uses ice, stretching, occasional ibuprofen. since last visit he underwent a left L4-5 L5-S1 TFESI with >80% improvement in his pain and functional ability ongoing. He notes pain 0/10 increasing to 1/10 post injection. Notes he was able to drive to [place] and play 14 baseball games without pain. cc:: CC: Bertha Monsivais NP Review of Systems ROS Musculoskeletal Reports: back pain and joint pain PFSH PFSH Surgical History History of tonsillectomy and adenoidectomy ?Z90.89 - Acquired absence of other organs (ICD-10) Meds Home Medications and Allergies Home Medications ?Medication ?Instructions ?Recorded ?Confirmed ?Type ezetimibe 10 mg tablet (Zetia) 10 mg PO DAILY 04/27/25 05/11/25 History aspirin 81 mg capsule 81 mg PO DAILY 05/11/2509/30 History calcium phosphate,dibasic 77 tab PO 05/11/25 History mg-vitamin D3 400 unit tablet Allergies Allergy/AdvReac Type Severity Reaction Status Date / Time No Known Drug Allergies Allergy Verified 05/11/25 09:34 Exam Constitutional Documenting provider has reviewed patient's vital signs: yes Common normals: no apparent distress, oriented x3 and alert General appearance: cooperative HENMT Common normals: normocephalic, hearing grossly normal bilaterally and moist oral mucous membranes Head and scalp: normocephalic Eye Common normals: PERRL Pupil: PERRL Neck & C-Spine Common normals: full ROM General: normal visual inspection Chest Common normals: inspection of chest normal Respiratory Common normals: normal respiratory effort, no retractions and no use of accessory muscles Back & Pelvis Lumbar spine/lower back: pain with ROM; ROM not limited, no lumbar spinal tenderness and no paraspinal muscle tenderness Sacroiliac joints: SI joint(s) abnormal Other: mildly positive left positive claudia(patricks), gaenslens, thigh thrust, compression test mild pain over left GTB Neuro Common normals: oriented x3 Sensorium/orientation: alert Psych Common normals: mental status grossly normal, thought process normal, cooperative, affect normal, speech normal and activity/motor behavior normal Speech: normal speech Thought process: normal thought process Results Imaging lumbar MRI: Attestation: I have reviewed the pertinent imaging results. Radiologist's impression: Lumbar vertebral body heights are maintained. There is moderate levocurvature of the lumbar spine. There is mild dextrocurvature upper lumbar spine. Multilevel degenerative endplate changes L3-L5 noted Modic type II at L3-4 and Modic type I L4-5. Hemangioma involving the L2 vertebral body noted. Additionally Modic type I changes L1-L2. The conus medullaris terminates normally at L1-L2. Multilevel overall moderate disc space narrowing L2-L4 and hodv-kt-fnajehog disc space narrowing at L5-S1. T12-L1: Facet arthropathy. No significant disease is canal neural foramen identified. L1-2: Broad-based disc bulge with left extraforaminal zone protrusion and associated T2 hyperintense signal suggestive fissure. Facet arthropathy, moderate. There is minor right-sided moderate left-sided neural foraminal narrowing. Mild central canal stenosis. There is mild predominantly left-sided subarticular recess narrowing. L2-L3: Circumferential disc bulge with moderate severe right moderate left facet arthropathy. Severe right subarticular recess narrowing and moderate left subarticular recess narrowing, correlate with right L3 radiculopathy. Additionally, there is moderate to severe right neural foraminal narrowing and moderate left neural from narrowing. L3-4: Circumferential disc bulge with moderate severe right and moderate left facet arthropathy this causes severe right subarticular recess narrowing, correlate with right L4 radiculopathy.. There is moderate severe right neural foraminal narrowing and encroachment upon the exiting right L3 nerve root. The canal moderately narrowed. Left foramen mild to moderately narrowed. Possible nerve root sheath diverticula left measuring 6 mm in size L4-5: Circumferential disc bulge with moderate severe facet arthropathy. Moderate severe right moderate left subarticular recess narrowing. There is moderate central stenosis. There is a synovial cyst arising from the left facet joints roughly 3 mm in size without definite mass effect otherwise moderate severe right and moderate left neural from narrowing. L5-S1: Circumferential disc bulge with left foraminal zone fissure noted. Moderate facet arthropathy and spurring. There is mild right-sided and hyorfziw-uu-wlpcdb left-sided neural foraminal narrowing. Canal is patent. Additional Findings Additional findings: If on a controlled substance or opioids, I have checked an [place]AR[place] report on this patient and there are no aberrancies noted in the prescribing history.??If on a controlled substance or opioid a drug screen was completed and reviewed within the last year, and if there has not been a drug screen completed we ordered one today to monitor higher risk, state monitored pain medication use. As part of providing excellent, safe, comprehensive care, the following was completed at our patient's visit: 1. A medication reconciliation and review to ensure accurate knowledge of current/active medications, including asking our patients to inform us about any soxv-kfa-peavqsd medications or herbal remedies/nutritional supplements/alternative remedies. 2. A review to specifically ensure our patients have had annual screening for screening for depression, screening for tobacco use, and screening for unhealthy alcohol use. For concerning screenings had a discussion with the patient, provided patient education, and recommended follow-up with primary care provider when appropriate. If patient noted with a risk of falling, they received education on strength, gait, and balance training to prevent future risk of falling. Portions of this note may have been carried over from the previous visit and updated as appropriate. Please note this office utilizes paper charting in addition to the electronic medical record. A list of current medications, vitals, and PMH is available there as the clinical staff outside of myself do not have access to [facility] charting during the clinic day operations. As part of providing quality comprehensive care the current medications, vitals, and PMH were reviewed in the paper chart. Assessment and Plan Assessment and Plan (1) Lumbar stenosis with neurogenic claudication: (2) Sacroiliitis: Plan The patient has had over 3 months of moderate to severe low back and LLE pain with functional impairment and inadequate response to conservative care including NSAIDS (unless there are contraindication such as concurrent blood thinners), multiple oral or topical pain medications, and home exercise program/physical therapy.? Patient has completed >6 weeks of guided home exercise program and/or formal physical therapy program without relief of their symptoms.? I have reviewed the imaging of the lumbosacral spine and no red flags were identified.? The Oswestry Disability Index was completed, and the patient scored a 16%.? pain well controlled at this time. defer left SIJ injection as pain is well controlled at this time. continue HEP as tolerated. defer medication management. f/u 3 months, sooner if needed?
== END 2025-06-03 08:11 | disposition home or self-care (01) ==
LOC: PM 08:10
PROVIDERS: PCP Family Medicine; Visit Provider Nurse Practitioner
DX: M48.062 Spinal stenosis, lumbar region with neurogenic claudication (principal); M46.1 Sacroiliitis, not elsewhere classified
CPT/HCPCS: G0463